=== PATIENT | male | born 1930 | race Caucasian/White ===

== ENCOUNTER 2016-11-30 04:20 | Inpatient (IN) | payer MEDICARE, OTHER ==
[~2016-11-30] VITALS: Ht 177.8 cm; Wt 57.8 kg
--- NOTE | 2016-11-30 14:26 | Physical Therapy Evaluation ---
PT Evaluation-General Medical Diagnosis Admission Date November 30, 2016 Medical Diagnosis: ischemic CVA Onset Date: Nov 21, 2016 Therapy Diagnosis Therapy Diagnosis: generalized weakness and debility Precautions Precautions/Isolations: Fall Prevention, Standard Precautions Referral Physician: Andrea Reason for Referral: Evaluation/Treatment Medical History Pertinent Medical History: Atrial Fib, CABG, CAD Additional Medical History laryngeal cancer; cardiac defib. 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 No c/o at this time. Pain Numeric Pain Scale: 0-No Pain Location: No Pain Reported Objective Patient Orientation: Normal For Age Problem Solving: Fair Attachments: Abraham Catheter ROM/Strength ROM Lower Extremities bilateral LE WFL Strenght Lower Extremities right knee flexion/extension 4+/5; hip flexion 4+/5; ankle dorsi/plantarflexion 4+/5 left knee flexion/extension 4+/5; hip flexion 4+/5; ankle dorsi/plantarflexion 4 +/5 Integumentary/Posture Integumentary refer to nursing notes Bladder Incontinence: Abraham Cath Posture slightly kyphotic Neuromuscular (Tone, Coordination, Reflexes) grossly intact with all Sensory Vision: Functional Hearing: Functional Sensation Right Lower Extremit: Intact Sensation Left Lower Extremity: Intact Transfers Functional [place] Measure 0=Not Assessed/NA 4=Minimal Assistance 1=Total Assistance 5=Supervision or Setup 2=Maximal Assistance 6=Modified [place] 3=Moderate Assistance 7=Complete IndependenceIRFPAI Quality Coding Scale 6 Independent with activity with or without an assistive device 5 Patient requires set up or clean up by helper. Patient completes activity by themselves 4 Supervision or touching assist (CGA). [place] provide cues , steadying assist 3 The helper provides less than half the effort to complete the activity 2 The helper provides more than half the effort to complete the activity 1 Dependent. The helper does all the effort to complete an activity 7 Patient refused to complete or attempt activity 9 The patient did not perform the activity before the current illness or injury 88 Not attempted due to Medical conditions or safety concerns Transfers (B, C, W/C) (FIM): 4 Scootin Rollin Roll Left to Right (QC): 5 Supine to/from Sit: 5 Sit to/from Stand: 4 Sit to Lying (QC): 5 Lying to Sitting/Side of Bed(Q: 5 Sit to Stand (QC): 4 Car Transfer (QC): 4 (simulated) Close CGA to SBA for safety Gait Does the Patient Walk?: Yes Mode of Locomotion: Walk Anticipated Mode of Locomotion: Walk Gait (FIM): 5 Distance (FIM): 3=150 ft Walk 10 feet (QC): 5 Walk 50 ft with 2 Turns(QC): 5 Walk 150 ft (QC): 5 Walking 10ft/uneven surface-QC: 5 Distance: 250' x 3 Gait Level of Assist: 5 Gait Persons Needed: 1 Gait Assistive Device: FWW Comments/Gait Description safe and functional with FWW Stairs Stairs (FIM): 5 #of Steps: 12 Level of Assist: 5 1 Step (curb) (QC): 5 4 Steps (QC): 5 12 Steps (QC): 5 reciprocal pattern with use of 1 hand rail Balance Sitting Static: Normal Sitting Dynamic: Normal Standing Static: Normal Standing Dynamic: Normal Picking up an Object (QC): 4 Special Test Comments Fan Balance test score 49/56 (refer to hard copy in chart) Treatment bilateral LE exercises 20 reps x 3 sets LAQ, standing toe raises, marching, abd/ add/extension, mini squats; NuStep 15 min WL 3 to improve cardiac function in improve strength Assessment/Needs 86 y.o. male, will benefit from skilled PT to address functional strength and mobility to improve current LOF and to safely return to home with spouse at maximum LOF. Rehab Potential: Good PT Short Term Goals Short Term Goals Time Frame: Dec 07, 2016 Transfers (B,C,W/C) (FIM): 5 Gait (FIM): 5 Distance (FIM): 3=150 ft Gait Distance Comment: 300' Gait Level of Assist: 5 Gait Assistive Device: FWW, Cane Single Point PT Fdc Goals Fdc Goals PT Railway [employer] Manager Goals Time Frame: Dec 21, 2016 Transfers (B,C,W/C) (FIM): 6 Sit to Lying (QC): 6 Lying-Sitting on Side/Bed(QC): 6 Sit to Stand (QC): 6 Rollin Roll Left to Right (QC): 6 Chair/Wou-nn-Eyclv Xfer(QC): 6 Car Transfer (QC): 6 Does the Patient Walk: Yes Gait (FIM): 6 Gait distance (FIM): 3=150 ft Distance: 300' Walk 10 feet (QC): 5 Walk 10ft-Uneven Surface(QC): 5 Walk 50ft with 2 Turns (QC): 5 Walk 150 ft (QC): 5 Gait Level of Assist: 6 Gait Assistive Device: None, FWW, Cane Single Point Stairs (FIM): 6 # of Steps: 12 1 Step (curb) (QC): 6 4 Steps (QC): 6 12 Steps (QC): 6 Stairs Level Of Assist: 6 Picking up an Object (QC): 5 PT Plan Problem List Problem List: Activity Tolerance Treatment/Plan Treatment Plan: Continue Plan of Care Treatment Plan: Education, Functional Activity Jie, Functional Strength, Group Therapy, Gait, Safety, Therapeutic Exercise, Transfers Treatment Duration: Dec 21, 2016 # of days/week 6 Minutes/Day (M-F): 60-90 Minutes/Day (Sat/[place]): PRN Pt/Family Agrees w/Plan: Yes Safety Risks/Education Patient Education: Safety Issues Teaching Recipient: Patient Teaching Methods: Demonstration, Discussion Response to Teaching: Verbalize Understanding, Return Demonstration Discharge Recommendations Therapy D/C Recommendations: Home w/ Family Support Time/GCodes Time In: 700 Time Out: 810 Total Billed Treatment Time: 70 Total Billed Treatment 1 visit EVHighC 35 min EX x 2 35 min ALBERTO TATE PT Nov 30, 2016 14:26
[2016-11-30] MEDS ORDERED: DARB200V IJ (15:25)
[2016-11-30] MEDS ORDERED: METO-270 PO (15:25)
[2016-11-30] MEDS ORDERED: RANI150T90 PO (15:25)
[2016-11-30] MEDS ORDERED: POTA-53 PO (15:25)
[2016-11-30] MEDS ORDERED: SOTA120T PO (15:25)
[2016-11-30] MEDS ORDERED: CLOP75TA28 PO (15:25)
[2016-11-30] MEDS ORDERED: FURO-125 PO (15:25)
[2016-11-30] MEDS ORDERED: DIGO0.12 PO (15:25)
[2016-11-30] MEDS ORDERED: ATOR40TA70 PO (15:25)
[2016-11-30] MEDS ORDERED: WARF5TAB PO (15:25)
[2016-11-30] MEDS ORDERED: SENN1TAB6 PO (15:25)
[2016-11-30] MEDS ORDERED: NF-METHI10 PO (15:25)
[2016-11-30 18:18] VITALS: BP 122/59
[2016-11-30] MEDS: ATORVASTATIN 40 MG (LIPITOR) TABLET PO SCH (21:18)
[2016-11-30] MEDS: meTOprolol TARTRATE 25 MG (LOPRESSOR) TABLET PO SCH (21:18)
[2016-11-30] MEDS: SOTALOL 80 MG (BETAPACE) TAB PO SCH (21:18)
[2016-11-30] MEDS: FAMOTIDINE 20 MG (PEPCID) TABLET GT SCH (21:19)
[2016-11-30] MEDS: MELATONIN 3 MG TABLET PO SCH (21:19)
[2016-12-01 05:40] VITALS: BP 111/66
[2016-12-01 06:38] LABS: INR 1.2 (0.8-1.4); PROTHROMBIN TIME PATIENT 14.9 SEC (12.2-14.7)
--- NOTE | 2016-12-01 07:29 | History & Physical ---
History of Present Illness History of Present Illness Reason for visit/HPI 86-year-old male admitted to [facility] inpatient rehabilitation on November 30, 2016 for rehabilitative services regarding a right sided hemiparesis due to ischemic stroke that subsequently occurred after patient's warfarin Plavix and aspirin were stopped. Approximately 3 weeks ago his anticoagulants were stopped as he was supposed to be undergoing a TURP procedure for BPH. Patient was initially admitted to [facility] in [facility] on October. He was working with speech therapy, physical therapy, and occupational therapy and was making good progress and appeared to be a good candidate for inpatient rehabilitation. Patient and his chose via [facility] in [place] as he is from [place] and has family in the area. patient does have a history of coronary artery disease atrial fibrillation, congestive heart failure , myelodysplastic syndrome, BPH. Patient's right-sided hemiparesis has improved patient still does not have the dysphagia with occasional expressive aphasia. In working with speech therapy their notes indicate he has signs and symptoms of aspiration and does not complete volitional double swallow to clear suspected pharyngeal pooled secretions. As such a PEG tube was placed 11/28/16 prior to transfer to [place] on the . Also of note patient does have myelodysplastic syndrome in which he follows with Dr. Olivarez in [place]. He gets darbepoetin on the first and 15th of the month if hemoglobin is less than 10. Patient's hemoglobin on discharge from [place] was 7.9 and currently is 7.7. rehabilitation services will be implemented patient will be seen by physical therapy and occupational therapy and speech therapy during his stay. Expect patient to improve rather quickly. Patient is motivated and willing to participate as he has goals of returning home with his . Date of Admission Nov 30, 2016 at 04:20 I consulted on this patient on 12/01/16 07:22 Attending Physician Jeremias Garcia MD Admitting Physician Horace Rubi MD Consult Allergies and Home Medications Allergies Coded Allergies: No Known Allergies (Verified Allergy, Unknown, 11/30/16) Home Medications Atorvastatin Calcium 40 Mg Tablet, 40 MG PO HS, (Reported) Clopidogrel Bisulfate 75 Mg Tablet, 75 MG PO DAILY, (Reported) Darbepoetin Russell 200 Mcg/Ml Soln, 200 MCG IJ ONCE, (Reported) Digoxin 0.125 Mg/2.5 Ml Solution, 0.125 MG PO DAILY, (Reported) Furosemide 20 Mg Tablet, 20 MG PO DAILY, (Reported) Methimazole 10 Mg Tab, 10 MG PO BID, (Reported) Metoprolol Succinate 25 Mg Tab.er.24h, 25 MG PO BID, (Reported) Potassium Chloride 20 Meq Tablet.er, 20 MEQ PO DAILY, (Reported) Ranitidine HCl 150 Mg Tablet, 150 MG PO BID, (Reported) Sennosides/Docusate Sodium 1 Each Tablet, 1 EACH PO DAILY, (Reported) Sotalol HCl 120 Mg Tablet, 120 MG PO BID, (Reported) Warfarin Sodium 5 Mg Tablet, 5 MG PO DAILY, (Reported) Past Cxizqsb-Aatgzz-Aieoss Hx Patient Social History Alcohol Use: Denies Use Recreational Drug Use: No Smoking Status: Never a Smoker Physical Abuse Screen: No Sexual Abuse: No Recent Foreign Travel: No Contact w/other who traveled: No Recent Hopitalizations: Yes Recent Infectious Disease Expo: No Immunizations Up To Date Date of Pneumonia Vaccine: Jun 01, 2015 Seasonal Allergies Seasonal Allergies: No Surgeries Surgeries: Adenoidectomy, Bowel Surgery (PEG tube), Cardiac (porcine aortic valve 2008), CABG (2008), Defibrillator, Gallbladder, Pacemaker, Tonsillectomy Respiratory Hx Respiratory Disorders: No Cardiovascular Hx Cardiovascular Disorders: Yes Cardiac Disorders: Atrial Fibrillation, Heart Attack Neurological Hx Neurological Disorders: Yes Neurological Disorders: Stroke, TIA Reproductive System Sexually Transmitted Disease: No HIV/AIDS: No Genitourinary Genitourinary Disorders: Benign Prostatic Hyperpl Gastrointestinal Hx Gastrointestinal Disorders: Yes Gastrointestinal Disorders: Gall Bladder Disease 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 Review of Systems Review of Systems General: No Chills, No Night Sweats, Fatigue, Malaise HEENT: No Head Aches, No Visual Changes, No Eye Pain Pulmonary: No Dyspnea, No Cough Cardiovascular: No: Chest Pain, Palpitations Gastrointestinal: No: Abdominal Pain, Constipation, Diarrhea, Nausea, Vomiting Genitourinary: No Dysuria, No Frequency Musculoskeletal: No: neck pain, shoulder pain Neurological: Other (some word finding difficulty), Weakness, No: Confusion, Incoordination, Numbness Physical Exam Vital Signs Vital Sign - Last 12Hours 11/30/16 11/30/16 18:01 18:18 Temp 98.2 Pulse 101 Resp 18 B/P (MAP) 122/59 Pulse Ox 98 O2 Delivery Room Air Capillary Refill : General Appearance: No Apparent Distress, WD/WN HEENT: PERRL/EOMI Neck: Full Range of Motion, Non Tender, Supple Respiratory: Chest Non Tender, Lungs Clear, Normal Breath Sounds, No Accessory Muscle Use, No Respiratory Distress Cardiovascular: No Edema, Normal Peripheral Pulses, Other (irregular rhythm, normal rate) Gastrointestinal: Normal Bowel Sounds, Non Tender, Soft, Other (left abdomen PEG tube) Rectal: Deferred Back: No CVA Tenderness, No Vertebral Tenderness Extremity: Non Tender, Other (sensation intact to light touch, motor 4/5 in all 4 extremities) Neurologic/Psychiatric: Alert, Oriented x3, No Motor/Sensory Deficits, Normal Mood/Affect Skin: Warm/Dry Assessment/Plan Assessment/Plan Assessment/Plan 86 yo M admitted 11/30/16 General debilitation secondary to ischemic stroke with right sided hemiparesis, right side facial droop, occassional expressive aphasia- improving. -initiating inpatient rehab intervention PT/OT/ST. myelodysplastic syndrome- on darbopoeitin , 15th of month- hold if hgb >10 - follows with Dr. Olivarez heme/onc in [place]. -macrocytic anemia- as above, hgb 7.7 - rechecking 12/03/16 CAD s/p CABG 2008 - resumed warfarin 11/30/16 Atrial fibrillation- resumed warfarin 11/30/16, monitor INR goal of 2-3 BPH- Pt has an indwelling catheter- last placed- 11/09/16 -was scheduled for a TURP (with a Dr. Mckeon) but the stroke occurred with holding anticoagulants. Warfarin was restarted 11/30/16 (48 hours after PEG tube placement) PAD- follows with vascular h/o laryngeal CA 1990s, s/p XRT- no dysphagia from it. Dysphagia with likely aspiration- PEG tube dependent- Jevity, Speech therapy to work with pt. Disposition: Nathan will have a comprehensive program of inpatient rehabilitation. The goal of inpatient rehabilitation is to maximize level of functional independence so he can return home with his . patient will have PT and OT 90 minutes per day 5 days a week for gait / strengthening /conditioning, ADLs, any adaptive equipment training necessary, or any patient family caregiver training necessary. . Speech therapy will be cognitive assessment and treatment as indicated. Rehabilitation nurses will provide nursing care including medication administration, care of his PEG tube. patient services assistant will assist with discharge planning with the goal of returning patient home. Initial initial admission labs obtained. We'll repeat a CBC on Saturday, December 03, 2016. estimated length of stay 2-3 weeks diet: PEG tube feeds currently using Jevity CODE STATUS: DO NOT RESUSCITATE Prognosis: Rehabilitation prognosis appears good for discharging patient home within the above estimated length of stay timeframe. and patient will need training with PEG tube feedings if patient's dysphagia does not improve. patient appears to be well motivated to pursue. Participate in the 3 hours of therapy per day he should be able to tolerate 3 hours of therapy from medical and surgical standpoint. Patient will benefit from the 3 hours of therapy per day. Patient has supportive . Both of the goal of returning home. Patient does have multiple comorbidities 1 being the myelodysplastic syndrome. We will continue to administer darbepoetin on the first and 15th of the month pending hemoglobin levels. Risks for this patient include fall, fracture, DVT, for aneurysm, urinary tract infection, respiratory infection, aspiration. Problems: Clinical Quality Measures DVT/VTE Risk/Contraindication: Risk Factor Score Per Nursin RFS Level Per Nursing on Admit: 2=Moderate Contraindications-Pharm: Other *list below* Other: on warfarin HORACE RUBI MD Dec 01, 2016 07:28
[2016-12-01 08:19] LABS: BASOPHILS % (AUTO) 1 % (0-10); EOSINOPHILS # (AUTO) 0.1 10^3/uL (0.0-0.3); EOSINOPHILS % (AUTO) 2 % (0-10); LYMPHOCYTES # (AUTO) 0.8 X 10^3 (1.0-4.0); LYMPHOCYTES % (AUTO) 16 % (12-44); MEAN CORPUSCULAR HEMOGLOBIN 33 PG (25-34); MEAN CORPUSCULAR HGB CONC 31 G/DL (32-36); MEAN CORPUSCULAR VOLUME 107 FL (80-99); MEAN PLATELET VOLUME 11.9 FL (7.4-10.4); MONOCYTES # (AUTO) 0.9 X 10^3 (0.0-1.0); MONOCYTES % (AUTO) 18 % (0-12); NEUTROPHILS % (AUTO) 63 % (42-75); PLATELET COUNT 257 10^3/uL (130-400); RED BLOOD COUNT 2.34 10^6/uL (4.35-5.85); RED CELL DISTRIBUTION WIDTH 23.2 % (10.0-14.5); WHITE BLOOD COUNT 4.8 10^3/uL (4.3-11.0)
[2016-12-01 08:34] LABS: ALANINE AMINOTRANSFERASE 13 U/L (0-55); ALBUMIN 3.2 G/DL (3.2-4.5); ANION GAP 8 MMOL/L (5-14); ASPARTATE AMINO TRANSFERASE 17 U/L (5-34); BILIRUBIN,TOTAL 0.8 MG/DL (0.1-1.0); BLOOD UREA NITROGEN 21 MG/DL (7-18); BUN/CREATININE RATIO 23; CALCIUM 8.3 MG/DL (8.5-10.1); CARBON DIOXIDE 24 MMOL/L (21-32); CHLORIDE 108 MMOL/L (98-107); GFR ESTIMATED > 60; GLUCOSE 163 MG/DL (70-105); SODIUM 140 MMOL/L (135-145); TOTAL PROTEIN 5.9 G/DL (6.4-8.2)
[2016-12-01 08:55] VITALS: BP 103/63
[2016-12-01] MEDS: DIGOXIN 0.125 MG (LANOXIN) TAB PO SCH (08:56)
[2016-12-01] MEDS: FAMOTIDINE 20 MG (PEPCID) TABLET GT SCH ×2 (08:56→22:00)
[2016-12-01] MEDS: SOTALOL 80 MG (BETAPACE) TAB PO SCH ×2 (08:57→22:00)
[2016-12-01] MEDS: ASPIRIN 81 MG CHEW (CHILDREN'S ASA) PO SCH (08:57)
[2016-12-01] MEDS: meTOprolol TARTRATE 25 MG (LOPRESSOR) TABLET PO SCH ×2 (08:57→21:00)
[2016-12-01] MEDS ORDERED: NON-FORMULARY MEDICATION 1 EA EA PO SCH (09:00)
--- NOTE | 2016-12-01 09:49 | Occupational Therapy Eval ---
OT Evaluation-General/PLF Medical Diagnosis Admission Date Nov 30, 2016 at 04:20 Medical Diagnosis: ischemic CVA Onset Date: Nov 21, 2016 Therapy Diagnosis Therapy Diagnosis: CVA Height/Weight Height (Feet): 5 Height (Inches): 10.00 Weight (Pounds): 123 Weight (Ounces): 4.0 Precautions Precautions/Isolations: Aspiration, Fall Prevention, Standard Precautions Safety Interventions: Reorient-PRN Referral Physician: Andrea Referral Reason: Evaluation/Treatment Medical History Pertinent Medical History: Atrial Fib, CABG, CAD, CVA, CA Additional Medical History TIA, hyperthyroid, myelodysplastic syndrome, CHF, A-fib, aortic valve replacement 2008. laryngeal cancer. Current History Suffered CVA with right sided weakness and facial droop. Was at the [place] in [facility] but transfered back to [facility] to rehab closer to family. with 2 daughters in the area. Reviewed History: Yes Social History Home: Single Level Current Living Status: Spouse Entry Into Home: Ramp Steps Inside Home: 0 ADL-Prior Level of Function ADL PLOF Comments Independent in ADL prior to recent event. States he has steps to enter the home but does not know how many as he has a ramp. He indicates the catheter is long standing. He was driving for short distances and performed various chores around the home. DME/Equipment: Shower DME/Equipment Comments History indicates a shower with a seat, but patient reports he had no equipment in the bathroom at home and was able to stand to shower. Drive Self: Yes OT Current Status Subjective "OK but they haven't brought my clothes yet, they just dropped me here yesterday." Appearance Patient asleep when OT entered the room. Easily awakened and agreed to working with therapist to address current ADL. Mental Status/Objective Patient Orientation: Person, Place, Situation Attachments: Abraham Catheter, PEG Tube Current Glasses/Contacts: No Hearing Aids: No Dentures/Partials: No Hand Dominance: Right Upper Extremity ROM Movement in then normal range bilaterally. Upper Extremity Coordination Appears intact. Upper Extremity Sensation Intact per report. Upper Extremity Strength RUE 4/5 LUE 5/5 ADL-Treatment Functional [place] Measure 0=Not Assessed/NA 4=Minimal Assistance 1=Total Assistance 5=Supervision or Setup 2=Maximal Assistance 6=Modified [place] 3=Moderate Assistance 7=Complete IndependenceIRFPAI Quality Coding Scale 6 Independent with activity with or without an assistive device 5 Patient requires set up or clean up by helper. Patient completes activity by themselves 4 Supervision or touching assist (CGA). [place] provide cues , steadying assist 3 The helper provides less than half the effort to complete the activity 2 The helper provides more than half the effort to complete the activity 1 Dependent. The helper does all the effort to complete an activity 7 Patient refused to complete or attempt activity 9 The patient did not perform the activity before the current illness or injury 88 Not attempted due to Medical conditions or safety concerns Eating (FIM): 0 Eating (QC): 0 Grooming (FIM): 5 Oral Hygiene (QC): 5 Bathing (FIM): 5 Bathing Location: L Arm, R Arm, L Upper Leg, R Upper Leg, L Lower Leg ( including foot), R Lower Leg (including foot), Chest, Abdomen, Buttocks, Perineal Area Shower/Bathe Self (QC): 5 Upper Body Dressing (FIM): 5 Upper Body Dressing (QC): 5 Lower Body Dressing (FIM): 5 Lower Body Dressing (QC): 5 On/Off Footwear (QC): 5 Toileting (FIM): 0 Toileting Hygiene (QC): 0 Transfers (B, C, W/C) (FIM): 5 Toilet/Commode Transfer (FIM): 0 Toilet Transfer (QC): 0 Tub Transfer (FIM): 0 Shower Transfer (FIM): 0 OT Short Term Goals Short Term Goals Time Frame: Dec 08, 2016 Eating(FIM): 0 Grooming(FIM): 6 Bathing(FIM): 6 Bathing Location: L Arm, R Arm, L Upper Leg, R Upper Leg, L Lower Leg ( including foot), R Lower Leg (including foot), Chest, Abdomen, Buttocks, Perineal Area Upper Body Dressing(FIM): 6 Lower Body Dressing(FIM): 6 Toileting(FIM): 6 Transfers (B,C,W/C) (FIM): 6 Toilet/Commode Transfer(FIM): 6 Tub Transfer(FIM): 0 Shower Transfer(FIM): 6 1=Demonstrate adherence to instructed precautions during ADL tasks. 2=Patient will verbalize/demonstrate understanding of assistive devices/ modifications for ADL. 3=Patient will improve strength/tolerance for activity to enable patient to perform ADL's. OT Negotiator Goals Fpc Goals Time Frame: Dec 15, 2016 Eating (FIM): 0 Eating (QC): 0 Groomin Oral Hygiene (QC): 6 Bathing(FIM): 6 Bathing Location: L Arm, R Arm, L Upper Leg, R Upper Leg, L Lower Leg ( including foot), R Lower Leg (including foot), Chest, Abdomen, Buttocks, Perineal Area Shower/Bathe Self (QC): 6 Upper Body Dressing(FIM): 6 Upper Body Dressing (QC): 6 Lower Body Dressing(FIM): 6 Lower Body Dressing (QC): 6 On/Off Footwear (QC): 6 Toileting(FIM): 6 Toileting Hygiene (QC): 6 Transfers (B,C,W/C) (FIM): 6 Toilet/Commode Transfer(FIM): 6 Toilet/Commode Transfer (QC): 6 Tub Transfer(FIM): 0 Shower Transfer(FIM): 6 1=Demonstrate adherence to instructed precautions during ADL tasks. 2=Patient will verbalize/demonstrate understanding of assistive devices/ modifications for ADL. 3=Patient will improve strength/tolerance for activity to enable patient to perform ADL's. OT Education/Plan Problem List/Assessment Assessment: Decreased Activ Tolerance, Decreased UE Strength, Impaired Self- Care Skills Discharge Recommendations Plan/Recommendations: Continue POC Barriers to Progress Expressive aphasia Target Placement Return home with . Patient/Family Goals Home with family Treatment Plan/Plan of Care Treatment,Training & Education: Yes Patient would benefit from OT for education, treatment and training to promote independence in ADL's, mobility, safety and/or upper extremity function for ADL' s. Plan of Care: ADL Retraining, Group Exercise/Act as Ind, UE Funct Exercise/Act Treatment Duration: Dec 01, 2016 # of days/week 5 days per week, as needed Saturday Visits Per Week: 10 Agreement: Yes Rehab Potential: Good Time/GCodes Start Time: 09:20 Stop Time: 10:10 Total Time Billed (hr/min): 50 Billed Treatment Time Visit, Evhighc (20") ADL x 2 (30") G Codes Necessary: No BETH GILLIAM OT Dec 01, 2016 09:49
[2016-12-01] MEDS ORDERED: METHIMAZOLE 10 MG TAB PO SCH (16:00)
[2016-12-01] MEDS: METHIMAZOLE 10 MG TAB PO SCH (16:59)
[2016-12-01] MEDS: warFARin 5 MG (COUMADIN) TAB PO SCH (17:00)
[2016-12-01 18:14] VITALS: BP 106/54
--- NOTE | 2016-12-01 20:18 | PM&R Post Admission Assessment ---
Post Admission Physician Asses The preadmission screen agrees with the post admission assessment that the patient is a good candidate for inpatient rehabilitation. The patient will have a comprehensive program of inpatient rehabilitation with a goal of maximizing level of functional dependence prior to discharge home with [family]. The patient will have PT/OT ninety minutes per day, each discipline, five days a week for gait strengthening, conditioning, balance, ADLs , any patient/family/caregiver training necessary. Speech therapy to do cognitive assessment and treat as indicted. Rehabilitation nursing to assist with bowel, bladder, skin, wound care, medication administration, pain management. Clinical Social Work Therapist to assist with discharge planning, community reentry. SCD's for DVT prophylaxis. He appears to be well motivated to participate in three hours of therapy a day. He should be able to tolerate three hours of therapy a day from a medical standpoint. He should benefit from the three hours of therapy a day. He has a reasonable discharge plan, reasonable discharge rehabilitation goals and a supportive family. He has various comorbidities that need to be closely monitored with medications and treatments adjusted on a daily basis as needed. These include: [DM Anemia borderline hypotension] Barriers to discharge for this patient who had been independent prior to this and for him to be modified independent to supervision for ADLs and mobility skills prior to discharge home with [family], so as to lessen the burden of the caregivers. Risks for this patient include: 1. Fall 2. Fracture 3. DVT 4. Pulmonary embolism 5. Wound infection 6. Skin breakdown 7. Contractures 8. Poorly controlled pain 9. Urinary retention 10. UTI 11. Respiratory infection 12. Aspiration [] Estimated Length of Stay: 3 weeks Prognosis: Rehab prognosis appears good for goal of discharge home with family modified independent to supervision for ADLs and mobility skills. GUILLERMO MONACO MD Dec 01, 2016 20:18
[2016-12-01] MEDS: inSUlin ASPART (NovoLOG) 1 UNIT/0.01 ML (CHARGE PER UNIT) SC SCH (21:00)
[2016-12-01] MEDS: ATORVASTATIN 40 MG (LIPITOR) TABLET PO SCH (22:00)
[2016-12-01] MEDS: MELATONIN 3 MG TABLET PO SCH (22:00)
[2016-12-02 06:30] VITALS: BP 106/58
[2016-12-02] MEDS: METHIMAZOLE 10 MG TAB PO SCH (06:56)
[2016-12-02] MEDS: inSUlin ASPART (NovoLOG) 1 UNIT/0.01 ML (CHARGE PER UNIT) SC SCH ×2 (09:00→21:00)
[2016-12-02] MEDS: DIGOXIN 0.125 MG (LANOXIN) TAB PO SCH (09:23)
[2016-12-02] MEDS: ASPIRIN 81 MG CHEW (CHILDREN'S ASA) PO SCH (09:24)
[2016-12-02] MEDS: SOTALOL 80 MG (BETAPACE) TAB PO SCH ×2 (09:24→21:32)
[2016-12-02] MEDS: meTOprolol TARTRATE 25 MG (LOPRESSOR) TABLET PO SCH ×2 (09:25→21:00)
[2016-12-02] MEDS: FAMOTIDINE 20 MG (PEPCID) TABLET GT SCH ×2 (09:25→21:32)
[2016-12-02 09:50] LABS: INR 1.2 (0.8-1.4); PROTHROMBIN TIME PATIENT 14.6 SEC (12.2-14.7)
[2016-12-02] MEDS: warFARin 5 MG (COUMADIN) TAB PO SCH (17:57)
[2016-12-02 18:41] VITALS: BP 114/63
[2016-12-02 20:37] VITALS: BP 112/56
[2016-12-02] MEDS: MELATONIN 3 MG TABLET PO SCH (21:32)
[2016-12-02] MEDS: ATORVASTATIN 40 MG (LIPITOR) TABLET PO SCH (21:32)
[2016-12-03 05:27] VITALS: BP 112/60
[2016-12-03] MEDS: METHIMAZOLE 10 MG TAB PO SCH (06:14)
[2016-12-03 07:57] LABS: LYMPHOCYTES % (AUTO) 16 % (12-44); MEAN CORPUSCULAR HEMOGLOBIN 33 PG (25-34); MEAN CORPUSCULAR HGB CONC 31 G/DL (32-36); MEAN CORPUSCULAR VOLUME 108 FL (80-99); MEAN PLATELET VOLUME 11.6 FL (7.4-10.4); NEUTROPHILS % (AUTO) 64 % (42-75); PLATELET COUNT 263 10^3/uL (130-400); WHITE BLOOD COUNT 5.9 10^3/uL (4.3-11.0)
[2016-12-03 07:58] LABS: BASOPHILS % (AUTO) 1 % (0-10); EOSINOPHILS # (AUTO) 0.2 10^3/uL (0.0-0.3); EOSINOPHILS % (AUTO) 4 % (0-10); INR 1.3 (0.8-1.4); LYMPHOCYTES # (AUTO) 0.9 X 10^3 (1.0-4.0); MONOCYTES % (AUTO) 16 % (0-12); NEUTROPHILS # (AUTO) 3.7 X 10^3 (1.8-7.8); PROTHROMBIN TIME PATIENT 15.6 SEC (12.2-14.7)
[2016-12-03] MEDS: inSUlin ASPART (NovoLOG) 1 UNIT/0.01 ML (CHARGE PER UNIT) SC SCH ×2 (09:00→20:49)
[2016-12-03] MEDS: SOTALOL 80 MG (BETAPACE) TAB PO SCH ×2 (09:37→21:25)
[2016-12-03] MEDS: meTOprolol TARTRATE 25 MG (LOPRESSOR) TABLET PO SCH ×2 (09:38→21:26)
[2016-12-03] MEDS: FAMOTIDINE 20 MG (PEPCID) TABLET GT SCH ×2 (09:38→21:26)
[2016-12-03] MEDS: DIGOXIN 0.125 MG (LANOXIN) TAB PO SCH (09:38)
[2016-12-03] MEDS: ASPIRIN 81 MG CHEW (CHILDREN'S ASA) PO SCH (09:38)
--- NOTE | 2016-12-03 12:18 | Physical Therapy Daily Note ---
PT Daily Note-Current Subjective Pt. agrees to Rx with encouragement. Pt. has difficulty expressing his ideas/ thoughts. Pt. spat on floor vs requesting kleenex. States he is fatigued not very far in to Rx session this date. Pain Numeric Pain Scale: 0-No Pain Mental Status Patient Orientation: Confused Attachments: PEG Tube has difficulty following commands, needs many verbal cues and tactile cues Transfers Functional [place] Measure 0=Not Assessed/NA 4=Minimal Assistance 1=Total Assistance 5=Supervision or Setup 2=Maximal Assistance 6=Modified [place] 3=Moderate Assistance 7=Complete IndependenceIRFPAI Quality Coding Scale 6 Independent with activity with or without an assistive device 5 Patient requires set up or clean up by helper. Patient completes activity by themselves 4 Supervision or touching assist (CGA). Duff provide cues , steadying assist 3 The helper provides less than half the effort to complete the activity 2 The helper provides more than half the effort to complete the activity 1 Dependent. The helper does all the effort to complete an activity 7 Patient refused to complete or attempt activity 9 The patient did not perform the activity before the current illness or injury 88 Not attempted due to Medical conditions or safety concerns Transfers (B, C, W/C) (FIM): 5 Scootin Rollin Supine to/from Sit: 6 Sit to/from Stand: 5 Bed to/from Chair: 5 Gait Training Does the Patient Walk?: Yes Gait (FIM): 5 Distance (FIM): 3=150 ft (200x) Gait Level of Assist: 5 Gait Persons Needed: 1 Gait Assistive Device: FWW skilled verbal instruction for safety and proximity to FWW vernell turning Stair Training Stair Training: Handrails/: 2 handrails Stairs (FIM): 4 #of Steps: 12 Stairs: Pattern: Reciprocal Level of Assist: 4 pt. needed cues to put more of foot onto step Exercises Supine Ex: Bridging, Ankle pumps, Rolling, Heel Slides, Short Arc Quads, Straight leg raise, Hip abd/add Supine Reps: 15 Standing: Heel/toe raises, Marching Standing Reps: 12 NuStep Minutes: 7 NuStep Workload: 1 Assessment Current Status: Good Progress fatigues quickly PT Short Term Goals Short Term Goals Time Frame: Dec 07, 2016 Transfers (B,C,W/C) (FIM): 6 Gait (FIM): 5 Distance (FIM): 3=150 ft Gait Distance Comment: 300' Gait Level of Assist: 5 Gait Assistive Device: FWW, Cane Single Point PT Jig Hand Goals Usp Goals PT Jig Hand Goals Time Frame: Dec 21, 2016 Transfers (B,C,W/C) (FIM): 6 Sit to Lying (QC): 6 Lying-Sitting on Side/Bed(QC): 6 Sit to Stand (QC): 6 Rollin Roll Left to Right (QC): 6 Chair/Ope-hs-Snght Xfer(QC): 6 Car Transfer (QC): 6 Does the Patient Walk: Yes Gait (FIM): 6 Gait distance (FIM): 3=150 ft Distance: 300' Walk 10 feet (QC): 5 Walk 10ft-Uneven Surface(QC): 5 Walk 50ft with 2 Turns (QC): 5 Walk 150 ft (QC): 5 Gait Level of Assist: 6 Gait Assistive Device: None, FWW, Cane Single Point Stairs (FIM): 6 # of Steps: 12 1 Step (curb) (QC): 6 4 Steps (QC): 6 12 Steps (QC): 6 Stairs Level Of Assist: 6 Picking up an Object (QC): 5 PT Plan Treatment/Plan Treatment Plan: Continue Plan of Care Treatment Plan: Education, Functional Activity Jie, Functional Strength, Group Therapy, Gait, Safety, Therapeutic Exercise, Transfers Treatment Duration: Dec 21, 2016 Minutes/Day (M-F): 60-90 Minutes/Day (Sat/Costa): PRN Safety Risks/Education Patient Education: Gait Training, Transfer Techniques, Steps, Correct Positioning, Safety Issues Teaching Recipient: Patient Teaching Methods: Demonstration, Discussion Response to Teaching: Verbalize Understanding, Return Demonstration, Reinforcement Needed Time/GCodes Time In: 1120 Time Out: 1220 Total Billed Treatment Time: 60 Total Billed Treatment 1,GT15m,EX25,FA20m G Codes Necessary: JANAE Villanueva SALON COORDINATOR Dec 03, 2016 12:17
--- NOTE | 2016-12-03 12:38 | ST Dysphagia Evaluation ---
Speech Evaluation-General Medical Diagnosis ischemic CVA Onset Date: Nov 21, 2016 Therapy Diagnosis Therapy Diagnosis: PHARYNGEAL DYSPHAGIA Precautions Precautions: Aspiration Precautions/Isolations: Aspiration, Fall Prevention, Standard Precautions Medical History Pertinent Medical History: Atrial Fib, CABG, CAD, CVA, [place] Current History PATIENT HAD THROAT CANCER AROUND 1989 THAT HE RECEIVED RADIATION THERAPY. HIS INDICATED THAT THIS TREATMENT DID EFFECT HIS VOCAL FOLDS BUT SHE WAS UNSURE OF THE EXTENT. THE PATIENT PRESENTS HOARSE AND DYSPHONIC. Reviewed History: Yes Social History Home: Single Level Current Living Status: Spouse Speech PLF/Current-Dysphagia Prior Level of Function THE PATIENT AND HIS INDICATED THAT HUSSAIN HAD EATEN VIA A NG TUBE BEFORE HIS MBS ON 11/28/16 WHEN HE ASPIRATED. HIS INDICATED THAT HUSSAIN WAS NOT CONSISTENT WITH FOLLOWING SWALLOWING PRECAUTIONS AND HAD TO HAVE SOMEONE THERE TO CUE HIM TO COMPLETE. Subjective PATIENT IS ALERT BUT HAS MODERATE DIFFICULTY WITH FOLLOWING MULTI-STEP DIRECTIONS. Cognitive Status Patient Orientation: Person, Place Oral Motor Skills Dentition: Edentalous Denture Type: Full- Upper & Lower, Inappropriate Fit (LOWER DENTURES ARE A POOR FIT) Ability to Follow Directions: Fair Oral Expression Ability: Mild Impairment Voice Voice Phonatory-Based Quality: Breathy, Hoarse Voice Pitch: Mildly High Voice Loudness: Mildly Soft/Quiet Face Facial Symmetry: Asymmetrical RIGHT SIDE Oral-Facial Assessment Labial Seal Description: Normal Smile: Normal Puff Cheeks: Normal Lingual Protrusion: Normal Lingual ROM: Normal Lingual Strength: Normal Gag Reflex Response: Normal Pharynx Velopharyngeal Move.: Weak on Left Volitional Dry Swallow: Yes POOR INITIATION BUT PATIENT IS DRY Voluntary Cough: Yes BREATHY, POSSIBLY DUE TO POOR CLOSURE OF THE VF'S Can Clear Throat Volitionally: Yes Productive Cough: No Productive Throat Clear: No Dysphagia Evaluation PATIENT IS A SILENT ASPIRATION RISK DUE TO POOR VF CLOSURE. Dietary Recommendations: NPO Liquid Recommendations: NPO NPO UNTIL THE PATIENT'S REHABILITATIVE STATUS IS UPGRADED ALLOWING HIM TO BE ABLE TO FOLLOW COMPENSATORY SWALLOW STRATEGIES MORE CONSISTENTLY AND WITH INCREASED SAFETY. Dysphagia Evaluation Summary THIS 86-YEAR-OLD MAN PRESENTS WITH PHARYNGEAL DYSPHAGIA. AFTER HIS MBS, FINDINGS CONCLUDED THAT HE SILENTLY ASPIRATED LIQUIDS AND FOODS. HE IS INCONSISTENT WITH FOLLOWING SWALLOW PRECAUTIONS. HE MAY BE A FAVORABLE CANDIDATE FOR VITALSTIM THERAPY TO INCREASE PHARYNGEAL STRENGTH AND SENSATION FOR IMPROVED SWALLOW COORDINATION. Barriers to Learning CONFUSION Speech Short Term Goals Short Term Goals Short Term Goals 1) THE PATIENT WILL BE ABLE TO TOLERATE PHARYNGEAL STRENGTHENING ACTIVITIES FOR AT LEAST 90% OF TASKS PROVIDED. 2) THE PATIENT WILL BE ABLE TO FOLLOW COMPENSATORY SWALLOW STRATEGIES TO FACILITATE A SAFE AND EFFECTIVE SWALLOW FOR DIETARY TRIALS WITH PHYSICALLY IMPAIRED TEACHER PRESENT WITH UP TO 90% RETURN. 3) GIVEN A VISUAL CUE, THE PATIENT WILL BE ABLE TO VERBALIZE AT LEAST 1/3 COMPENSATORY SWALLOW STRATEGIES FOR SAFE SWALLOWING. 4) GIVEN THERMAL SENSORY STIMULATION, THE PATIENT WILL BE ABLE TO EFFECTIVELY INITIATE SWALLOW RESPONSE WITHIN 2 SECONDS. Comprehension: 3 Expression: 3 Social Interaction: 3 Problem Solvin Memory: 3 Speech Assisted Goals Fulfillment Mail Clerk Goals 1) THE PATIENT WILL PARTICIPATE IN CAREGIVER EDUCATION REGARDING SWALLOW PRECAUTIONS, COMPENSATORY SWALLOW STRATEGIES WELL DIET CHANGES AND RECOMMENDATIONS WITH CAREGIVER RECALL AT 80% RETURN FOLLOWING QUESTIONING. 2) GIVEN DIETARY TRIALS, THE PATIENT WILL TOLERATE PLEASURABLE FEEDINGS WITHOUT ASPIRATION TO IMPROVE QUALITY OF LIFE WITHIN 30 DAYS. Time Frame: 30 DAYS Comprehension: 5 Expression: 5 Social Interaction: 5 Problem Solvin Memory: 4 Speech-Plan Patient/Family Goals Patient/Family Goals: TO BE ABLE TO EAT BY MOUTH. Treatment Plan Speech Therapy Treatment Plan: Continue Plan of Care PATIENT WOULD BENEFIT FROM SKILLED PHYSICALLY IMPAIRED TEACHER SERVICES DUE TO PHARYNGEAL DYSPHAGIA AND HISTORY OF ASPIRATION. Treatment Duration: January 04, 2017 # of days/week 5 Visits Per Week: 30-45 MINUTES Minutes/Day (M-F): M-F Rehab Potential: Good Barriers to Learning: CONFUSION, WEIGHT LOSS Pt/Family Agrees to Plan: Yes Safety Risks/Education Teaching Recipient: Patient, Family, Significant Other Teaching Methods: Demonstration, Handout, Discussion Response to Teaching: Verbalize Understanding, Return Demonstration Education Topics Provided: DYSPHAGIA Discharge Recommendations Home w/ Family Support Time Speech Therapy Time In: 10:30 Speech Therapy Time Out: 10:50 Total Billed Time: 45 Billed Treatment Time 1ALICIA iGana JENKINSDOV Dec 03, 2016 12:38
--- NOTE | 2016-12-03 13:05 | ST Cognitive Linguistic Eval ---
Speech Evaluation-General Medical Diagnosis ischemic CVA Onset Date: Nov 21, 2016 Therapy Diagnosis Therapy Diagnosis: COGNITIVE-LINGUSITIC DEFICITS Precautions Precautions: Aspiration Precautions/Isolations: Aspiration, Fall Prevention, Standard Precautions Referral Reason for Referral: Evaluation/Treatment Medical History Pertinent Medical History: Atrial Fib, CABG, CAD, CVA, [place] THROAT CANCER Reviewed History: Yes Social History Home: Single Level Current Living Status: Spouse Speech PLF-Current Status Prior Level of Function PATIENT LIVES AT HOME WITH HIS . PER HIS 'S REPORT, HUSSAIN HAS HIS OWN CHECKING/SAVINGS ACCOUNT AND COMPLETED ALL THE BILLS. Subjective PATIENT WAS PLEASANT AND AGREEABLE TO THIS SENIOR CORE JAVA DEVELOPER'S VISIT. Language Eval: Auditory Comprehends Simple Yes/No Ques: Mild Indent/Objects Multiple Hernandez: Functional Ident/Pics in Multiple Heranndez: Functional Follows 1-Step Commands: Mild Follows Complex Directions: Moderate Follows General Conversations: Mild Language Eval: Verbal Language Completes Spontaneous Greeting: Functional Produces Auto, Serial Info: Functional Imitates Simple Words/Phrases: Functional Word Finding: Functional Requests Basic Needs: Mild States Basic Personal Info: Mild Expresses Complex Ideas: Moderate Language Evaluation: Reading Comprehends Single Nouns: Functional Follows Simple Written Direct: Moderate Comprehends Multiple Sentences: Severe Language Evaluation: Writing Copies/Traces: Mild Writes to Simple Dictation: Mild Writes Personal Information: Moderate Writes Short Phrases: Moderate Writes Detailed Sent/Paragraph: Severe Cognitive Patient Orientation ALERT, ORIENTATED X 2 Objective Cognitive Domain Attention: Mild Objective Oral Motor/Speech Production PATIENT HAS PHARYNGEAL DYSPHAGIA Communication/Social Cognition Comprehension: 3 Expression: 3 Social Interaction: 3 Problem Solvin Memory: 3 Speech Short Term Goals Short Term Goals Short Term Goals 1) THE PATIENT WILL BE ABLE TO TOLERATE PHARYNGEAL STRENGTHENING ACTIVITIES FOR AT LEAST 90% OF TASKS PROVIDED. 2) THE PATIENT WILL BE ABLE TO FOLLOW COMPENSATORY SWALLOW STRATEGIES TO FACILITATE A SAFE AND EFFECTIVE SWALLOW FOR DIETARY TRIALS WITH SENIOR CORE JAVA DEVELOPER PRESENT WITH UP TO 90% RETURN. 3) GIVEN A VISUAL CUE, THE PATIENT WILL BE ABLE TO VERBALIZE AT LEAST 1/3 COMPENSATORY SWALLOW STRATEGIES FOR SAFE SWALLOWING. 4) GIVEN THERMAL SENSORY STIMULATION, THE PATIENT WILL BE ABLE TO EFFECTIVELY INITIATE SWALLOW RESPONSE WITHIN 2 SECONDS. 5) THE PATIENT WILL BE ABLE TO COMPLETE RECALL OF THREE OBJECTS WITHOUT PROMPTING AT 5, 10 & 15 MINUTE INTERVALS. 6) THE PATIENT WILL BE ABLE TO COMPLETE TASKS RELATED TO DIVERGENT/CONVERGENT NAMING TO ASSIST WITH INCREASED MENTAL FLEXIBILITY WITH UP TO 80% RETURN. 7) FOLLOWING SAFETY TRAINING FROM NS AND/OR OTHER THERAPISTS, THE PATIENT WILL BE ABLE TO RECALL AT LEAST 80% OF INFORMATION FOLLOWING REQUESTS. 8) USING ALTERNATING ATTENTION TASKS, HUSSAIN WILL COMPLETE THESE TASKS FOR UP TO 5 MINUTES WITH MINIMAL PROMPTS. Comprehension: 3 Expression: 3 Social Interaction: 3 Problem Solvin Memory: 3 Speech Transportation Security Screener Goals Transportation Security Screener Goals 1) THE PATIENT WILL PARTICIPATE IN CAREGIVER EDUCATION REGARDING SWALLOW PRECAUTIONS, COMPENSATORY SWALLOW STRATEGIES WELL DIET CHANGES AND RECOMMENDATIONS WITH CAREGIVER RECALL AT 80% RETURN FOLLOWING QUESTIONING. 2) GIVEN DIETARY TRIALS, THE PATIENT WILL TOLERATE PLEASURABLE FEEDINGS WITHOUT ASPIRATION TO IMPROVE QUALITY OF LIFE WITHIN 30 DAYS. 3) HUSSAIN WILL BE ABLE TO SEQUENCE AT LEAST 5-STEPS WITH A VISUAL CUE TO COMPLETE ADL'S. 4) USING A VISUAL REMINDER, HUSSAIN WILL BE ABLE TO RECALL TIME/DAY/DATE AND IMPORTANT PERSONAL INFORMATION WITH UP TO 90% RETURN. Time Frame: 30 DAYS Comprehension: 5 Expression: 5 Social Interaction: 5 Problem Solvin Memory: 4 Speech-Plan Patient/Family Goals Patient/Family Goals: TO IMPROVE HUSSAIN'S THINKING SO HE CAN GO HOME. Treatment Plan Speech Therapy Treatment Plan: Continue Plan of Care Treatment Duration: January 04, 2017 Visits Per Week: 30-45 MINUTES Minutes/Day (M-F): M-F Rehab Potential: Good Pt/Family Agrees to Plan: Yes Safety Risks/Education Teaching Recipient: Patient, Family, Significant Other Teaching Methods: Demonstration, Handout, Discussion Response to Teaching: Verbalize Understanding, Return Demonstration Education Topics Provided: CUES Time Speech Therapy Time In: 10:50 Speech Therapy Time Out: 11:15 Total Billed Time: 25 Billed Treatment Time 1, SPSNDCOMP Giana JENKINSDOV Dec 03, 2016 13:05
--- NOTE | 2016-12-03 13:30 | Occupational Ther Daily Note ---
OT Current Status-Daily Note Subjective No pain reported. Spouse in room. States, "I need to quit talking for him so his voice will get stronger." Appearance Pt. is in room in bed. Spouse in room as well. States that she has already assisted pt. this morning with bathing and dressing on side of bed. States that pt. had no difficulty with this. Pt. concurs this. Mental Status/Objective Patient Orientation: Person, Place Functional [place] Measure 0=Not Assessed/NA 4=Minimal Assistance 1=Total Assistance 5=Supervision or Setup 2=Maximal Assistance 6=Modified [place] 3=Moderate Assistance 7=Complete [place] Expression(FIM): 3 (Pt. has difficulty making needs known or giving OT information. 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 Able to follow all cues.) ADL-Treatment Functional [place] Measure 0=Not Assessed/NA 4=Minimal Assistance 1=Total Assistance 5=Supervision or Setup 2=Maximal Assistance 6=Modified [place] 3=Moderate Assistance 7=Complete IndependenceIRFPAI Quality Coding Scale 6 Independent with activity with or without an assistive device 5 Patient requires set up or clean up by helper. Patient completes activity by themselves 4 Supervision or touching assist (CGA). Mccleary provide cues , steadying assist 3 The helper provides less than half the effort to complete the activity 2 The helper provides more than half the effort to complete the activity 1 Dependent. The helper does all the effort to complete an activity 7 Patient refused to complete or attempt activity 9 The patient did not perform the activity before the current illness or injury 88 Not attempted due to Medical conditions or safety concerns Eating (FIM): 88 (NPO) Eating (QC): 88 Toileting (FIM): 88 (Pt. has catheter. Did not have to have BM.) Toileting Hygiene (QC): 88 Other Treatment Since pt. had already completed spongebath and dressing with spouse, agreed to ambulate to therapy gym with OT. Ambulated with walker with SBA. No LOB noted. OT tested UE strength again. Noted right UE to be approximately 3/5 throughout, and left UE 4/5 throughout. Pt. completed 15 minutes on armbike at mod resistance to increase overall endurance and UE strength for functional tasks. Pt. then participated in series of fine motor tasks with beads, pegs, and nuts/bolts activity to increase overall strength and ability to utilize right hand. Tolerated well with slight difficulty manipulating small objects with right hand. Overall, completed tasks well and able to follow directions. Pt. ambulated back to room with SBA. All needs met in room. Education OT Patient Education: Exercise program, Modified ADL techniques, Progress toward Goal/Update tx plan, Purpose of tx/functional activities, Reviewed precautions, Rehab process, Transfer techniques Teaching Recipient: Patient Teaching Methods: Demonstration, Discussion Response to Teaching: Verbalize Understanding, Return Demonstration OT Short Term Goals Short Term Goals Time Frame: Dec 08, 2016 Eating(FIM): 0 Grooming(FIM): 6 Bathing(FIM): 6 Bathing Location: L Arm, R Arm, L Upper Leg, R Upper Leg, L Lower Leg ( including foot), R Lower Leg (including foot), Chest, Abdomen, Buttocks, Perineal Area Upper Body Dressing(FIM): 6 Lower Body Dressing(FIM): 6 Toileting(FIM): 6 Transfers (B,C,W/C) (FIM): 6 Toilet/Commode Transfer(FIM): 6 Tub Transfer(FIM): 0 Shower Transfer(FIM): 6 Comprehension(FIM): 3 Expression(FIM): 3 Social Interaction(FIM): 3 Problem Solving(FIM): 3 Memory(FIM): 3 1=Demonstrate adherence to instructed precautions during ADL tasks. 2=Patient will verbalize/demonstrate understanding of assistive devices/ modifications for ADL. 3=Patient will improve strength/tolerance for activity to enable patient to perform ADL's. OT Jail Goals Jail Goals Time Frame: Dec 15, 2016 Eating (FIM): 0 Eating (QC): 0 Groomin Oral Hygiene (QC): 6 Bathing(FIM): 6 Bathing Location: L Arm, R Arm, L Upper Leg, R Upper Leg, L Lower Leg ( including foot), R Lower Leg (including foot), Chest, Abdomen, Buttocks, Perineal Area Shower/Bathe Self (QC): 6 Upper Body Dressing(FIM): 6 Upper Body Dressing (QC): 6 Lower Body Dressing(FIM): 6 Lower Body Dressing (QC): 6 On/Off Footwear (QC): 6 Toileting(FIM): 6 Toileting Hygiene (QC): 6 Transfers (B,C,W/C) (FIM): 6 Toilet/Commode Transfer(FIM): 6 Toilet/Commode Transfer (QC): 6 Tub Transfer(FIM): 0 Shower Transfer(FIM): 6 Comprehension(FIM): 5 Expression (FIM): 5 Social Interaction(FIM): 5 Problem Solving(FIM): 5 Memory(FIM): 4 1=Demonstrate adherence to instructed precautions during ADL tasks. 2=Patient will verbalize/demonstrate understanding of assistive devices/ modifications for ADL. 3=Patient will improve strength/tolerance for activity to enable patient to perform ADL's. OT Education/Plan Problem List/Assessment Assessment: Decreased Activ Tolerance, Decreased UE Strength, Dependent Transfers, Impaired Coordination, Impaired I ADL's, Impaired Self-Care Skills Discharge Recommendations Plan/Recommendations: Continue POC Therapy D/C Recommendations: Home w/ Family Support Barriers to Progress Speech and swallowing. Treatment Plan/Plan of Care Treatment,Training & Education: Yes Patient would benefit from OT for education, treatment and training to promote independence in ADL's, mobility, safety and/or upper extremity function for ADL' s. Plan of Care: ADL Retraining, Group Exercise/Act as Ind, UE Funct Exercise/Act Treatment Duration: Dec 01, 2016 Visits Per Week: 10 Agreement: Yes Rehab Potential: Good Time/GCodes Start Time: 08:15 Stop Time: 09:15 Total Time Billed (hr/min): 60 Billed Treatment Time 1, Ex x 30minutes, FA x 30minutes WILLIAMS SALVADOR OT Dec 03, 2016 13:30
--- NOTE | 2016-12-03 14:43 | Therapy Group Daily Note ---
Therapy Daily Group Note Patient Education Topic Other List Below (arthritis process, joint protection and pain relief through exercise) Exercises LE Seated Exercise, UE Exercise Other/Notes Pt. attended group PT OT session. Pt. required CGA and verbal direction to walk to group with FWW . Pt. 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 Pt touched on the fact that this job contributed to some of his arthritis issues. Education this date covered the arthritis process, how to protect your joints, the importance of continuing to move as well as exercise for arthritis. Pt. in bed with assist after group. Portillo at hand and needs met Start Time: 13:00 Stop Time: 14:15 Total Billed Treatment Time: 75 Total Billed Treatment 1,GRP JANAE PATEL PERFORMANCE ANALYST Dec 03, 2016 14:43
[2016-12-03 17:19] VITALS: BP 107/62
[2016-12-03] MEDS: warFARin 5 MG (COUMADIN) TAB PO SCH (17:23)
--- NOTE | 2016-12-03 20:52 | Individualized Plan of Care ---
Individualized Plan of Care Rehab Nursing IPOC Order Admission Date Nov 30, 2016 at 04:20 Current Orders Orders Patient Visit (12/03/16 ) Speech Sound Lang Comp (12/03/16 ) Dysphagia Evaluation Std (12/03/16 ) Patient Visit (12/03/16 ) Exercise Therap, Ea 15 Min (12/03/16 ) Gait Training, Ea 15 Min (12/03/16 ) Functional Activities, Ea 15 (12/03/16 ) Therapeutic, Group (12/03/16 ) Toilet every (bladder): (hrs): q 2hours prn while awake PT IPOC Problem List: Activity Tolerance Treatment Plan: Continue Plan of Care Education, Functional Activity Jie, Functional Strength, Group Therapy, Gait, Safety, Therapeutic Exercise, Transfers Treatment Duration: Dec 21, 2016 Visits Per Week: 10-12 Minutes/Day (M-F): 60-90 Minutes/Day (Sat/Costa): PRN OT IPOC Problems: Decreased Activ Tolerance, Decreased UE Strength, Dependent Transfers , Impaired Coordination, Impaired I ADL's, Impaired Self-Care Skills Plan of Care: ADL Retraining, Group Exercise/Act as Ind, UE Funct Exercise/Act Treatment Duration: Dec 21, 2016 Visits Per Week: 10-12 Minutes/Day (M-F): 60-90 Minutes/Day (Sat/Costa): prn ST IPOC Speech Therapy Treatment Plan: Continue Plan of Care Treatment Duration: January 04, 2017 Visits Per Week: 30-45 MINUTES Minutes/Day (M-F): M-F Physician IPOC Medical Issues being managed closely and that require the 24 hour availability of a physician:htn Medical Issues: Bowel/Bladder Function, DVT Prophylaxis, Falls Precautions, Fluid/Electrolyte/Nutrition Balance, Infection Protection, Pain Management, Swallowing Precautions, Other (List) (as per above) Brief Synthesis of Preadmission Screen, Post-Admission Evaluation, and Therapy Evaluations:86 yo male who sustained a stroke and is referred to IRU at [facility] for ongoing stroke rehab Was treated initially at [facility] in [facility] with sspouse Had been Independent prior to this Medical Prognosis: good Anticipated Length of Stay: 12/21/2016 Rehab Goals Modified Independent to SBA for adls aand mobility Anticipated discharge destinat: Home with Spouse and [facility] GUILLERMO MONACO MD Dec 03, 2016 20:52
[2016-12-03] MEDS: ATORVASTATIN 40 MG (LIPITOR) TABLET PO SCH (21:26)
[2016-12-03] MEDS: MELATONIN 3 MG TABLET PO SCH (21:26)
[2016-12-04 05:33] VITALS: BP 107/63
[2016-12-04] MEDS: METHIMAZOLE 10 MG TAB PO SCH (06:10)
[2016-12-04 08:04] LABS: INR 1.4 (0.8-1.4); PROTHROMBIN TIME PATIENT 17.1 SEC (12.2-14.7)
[2016-12-04] MEDS: inSUlin ASPART (NovoLOG) 1 UNIT/0.01 ML (CHARGE PER UNIT) SC SCH ×2 (09:00→21:00)
--- NOTE | 2016-12-04 09:17 | Occupational Ther Daily Note ---
OT Current Status-Daily Note Subjective Pt. indicates that his stomach hurts where his PEG tube is. No pain number reported. Nursing notified. Appearance Pt. is up in chair. Has already spongebathed and dressed with spouse assist. Spouse states that she has him do most of it, and that he feels most comfortable with her. Mental Status/Objective Patient Orientation: Unable to Assess Functional [place] Measure 0=Not Assessed/NA 4=Minimal Assistance 1=Total Assistance 5=Supervision or Setup 2=Maximal Assistance 6=Modified [place] 3=Moderate Assistance 7=Complete [place] Pt. is able to answer simple yes and no questions. Is able to follow concrete cues. However, has difficulty with abstract tasks, such as reading story and then picking out three facts to write down. ADL-Treatment Functional [place] Measure 0=Not Assessed/NA 4=Minimal Assistance 1=Total Assistance 5=Supervision or Setup 2=Maximal Assistance 6=Modified [place] 3=Moderate Assistance 7=Complete IndependenceIRFPAI Quality Coding Scale 6 Independent with activity with or without an assistive device 5 Patient requires set up or clean up by helper. Patient completes activity by themselves 4 Supervision or touching assist (CGA). [place] provide cues , steadying assist 3 The helper provides less than half the effort to complete the activity 2 The helper provides more than half the effort to complete the activity 1 Dependent. The helper does all the effort to complete an activity 7 Patient refused to complete or attempt activity 9 The patient did not perform the activity before the current illness or injury 88 Not attempted due to Medical conditions or safety concerns Transfers (B, C, W/C) (FIM): 5 (SBA with all transfers using walker.) Pt. is able to walk to gym with SBA. Is aware of catheter and able to put it on his walker. Completed 15 minutes on armbike at mod resistance. Required multiple rest breaks. Completed this task to increase overall strength and endurance for daily tasks. Pt. then given newspaper. Asked pt. if he wore glasses, or needed glasses to see. Pt. states "no." Pt. instructed to read one story, and then write down three facts. This is repeated to him several times. Pt. agrees and begins to read story. Requires increased time. Pt. then reminded to write down three facts. Pt. begins to just copy story. Pt. reminded again to write down three facts. Pt. at this point states that he needs his ready glasses. Does not remember telling OT that he did not have them. Pt. unable to do this task, even when given these instructions several more times. Ambulated back to room with SBA. Spouse in room. All needs met. Education OT Patient Education: Exercise program, Modified ADL techniques, Progress toward Goal/Update tx plan, Purpose of tx/functional activities, Reviewed precautions, Rehab process, Transfer techniques Teaching Recipient: Patient Teaching Methods: Demonstration, Discussion Response to Teaching: Verbalize Understanding, Return Demonstration OT Short Term Goals Short Term Goals Time Frame: Dec 08, 2016 Eating(FIM): 0 Grooming(FIM): 6 Bathing(FIM): 6 Bathing Location: L Arm, R Arm, L Upper Leg, R Upper Leg, L Lower Leg ( including foot), R Lower Leg (including foot), Chest, Abdomen, Buttocks, Perineal Area Upper Body Dressing(FIM): 6 Lower Body Dressing(FIM): 6 Toileting(FIM): 6 Transfers (B,C,W/C) (FIM): 6 Toilet/Commode Transfer(FIM): 6 Tub Transfer(FIM): 0 Shower Transfer(FIM): 6 Comprehension(FIM): 3 Expression(FIM): 3 Social Interaction(FIM): 3 Problem Solving(FIM): 3 Memory(FIM): 3 1=Demonstrate adherence to instructed precautions during ADL tasks. 2=Patient will verbalize/demonstrate understanding of assistive devices/ modifications for ADL. 3=Patient will improve strength/tolerance for activity to enable patient to perform ADL's. OT Cut Press Operator Goals Cut Press Operator Goals Time Frame: Dec 15, 2016 Eating (FIM): 0 Eating (QC): 0 Groomin Oral Hygiene (QC): 6 Bathing(FIM): 6 Bathing Location: L Arm, R Arm, L Upper Leg, R Upper Leg, L Lower Leg ( including foot), R Lower Leg (including foot), Chest, Abdomen, Buttocks, Perineal Area Shower/Bathe Self (QC): 6 Upper Body Dressing(FIM): 6 Upper Body Dressing (QC): 6 Lower Body Dressing(FIM): 6 Lower Body Dressing (QC): 6 On/Off Footwear (QC): 6 Toileting(FIM): 6 Toileting Hygiene (QC): 6 Transfers (B,C,W/C) (FIM): 6 Toilet/Commode Transfer(FIM): 6 Toilet/Commode Transfer (QC): 6 Tub Transfer(FIM): 0 Shower Transfer(FIM): 6 Comprehension(FIM): 5 Expression (FIM): 5 Social Interaction(FIM): 5 Problem Solving(FIM): 5 Memory(FIM): 4 1=Demonstrate adherence to instructed precautions during ADL tasks. 2=Patient will verbalize/demonstrate understanding of assistive devices/ modifications for ADL. 3=Patient will improve strength/tolerance for activity to enable patient to perform ADL's. OT Education/Plan Problem List/Assessment Assessment: Decreased Activ Tolerance, Decreased UE Strength, Impaired Cognition, Impaired Coordination, Impaired I ADL's, Impaired Self-Care Skills Discharge Recommendations Plan/Recommendations: Continue POC Therapy D/C Recommendations: Home w/ Family Support, Occupational Therapy Home Care Treatment Plan/Plan of Care Treatment,Training & Education: Yes Patient would benefit from OT for education, treatment and training to promote independence in ADL's, mobility, safety and/or upper extremity function for ADL' s. Plan of Care: ADL Retraining, Cognitive Retraining, Group Exercise/Act as Ind, UE Funct Exercise/Act Treatment Duration: Dec 21, 2016 Visits Per Week: 10-12 Minutes/Day (M-F): 60-90 Minutes/Day (Sat/[place]): prn Agreement: Yes Rehab Potential: Good Time/GCodes Start Time: 08:15 Stop Time: 09:15 Total Time Billed (hr/min): 60 Billed Treatment Time 1, EX x 15minutes, FA x 45minutes WILLIAMS SALVADOR OT Dec 04, 2016 09:16
[2016-12-04] MEDS: DIGOXIN 0.125 MG (LANOXIN) TAB PO SCH (09:40)
[2016-12-04] MEDS: SOTALOL 80 MG (BETAPACE) TAB PO SCH ×2 (09:40→21:24)
[2016-12-04] MEDS: FAMOTIDINE 20 MG (PEPCID) TABLET GT SCH ×2 (09:41→21:24)
[2016-12-04] MEDS: ASPIRIN 81 MG CHEW (CHILDREN'S ASA) PO SCH (09:41)
[2016-12-04] MEDS: meTOprolol TARTRATE 25 MG (LOPRESSOR) TABLET PO SCH ×2 (09:41→21:24)
--- NOTE | 2016-12-04 12:14 | Physical Therapy Daily Note ---
PT Daily Note-Current Subjective Pt laying supine in bed upon arrival. Pt agrees to PT. Pain Location: No Pain Reported Mental Status Patient Orientation: Person, Place, Time, Situation Attachments: Abraham Catheter Transfers Functional [place] Measure 0=Not Assessed/NA 4=Minimal Assistance 1=Total Assistance 5=Supervision or Setup 2=Maximal Assistance 6=Modified [place] 3=Moderate Assistance 7=Complete IndependenceIRFPAI Quality Coding Scale 6 Independent with activity with or without an assistive device 5 Patient requires set up or clean up by helper. Patient completes activity by themselves 4 Supervision or touching assist (CGA). [place] provide cues , steadying assist 3 The helper provides less than half the effort to complete the activity 2 The helper provides more than half the effort to complete the activity 1 Dependent. The helper does all the effort to complete an activity 7 Patient refused to complete or attempt activity 9 The patient did not perform the activity before the current illness or injury 88 Not attempted due to Medical conditions or safety concerns Scootin Rollin Roll Left to Right (QC): 6 Supine to/from Sit: 5 Sit to/from Stand: 5 Sit to Stand (QC): 5 Weight Bearing Weight Bearing Restriction: Full Weight Bearing Location Restriction: LE Bilateral Gait Training Does the Patient Walk?: Yes Distance (FIM): 3=150 ft Distance: 150' Walk 10 feet (QC): 5 Walk 50 ft with 2 Turns(QC): 5 Walk 150 ft (QC): 5 Gait Level of Assist: 5 Gait Persons Needed: 1 Gait Assistive Device: FWW Pt ambulates with slow but steady gait, no LOB. Wheelchair Training Does the Pt Use a Wheelchair?: No Stair Training Stair Training: Handrails/: 2 handrails #of Steps: 12 1 Step (curb) (QC): 5 4 Steps (QC): 5 12 Steps (QC): 5 Stairs: Pattern: Reciprocal Level of Assist: 5 Exercises Seated Therapy Exercises: Ankle pumps, Long arc quads, Hip flexion, Kicking activity, Hip abd/add Seated Reps: 20 NuStep Minutes: 10 NuStep Workload: 3 Treatments Pt transferred from supine to EOB to standing at SBA using FWW to stand. Pt ambulated using FWW at SBA. Pt then completed Seated Ex in chair before attempting stairs. Pt ambulates 12 stairs at A with 2 hand rails. Pt rests then uses NuStep for activity tolerance and strengthening for ambulation and balance. Pt takes short rest in chair before OT arrives for tx. Pt is left with OT and all needs met at end of tx. Assessment Current Status: Good Progress Pt transfers well and is improving on activity tolerance and strength. PT Short Term Goals Short Term Goals Time Frame: Dec 07, 2016 Transfers (B,C,W/C) (FIM): 6 Gait (FIM): 5 Distance (FIM): 3=150 ft Gait Distance Comment: 300' Gait Level of Assist: 5 Gait Assistive Device: FWW, Cane Single Point PT Prison Goals Prison Goals PT Turning Sander Tender Goals Time Frame: Dec 21, 2016 Transfers (B,C,W/C) (FIM): 6 Sit to Lying (QC): 6 Lying-Sitting on Side/Bed(QC): 6 Sit to Stand (QC): 6 Rollin Roll Left to Right (QC): 6 Chair/Zup-ts-Lxhrr Xfer(QC): 6 Car Transfer (QC): 6 Does the Patient Walk: Yes Gait (FIM): 6 Gait distance (FIM): 3=150 ft Distance: 300' Walk 10 feet (QC): 5 Walk 10ft-Uneven Surface(QC): 5 Walk 50ft with 2 Turns (QC): 5 Walk 150 ft (QC): 5 Gait Level of Assist: 6 Gait Assistive Device: None, FWW, Cane Single Point Stairs (FIM): 6 # of Steps: 12 1 Step (curb) (QC): 6 4 Steps (QC): 6 12 Steps (QC): 6 Stairs Level Of Assist: 6 Picking up an Object (QC): 5 PT Plan Problem List Problem List: Activity Tolerance, Functional Strength, Safety, Balance, Gait Treatment/Plan Treatment Plan: Continue Plan of Care Treatment Plan: Education, Functional Activity Jie, Functional Strength, Group Therapy, Gait, Safety, Therapeutic Exercise, Transfers Treatment Duration: Dec 21, 2016 Visits Per Week: 10-12 Minutes/Day (M-F): 60-90 Minutes/Day (Sat/[place]): PRN Safety Risks/Education Patient Education: Gait Training, Transfer Techniques, Correct Positioning, Safety Issues Teaching Recipient: Patient Teaching Methods: Discussion Response to Teaching: Verbalize Understanding Time/GCodes Time In: 1100 Time Out: 1145 Total Billed Treatment Time: 45 Total Billed Treatment visit, EX X2 (30m) & FA (15m) ELISHA AGRAWAL BUNDLE TIER Dec 04, 2016 12:14
[2016-12-04 14:27] LABS: MEAN PLATELET VOLUME 12.5 FL (7.4-10.4); RED BLOOD COUNT 2.22 10^6/uL (4.35-5.85); RED CELL DISTRIBUTION WIDTH 23.5 % (10.0-14.5); WHITE BLOOD COUNT 7.6 10^3/uL (4.3-11.0)
--- NOTE | 2016-12-04 15:08 | Speech Therapy Daily Note ---
Speech Daily Progress Note Subjective The patient and were seated upright on the edge of bed upon entrance. Both greeted the clinician appropriately and agreed to participate in dysphagia treatment on this date. Prior to the start of the session, the clinician clarified the patient's past medical history pertaining to his dysphagia diagnosis and PEG tube placement. Objective Dysphagia Exercises: Dysphagia exercises were initiated and demonstrated on this date. The patient displayed good accuracy (approximately 80%) with dysphagia exercises on this date (base of tongue retraction, pharyngeal contraction, and laryngeal elevation). Moderate clinician verbal prompting was provided, as well as, an initial direct model. Five repetitions of each exercise were performed. Assessment Assessment Current Status: Good Progress Treatment Plan Continue Plan of Care Communication Comprehension: 3 Expression: 3 Social Cognition Social Interaction: 4 Problem Solvin Memory: 3 Speech Short Term Goals Short Term Goals Short Term Goals 1) THE PATIENT WILL BE ABLE TO TOLERATE PHARYNGEAL STRENGTHENING ACTIVITIES FOR AT LEAST 90% OF TASKS PROVIDED. 2) THE PATIENT WILL BE ABLE TO FOLLOW COMPENSATORY SWALLOW STRATEGIES TO FACILITATE A SAFE AND EFFECTIVE SWALLOW FOR DIETARY TRIALS WITH CONTOUR STITCHER PRESENT WITH UP TO 90% RETURN. 3) GIVEN A VISUAL CUE, THE PATIENT WILL BE ABLE TO VERBALIZE AT LEAST 1/3 COMPENSATORY SWALLOW STRATEGIES FOR SAFE SWALLOWING. 4) GIVEN THERMAL SENSORY STIMULATION, THE PATIENT WILL BE ABLE TO EFFECTIVELY INITIATE SWALLOW RESPONSE WITHIN 2 SECONDS. 5) THE PATIENT WILL BE ABLE TO COMPLETE RECALL OF THREE OBJECTS WITHOUT PROMPTING AT 5, 10 & 15 MINUTE INTERVALS. 6) THE PATIENT WILL BE ABLE TO COMPLETE TASKS RELATED TO DIVERGENT/CONVERGENT NAMING TO ASSIST WITH INCREASED MENTAL FLEXIBILITY WITH UP TO 80% RETURN. 7) FOLLOWING SAFETY TRAINING FROM NS AND/OR OTHER THERAPISTS, THE PATIENT WILL BE ABLE TO RECALL AT LEAST 80% OF INFORMATION FOLLOWING REQUESTS. 8) USING ALTERNATING ATTENTION TASKS, HUSSAIN WILL COMPLETE THESE TASKS FOR UP TO 5 MINUTES WITH MINIMAL PROMPTS. Comprehension: 3 Expression: 3 Social Interaction: 3 Problem Solvin Memory: 3 Speech Half-Way Goals Half-Way Goals 1) THE PATIENT WILL PARTICIPATE IN CAREGIVER EDUCATION REGARDING SWALLOW PRECAUTIONS, COMPENSATORY SWALLOW STRATEGIES WELL DIET CHANGES AND RECOMMENDATIONS WITH CAREGIVER RECALL AT 80% RETURN FOLLOWING QUESTIONING. 2) GIVEN DIETARY TRIALS, THE PATIENT WILL TOLERATE PLEASURABLE FEEDINGS WITHOUT ASPIRATION TO IMPROVE QUALITY OF LIFE WITHIN 30 DAYS. 3) HUSSAIN WILL BE ABLE TO SEQUENCE AT LEAST 5-STEPS WITH A VISUAL CUE TO COMPLETE ADL'S. 4) USING A VISUAL REMINDER, HUSSAIN WILL BE ABLE TO RECALL TIME/DAY/DATE AND IMPORTANT PERSONAL INFORMATION WITH UP TO 90% RETURN. Time Frame: 30 DAYS Comprehension: 5 Expression: 5 Social Interaction: 5 Problem Solvin Memory: 4 Speech-Plan Treatment Plan Speech Therapy Treatment Plan: Continue Plan of Care Continue skilled speech pathology intervention to target swallowing safety and improved cognitive linguistic functions. Treatment Duration: January 04, 2017 # of days/week Five Visits Per Week: 30-45 MINUTES Minutes/Day (M-F): M-F Rehab Potential: Good Safety Risks/Education Teaching Recipient: Patient, Significant Other Teaching Methods: Demonstration, Handout, Discussion Response to Teaching: Return Demonstration, Reinforcement Needed Education Topics Provided: Dysphagia Exercises Time Speech Therapy Time In: 10:15 Speech Therapy Time Out: 10:45 Total Billed Time: 30 Billed Treatment Time Fely SAROJ RHYS BOWERS Dec 04, 2016 15:08
--- NOTE | 2016-12-04 15:18 | Occupational Ther Daily Note ---
OT Current Status-Daily Note Subjective No pain reported. Appearance Pt. in therapy gym. Agrees to work with therapy. Mental Status/Objective Patient Orientation: Person Functional [place] Measure 0=Not Assessed/NA 4=Minimal Assistance 1=Total Assistance 5=Supervision or Setup 2=Maximal Assistance 6=Modified [place] 3=Moderate Assistance 7=Complete [place] ADL-Treatment Functional [place] Measure 0=Not Assessed/NA 4=Minimal Assistance 1=Total Assistance 5=Supervision or Setup 2=Maximal Assistance 6=Modified [place] 3=Moderate Assistance 7=Complete IndependenceIRFPAI Quality Coding Scale 6 Independent with activity with or without an assistive device 5 Patient requires set up or clean up by helper. Patient completes activity by themselves 4 Supervision or touching assist (CGA). [place] provide cues , steadying assist 3 The helper provides less than half the effort to complete the activity 2 The helper provides more than half the effort to complete the activity 1 Dependent. The helper does all the effort to complete an activity 7 Patient refused to complete or attempt activity 9 The patient did not perform the activity before the current illness or injury 88 Not attempted due to Medical conditions or safety concerns Transfers (B, C, W/C) (FIM): 5 (With walker.) Other Treatment Pt. agreed to series of fine motor strength and endurance tasks. Pt. completed nut/bolt activity and peg activity with therapist to increase overall strength and endurance for daily ADL tasks. Pt. able to complete these tasks with little difficulty. Ambulated back to room. all needs met. Education OT Patient Education: Exercise program, Transfer techniques Teaching Recipient: Patient Teaching Methods: Demonstration, Discussion Response to Teaching: Verbalize Understanding, Return Demonstration OT Short Term Goals Short Term Goals Time Frame: Dec 08, 2016 Eating(FIM): 0 Grooming(FIM): 6 Bathing(FIM): 6 Bathing Location: L Arm, R Arm, L Upper Leg, R Upper Leg, L Lower Leg ( including foot), R Lower Leg (including foot), Chest, Abdomen, Buttocks, Perineal Area Upper Body Dressing(FIM): 6 Lower Body Dressing(FIM): 6 Toileting(FIM): 6 Transfers (B,C,W/C) (FIM): 6 Toilet/Commode Transfer(FIM): 6 Tub Transfer(FIM): 0 Shower Transfer(FIM): 6 Comprehension(FIM): 3 Expression(FIM): 3 Social Interaction(FIM): 3 Problem Solving(FIM): 3 Memory(FIM): 3 1=Demonstrate adherence to instructed precautions during ADL tasks. 2=Patient will verbalize/demonstrate understanding of assistive devices/ modifications for ADL. 3=Patient will improve strength/tolerance for activity to enable patient to perform ADL's. OT [facility] Goals [facility] Goals Time Frame: Dec 15, 2016 Eating (FIM): 0 Eating (QC): 0 Groomin Oral Hygiene (QC): 6 Bathing(FIM): 6 Bathing Location: L Arm, R Arm, L Upper Leg, R Upper Leg, L Lower Leg ( including foot), R Lower Leg (including foot), Chest, Abdomen, Buttocks, Perineal Area Shower/Bathe Self (QC): 6 Upper Body Dressing(FIM): 6 Upper Body Dressing (QC): 6 Lower Body Dressing(FIM): 6 Lower Body Dressing (QC): 6 On/Off Footwear (QC): 6 Toileting(FIM): 6 Toileting Hygiene (QC): 6 Transfers (B,C,W/C) (FIM): 6 Toilet/Commode Transfer(FIM): 6 Toilet/Commode Transfer (QC): 6 Tub Transfer(FIM): 0 Shower Transfer(FIM): 6 Comprehension(FIM): 5 Expression (FIM): 5 Social Interaction(FIM): 5 Problem Solving(FIM): 5 Memory(FIM): 4 1=Demonstrate adherence to instructed precautions during ADL tasks. 2=Patient will verbalize/demonstrate understanding of assistive devices/ modifications for ADL. 3=Patient will improve strength/tolerance for activity to enable patient to perform ADL's. OT Education/Plan Problem List/Assessment Assessment: Decreased Activ Tolerance, Decreased UE Strength, Impaired Bed Mobility, Impaired Coordination, Impaired Funct Balance, Impaired I ADL's, Impaired Self-Care Skills Discharge Recommendations Plan/Recommendations: Continue POC Therapy D/C Recommendations: Home w/ Family Support, Occupational Therapy Home Care Treatment Plan/Plan of Care Treatment,Training & Education: Yes Patient would benefit from OT for education, treatment and training to promote independence in ADL's, mobility, safety and/or upper extremity function for ADL' s. Plan of Care: ADL Retraining, Cognitive Retraining, Group Exercise/Act as Ind, UE Funct Exercise/Act Treatment Duration: Dec 21, 2016 Visits Per Week: 10-12 Minutes/Day (M-F): 60-90 Minutes/Day (Sat/[place]): prn Agreement: Yes Rehab Potential: Good Time/GCodes Start Time: 11:45 Stop Time: 12:00 Total Time Billed (hr/min): 15 Billed Treatment Time 1, WILLIAMS MIRANDA OT Dec 04, 2016 15:18
[2016-12-04 15:35] VITALS: BP 102/62
--- NOTE | 2016-12-04 15:38 | Physical Therapy Daily Note ---
PT Daily Note-Current Subjective Pt is sitting at EOB waiting for PT upon arrival. Pt agrees to PT. Pain Location: No Pain Reported Mental Status Patient Orientation: Person, Place, Time, Situation Transfers Functional [place] Measure 0=Not Assessed/NA 4=Minimal Assistance 1=Total Assistance 5=Supervision or Setup 2=Maximal Assistance 6=Modified [place] 3=Moderate Assistance 7=Complete IndependenceIRFPAI Quality Coding Scale 6 Independent with activity with or without an assistive device 5 Patient requires set up or clean up by helper. Patient completes activity by themselves 4 Supervision or touching assist (CGA). [place] provide cues , steadying assist 3 The helper provides less than half the effort to complete the activity 2 The helper provides more than half the effort to complete the activity 1 Dependent. The helper does all the effort to complete an activity 7 Patient refused to complete or attempt activity 9 The patient did not perform the activity before the current illness or injury 88 Not attempted due to Medical conditions or safety concerns Scootin Sit to/from Stand: 5 Sit to Stand (QC): 5 Weight Bearing Weight Bearing Restriction: Full Weight Bearing Location Restriction: LE Bilateral Gait Training Does the Patient Walk?: Yes Distance (FIM): 3=150 ft Distance: 200' Walk 10 feet (QC): 5 Walk 50 ft with 2 Turns(QC): 5 Walk 150 ft (QC): 5 Gait Level of Assist: 5 Gait Persons Needed: 1 Gait Assistive Device: FWW Pt's gait is slow but steady, no LOB. Wheelchair Training Does the Pt Use a Wheelchair?: No Exercises NuStep Minutes: 9 NuStep Workload: 4 Treatments Pt transferred from EOB at [facility] using FWW. Pt ambulated using FWW in [facility] Commons at [facility]. Pt used NuStep for strengthening and activity tolerance as well as improving balance. Pt ambulated back to room to rest at EOB at end of tx with all needs met. Assessment Pt is improving with transfers, mobility and activity tolerance. PT Short Term Goals Short Term Goals Time Frame: Dec 07, 2016 Transfers (B,C,W/C) (FIM): 6 Gait (FIM): 5 Distance (FIM): 3=150 ft Gait Distance Comment: 300' Gait Level of Assist: 5 Gait Assistive Device: FWW, Cane Single Point PT Public Address Announcer Goals Public Address Announcer Goals PT Alf Goals Time Frame: Dec 21, 2016 Transfers (B,C,W/C) (FIM): 6 Sit to Lying (QC): 6 Lying-Sitting on Side/Bed(QC): 6 Sit to Stand (QC): 6 Rollin Roll Left to Right (QC): 6 Chair/Mig-jx-Upwdn Xfer(QC): 6 Car Transfer (QC): 6 Does the Patient Walk: Yes Gait (FIM): 6 Gait distance (FIM): 3=150 ft Distance: 300' Walk 10 feet (QC): 5 Walk 10ft-Uneven Surface(QC): 5 Walk 50ft with 2 Turns (QC): 5 Walk 150 ft (QC): 5 Gait Level of Assist: 6 Gait Assistive Device: None, FWW, Cane Single Point Stairs (FIM): 6 # of Steps: 12 1 Step (curb) (QC): 6 4 Steps (QC): 6 12 Steps (QC): 6 Stairs Level Of Assist: 6 Picking up an Object (QC): 5 PT Plan Problem List Problem List: Activity Tolerance, Functional Strength, Safety, Balance, Gait Treatment/Plan Treatment Plan: Continue Plan of Care Treatment Plan: Education, Functional Activity Jie, Functional Strength, Group Therapy, Gait, Safety, Therapeutic Exercise, Transfers Treatment Duration: Dec 21, 2016 Visits Per Week: 10-12 Minutes/Day (M-F): 60-90 Minutes/Day (Sat/[place]): PRN Safety Risks/Education Patient Education: Gait Training, Transfer Techniques, Correct Positioning, Safety Issues Teaching Recipient: Patient Teaching Methods: Discussion Response to Teaching: Verbalize Understanding Time/GCodes Time In: 1430 Time Out: 1500 Total Billed Treatment Time: 30 Total Billed Treatment visit, GT (15m) & EX (15m) ELISHA AGRAWAL HOME HEALTH ADMINISTRATOR Dec 04, 2016 15:38
--- NOTE | 2016-12-04 16:56 | PM & R (SOAP) Progress Note ---
Subjective Subjective/Events-last exam Patient was seen in his room this evening.Case discussed with RN Patient tolerating Tube feeds well HGB >7 has blood disorder managed by [facility] in [place] Has urinary retention managed by DR Mckeon from [place].Transferred from [facility] for ongoing Stroke rehab Has had good return in terms of strength on rt but has significant dysphagia.and is NPO.Patient currently SBA for transfers.Case discussed with Patients spouse. Objective Exam Last Set of Vital Signs Vital Signs Date Time Temp Pulse Resp B/P (MAP) Pulse Ox O2 Delivery O2 Flow Rate FiO2 12/04/16 15:35 95.5 71 20 102/62 98 Room Air Capillary Refill : I&O Intake and Output 12/04/16 00:00 Intake Total 1884 ml Output Total 600 ml Balance 1284 ml Intake Oral 1084 ml Tube Feeding 800 ml Output Urine Total 600 ml # Bowel Movements 1 General: Alert, Oriented X3, Cooperative, No Acute Distress HEENT: Atraumatic, PERRLA, EOMI, Mucous Memb Moist/[place], Other (dysphagia and some word finding problems) Neck: Supple, No JVD Lungs: Clear to Auscultation Heart: Regular Rate Abdomen: Normal Bowel Sounds, Soft, No Tenderness, Other (peg tube site clean) Neuro: Other (mid rt sided weakness and significant dysphagia some word finding difficulty) Other physical findings INdwelling Abraham catheter to Dependent drainage Results Lab Laboratory Tests 12/01/16 21:00: Glucometer 104 12/02/16 09:29: Glucometer 112H 12/02/16 09:31: Prothrombin Time 14.6, INR Comment 1.2 12/02/16 20:03: Glucometer 158H 12/03/16 07:31: White Blood Count 5.9, Red Blood Count 2.20L, Hemoglobin 7.3L, Hematocrit 24L, Mean Corpuscular Volume 108H, Mean Corpuscular Hemoglobin 33, Mean Corpuscular Hemoglobin Concent 31L, Red Cell Distribution Width 23.0H, Platelet Count 263, Mean Platelet Volume 11.6H, Neutrophils (%) (Auto) 64, Lymphocytes (%) (Auto) 16 , Monocytes (%) (Auto) 16H, Eosinophils (%) (Auto) 4, Basophils (%) (Auto) 1, Neutrophils # (Auto) 3.7, Lymphocytes # (Auto) 0.9L, Monocytes # (Auto) 1.0, Eosinophils # (Auto) 0.2, Basophils # (Auto) 0.0, Prothrombin Time 15.6H, INR Comment 1.3 12/03/16 09:53: Glucometer 115H 12/03/16 20:48: Glucometer 99 12/04/16 07:40: White Blood Count 7.6, Red Blood Count 2.22L, Hemoglobin 7.4L, Hematocrit 24L, Mean Corpuscular Volume 109H, Mean Corpuscular Hemoglobin 33, Mean Corpuscular Hemoglobin Concent 31L, Red Cell Distribution Width 23.5H, Platelet Count 305, Mean Platelet Volume 12.5H, Prothrombin Time 17.1H, INR Comment 1.4 12/04/16 09:38: Glucometer 108 Assessment/Plan Assessment 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 Chronic Afib controled with medication BPH with urinary retention managed with Indwelling Abraham catheter Myelodysplastic syndrome with chronic anemia followed by [facility] in [place] Chronic anticoagulation currently with subtherapeutic INR Plan Continue PT/OT/ST Recheck labs in AM Team Conference tomorrow Ask DR Hopkins to assist with medical concerns Hold off on Blood transfusion unless HGB <[address] singh discretion See orders. GUILLERMO MONACO MD Dec 04, 2016 16:56
[2016-12-04] MEDS: warFARin 5 MG (COUMADIN) TAB PO SCH (18:03)
--- NOTE | 2016-12-04 19:13 | Progress Note (SOAP) ---
Subjective Subjective/Events-last exam Patient had a stroke on his right side. Patient able to right side much better. In the beginning patient was not able to move his right sided or. Patient has trouble swallowing now. Is a silent aspiration. Patient has a PEG tube. Patient has coronary artery disease, atrial fib, CHF, myelodysplastic disease. And benign prostatic hypertrophy Objective Exam Vital Signs Date Time Temp Pulse Resp B/P (MAP) Pulse Ox O2 Delivery O2 Flow Rate FiO2 12/04/16 15:35 95.5 71 20 102/62 98 Room Air 12/04/16 09:00 Room Air 12/04/16 05:33 97.9 74 20 107/63 94 Room Air 12/03/16 20:46 Room Air I & O 12/04/16 07:00 Intake Total 2258 ml Output Total 600 ml Balance 1658 ml Capillary Refill : General Appearance: No Apparent Distress, Thin HEENT: Normal ENT Inspection Neck: Normal Inspection Respiratory: Chest Non Tender, Normal Breath Sounds, No Accessory Muscle Use, No Respiratory Distress Cardiovascular: No Murmur Gastrointestinal: non tender, soft Results Lab Laboratory Tests 12/03/16 20:48: Glucometer 99 12/04/16 07:40: White Blood Count 7.6, Red Blood Count 2.22L, Hemoglobin 7.4L, Hematocrit 24L, Mean Corpuscular Volume 109H, Mean Corpuscular Hemoglobin 33, Mean Corpuscular Hemoglobin Concent 31L, Red Cell Distribution Width 23.5H, Platelet Count 305, Mean Platelet Volume 12.5H, Prothrombin Time 17.1H, INR Comment 1.4 12/04/16 09:38: Glucometer 108 Assessment/Plan Assessment/Plan Assess & Plan/Chief Complaint Cerebrovascular accident due to ischemic stroke area Inability to swallow. CAD. Atrial fibrillation. Myelodysplastic syndrome. BPH Clinical Quality Measures DVT/VTE Risk/Contraindication: Risk Factor Score Per Nursin RFS Level Per Nursing on Admit: 2=Moderate Contraindications-Pharm: Other *list below* Other: on warfarin MANE HOBBS DO Dec 04, 2016 19:13
[2016-12-04] MEDS: ATORVASTATIN 40 MG (LIPITOR) TABLET PO SCH (21:24)
[2016-12-04] MEDS: MELATONIN 3 MG TABLET PO SCH (21:24)
[2016-12-05 05:00] VITALS: BP 106/62
[2016-12-05] MEDS: METHIMAZOLE 10 MG TAB PO SCH (06:16)
[2016-12-05 06:45] LABS: INR 1.7 (0.8-1.4); PROTHROMBIN TIME PATIENT 19.6 SEC (12.2-14.7)
[2016-12-05 06:49] LABS: BASOPHILS % (AUTO) 0 % (0-10); EOSINOPHILS # (AUTO) 0.2 10^3/uL (0.0-0.3); EOSINOPHILS % (AUTO) 2 % (0-10); LYMPHOCYTES % (AUTO) 11 % (12-44); MEAN CORPUSCULAR HGB CONC 31 G/DL (32-36); MEAN CORPUSCULAR VOLUME 107 FL (80-99); MEAN PLATELET VOLUME 11.4 FL (7.4-10.4); MONOCYTES # (AUTO) 1.5 X 10^3 (0.0-1.0); MONOCYTES % (AUTO) 16 % (0-12); NEUTROPHILS # (AUTO) 6.4 X 10^3 (1.8-7.8); NEUTROPHILS % (AUTO) 71 % (42-75); PLATELET COUNT 270 10^3/uL (130-400); RED BLOOD COUNT 2.06 10^6/uL (4.35-5.85); RED CELL DISTRIBUTION WIDTH 23.7 % (10.0-14.5)
[2016-12-05 06:52] LABS: MEAN CORPUSCULAR HEMOGLOBIN 33 PG (25-34)
[2016-12-05 06:54] LABS: ALANINE AMINOTRANSFERASE 20 U/L (0-55); ANION GAP 6 MMOL/L (5-14); ASPARTATE AMINO TRANSFERASE 21 U/L (5-34); BILIRUBIN,TOTAL 0.6 MG/DL (0.1-1.0); BLOOD UREA NITROGEN 18 MG/DL (7-18); BUN/CREATININE RATIO 23; CALCIUM 8.2 MG/DL (8.5-10.1); CARBON DIOXIDE 27 MMOL/L (21-32); CHLORIDE 102 MMOL/L (98-107); CREATININE SERUM 0.78 MG/DL (0.60-1.30); GFR ESTIMATED > 60; GLUCOSE 139 MG/DL (70-105); POTASSIUM 4.3 MMOL/L (3.6-5.0); SODIUM 135 MMOL/L (135-145); TOTAL PROTEIN 5.5 G/DL (6.4-8.2)
[2016-12-05] MEDS ORDERED: diphenhydrAMINE 25 MG TAB (BENADRYL) PO NR ×2 (07:00→18:15)
[2016-12-05] MEDS ORDERED: ACETAMINOPHEN 325 MG TABLET/CAPLET (TYLENOL) PO NR ×2 (07:00→18:15)
--- NOTE | 2016-12-05 08:30 | Progress Note (SOAP) ---
Subjective Subjective/Events-last exam hemoglobin 6.9. Stroke area Right sided weakness. Myelodysplastic disorder Objective Exam Vital Signs Date Time Temp Pulse Resp B/P (MAP) Pulse Ox O2 Delivery O2 Flow Rate FiO2 12/05/16 05:00 99.6 71 18 106/62 94 Room Air 12/04/16 20:20 Room Air 12/04/16 15:35 95.5 71 20 102/62 98 Room Air 12/04/16 09:00 Room Air I & O 12/05/16 07:00 Intake Total 2184 ml Output Total 950 ml Balance 1234 ml Capillary Refill : General Appearance: No Apparent Distress, Thin HEENT: Normal ENT Inspection Neck: Normal Inspection Respiratory: Chest Non Tender, Lungs Clear, Normal Breath Sounds, No Accessory Muscle Use, No Respiratory Distress Cardiovascular: Regular Rate, Rhythm, No Murmur Results Lab Laboratory Tests 12/05/16 06:13 Laboratory Tests 12/04/16 09:38: Glucometer 108 12/04/16 20:45: Glucometer 99 12/05/16 06:13: White Blood Count 9.0, Red Blood Count 2.06L, Hemoglobin 6.9*L, Hematocrit 22L, Mean Corpuscular Volume 107H, Mean Corpuscular Hemoglobin 33, Mean Corpuscular Hemoglobin Concent 31L, Red Cell Distribution Width 23.7H, Platelet Count 270, Mean Platelet Volume 11.4H, Neutrophils (%) (Auto) 71, Lymphocytes (%) (Auto) 11L, Monocytes (%) (Auto) 16H, Eosinophils (%) (Auto) 2, Basophils (%) (Auto) 0 , Neutrophils # (Auto) 6.4, Lymphocytes # (Auto) 1.0, Monocytes # (Auto) 1.5H, Eosinophils # (Auto) 0.2, Basophils # (Auto) 0.0, Prothrombin Time 19.6H, INR Comment 1.7H, Sodium Level 135, Potassium Level 4.3, Chloride Level 102, Carbon Dioxide Level 27, Anion Gap 6, Blood Urea Nitrogen 18, Creatinine 0.78, Estimat Glomerular Filtration Rate > 60, BUN/Creatinine Ratio 23, Glucose Level 139H, Calcium Level 8.2L, Total Bilirubin 0.6, Aspartate Amino Transf (AST/SGOT) 21, Alanine Aminotransferase (ALT/SGPT) 20, Alkaline Phosphatase 78, Total Protein 5.5L, Albumin 3.0L 12/05/16 08:08: Glucometer 115H Assessment/Plan Assessment/Plan Assess & Plan/Chief Complaint Cerebrovascular accident due to ischemic stroke area Inability to swallow. CAD. Atrial fibrillation. Myelodysplastic syndrome. BPH. . CVA. Inability to swallow. CAMyelodysplastic disease. Patient's hemoglobin 6.9 to receive packed red blood cells Clinical Quality Measures DVT/VTE Risk/Contraindication: Risk Factor Score Per Nursin RFS Level Per Nursing on Admit: 2=Moderate Contraindications-Pharm: Other *list below* Other: on warfarin MANE HOBBS DO Dec 05, 2016 08:30
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
[2016-12-05] MEDS: SOTALOL 80 MG (BETAPACE) TAB PO SCH ×2 (08:33→21:21)
[2016-12-05] MEDS: meTOprolol TARTRATE 25 MG (LOPRESSOR) TABLET PO SCH ×2 (08:33→21:20)
[2016-12-05] MEDS: inSUlin ASPART (NovoLOG) 1 UNIT/0.01 ML (CHARGE PER UNIT) SC SCH ×2 (08:33→21:00)
[2016-12-05] MEDS: DIGOXIN 0.125 MG (LANOXIN) TAB PO SCH (08:33)
[2016-12-05] MEDS: FAMOTIDINE 20 MG (PEPCID) TABLET GT SCH ×2 (08:39→21:21)
[2016-12-05] MEDS: ASPIRIN 81 MG CHEW (CHILDREN'S ASA) PO SCH (08:39)
--- NOTE | 2016-12-05 09:22 | Speech Therapy Daily Note ---
Speech Daily Progress Note Subjective The patient was seated upright in bed upon entrance. The patient's was present for the initial portion of the session. Both greeted the clinician appropriately and agreed to participate in dysphagia treatment on this date. To note, the patient is scheduled to receive red blood cells on this date due to low hemoglobin. The patient appears fatigue, however, remains completely cooperative throughout the session. Objective Dysphagia Exercises: Dysphagia exercises were continued on this date. The patient displayed fair to good accuracy (approximately 70%) with dysphagia exercises on this date (base of tongue retraction, pharyngeal contraction, and laryngeal elevation). Moderate to maximum clinician verbal prompting was provided, as well as, an initial direct model. Ten repetitions of each exercise were performed. The patient demonstrated increased difficulty with the Gail exercise regardless of maximum clinician cueing. Orientation: With maximum clinician prompting and direct modeling, the patient was able to recall orientation information written on the white board. The information was reviewed several times throughout the session with additional information provided on the white board for increased recall throughout the day. Assessment Assessment Current Status: Fair Progress Treatment Plan Continue Plan of Care Communication Comprehension: 3 Expression: 3 Social Cognition Social Interaction: 4 Problem Solvin Memory: 3 Speech Short Term Goals Short Term Goals Short Term Goals 1) THE PATIENT WILL BE ABLE TO TOLERATE PHARYNGEAL STRENGTHENING ACTIVITIES FOR AT LEAST 90% OF TASKS PROVIDED. 2) THE PATIENT WILL BE ABLE TO FOLLOW COMPENSATORY SWALLOW STRATEGIES TO FACILITATE A SAFE AND EFFECTIVE SWALLOW FOR DIETARY TRIALS WITH PLASTIC SEWER PRESENT WITH UP TO 90% RETURN. 3) GIVEN A VISUAL CUE, THE PATIENT WILL BE ABLE TO VERBALIZE AT LEAST 1/3 COMPENSATORY SWALLOW STRATEGIES FOR SAFE SWALLOWING. 4) GIVEN THERMAL SENSORY STIMULATION, THE PATIENT WILL BE ABLE TO EFFECTIVELY INITIATE SWALLOW RESPONSE WITHIN 2 SECONDS. 5) THE PATIENT WILL BE ABLE TO COMPLETE RECALL OF THREE OBJECTS WITHOUT PROMPTING AT 5, 10 & 15 MINUTE INTERVALS. 6) THE PATIENT WILL BE ABLE TO COMPLETE TASKS RELATED TO DIVERGENT/CONVERGENT NAMING TO ASSIST WITH INCREASED MENTAL FLEXIBILITY WITH UP TO 80% RETURN. 7) FOLLOWING SAFETY TRAINING FROM NS AND/OR OTHER THERAPISTS, THE PATIENT WILL BE ABLE TO RECALL AT LEAST 80% OF INFORMATION FOLLOWING REQUESTS. 8) USING ALTERNATING ATTENTION TASKS, HUSSAIN WILL COMPLETE THESE TASKS FOR UP TO 5 MINUTES WITH MINIMAL PROMPTS. Comprehension: 3 Expression: 3 Social Interaction: 3 Problem Solvin Memory: 3 Speech Bedspread Seamer Goals Bedspread Seamer Goals 1) THE PATIENT WILL PARTICIPATE IN CAREGIVER EDUCATION REGARDING SWALLOW PRECAUTIONS, COMPENSATORY SWALLOW STRATEGIES WELL DIET CHANGES AND RECOMMENDATIONS WITH CAREGIVER RECALL AT 80% RETURN FOLLOWING QUESTIONING. 2) GIVEN DIETARY TRIALS, THE PATIENT WILL TOLERATE PLEASURABLE FEEDINGS WITHOUT ASPIRATION TO IMPROVE QUALITY OF LIFE WITHIN 30 DAYS. 3) HUSSAIN WILL BE ABLE TO SEQUENCE AT LEAST 5-STEPS WITH A VISUAL CUE TO COMPLETE ADL'S. 4) USING A VISUAL REMINDER, HUSSAIN WILL BE ABLE TO RECALL TIME/DAY/DATE AND IMPORTANT PERSONAL INFORMATION WITH UP TO 90% RETURN. Time Frame: 30 DAYS Comprehension: 5 Expression: 5 Social Interaction: 5 Problem Solvin Memory: 4 Speech-Plan Treatment Plan Speech Therapy Treatment Plan: Continue Plan of Care Continue skilled speech pathology to focus on orientation questions and dysphagia exercises. Treatment Duration: January 04, 2017 # of days/week Five. Visits Per Week: 30-45 MINUTES Minutes/Day (M-F): M-F Rehab Potential: Good Safety Risks/Education Teaching Recipient: Patient Teaching Methods: Demonstration, Handout, Discussion Response to Teaching: Verbalize Understanding, Return Demonstration, Reinforcement Needed Education Topics Provided: Dysphagia Exercises, Orientation Aids Time Speech Therapy Time In: 08:30 Speech Therapy Time Out: 09:15 Total Billed Time: 45 Billed Treatment Time 1, DYST 1, RHYS BRUNO Dec 05, 2016 09:22
[2016-12-05] MEDS ORDERED: NS IV 500 ML 500 ML ONE (10:03)
[2016-12-05 10:26] VITALS: BP 103/62
[2016-12-05 10:52] VITALS: BP 95/47
--- NOTE | 2016-12-05 11:21 | PM & R (SOAP) Progress Note ---
Subjective Subjective/Events-last exam Patient was seen in his room this AM Discussed case with DR Cata LUNDY re Indwelling Abraham catheter Appreciate DR Wilder note and orders Appreciate current labs Patient to receive 1 unit PRBS,Discussed case with RN Objective Exam Last Set of Vital Signs Vital Signs Date Time Temp Pulse Resp B/P (MAP) Pulse Ox O2 Delivery O2 Flow Rate FiO2 12/05/16 10:52 99.2 74 18 95/47 94 12/05/16 09:00 Room Air Capillary Refill : I&O Intake and Output 12/05/16 00:00 Intake Total 2484 ml Output Total 650 ml Balance 1834 ml Intake Oral 1174 ml Tube Feeding 720 ml Other 590 ml Output Urine Total 650 ml General: Alert, Oriented X3, Cooperative, No Acute Distress HEENT: Atraumatic, PERRLA, EOMI, Mucous Memb Moist/[place], Other (dysphagia and some word finding problems) Neck: Supple, No JVD Lungs: Clear to Auscultation Heart: Regular Rate Abdomen: Normal Bowel Sounds, Soft, No Tenderness, Other (peg tube site clean) Neuro: Other (mid rt sided weakness and significant dysphagia some word finding difficulty) Results Lab Laboratory Tests 12/02/16 20:03: Glucometer 158H 12/03/16 07:31: White Blood Count 5.9, Red Blood Count 2.20L, Hemoglobin 7.3L, Hematocrit 24L, Mean Corpuscular Volume 108H, Mean Corpuscular Hemoglobin 33, Mean Corpuscular Hemoglobin Concent 31L, Red Cell Distribution Width 23.0H, Platelet Count 263, Mean Platelet Volume 11.6H, Neutrophils (%) (Auto) 64, Lymphocytes (%) (Auto) 16 , Monocytes (%) (Auto) 16H, Eosinophils (%) (Auto) 4, Basophils (%) (Auto) 1, Neutrophils # (Auto) 3.7, Lymphocytes # (Auto) 0.9L, Monocytes # (Auto) 1.0, Eosinophils # (Auto) 0.2, Basophils # (Auto) 0.0, Prothrombin Time 15.6H, INR Comment 1.3 12/03/16 09:53: Glucometer 115H 12/03/16 20:48: Glucometer 99 12/04/16 07:40: White Blood Count 7.6, Red Blood Count 2.22L, Hemoglobin 7.4L, Hematocrit 24L, Mean Corpuscular Volume 109H, Mean Corpuscular Hemoglobin 33, Mean Corpuscular Hemoglobin Concent 31L, Red Cell Distribution Width 23.5H, Platelet Count 305, Mean Platelet Volume 12.5H, Prothrombin Time 17.1H, INR Comment 1.4 12/04/16 09:38: Glucometer 108 12/04/16 20:45: Glucometer 99 12/05/16 06:13: White Blood Count 9.0, Red Blood Count 2.06L, Hemoglobin 6.9*L, Hematocrit 22L, Mean Corpuscular Volume 107H, Mean Corpuscular Hemoglobin 33, Mean Corpuscular Hemoglobin Concent 31L, Red Cell Distribution Width 23.7H, Platelet Count 270, Mean Platelet Volume 11.4H, Prothrombin Time 19.6H, INR Comment 1.7H, Neutrophils (%) (Auto) 71, Lymphocytes (%) (Auto) 11L, Monocytes (%) (Auto) 16H , Eosinophils (%) (Auto) 2, Basophils (%) (Auto) 0, Neutrophils # (Auto) 6.4, Lymphocytes # (Auto) 1.0, Monocytes # (Auto) 1.5H, Eosinophils # (Auto) 0.2, Basophils # (Auto) 0.0, Sodium Level 135, Potassium Level 4.3, Chloride Level 102, Carbon Dioxide Level 27, Anion Gap 6, Blood Urea Nitrogen 18, Creatinine 0.78, Estimat Glomerular Filtration Rate > 60, BUN/Creatinine Ratio 23, Glucose Level 139H, Calcium Level 8.2L, Total Bilirubin 0.6, Aspartate Amino Transf (AST /SGOT) 21, Alanine Aminotransferase (ALT/SGPT) 20, Alkaline Phosphatase 78, Total Protein 5.5L, Albumin 3.0L 12/05/16 08:08: Glucometer 115H Assessment/Plan Assessment 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 Chronic Afib controled with medication BPH with urinary retention managed with Indwelling Abraham catheter-Dr Ivy following Myelodysplastic syndrome with chronic anemia followed by [facility] in [place]-to have Hem-onc see here and to have transfusion today Chronic anticoagulation currently with subtherapeutic INR now with dose adjusted and INR rising Plan Continue PT/OT/ST Recheck labs in AM F/U with Dr Hopkins and Em as per their schedule Team Conference later today See report for full functional update and POC GUILLERMO MONACO MD Dec 05, 2016 11:21
--- NOTE | 2016-12-05 11:56 | Occupational Ther Daily Note ---
OT Current Status-Daily Note Subjective Nursing states that pt's hemoglobin is low, and he is to get blood. Pt. has already been showered and dressed with assist from his spouse. Appearance Pt. in bed. Agrees to therapy. Mental Status/Objective Patient Orientation: Person Functional [place] Measure 0=Not Assessed/NA 4=Minimal Assistance 1=Total Assistance 5=Supervision or Setup 2=Maximal Assistance 6=Modified [place] 3=Moderate Assistance 7=Complete [place] ADL-Treatment Functional [place] Measure 0=Not Assessed/NA 4=Minimal Assistance 1=Total Assistance 5=Supervision or Setup 2=Maximal Assistance 6=Modified [place] 3=Moderate Assistance 7=Complete IndependenceIRFPAI Quality Coding Scale 6 Independent with activity with or without an assistive device 5 Patient requires set up or clean up by helper. Patient completes activity by themselves 4 Supervision or touching assist (CGA). [place] provide cues , steadying assist 3 The helper provides less than half the effort to complete the activity 2 The helper provides more than half the effort to complete the activity 1 Dependent. The helper does all the effort to complete an activity 7 Patient refused to complete or attempt activity 9 The patient did not perform the activity before the current illness or injury 88 Not attempted due to Medical conditions or safety concerns Due to low hemoglobin, and IV placed in crook of arm for blood transfusion, this OT decided to work on cognition only, instead of UE exercises. Pt. has already completed ADLs with spouse. OT brought in cognitive tasks to work on. OT read pt. simple story comparing two things. Asked pt. series of questions afterwards. Pt. had difficulty answering. Able to answer a couple, but unable to answer what the story was comparing. OT went through series of simple tasks , such as grouping, naming, organizing. Pt. has great difficulty answering any questions. Will smile and state, "I don't know." Also had difficulty keeping pt. awake, as he would continually fall asleep. Had pt. look at white board with information on it. Asked pt. specific questions like "what is the date, where are you?" Pt. able to name the date, but unable to name the day of the week, where he was, or where he lived. Pt. oriented and encouraged. Nursing setting up blood transfusion when OT left room. Education OT Patient Education: Progress toward Goal/Update tx plan, Purpose of tx/ functional activities, Reviewed precautions, Rehab process Teaching Recipient: Patient Teaching Methods: Demonstration, Discussion Response to Teaching: Verbalize Understanding, Return Demonstration OT Short Term Goals Short Term Goals Time Frame: Dec 08, 2016 Eating(FIM): 0 Grooming(FIM): 6 Bathing(FIM): 6 Bathing Location: L Arm, R Arm, L Upper Leg, R Upper Leg, L Lower Leg ( including foot), R Lower Leg (including foot), Chest, Abdomen, Buttocks, Perineal Area Upper Body Dressing(FIM): 6 Lower Body Dressing(FIM): 6 Toileting(FIM): 6 Transfers (B,C,W/C) (FIM): 6 Toilet/Commode Transfer(FIM): 6 Tub Transfer(FIM): 0 Shower Transfer(FIM): 6 Comprehension(FIM): 3 Expression(FIM): 3 Social Interaction(FIM): 3 Problem Solving(FIM): 3 Memory(FIM): 3 1=Demonstrate adherence to instructed precautions during ADL tasks. 2=Patient will verbalize/demonstrate understanding of assistive devices/ modifications for ADL. 3=Patient will improve strength/tolerance for activity to enable patient to perform ADL's. OT Armature Coil [place] Goals Group Home Goals Time Frame: Dec 15, 2016 Eating (FIM): 0 Eating (QC): 0 Groomin Oral Hygiene (QC): 6 Bathing(FIM): 6 Bathing Location: L Arm, R Arm, L Upper Leg, R Upper Leg, L Lower Leg ( including foot), R Lower Leg (including foot), Chest, Abdomen, Buttocks, Perineal Area Shower/Bathe Self (QC): 6 Upper Body Dressing(FIM): 6 Upper Body Dressing (QC): 6 Lower Body Dressing(FIM): 6 Lower Body Dressing (QC): 6 On/Off Footwear (QC): 6 Toileting(FIM): 6 Toileting Hygiene (QC): 6 Transfers (B,C,W/C) (FIM): 6 Toilet/Commode Transfer(FIM): 6 Toilet/Commode Transfer (QC): 6 Tub Transfer(FIM): 0 Shower Transfer(FIM): 6 Comprehension(FIM): 5 Expression (FIM): 5 Social Interaction(FIM): 5 Problem Solving(FIM): 5 Memory(FIM): 4 1=Demonstrate adherence to instructed precautions during ADL tasks. 2=Patient will verbalize/demonstrate understanding of assistive devices/ modifications for ADL. 3=Patient will improve strength/tolerance for activity to enable patient to perform ADL's. OT Education/Plan Problem List/Assessment Assessment: Decreased Activ Tolerance, Impaired Cognition, Impaired I ADL's, Impaired Self-Care Skills Discharge Recommendations Plan/Recommendations: Continue POC Therapy D/C Recommendations: Home w/ Family Support, Occupational Therapy Home Care Treatment Plan/Plan of Care Treatment,Training & Education: Yes Patient would benefit from OT for education, treatment and training to promote independence in ADL's, mobility, safety and/or upper extremity function for ADL' s. Plan of Care: ADL Retraining, Cognitive Retraining, Group Exercise/Act as Ind, UE Funct Exercise/Act Treatment Duration: Dec 21, 2016 Visits Per Week: 10-12 Minutes/Day (M-F): 60-90 Minutes/Day (Sat/[place]): prn Agreement: Yes Rehab Potential: Good Time/GCodes Start Time: 09:15 Stop Time: 10:15 Total Time Billed (hr/min): 60 Billed Treatment Time 1, FA x 4 WILLIAMS SALVADOR OT Dec 05, 2016 11:56
--- NOTE | 2016-12-05 13:04 | Physical Therapy Daily Note ---
PT Daily Note-Current Subjective Agrees to Rx. Pain Numeric Pain Scale: 0-No Pain Appearance still getting blood Mental Status memory and comprehension challenges Transfers Functional [place] Measure 0=Not Assessed/NA 4=Minimal Assistance 1=Total Assistance 5=Supervision or Setup 2=Maximal Assistance 6=Modified [place] 3=Moderate Assistance 7=Complete IndependenceIRFPAI Quality Coding Scale 6 Independent with activity with or without an assistive device 5 Patient requires set up or clean up by helper. Patient completes activity by themselves 4 Supervision or touching assist (CGA). [place] provide cues , steadying assist 3 The helper provides less than half the effort to complete the activity 2 The helper provides more than half the effort to complete the activity 1 Dependent. The helper does all the effort to complete an activity 7 Patient refused to complete or attempt activity 9 The patient did not perform the activity before the current illness or injury 88 Not attempted due to Medical conditions or safety concerns sup to sit and sit to stand all CGA Gait Training Gait Assistive Device: FWW gait FWW 150ft CGA and verbal guidance as well as assist with IV for blood Exercises Supine Ex: Bridging, Ankle pumps, Quad Set, Rolling, Glut sets, Heel Slides, Short Arc Quads, Scooting, Straight leg raise, Hip abd/add Supine Reps: 12 NuStep Minutes: 10 NuStep Workload: 2 Treatments pt. coughs with exercise on Nustep Assessment Current Status: Good Progress steady slow progress PT Short Term Goals Short Term Goals Time Frame: Dec 07, 2016 Transfers (B,C,W/C) (FIM): 6 Gait (FIM): 5 Distance (FIM): 3=150 ft Gait Distance Comment: 300' Gait Level of Assist: 5 Gait Assistive Device: FWW, Cane Single Point PT Contact Printer Dry Film Goals [facility] Goals PT [facility] Goals Time Frame: Dec 21, 2016 Transfers (B,C,W/C) (FIM): 6 Sit to Lying (QC): 6 Lying-Sitting on Side/Bed(QC): 6 Sit to Stand (QC): 6 Rollin Roll Left to Right (QC): 6 Chair/Hsa-gy-Udaed Xfer(QC): 6 Car Transfer (QC): 6 Does the Patient Walk: Yes Gait (FIM): 6 Gait distance (FIM): 3=150 ft Distance: 300' Walk 10 feet (QC): 5 Walk 10ft-Uneven Surface(QC): 5 Walk 50ft with 2 Turns (QC): 5 Walk 150 ft (QC): 5 Gait Level of Assist: 6 Gait Assistive Device: None, FWW, Cane Single Point Stairs (FIM): 6 # of Steps: 12 1 Step (curb) (QC): 6 4 Steps (QC): 6 12 Steps (QC): 6 Stairs Level Of Assist: 6 Picking up an Object (QC): 5 PT Plan Treatment/Plan Treatment Plan: Education, Functional Activity Jie, Functional Strength, Group Therapy, Gait, Safety, Therapeutic Exercise, Transfers Treatment Duration: Dec 21, 2016 Visits Per Week: 10-12 Minutes/Day (M-F): 60-90 Minutes/Day (Sat/[place]): PRN Safety Risks/Education Patient Education: Gait Training, Transfer Techniques Teaching Recipient: Patient Teaching Methods: Demonstration, Discussion Response to Teaching: Verbalize Understanding, Return Demonstration, Reinforcement Needed Time/GCodes Time In: 1240 Time Out: 1300 Total Billed Treatment Time: 20 Total Billed Treatment 1, FA20m G Codes Necessary: JANAE Villanueva PRODUCT SAFETY LEAD Dec 05, 2016 13:04
[2016-12-05 13:13] VITALS: BP 116/64
--- NOTE | 2016-12-05 13:27 | CONSULTATION REPORT ---
DATE OF CONSULTATION: 12/05/2016 ATTENDING PHYSICIAN: Dr. Garcia SUMMARY: 86-year-old white man with a history of enlarged prostate. He saw Dr. Mckeon in [place] for possible prostate surgery. He was on Coumadin at that time and it was discontinued and the patient started having bleeding. Apparently a 3-way catheter was inserted with clearance and then the patient developed clot and pain with the subsequent CVA. The patient does not recall when the catheter was put in. All he knows that he is to go to the [facility] apparently or to Dr. Mckeon to have the catheter changed. The catheter is a 3-way and draining clear urine on CBI. No discharge or drainage around the catheter. IMPRESSION: Urinary retention secondary to BPH with history of gross hematuria now back on low-dose Coumadin. PLAN: I would recommend to leave the catheter as it is, especially if he starts having hematuria then we can use the CBI. Meanwhile, the nurse and the is going to check when the catheter was originally put in. I am going to be gone for the next 3 days. I do not think it is a good idea to change the catheter at this point and then running 2 issues. We will reevaluate the situation on Saturday, especially after getting all the above in information. Job ID: [id number] Dictated Date: 12/05/2016 11:58:14 Piping Manager Date: 12/05/2016 13:20:03/glenys
--- NOTE | 2016-12-05 14:40 | Therapy Group Daily Note ---
Therapy Daily Group Note Patient Education Topic Other List Below Other/Notes Pt was an active participant in PT/OT group. Mauri introduced himself for socialization by sharing how he came to [place]. He contributed to discussion/ education on transfer modes and techniques and demonstrated good hand placement with FWW when getting up to go back to room. He also listened to education on the rehab process and his shared "Words of [place]" for others for him. He did chair pushups with assistance to help strengthen arms for transfers and walked back to his room with CGA for safety, FWW. He transferred into bed with SBA and was left up in bed, all needs met, present, three rails up. Start Time: 13:00 Stop Time: 14:15 Total Billed Treatment Time: 75 Total Billed Treatment visit, 75 minutes group IRAM TAYLOR OT Dec 05, 2016 14:40
[2016-12-05 17:55] VITALS: BP 119/55
[2016-12-05] MEDS ORDERED: warFARin 5 MG (COUMADIN) TAB PO SCH (18:00)
[2016-12-05] MEDS: warFARin 3 MG (COUMADIN) TAB PO SCH (18:21)
[2016-12-05] MEDS ORDERED: ACETAMINOPHEN 325 MG TABLET/CAPLET (TYLENOL) PO PRN (18:30)
[2016-12-05] MEDS: MELATONIN 3 MG TABLET PO SCH (21:19)
[2016-12-05 21:20] VITALS: BP 113/80
[2016-12-05] MEDS: ATORVASTATIN 40 MG (LIPITOR) TABLET PO SCH (21:20)
[2016-12-06] MEDS: ACETAMINOPHEN 500 MG TAB (TYLENOL) PO PRN ×2 (03:32→21:48)
[2016-12-06 03:44] VITALS: BP 104/57
[2016-12-06 05:43] LABS: MEAN PLATELET VOLUME 11.7 FL (7.4-10.4); RED BLOOD COUNT 2.24 10^6/uL (4.35-5.85); RED CELL DISTRIBUTION WIDTH 23.1 % (10.0-14.5); WHITE BLOOD COUNT 10.5 10^3/uL (4.3-11.0)
[2016-12-06 05:48] LABS: INR 2.3 (0.8-1.4); PROTHROMBIN TIME PATIENT 24.8 SEC (12.2-14.7)
[2016-12-06 05:55] LABS: ANION GAP 10 MMOL/L (5-14); BLOOD UREA NITROGEN 20 MG/DL (7-18); BUN/CREATININE RATIO 24; CALCIUM 8.1 MG/DL (8.5-10.1); CARBON DIOXIDE 23 MMOL/L (21-32); CHLORIDE 101 MMOL/L (98-107); CREATININE SERUM 0.84 MG/DL (0.60-1.30); GFR ESTIMATED > 60; GLUCOSE 168 MG/DL (70-105); POTASSIUM 4.1 MMOL/L (3.6-5.0); SODIUM 134 MMOL/L (135-145)
[2016-12-06] MEDS: METHIMAZOLE 10 MG TAB PO SCH (06:41)
[2016-12-06] MEDS: ASPIRIN 81 MG CHEW (CHILDREN'S ASA) PO SCH (08:22)
[2016-12-06] MEDS: FAMOTIDINE 20 MG (PEPCID) TABLET GT SCH ×2 (08:22→21:49)
[2016-12-06] MEDS: SOTALOL 80 MG (BETAPACE) TAB PO SCH ×2 (08:23→21:48)
[2016-12-06] MEDS: DIGOXIN 0.125 MG (LANOXIN) TAB PO SCH (08:23)
[2016-12-06] MEDS: meTOprolol TARTRATE 25 MG (LOPRESSOR) TABLET PO SCH ×2 (08:24→21:49)
[2016-12-06 08:53] LABS: BASOPHILS % (AUTO) 0 % (0-10); EOSINOPHILS # (AUTO) 0.1 10^3/uL (0.0-0.3); EOSINOPHILS % (AUTO) 1 % (0-10); LYMPHOCYTES # (AUTO) 0.7 X 10^3 (1.0-4.0); LYMPHOCYTES % (AUTO) 7 % (12-44); MEAN CORPUSCULAR HGB CONC 32 G/DL (32-36); MEAN CORPUSCULAR VOLUME 105 FL (80-99); MONOCYTES # (AUTO) 1.5 X 10^3 (0.0-1.0); MONOCYTES % (AUTO) 15 % (0-12); NEUTROPHILS # (AUTO) 8.1 X 10^3 (1.8-7.8); NEUTROPHILS % (AUTO) 77 % (42-75); WHITE BLOOD COUNT 10.5 10^3/uL (4.3-11.0)
[2016-12-06] MEDS: inSUlin ASPART (NovoLOG) 1 UNIT/0.01 ML (CHARGE PER UNIT) SC SCH ×2 (09:00→21:00)
[2016-12-06 09:10] LABS: RED BLOOD COUNT 2.24 10^6/uL (4.35-5.85)
[2016-12-06 09:11] LABS: MEAN CORPUSCULAR HEMOGLOBIN 34 PG (25-34); MEAN PLATELET VOLUME 11.7 FL (7.4-10.4); PLATELET COUNT 249 10^3/uL (130-400); RED CELL DISTRIBUTION WIDTH 23.1 % (10.0-14.5)
[2016-12-06 09:21] LABS: ANISOCYTOSIS MODERATE; BAND NEUTROPHILS 25 %; BASOPHILS % (MANUAL) 1 %; EOSINOPHILS % (MANUAL) 1 %; LYMPHOCYTES % (MANUAL) 7 %; NEUTROPHILS % (MANUAL) 54 %; POIKILOCYTOSIS SLIGHT
--- NOTE | 2016-12-06 10:02 | Progress Note-Urology ---
Progress Note-Urology Progress Notes/Assess & Plan Progress/Assessment & Plan TOLD ME MARCH WAS INSERTED END OF SEPTEMBER. PLAN CHANGE IT ON SATURDAY . Final Diagnosis URINE RETENTION MINA MORE MD Dec 06, 2016 10:02 am
--- NOTE | 2016-12-06 10:14 | Speech Therapy Daily Note ---
Speech Daily Progress Note Subjective The patient was seated upright in bed upon entrance. The patient's was present for the session. Both greeted the clinician appropriately and agreed to participate in dysphagia and cognitive treatment on this date. Objective Dysphagia Exercises: Dysphagia exercises were continued on this date. The patient displayed fair accuracy (approximately 50%, reduced in comparison to the prior date) with dysphagia exercises on this date (base of tongue retraction , pharyngeal contraction, and laryngeal elevation). Moderate to maximum clinician verbal prompting was provided, as well as, an initial direct model. Ten repetitions of each exercise were performed. Orientation: With maximum clinician prompting and direct modeling, the patient was able to recall orientation information written on the white board. The information was reviewed several times throughout the session with additional information provided on the white board for increased recall throughout the day. At the close of the session, the patient was unable to independently recall orientation information discussed and required maximum prompting for identification. To note: The patient appears fatigued and more lethargic on this date. The patient additionally reports increased shortness of breath. A chest exam has been ordered to further investigate patient's concerns. Assessment Assessment Current Status: Fair Progress Treatment Plan Continue Plan of Care Communication Comprehension: 2 Expression: 2 Social Cognition Social Interaction: 4 Problem Solvin Memory: 3 Speech Short Term Goals Short Term Goals Short Term Goals 1) THE PATIENT WILL BE ABLE TO TOLERATE PHARYNGEAL STRENGTHENING ACTIVITIES FOR AT LEAST 90% OF TASKS PROVIDED. 2) THE PATIENT WILL BE ABLE TO FOLLOW COMPENSATORY SWALLOW STRATEGIES TO FACILITATE A SAFE AND EFFECTIVE SWALLOW FOR DIETARY TRIALS WITH IT PROGRAM AUDITOR PRESENT WITH UP TO 90% RETURN. 3) GIVEN A VISUAL CUE, THE PATIENT WILL BE ABLE TO VERBALIZE AT LEAST 1/3 COMPENSATORY SWALLOW STRATEGIES FOR SAFE SWALLOWING. 4) GIVEN THERMAL SENSORY STIMULATION, THE PATIENT WILL BE ABLE TO EFFECTIVELY INITIATE SWALLOW RESPONSE WITHIN 2 SECONDS. 5) THE PATIENT WILL BE ABLE TO COMPLETE RECALL OF THREE OBJECTS WITHOUT PROMPTING AT 5, 10 & 15 MINUTE INTERVALS. 6) THE PATIENT WILL BE ABLE TO COMPLETE TASKS RELATED TO DIVERGENT/CONVERGENT NAMING TO ASSIST WITH INCREASED MENTAL FLEXIBILITY WITH UP TO 80% RETURN. 7) FOLLOWING SAFETY TRAINING FROM NS AND/OR OTHER THERAPISTS, THE PATIENT WILL BE ABLE TO RECALL AT LEAST 80% OF INFORMATION FOLLOWING REQUESTS. 8) USING ALTERNATING ATTENTION TASKS, HUSSAIN WILL COMPLETE THESE TASKS FOR UP TO 5 MINUTES WITH MINIMAL PROMPTS. Comprehension: 3 Expression: 3 Social Interaction: 3 Problem Solvin Memory: 3 Speech Shelter Goals Shelter Goals 1) THE PATIENT WILL PARTICIPATE IN CAREGIVER EDUCATION REGARDING SWALLOW PRECAUTIONS, COMPENSATORY SWALLOW STRATEGIES WELL DIET CHANGES AND RECOMMENDATIONS WITH CAREGIVER RECALL AT 80% RETURN FOLLOWING QUESTIONING. 2) GIVEN DIETARY TRIALS, THE PATIENT WILL TOLERATE PLEASURABLE FEEDINGS WITHOUT ASPIRATION TO IMPROVE QUALITY OF LIFE WITHIN 30 DAYS. 3) HUSSAIN WILL BE ABLE TO SEQUENCE AT LEAST 5-STEPS WITH A VISUAL CUE TO COMPLETE ADL'S. 4) USING A VISUAL REMINDER, HUSSAIN WILL BE ABLE TO RECALL TIME/DAY/DATE AND IMPORTANT PERSONAL INFORMATION WITH UP TO 90% RETURN. Time Frame: 30 DAYS Comprehension: 5 Expression: 5 Social Interaction: 5 Problem Solvin Memory: 4 Speech-Plan Treatment Plan Speech Therapy Treatment Plan: Continue Plan of Care Continue skilled speech pathology intervention to target improved cognitive function and swallowing safety. Treatment Duration: January 04, 2017 # of days/week Five. Visits Per Week: 30-45 MINUTES Minutes/Day (M-F): M-F Rehab Potential: Good Safety Risks/Education Teaching Recipient: Patient Teaching Methods: Demonstration, Handout, Discussion Response to Teaching: Verbalize Understanding, Return Demonstration, Reinforcement Needed Education Topics Provided: Dysphagia Exercises, Orientation Strategies Time Speech Therapy Time In: 08:30 Speech Therapy Time Out: 09:15 Total Billed Time: 45 Billed Treatment Time 1, CARMEN 1, RHYS GUERRA Dec 06, 2016 10:14
--- NOTE | 2016-12-06 11:33 | Diagnostic Imaging Report ---
PA and lateral views of the chest. INDICATION: Right-sided weakness. FINDINGS: There is interstitial thickening seen associated with small effusions may relate to pulmonary vascular congestion. The heart size is at the upper limits of normal. 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 There is no pneumothorax. Mediastinum and stephany appear unremarkable. IMPRESSION: Diffuse interstitial thickening with tiny effusions, may relate to pulmonary vascular congestion. Dictated by: Dictated on workstation # [id number]
--- NOTE | 2016-12-06 11:58 | Occupational Ther Daily Note ---
OT Current Status-Daily Note Subjective Spouse indicates that pt. had a fever last night, and has had difficulty "catching breath." Pt. on oxygen. Appearance Pt. is in bed. Dressed. Agrees to work with OT. OT explains that pt. can stop anytime he needs to. X-ray performed to rule out pneumonia. Waiting on results. Mental Status/Objective Functional [place] Measure 0=Not Assessed/NA 4=Minimal Assistance 1=Total Assistance 5=Supervision or Setup 2=Maximal Assistance 6=Modified [place] 3=Moderate Assistance 7=Complete [place] ADL-Treatment Functional [place] Measure 0=Not Assessed/NA 4=Minimal Assistance 1=Total Assistance 5=Supervision or Setup 2=Maximal Assistance 6=Modified [place] 3=Moderate Assistance 7=Complete IndependenceIRFPAI Quality Coding Scale 6 Independent with activity with or without an assistive device 5 Patient requires set up or clean up by helper. Patient completes activity by themselves 4 Supervision or touching assist (CGA). [place] provide cues , steadying assist 3 The helper provides less than half the effort to complete the activity 2 The helper provides more than half the effort to complete the activity 1 Dependent. The helper does all the effort to complete an activity 7 Patient refused to complete or attempt activity 9 The patient did not perform the activity before the current illness or injury 88 Not attempted due to Medical conditions or safety concerns Transfers (B, C, W/C) (FIM): 5 Other Treatment Pt. agrees to treatment. O2 sats checked previous to treatment with oxygen on. At 95%. Took oxygen off but kept with pt. in treatment in case. Ambulated to gym. Tolerated 10 minutes on armbike with several rest breaks due to SOA. Continually checked oxygen throughout treatment. Oxygen at 95%. Pt. began to "dry heave." came in and checked pt. Pt. feeling better with no vomitting noted. Agreed to complete simple Ue fine motor tasks with peg placement. Pt. feeling more lethargic today. Ambulated back to room. Sats checked again. At 95%. All needs met in room. Education OT Patient Education: Correct positioning, Exercise program, Modified ADL techniques, Progress toward Goal/Update tx plan, Purpose of tx/functional activities, Reviewed precautions, Rehab process, Transfer techniques Teaching Recipient: Patient Teaching Methods: Demonstration, Discussion Response to Teaching: Verbalize Understanding, Return Demonstration OT Short Term Goals Short Term Goals Time Frame: Dec 08, 2016 Eating(FIM): 0 Grooming(FIM): 6 Bathing(FIM): 6 Bathing Location: L Arm, R Arm, L Upper Leg, R Upper Leg, L Lower Leg ( including foot), R Lower Leg (including foot), Chest, Abdomen, Buttocks, Perineal Area Upper Body Dressing(FIM): 6 Lower Body Dressing(FIM): 6 Toileting(FIM): 6 Transfers (B,C,W/C) (FIM): 6 Toilet/Commode Transfer(FIM): 6 Tub Transfer(FIM): 0 Shower Transfer(FIM): 6 Comprehension(FIM): 3 Expression(FIM): 3 Social Interaction(FIM): 3 Problem Solving(FIM): 3 Memory(FIM): 3 1=Demonstrate adherence to instructed precautions during ADL tasks. 2=Patient will verbalize/demonstrate understanding of assistive devices/ modifications for ADL. 3=Patient will improve strength/tolerance for activity to enable patient to perform ADL's. OT [place] Band Sawyer Goals [place] Band [place]yer Goals Time Frame: Dec 15, 2016 Eating (FIM): 0 Eating (QC): 0 Groomin Oral Hygiene (QC): 6 Bathing(FIM): 6 Bathing Location: L Arm, R Arm, L Upper Leg, R Upper Leg, L Lower Leg ( including foot), R Lower Leg (including foot), Chest, Abdomen, Buttocks, Perineal Area Shower/Bathe Self (QC): 6 Upper Body Dressing(FIM): 6 Upper Body Dressing (QC): 6 Lower Body Dressing(FIM): 6 Lower Body Dressing (QC): 6 On/Off Footwear (QC): 6 Toileting(FIM): 6 Toileting Hygiene (QC): 6 Transfers (B,C,W/C) (FIM): 6 Toilet/Commode Transfer(FIM): 6 Toilet/Commode Transfer (QC): 6 Tub Transfer(FIM): 0 Shower Transfer(FIM): 6 Comprehension(FIM): 5 Expression (FIM): 5 Social Interaction(FIM): 5 Problem Solving(FIM): 5 Memory(FIM): 4 1=Demonstrate adherence to instructed precautions during ADL tasks. 2=Patient will verbalize/demonstrate understanding of assistive devices/ modifications for ADL. 3=Patient will improve strength/tolerance for activity to enable patient to perform ADL's. OT Education/Plan Problem List/Assessment Assessment: Decreased Activ Tolerance, Decreased UE Strength, Impaired Cognition, Impaired Coordination, Impaired I ADL's, Impaired Self-Care Skills Discharge Recommendations Plan/Recommendations: Continue POC Therapy D/C Recommendations: Home w/ Family Support, Occupational Therapy Home Care Treatment Plan/Plan of Care Treatment,Training & Education: Yes Patient would benefit from OT for education, treatment and training to promote independence in ADL's, mobility, safety and/or upper extremity function for ADL' s. Plan of Care: ADL Retraining, Cognitive Retraining, Group Exercise/Act as Ind, UE Funct Exercise/Act Treatment Duration: Dec 21, 2016 Visits Per Week: 10-12 Minutes/Day (M-F): 60-90 Minutes/Day (Sat/[place]): prn Agreement: Yes Rehab Potential: Good Time/GCodes Start Time: 09:15 Stop Time: 10:00 Total Time Billed (hr/min): 45 Billed Treatment Time 1, Ex x 15minutes, FA x 30minutes WILLIAMS SALVADOR OT Dec 06, 2016 11:58
--- NOTE | 2016-12-06 12:39 | Progress Note (SOAP) ---
Subjective Subjective/Events-last exam Patient feeling weak this morning. Hemoglobin 7.3. INR therapeutic. Patient was short of breath put on a little oxygen today Objective Exam Vital Signs Date Time Temp Pulse Resp B/P (MAP) Pulse Ox O2 Delivery O2 Flow Rate FiO2 12/06/16 09:00 Room Air 12/06/16 04:30 99.6 12/06/16 03:44 100.5 73 18 104/57 90 Room Air 12/06/16 03:32 100.5 12/05/16 23:20 100.1 12/05/16 22:56 100.1 12/05/16 22:22 100.7 12/05/16 21:20 89 113/80 12/05/16 21:00 100.7 12/05/16 20:20 Room Air 12/05/16 17:55 100.4 93 18 119/55 92 Room Air 12/05/16 13:13 98.4 99 20 116/64 94 I & O 12/06/16 07:00 Intake Total 1894 ml Output Total 1575 ml Balance 319 ml Capillary Refill : General Appearance: No Apparent Distress, Thin HEENT: Normal ENT Inspection Neck: Normal Inspection Respiratory: Chest Non Tender, No Accessory Muscle Use, No Respiratory Distress Cardiovascular: Regular Rate, Rhythm Results Lab Laboratory Tests 12/05/16 16:20 12/06/16 05:26 Laboratory Tests 12/05/16 16:20: Hemoglobin 8.3#L, Hematocrit 26L 12/05/16 21:32: Glucometer 110 12/06/16 05:26: Hemoglobin 7.5L, Hematocrit 23L, White Blood Count 10.5, Red Blood Count 2.24L, Mean Corpuscular Volume 105H, Mean Corpuscular Hemoglobin 34, Mean Corpuscular Hemoglobin Concent 32, Red Cell Distribution Width 23.1H, Platelet Count 249, Mean Platelet Volume 11.7H, Neutrophils (%) (Auto) 77H, Lymphocytes (%) (Auto) 7L, Monocytes (%) (Auto) 15H, Eosinophils (%) (Auto) 1, Basophils (%) (Auto) 0, Neutrophils # (Auto) 8.1H, Lymphocytes # (Auto) 0.7L, Monocytes # (Auto) 1.5H, Eosinophils # (Auto) 0.1, Basophils # (Auto) 0.0, Neutrophils % (Manual) 54, Lymphocytes % (Manual) 7, Monocytes % (Manual) 12, Eosinophils % (Manual) 1, Basophils % (Manual) 1, Band Neutrophils 25, Poikilocytosis SLIGHT, Anisocytosis MODERATE, Macrocytosis SLIGHT, Prothrombin Time 24.8H, INR Comment 2.3H, Sodium Level 134L, Potassium Level 4.1, Chloride Level 101, Carbon Dioxide Level 23, Anion Gap 10, Blood Urea Nitrogen 20H, Creatinine 0.84, Estimat Glomerular Filtration Rate > 60, BUN/Creatinine Ratio 24, Glucose Level 168H, Calcium Level 8.1L 12/06/16 08:45: Glucometer 129H Assessment/Plan Assessment/Plan Assess & Plan/Chief Complaint Cerebrovascular accident due to ischemic stroke area Inability to swallow. CAD. Atrial fibrillation. Myelodysplastic syndrome. BPH. . CVA. Inability to swallow. CAMyelodysplastic disease. Patient's hemoglobin 6.9 to receive packed red blood cells. . 12/06/16 CVA. Inability to swallow. CAD. A. fib history. Myelo dysplastic syndrome. Patient feels weeks this morning. Chest x-ray ordered Clinical Quality Measures DVT/VTE Risk/Contraindication: Risk Factor Score Per Nursin RFS Level Per Nursing on Admit: 2=Moderate Contraindications-Pharm: Other *list below* Other: on warfarin MANE HOBBS DO Dec 06, 2016 12:39
--- NOTE | 2016-12-06 13:00 | Physical Therapy Daily Note ---
PT Daily Note-Current Subjective Pt laying supine in bed upon arrival. Pt & sp report that pt is more fatigued today and wonder if the Xray will show pt has pneumonia. Pt is very lethargic and SOB during tx. Pt agrees to PT. Mental Status Patient Orientation: Person, Place, Situation Attachments: Oxygen Transfers Functional Will Measure 0=Not Assessed/NA 4=Minimal Assistance 1=Total Assistance 5=Supervision or Setup 2=Maximal Assistance 6=Modified [place] 3=Moderate Assistance 7=Complete IndependenceIRFPAI Quality Coding Scale 6 Independent with activity with or without an assistive device 5 Patient requires set up or clean up by helper. Patient completes activity by themselves 4 Supervision or touching assist (CGA). [place] provide cues , steadying assist 3 The helper provides less than half the effort to complete the activity 2 The helper provides more than half the effort to complete the activity 1 Dependent. The helper does all the effort to complete an activity 7 Patient refused to complete or attempt activity 9 The patient did not perform the activity before the current illness or injury 88 Not attempted due to Medical conditions or safety concerns Scootin Rollin Roll Left to Right (QC): 5 Supine to/from Sit: 4 Sit to/from Stand: 5 Sit to Lying (QC): 5 Sit to Stand (QC): 5 Weight Bearing Weight Bearing Restriction: Full Weight Bearing Location Restriction: LE Bilateral Exercises Supine Ex: Ankle pumps, Heel Slides, Straight leg raise, Hip abd/add Supine Reps: 15 Treatments PT visited with nurse as well as ST regarding morning note and pt's demeanor. Sp arrives and visited with sp regarding her thoughts that pt had pneumonia. Pt was encouraged to participate in tx. Pt completed Supine EX in bed with no assistance although PT did have to continue to wake pt due to fatigue. Pt then transferred from supine to EOB at [facility] then EOB to Standing using FWW at [facility]. Pt stood for a couple of minutes before fatiguing and pt wanting to return to bed. Pt transfers from Standing to EOB at S[facility] then EOB to Supine at [facility]. Pt is left at end of tx with all needs met. Assessment Current Status: Fair Progress Pt didn't act like himself according to both therapy staff and Sp. Awaiting Xray results to know for sure if pt has pneumonia. PT Short Term Goals Short Term Goals Time Frame: Dec 07, 2016 Transfers (B,C,W/C) (FIM): 6 Gait (FIM): 5 Distance (FIM): 3=150 ft Gait Distance Comment: 300' Gait Level of Assist: 5 Gait Assistive Device: FWW, Cane Single Point PT Solid [employer] Facility Operator Goals Assisted Goals PT Assisted Goals Time Frame: Dec 21, 2016 Transfers (B,C,W/C) (FIM): 6 Sit to Lying (QC): 6 Lying-Sitting on Side/Bed(QC): 6 Sit to Stand (QC): 6 Rollin Roll Left to Right (QC): 6 Chair/Ulo-am-Exvde Xfer(QC): 6 Car Transfer (QC): 6 Does the Patient Walk: Yes Gait (FIM): 6 Gait distance (FIM): 3=150 ft Distance: 300' Walk 10 feet (QC): 5 Walk 10ft-Uneven Surface(QC): 5 Walk 50ft with 2 Turns (QC): 5 Walk 150 ft (QC): 5 Gait Level of Assist: 6 Gait Assistive Device: None, FWW, Cane Single Point Stairs (FIM): 6 # of Steps: 12 1 Step (curb) (QC): 6 4 Steps (QC): 6 12 Steps (QC): 6 Stairs Level Of Assist: 6 Picking up an Object (QC): 5 PT Plan Problem List Problem List: Activity Tolerance, Functional Strength, Safety, Balance, Gait Treatment/Plan Treatment Plan: Continue Plan of Care Treatment Plan: Education, Functional Activity Jie, Functional Strength, Group Therapy, Gait, Safety, Therapeutic Exercise, Transfers Treatment Duration: Dec 21, 2016 Visits Per Week: 10-12 Minutes/Day (M-F): 60-90 Minutes/Day (Sat/[place]): PRN Safety Risks/Education Patient Education: Transfer Techniques, Correct Positioning, Disease Process, Safety Issues Teaching Recipient: Patient Teaching Methods: Discussion Response to Teaching: Verbalize Understanding Time/GCodes Time In: 1115 Time Out: 1200 Total Billed Treatment Time: 45 Total Billed Treatment visit, EX (20m) & FA X2 (25m) ELISHA AGRAWAL PTA Dec 06, 2016 13:00
--- NOTE | 2016-12-06 14:32 | PM & R (SOAP) Progress Note ---
Subjective Subjective/Events-last exam Patient was seen in GYM this AM Patient min assist for transfers Discussed case with Dr Ivy Objective Exam Last Set of Vital Signs Vital Signs Date Time Temp Pulse Resp B/P (MAP) Pulse Ox O2 Delivery O2 Flow Rate FiO2 12/06/16 09:00 Room Air 12/06/16 04:30 99.6 12/06/16 03:44 73 18 104/57 90 Capillary Refill : I&O Intake and Output 12/06/16 00:00 Intake Total 1894 ml Output Total 1550 ml Balance 344 ml Intake Oral 0 ml Tube Feeding 1494 ml Other 400 ml Output Urine Total 1550 ml General: Alert, Oriented X3, Cooperative, No Acute Distress HEENT: Atraumatic, PERRLA, EOMI, Mucous Memb Moist/[place], Other (dysphagia and some word finding problems) Neck: Supple, No JVD Lungs: Clear to Auscultation Heart: Regular Rate Abdomen: Normal Bowel Sounds, Soft, No Tenderness, Other (peg tube site clean) Neuro: Other (mid rt sided weakness and significant dysphagia some word finding difficulty) Results Lab Laboratory Tests 12/03/16 20:48: Glucometer 99 12/04/16 07:40: White Blood Count 7.6, Red Blood Count 2.22L, Hemoglobin 7.4L, Hematocrit 24L, Mean Corpuscular Volume 109H, Mean Corpuscular Hemoglobin 33, Mean Corpuscular Hemoglobin Concent 31L, Red Cell Distribution Width 23.5H, Platelet Count 305, Mean Platelet Volume 12.5H, Prothrombin Time 17.1H, INR Comment 1.4 12/04/16 09:38: Glucometer 108 12/04/16 20:45: Glucometer 99 12/05/16 06:13: White Blood Count 9.0, Red Blood Count 2.06L, Hemoglobin 6.9*L, Hematocrit 22L, Mean Corpuscular Volume 107H, Mean Corpuscular Hemoglobin 33, Mean Corpuscular Hemoglobin Concent 31L, Red Cell Distribution Width 23.7H, Platelet Count 270, Mean Platelet Volume 11.4H, Neutrophils (%) (Auto) 71, Lymphocytes (%) (Auto) 11L, Monocytes (%) (Auto) 16H, Eosinophils (%) (Auto) 2, Basophils (%) (Auto) 0 , Neutrophils # (Auto) 6.4, Lymphocytes # (Auto) 1.0, Monocytes # (Auto) 1.5H, Eosinophils # (Auto) 0.2, Basophils # (Auto) 0.0, Prothrombin Time 19.6H, INR Comment 1.7H, Sodium Level 135, Potassium Level 4.3, Chloride Level 102, Carbon Dioxide Level 27, Anion Gap 6, Blood Urea Nitrogen 18, Creatinine 0.78, Estimat Glomerular Filtration Rate > 60, BUN/Creatinine Ratio 23, Glucose Level 139H, Calcium Level 8.2L, Total Bilirubin 0.6, Aspartate Amino Transf (AST/SGOT) 21, Alanine Aminotransferase (ALT/SGPT) 20, Alkaline Phosphatase 78, Total Protein 5.5L, Albumin 3.0L 12/05/16 08:08: Glucometer 115H 12/05/16 16:20: Hemoglobin 8.3#L, Hematocrit 26L 12/05/16 21:32: Glucometer 110 12/06/16 05:26: White Blood Count 10.5, Red Blood Count 2.24L, Hemoglobin 7.5L, Hematocrit 23L, Mean Corpuscular Volume 105H, Mean Corpuscular Hemoglobin 34, Mean Corpuscular Hemoglobin Concent 32, Red Cell Distribution Width 23.1H, Platelet Count 249, Mean Platelet Volume 11.7H, Neutrophils (%) (Auto) 77H, Lymphocytes (%) (Auto) 7L, Monocytes (%) (Auto) 15H, Eosinophils (%) (Auto) 1, Basophils (%) (Auto) 0, Neutrophils # (Auto) 8.1H, Lymphocytes # (Auto) 0.7L, Monocytes # (Auto) 1.5H, Eosinophils # (Auto) 0.1, Basophils # (Auto) 0.0, Neutrophils % (Manual) 54, Lymphocytes % (Manual) 7, Monocytes % (Manual) 12, Eosinophils % (Manual) 1, Basophils % (Manual) 1, Band Neutrophils 25, Poikilocytosis SLIGHT, Anisocytosis MODERATE, Macrocytosis SLIGHT, Prothrombin Time 24.8H, INR Comment 2.3H, Sodium Level 134L, Potassium Level 4.1, Chloride Level 101, Carbon Dioxide Level 23, Anion Gap 10, Blood Urea Nitrogen 20H, Creatinine 0.84, Estimat Glomerular Filtration Rate > 60, BUN/Creatinine Ratio 24, Glucose Level 168H, Calcium Level 8.1L 12/06/16 08:45: Glucometer 129H Assessment/Plan Assessment 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 Chronic Afib controled with medication BPH with urinary retention managed with Indwelling Abraham catheter-Dr Ivy following Myelodysplastic syndrome with chronic anemia followed by [facility] in [place]-to have Hem-onc see here and to have transfusion today Chronic anticoagulation currently with subtherapeutic INR now with dose adjusted and INR rising Plan Continue PT/OT/ST Current labs nopted F/U with Dr Hopkins and Em as per their schedule Team Conference held yesterday See report for full functional update and POC GUILLERMO MONACO MD Dec 06, 2016 14:32
--- NOTE | 2016-12-06 15:19 | Occupational Ther Daily Note ---
OT Current Status-Daily Note Subjective No pain reported. Pt. states, "better" when asked how he is feeling. Appearance Pt. in bed. Agrees to work with OT. Mental Status/Objective Patient Orientation: Person, Place, Time, Situation Functional [place] Measure 0=Not Assessed/NA 4=Minimal Assistance 1=Total Assistance 5=Supervision or Setup 2=Maximal Assistance 6=Modified [place] 3=Moderate Assistance 7=Complete [place] ADL-Treatment Functional [place] Measure 0=Not Assessed/NA 4=Minimal Assistance 1=Total Assistance 5=Supervision or Setup 2=Maximal Assistance 6=Modified [place] 3=Moderate Assistance 7=Complete IndependenceIRFPAI Quality Coding Scale 6 Independent with activity with or without an assistive device 5 Patient requires set up or clean up by helper. Patient completes activity by themselves 4 Supervision or touching assist (CGA). [place] provide cues , steadying assist 3 The helper provides less than half the effort to complete the activity 2 The helper provides more than half the effort to complete the activity 1 Dependent. The helper does all the effort to complete an activity 7 Patient refused to complete or attempt activity 9 The patient did not perform the activity before the current illness or injury 88 Not attempted due to Medical conditions or safety concerns Transfers (B, C, W/C) (FIM): 5 (SBA with walker) Other Treatment Pt. ambulated with SBA to therapy gym. OT provided magazine with pictures. Pt. shown different pictures. Pt. was asked to name the pictures. Pt. unable to name 90% of pictures. Would mainly say "duck" when shown any picture. At times , was able to indicate that he was aware that he couldn't say it. Other times, unaware. Pt. then shown a picture in the magazine. Asked to write down a statement about the picture, (a woman holding a dog.). Pt. began to attempt to draw a picture. OT encouraged him again to write a statement. Pt. indicates that he understands,but then continues to draw the picture. Pt. smiles at OT but does not indicate awareness of situation. Completed nut/bolt activity to increase overall strength and independence with daily tasks. Ambulated back to room with SBA. Education OT Patient Education: Exercise program, Modified ADL techniques, Progress toward Goal/Update tx plan, Purpose of tx/functional activities, Reviewed precautions, Rehab process, Transfer techniques Teaching Recipient: Patient Teaching Methods: Demonstration, Discussion Response to Teaching: Verbalize Understanding, Return Demonstration OT Short Term Goals Short Term Goals Time Frame: Dec 08, 2016 Eating(FIM): 0 Grooming(FIM): 6 Bathing(FIM): 6 Bathing Location: L Arm, R Arm, L Upper Leg, R Upper Leg, L Lower Leg ( including foot), R Lower Leg (including foot), Chest, Abdomen, Buttocks, Perineal Area Upper Body Dressing(FIM): 6 Lower Body Dressing(FIM): 6 Toileting(FIM): 6 Transfers (B,C,W/C) (FIM): 6 Toilet/Commode Transfer(FIM): 6 Tub Transfer(FIM): 0 Shower Transfer(FIM): 6 Comprehension(FIM): 3 Expression(FIM): 3 Social Interaction(FIM): 3 Problem Solving(FIM): 3 Memory(FIM): 3 1=Demonstrate adherence to instructed precautions during ADL tasks. 2=Patient will verbalize/demonstrate understanding of assistive devices/ modifications for ADL. 3=Patient will improve strength/tolerance for activity to enable patient to perform ADL's. OT Residential Goals Residential Goals Time Frame: Dec 15, 2016 Eating (FIM): 0 Eating (QC): 0 Groomin Oral Hygiene (QC): 6 Bathing(FIM): 6 Bathing Location: L Arm, R Arm, L Upper Leg, R Upper Leg, L Lower Leg ( including foot), R Lower Leg (including foot), Chest, Abdomen, Buttocks, Perineal Area Shower/Bathe Self (QC): 6 Upper Body Dressing(FIM): 6 Upper Body Dressing (QC): 6 Lower Body Dressing(FIM): 6 Lower Body Dressing (QC): 6 On/Off Footwear (QC): 6 Toileting(FIM): 6 Toileting Hygiene (QC): 6 Transfers (B,C,W/C) (FIM): 6 Toilet/Commode Transfer(FIM): 6 Toilet/Commode Transfer (QC): 6 Tub Transfer(FIM): 0 Shower Transfer(FIM): 6 Comprehension(FIM): 5 Expression (FIM): 5 Social Interaction(FIM): 5 Problem Solving(FIM): 5 Memory(FIM): 4 1=Demonstrate adherence to instructed precautions during ADL tasks. 2=Patient will verbalize/demonstrate understanding of assistive devices/ modifications for ADL. 3=Patient will improve strength/tolerance for activity to enable patient to perform ADL's. OT Education/Plan Problem List/Assessment Assessment: Decreased Activ Tolerance, Impaired Cognition, Impaired I ADL's, Impaired Self-Care Skills Discharge Recommendations Plan/Recommendations: Continue POC Therapy D/C Recommendations: Home w/ Family Support, Occupational Therapy Home Care Treatment Plan/Plan of Care Treatment,Training & Education: Yes Patient would benefit from OT for education, treatment and training to promote independence in ADL's, mobility, safety and/or upper extremity function for ADL' s. Plan of Care: ADL Retraining, Cognitive Retraining, Group Exercise/Act as Ind, UE Funct Exercise/Act Treatment Duration: Dec 21, 2016 Visits Per Week: 10-12 Minutes/Day (M-F): 60-90 Minutes/Day (Sat/[place]): prn Agreement: Yes Rehab Potential: Good Time/GCodes Start Time: 13:00 Stop Time: 13:30 Total Time Billed (hr/min): 30 Billed Treatment Time 1, FA x 15minutes, EX x 15minutes WILLIAMS SALVADOR OT Dec 06, 2016 15:19
--- NOTE | 2016-12-06 15:22 | Physical Therapy Daily Note ---
PT Daily Note-Current Subjective Pt sitting in chair in Therapy Gym after finishing with OT upon arrival. Pt agrees to PT. Pain Numeric Pain Scale: 3 Location Body Site: Chest Pain Description: Tightness Mental Status Patient Orientation: Person, Place Attachments: Abraham Catheter Transfers Functional [place] Measure 0=Not Assessed/NA 4=Minimal Assistance 1=Total Assistance 5=Supervision or Setup 2=Maximal Assistance 6=Modified [place] 3=Moderate Assistance 7=Complete IndependenceIRFPAI Quality Coding Scale 6 Independent with activity with or without an assistive device 5 Patient requires set up or clean up by helper. Patient completes activity by themselves 4 Supervision or touching assist (CGA). [place] provide cues , steadying assist 3 The helper provides less than half the effort to complete the activity 2 The helper provides more than half the effort to complete the activity 1 Dependent. The helper does all the effort to complete an activity 7 Patient refused to complete or attempt activity 9 The patient did not perform the activity before the current illness or injury 88 Not attempted due to Medical conditions or safety concerns Scootin Rollin Roll Left to Right (QC): 6 Supine to/from Sit: 5 Sit to/from Stand: 5 Sit to Lying (QC): 5 Sit to Stand (QC): 5 Weight Bearing Weight Bearing Restriction: Full Weight Bearing Location Restriction: LE Bilateral Gait Training Does the Patient Walk?: Yes Distance (FIM): 3=150 ft Distance: 150' Walk 10 feet (QC): 5 Walk 50 ft with 2 Turns(QC): 5 Walk 150 ft (QC): 5 Gait Level of Assist: 5 Gait Persons Needed: 1 Gait Assistive Device: FWW Pt's jennifer is slow but steady, no LOB. Exercises NuStep Minutes: 8 NuStep Workload: 2 Treatments Pt transfers from chair to standing using FWW at [facility]. Pt ambulates to NuStep and uses it until pt cannot use anymore due to fatigue and retires back to room to rest. Pt transfers from standing to EOB at [facility] and EOB to Supine at [facility]. Pt is left with all needs met at end of tx. Assessment Current Status: Fair Progress Pt fatigues quicker than previous days and c/o SOB with activity. PT Short Term Goals Short Term Goals Time Frame: Dec 07, 2016 Transfers (B,C,W/C) (FIM): 6 Gait (FIM): 5 Distance (FIM): 3=150 ft Gait Distance Comment: 300' Gait Level of Assist: 5 Gait Assistive Device: FWW, Cane Single Point PT Reception Agent Goals Reception Agent Goals PT Intermediate Goals Time Frame: Dec 21, 2016 Transfers (B,C,W/C) (FIM): 6 Sit to Lying (QC): 6 Lying-Sitting on Side/Bed(QC): 6 Sit to Stand (QC): 6 Rollin Roll Left to Right (QC): 6 Chair/Kox-zp-Smzjj Xfer(QC): 6 Car Transfer (QC): 6 Does the Patient Walk: Yes Gait (FIM): 6 Gait distance (FIM): 3=150 ft Distance: 300' Walk 10 feet (QC): 5 Walk 10ft-Uneven Surface(QC): 5 Walk 50ft with 2 Turns (QC): 5 Walk 150 ft (QC): 5 Gait Level of Assist: 6 Gait Assistive Device: None, FWW, Cane Single Point Stairs (FIM): 6 # of Steps: 12 1 Step (curb) (QC): 6 4 Steps (QC): 6 12 Steps (QC): 6 Stairs Level Of Assist: 6 Picking up an Object (QC): 5 PT Plan Problem List Problem List: Activity Tolerance, Functional Strength, Safety, Balance, Gait Treatment/Plan Treatment Plan: Continue Plan of Care Treatment Plan: Education, Functional Activity Jie, Functional Strength, Group Therapy, Gait, Safety, Therapeutic Exercise, Transfers Treatment Duration: Dec 21, 2016 Visits Per Week: 10-12 Minutes/Day (M-F): 60-90 Minutes/Day (Sat/[place]): PRN Safety Risks/Education Patient Education: Gait Training, Transfer Techniques, Correct Positioning, Disease Process, Safety Issues Teaching Recipient: Patient Teaching Methods: Discussion Response to Teaching: Verbalize Understanding Time/GCodes Time In: 1330 Time Out: 1400 Total Billed Treatment Time: 30 Total Billed Treatment visit, GT (15m) & EX (15m) ELISHA AGRAWAL PTA Dec 06, 2016 15:22
[2016-12-06] MEDS: warFARin 3 MG (COUMADIN) TAB PO SCH (18:05)
[2016-12-06 18:43] VITALS: BP 125/65
[2016-12-06] MEDS: ATORVASTATIN 40 MG (LIPITOR) TABLET PO SCH (21:49)
[2016-12-06] MEDS: MELATONIN 3 MG TABLET PO SCH (21:50)
[2016-12-07] VITALS (7 sets, daily range): BP systolic 100–110; BP diastolic 49–72
[2016-12-07] MEDS: ACETAMINOPHEN 500 MG TAB (TYLENOL) PO PRN (03:52)
[2016-12-07] MEDS: METHIMAZOLE 10 MG TAB PO SCH (06:26)
[2016-12-07 06:53] LABS: MEAN PLATELET VOLUME 11.4 FL (7.4-10.4); RED BLOOD COUNT 2.07 10^6/uL (4.35-5.85); RED CELL DISTRIBUTION WIDTH 22.9 % (10.0-14.5); WHITE BLOOD COUNT 7.5 10^3/uL (4.3-11.0)
[2016-12-07 07:03] LABS: INR 2.8 (0.8-1.4); PROTHROMBIN TIME PATIENT 29.7 SEC (12.2-14.7)
[2016-12-07 07:07] LABS: ANION GAP 9 MMOL/L (5-14); BLOOD UREA NITROGEN 24 MG/DL (7-18); BUN/CREATININE RATIO 29; CALCIUM 8.2 MG/DL (8.5-10.1); CARBON DIOXIDE 26 MMOL/L (21-32); CHLORIDE 102 MMOL/L (98-107); CREATININE SERUM 0.84 MG/DL (0.60-1.30); GFR ESTIMATED > 60; GLUCOSE 124 MG/DL (70-105); POTASSIUM 3.8 MMOL/L (3.6-5.0); SODIUM 137 MMOL/L (135-145)
--- NOTE | 2016-12-07 08:10 | CONSULTATION REPORT ---
DATE OF CONSULTATION: 12/06/2016 REFERRING PHYSICIAN: Jeff Hopkins Patient is admitted to Room 230. IMPRESSION: 1. 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 2. History of myelodysplastic syndrome causing anemia. The patient was on treatment with darbepoetin robina on an outpatient basis twice a month with reduction in transfusion requirement. 3. History of atrial fibrillation and on chronic anticoagulation. 4. History of BPH in preparation for TURP, the anticoagulation was stopped for approximately 3 week period when the patient suffered a CVA. A TURP has not been completed. 5. History of coronary artery disease, status post 3 vessel CABG, status post aortic valve replacement and currently defibrillator pacemaker. RECOMMENDATIONS: 1. Agree with PRBC transfusion to maintain hemoglobin more than or equal to 8 g/dL. 2. Resume darbepoetin robina. The patient has the next dose at home and the family will bring this in before December 08 when the next dose is due. 3. Continue rehabilitation as you are doing. 4. With regards to BPH and indwelling Abraham catheter, continue urology recommendations. 5. Dr. Pederson is covering for me until 12/10/2016. BRIEF HISTORY: Mr. Gibbs is an 86-year-old male who was transferred from [facility] for inpatient rehabilitation as he is recovering from an ischemic CVA causing left hemiplegia/hemiparesis. He has history of myelodysplastic syndrome causing anemia and requiring occasional PRBC transfusion as an outpatient. He was under the care of Dr. Rasheed and receiving darbepoetin 2 times a month on the first and the with reduction and transfusion requirement. At the time of admission, he was noted to be anemic and hence the hematology consultation. The patient has history of atrial fibrillation and has been on chronic anticoagulation. But because of BPH and symptoms, he was being prepped for TURP and had all the anticoagulation stopped. The patient developed bleeding and the TURP was postponed with placement of indwelling Abraham catheter. Approximately 3 weeks after stopping the anticoagulation he developed an ischemic CVA with left hemiplegia/hemiparesis. He is recovering from this with the anticoagulation being restarted. He was transferred to [facility] for continuation of inpatient rehabilitation. PAST MEDICAL HISTORY: 1. Significant for coronary artery disease, status post 3 vessel CABG and aortic valve replacement using a porcine valve. 2. Following this he needed insertion of defibrillator pacemaker. 3. He has history of anemia and underwent an evaluation, including a bone marrow aspiration and biopsy in [place] which revealed myelodysplastic syndrome by history. I am unsure of the type of the MDS but he is being treated with darbepoetin robina two times a month on an outpatient basis 4. He has a history of head and neck cancer and underwent surgery in 1989 followed by radiation therapy. PRIOR SURGERIES INCLUDE: 1. CABG valve replacement. 2. Cholecystectomy. 3. Defibrillator pacemaker insertion. SOCIAL HISTORY: The patient is and lives in [place], [place]. They have 2 daughters one of whom lives in [place] and one in [place]. He worked at [employer] for 34 years and retired in 1995. He has extensive history of tobacco use in the past, but quit this in 1989. Also has history of alcohol use and quit at the time of his bypass surgery. He denied any recreational drug use. FAMILY HISTORY: Unremarkable with no major malignancies in the family that the patient knows of. PHYSICAL EXAMINATION: Today showed an elderly male, awake, and answering simple questions and does not appear in any acute distress. VITAL SIGNS: Temperature was 99.1, pulse rate of 92, respiratory rate 18, blood pressure 125/65, oxygen saturation 90% on room air. 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 Extraocular muscles intact. Conjunctivae slightly pale, oral mucosa moist. NECK: Supple with no JVD. No cervical, supraclavicular, or axillary lymphadenopathy palpable. CHEST: Chest examination showed left-sided pacemaker/defibrillator. Healed median sternotomy scar present. LUNGS: With slightly diminished breath sounds bilaterally without wheezes or rales. CARDIOVASCULAR EXAM: Cardiovascular exam was irregular with no murmurs or gallops heard. ABDOMEN: Soft, nontender, with no hepatosplenomegaly or other masses palpable. Indwelling Abraham catheter present. EXTREMITIES: Showed no edema or petechiae. NEUROLOGICAL EXAM: Significant for left hemiparesis. CBC done today showed WBC 10.5, hemoglobin 7.5, MCV 105, platelet count 249,000 with neutrophil count of 8.1, lymphocyte count 0.7, and monocyte count of 1.5. Hemoglobin level had dropped to 6.9 yesterday and he received a unit of packed red blood cell transfusion. Chemistry panel showed relatively normal electrolytes. BUN was 20 and creatinine 0.84 with GFR more than 60 mL per minute. Liver function studies done yesterday were unremarkable, except for albumin level of 3.0. Thank you for allowing me to participate in this patient's care. I will follow the patient with you. Job ID: [id number] Dictated Date: 12/06/2016 19:15:12 Blind Hanger Date: 12/07/2016 07:50:29/glenys VILLARREAL
--- NOTE | 2016-12-07 08:26 | PM & R (SOAP) Progress Note ---
Subjective Subjective/Events-last exam Patient was seen in his room this AM Patient min assist for transfers.Patients assisting with morning adls Objective Exam Last Set of Vital Signs Vital Signs Date Time Temp Pulse Resp B/P (MAP) Pulse Ox O2 Delivery O2 Flow Rate FiO2 12/07/16 05:00 100.2 65 18 106/59 90 Room Air Capillary Refill : I&O Intake and Output 12/07/16 00:00 Intake Total 1864 ml Output Total 1375 ml Balance 489 ml Intake Oral 0 ml Tube Feeding 1464 ml Other 400 ml Output Urine Total 1375 ml General: Alert, Oriented X3, Cooperative, No Acute Distress HEENT: Atraumatic, PERRLA, EOMI, Mucous Memb Moist/[place], Other (dysphagia and some word finding problems) Neck: Supple, No JVD Lungs: Clear to Auscultation Heart: Regular Rate Abdomen: Normal Bowel Sounds, Soft, No Tenderness, Other (peg tube site clean) Neuro: Other (mid rt sided weakness and significant dysphagia some word finding difficulty) Results Lab Laboratory Tests 12/04/16 09:38: Glucometer 108 12/04/16 20:45: Glucometer 99 12/05/16 06:13: White Blood Count 9.0, Red Blood Count 2.06L, Hemoglobin 6.9*L, Hematocrit 22L, Mean Corpuscular Volume 107H, Mean Corpuscular Hemoglobin 33, Mean Corpuscular Hemoglobin Concent 31L, Red Cell Distribution Width 23.7H, Platelet Count 270, Mean Platelet Volume 11.4H, Neutrophils (%) (Auto) 71, Lymphocytes (%) (Auto) 11L, Monocytes (%) (Auto) 16H, Eosinophils (%) (Auto) 2, Basophils (%) (Auto) 0 , Neutrophils # (Auto) 6.4, Lymphocytes # (Auto) 1.0, Monocytes # (Auto) 1.5H, Eosinophils # (Auto) 0.2, Basophils # (Auto) 0.0, Prothrombin Time 19.6H, INR Comment 1.7H, Sodium Level 135, Potassium Level 4.3, Chloride Level 102, Carbon Dioxide Level 27, Anion Gap 6, Blood Urea Nitrogen 18, Creatinine 0.78, Estimat Glomerular Filtration Rate > 60, BUN/Creatinine Ratio 23, Glucose Level 139H, Calcium Level 8.2L, Total Bilirubin 0.6, Aspartate Amino Transf (AST/SGOT) 21, Alanine Aminotransferase (ALT/SGPT) 20, Alkaline Phosphatase 78, Total Protein 5.5L, Albumin 3.0L 12/05/16 08:08: Glucometer 115H 12/05/16 16:20: Hemoglobin 8.3#L, Hematocrit 26L 12/05/16 21:32: Glucometer 110 12/06/16 05:26: Hemoglobin 7.5L, Hematocrit 23L, White Blood Count 10.5, Red Blood Count 2.24L, Mean Corpuscular Volume 105H, Mean Corpuscular Hemoglobin 34, Mean Corpuscular Hemoglobin Concent 32, Red Cell Distribution Width 23.1H, Platelet Count 249, Mean Platelet Volume 11.7H, Neutrophils (%) (Auto) 77H, Lymphocytes (%) (Auto) 7L, Monocytes (%) (Auto) 15H, Eosinophils (%) (Auto) 1, Basophils (%) (Auto) 0, Neutrophils # (Auto) 8.1H, Lymphocytes # (Auto) 0.7L, Monocytes # (Auto) 1.5H, Eosinophils # (Auto) 0.1, Basophils # (Auto) 0.0, Neutrophils % (Manual) 54, Lymphocytes % (Manual) 7, Monocytes % (Manual) 12, Eosinophils % (Manual) 1, Basophils % (Manual) 1, Band Neutrophils 25, Poikilocytosis SLIGHT, Anisocytosis MODERATE, Macrocytosis SLIGHT, Prothrombin Time 24.8H, INR Comment 2.3H, Sodium Level 134L, Potassium Level 4.1, Chloride Level 101, Carbon Dioxide Level 23, Anion Gap 10, Blood Urea Nitrogen 20H, Creatinine 0.84, Estimat Glomerular Filtration Rate > 60, BUN/Creatinine Ratio 24, Glucose Level 168H, Calcium Level 8.1L 12/06/16 08:45: Glucometer 129H 12/06/16 21:39: Glucometer 120H 12/07/16 06:44: White Blood Count 7.5, Red Blood Count 2.07L, Hemoglobin 7.1L, Hematocrit 22L, Mean Corpuscular Volume 106H, Mean Corpuscular Hemoglobin 34, Mean Corpuscular Hemoglobin Concent 32, Red Cell Distribution Width 22.9H, Platelet Count 219, Mean Platelet Volume 11.4H, Prothrombin Time 29.7H, INR Comment 2.8H, Sodium Level 137, Potassium Level 3.8, Chloride Level 102, Carbon Dioxide Level 26, Anion Gap 9, Blood Urea Nitrogen 24H, Creatinine 0.84, Estimat Glomerular Filtration Rate > 60, BUN/Creatinine Ratio 29, Glucose Level 124H, Calcium Level 8.2L, B-Type Natriuretic Peptide 1254.0H 12/07/16 07:30: Stool Occult Blood Immunoassay POSITIVEH Assessment/Plan Assessment 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 Chronic Afib controled with medication BPH with urinary retention managed with Indwelling Abraham catheter-Dr Ivy following Myelodysplastic syndrome with chronic anemia followed by [facility] in [place]-to have Hem-onc see here and to have transfusion today Chronic anticoagulation currently with subtherapeutic INR now with dose adjusted and INR rising Plan Continue PT/OT/ST Current labs noted F/U with Dr Hopkins and Em as per their schedule Team Conference held 12/05/16 See report for full functional update and POC DR Ivy to change out Abraham catheter next week 12/10/16 GUILLERMO MONACO MD Dec 07, 2016 08:26
--- NOTE | 2016-12-07 08:39 | Progress Note (SOAP) ---
Subjective Subjective/Events-last exam stroke. Myelodysplastic disorder. Anemia. Right sided weakness. BNP elevated Objective Exam Vital Signs Date Time Temp Pulse Resp B/P (MAP) Pulse Ox O2 Delivery O2 Flow Rate FiO2 12/07/16 05:00 100.2 65 18 106/59 90 Room Air 12/07/16 04:50 99.5 12/07/16 03:52 100.2 12/06/16 21:48 100.7 12/06/16 20:20 Room Air 12/06/16 18:43 99.1 92 18 125/65 90 Room Air 12/06/16 09:00 Room Air I & O 12/07/16 07:00 Intake Total 1864 ml Output Total 1200 ml Balance 664 ml Capillary Refill : General Appearance: No Apparent Distress, Thin HEENT: Normal ENT Inspection Cardiovascular: Other (murmur) Gastrointestinal: soft Results Lab Laboratory Tests 12/07/16 06:44 Laboratory Tests 12/06/16 08:45: Glucometer 129H 12/06/16 21:39: Glucometer 120H 12/07/16 06:44: White Blood Count 7.5, Red Blood Count 2.07L, Hemoglobin 7.1L, Hematocrit 22L, Mean Corpuscular Volume 106H, Mean Corpuscular Hemoglobin 34, Mean Corpuscular Hemoglobin Concent 32, Red Cell Distribution Width 22.9H, Platelet Count 219, Mean Platelet Volume 11.4H, Prothrombin Time 29.7H, INR Comment 2.8H, Sodium Level 137, Potassium Level 3.8, Chloride Level 102, Carbon Dioxide Level 26, Anion Gap 9, Blood Urea Nitrogen 24H, Creatinine 0.84, Estimat Glomerular Filtration Rate > 60, BUN/Creatinine Ratio 29, Glucose Level 124H, Calcium Level 8.2L, B-Type Natriuretic Peptide 1254.0H 12/07/16 07:30: Stool Occult Blood Immunoassay POSITIVEH Assessment/Plan Assessment/Plan Assess & Plan/Chief Complaint Cerebrovascular accident due to ischemic stroke area Inability to swallow. CAD. Atrial fibrillation. Myelodysplastic syndrome. BPH. . CVA. Inability to swallow. CAMyelodysplastic disease. Patient's hemoglobin 6.9 to receive packed red blood cells. . 12/06/16 CVA. Inability to swallow. CAD. A. fib history. Myelo dysplastic syndrome. Patient feels weeks this morning. Chest x-ray ordered. . 12/07/16 better.. Inability to swallow. CAD. A. fib . .. Myelodysplastic syndrome. Anemia... BNP elevated Clinical Quality Measures DVT/VTE Risk/Contraindication: Risk Factor Score Per Nursin RFS Level Per Nursing on Admit: 2=Moderate Contraindications-Pharm: Other *list below* Other: on warfarin MANE HOBBS DO Dec 07, 2016 08:39
[2016-12-07] MEDS: inSUlin ASPART (NovoLOG) 1 UNIT/0.01 ML (CHARGE PER UNIT) SC SCH ×2 (09:00→21:00)
[2016-12-07] MEDS: meTOprolol TARTRATE 25 MG (LOPRESSOR) TABLET PO SCH ×2 (09:00→20:25)
[2016-12-07] MEDS ORDERED: NS IV 500 ML 500 ML IV ONE (09:15)
[2016-12-07] MEDS ORDERED: ACETAMINOPHEN 325 MG TABLET/CAPLET (TYLENOL) PO NR (09:15)
[2016-12-07] MEDS ORDERED: diphenhydrAMINE 25 MG TAB (BENADRYL) PO NR (09:15)
[2016-12-07] MEDS: DIGOXIN 0.125 MG (LANOXIN) TAB PO SCH (09:56)
[2016-12-07] MEDS: SOTALOL 80 MG (BETAPACE) TAB PO SCH ×2 (09:57→20:25)
[2016-12-07] MEDS: ASPIRIN 81 MG CHEW (CHILDREN'S ASA) PO SCH (09:57)
[2016-12-07] MEDS: FAMOTIDINE 20 MG (PEPCID) TABLET GT SCH ×2 (09:57→20:25)
--- NOTE | 2016-12-07 10:50 | Physical Therapy Daily Note ---
PT Daily Note-Current Subjective Pt. in bed to receive blood transfusion soon. Nurse advises hgb is 7.1. Pt. states he is in no pain, agrees to bed ther ex and TRF mobility activities Pain Numeric Pain Scale: 0-No Pain Appearance pale and thin Mental Status Patient Orientation: Confused Attachments: PEG Tube, Abraham Catheter, IV Transfers Functional [place] Measure 0=Not Assessed/NA 4=Minimal Assistance 1=Total Assistance 5=Supervision or Setup 2=Maximal Assistance 6=Modified [place] 3=Moderate Assistance 7=Complete IndependenceIRFPAI Quality Coding Scale 6 Independent with activity with or without an assistive device 5 Patient requires set up or clean up by helper. Patient completes activity by themselves 4 Supervision or touching assist (CGA). [place] provide cues , steadying assist 3 The helper provides less than half the effort to complete the activity 2 The helper provides more than half the effort to complete the activity 1 Dependent. The helper does all the effort to complete an activity 7 Patient refused to complete or attempt activity 9 The patient did not perform the activity before the current illness or injury 88 Not attempted due to Medical conditions or safety concerns Transfers (B, C, W/C) (FIM): 5 Scootin Rollin Supine to/from Sit: 6 Sit to/from Stand: 6 Bed to/from Chair: 5 Gait Training pt. in bed to begin blood transfusion , no gait Exercises Supine Ex: Bridging, Ankle pumps, Quad Set, Rolling, Glut sets, Heel Slides, Straight leg raise, Hip abd/add Supine Reps: 20 shoulder flexion and abduction x 15 ea Assessment Current Status: Good Progress, Fair Progress PT Short Term Goals Short Term Goals Time Frame: Dec 07, 2016 Transfers (B,C,W/C) (FIM): 6 Gait (FIM): 5 Distance (FIM): 3=150 ft Gait Distance Comment: 300' Gait Level of Assist: 5 Gait Assistive Device: FWW, Cane Single Point PT Boat Deckhand Goals Jail Goals PT Jail Goals Time Frame: Dec 21, 2016 Transfers (B,C,W/C) (FIM): 6 Sit to Lying (QC): 6 Lying-Sitting on Side/Bed(QC): 6 Sit to Stand (QC): 6 Rollin Roll Left to Right (QC): 6 Chair/[id number] Xfer(QC): 6 Car Transfer (QC): 6 Does the Patient Walk: Yes Gait (FIM): 6 Gait distance (FIM): 3=150 ft Distance: 300' Walk 10 feet (QC): 5 Walk 10ft-Uneven Surface(QC): 5 Walk 50ft with 2 Turns (QC): 5 Walk 150 ft (QC): 5 Gait Level of Assist: 6 Gait Assistive Device: None, FWW, Cane Single Point Stairs (FIM): 6 # of Steps: 12 1 Step (curb) (QC): 6 4 Steps (QC): 6 12 Steps (QC): 6 Stairs Level Of Assist: 6 Picking up an Object (QC): 5 PT Plan Treatment/Plan Treatment Plan: Continue Plan of Care Treatment Plan: Education, Functional Activity Jie, Functional Strength, Group Therapy, Gait, Safety, Therapeutic Exercise, Transfers Treatment Duration: Dec 21, 2016 Visits Per Week: 10-12 Minutes/Day (M-F): 60-90 Minutes/Day (Sat/[place]): PRN Safety Risks/Education Patient Education: Transfer Techniques, Issued Written HEP Time/GCodes Time In: 1000 Time Out: 1100 Total Billed Treatment Time: 60 Total Billed Treatment 1,FA25m,EX35m G Codes Necessary: JANAE Villanueva INTEGRATED CIRCUIT DESIGN ENGINEER Dec 07, 2016 10:50
--- NOTE | 2016-12-07 11:07 | Speech Therapy Daily Note ---
Speech Daily Progress Note Subjective The patient was seated upright in recliner with upon entrance. The patient greeted the clinician appropriately and was agreeable to speech, language, and dysphagia treatment on this date. To note: The patient appears more alert on this date. Per patient, he is feeling much better. Objective Dysphagia Exercises: Dysphagia exercises were continued on this date. The patient displayed good accuracy (approximately 70%, increased in comparison to the prior date) with dysphagia exercises on this date (base of tongue retraction , pharyngeal contraction, and laryngeal elevation). Moderate clinician verbal prompting was provided, as well as, an initial direct model. Ten repetitions of each exercise were performed. Orientation: With moderate clinician prompting and direct modeling, the patient was able to recall orientation information written on the white board ( improvement from previous session). Safety Problem Solving: The patient demonstrated fair accuracy with functional safety problem solving on this date with moderate to maximum clinician verbal cueing and prompting. Assessment Assessment Current Status: Fair Progress Treatment Plan Continue Plan of Care Communication Comprehension: 3 Expression: 3 Social Cognition Social Interaction: 4 Problem Solvin Memory: 3 Speech Short Term Goals Short Term Goals Short Term Goals 1) THE PATIENT WILL BE ABLE TO TOLERATE PHARYNGEAL STRENGTHENING ACTIVITIES FOR AT LEAST 90% OF TASKS PROVIDED. 2) THE PATIENT WILL BE ABLE TO FOLLOW COMPENSATORY SWALLOW STRATEGIES TO FACILITATE A SAFE AND EFFECTIVE SWALLOW FOR DIETARY TRIALS WITH VETERINARIAN SMALL ANIMAL PRESENT WITH UP TO 90% RETURN. 3) GIVEN A VISUAL CUE, THE PATIENT WILL BE ABLE TO VERBALIZE AT LEAST 1/3 COMPENSATORY SWALLOW STRATEGIES FOR SAFE SWALLOWING. 4) GIVEN THERMAL SENSORY STIMULATION, THE PATIENT WILL BE ABLE TO EFFECTIVELY INITIATE SWALLOW RESPONSE WITHIN 2 SECONDS. 5) THE PATIENT WILL BE ABLE TO COMPLETE RECALL OF THREE OBJECTS WITHOUT PROMPTING AT 5, 10 & 15 MINUTE INTERVALS. 6) THE PATIENT WILL BE ABLE TO COMPLETE TASKS RELATED TO DIVERGENT/CONVERGENT NAMING TO ASSIST WITH INCREASED MENTAL FLEXIBILITY WITH UP TO 80% RETURN. 7) FOLLOWING SAFETY TRAINING FROM NS AND/OR OTHER THERAPISTS, THE PATIENT WILL BE ABLE TO RECALL AT LEAST 80% OF INFORMATION FOLLOWING REQUESTS. 8) USING ALTERNATING ATTENTION TASKS, HUSSAIN WILL COMPLETE THESE TASKS FOR UP TO 5 MINUTES WITH MINIMAL PROMPTS. Comprehension: 3 Expression: 3 Social Interaction: 3 Problem Solvin Memory: 3 Speech Correction Goals Um Rn Goals 1) THE PATIENT WILL PARTICIPATE IN CAREGIVER EDUCATION REGARDING SWALLOW PRECAUTIONS, COMPENSATORY SWALLOW STRATEGIES WELL DIET CHANGES AND RECOMMENDATIONS WITH CAREGIVER RECALL AT 80% RETURN FOLLOWING QUESTIONING. 2) GIVEN DIETARY TRIALS, THE PATIENT WILL TOLERATE PLEASURABLE FEEDINGS WITHOUT ASPIRATION TO IMPROVE QUALITY OF LIFE WITHIN 30 DAYS. 3) HUSSAIN WILL BE ABLE TO SEQUENCE AT LEAST 5-STEPS WITH A VISUAL CUE TO COMPLETE ADL'S. 4) USING A VISUAL REMINDER, HUSSAIN WILL BE ABLE TO RECALL TIME/DAY/DATE AND IMPORTANT PERSONAL INFORMATION WITH UP TO 90% RETURN. Time Frame: 30 DAYS Comprehension: 5 Expression: 5 Social Interaction: 5 Problem Solvin Memory: 4 Speech-Plan Treatment Plan Speech Therapy Treatment Plan: Continue Plan of Care Continue skilled speech pathology intervention to target improved cognition and swallowing safety. Treatment Duration: January 04, 2017 # of days/week Five Visits Per Week: 30-45 MINUTES Minutes/Day (M-F): M-F Rehab Potential: Good Safety Risks/Education Teaching Recipient: Patient Teaching Methods: Demonstration, Handout, Discussion Response to Teaching: Verbalize Understanding, Return Demonstration, Reinforcement Needed Education Topics Provided: Dysphagia Exercises Time Speech Therapy Time In: 08:15 Speech Therapy Time Out: 09:00 Total Billed Time: 45 Billed Treatment Time 1, CARMEN 1, RHYS GUERRA Dec 07, 2016 11:07
--- NOTE | 2016-12-07 11:41 | Occupational Ther Daily Note ---
OT Current Status-Daily Note Subjective Pt sitting on couch with spouse in room. Pt states he feels better today and has no pain. Mental Status/Objective Functional [place] Measure 0=Not Assessed/NA 4=Minimal Assistance 1=Total Assistance 5=Supervision or Setup 2=Maximal Assistance 6=Modified [place] 3=Moderate Assistance 7=Complete [place] ADL-Treatment reports pt has already completed bathing, dressing, and grooming this morning with assist as needed. Functional [place] Measure 0=Not Assessed/NA 4=Minimal Assistance 1=Total Assistance 5=Supervision or Setup 2=Maximal Assistance 6=Modified [place] 3=Moderate Assistance 7=Complete IndependenceIRFPAI Quality Coding Scale 6 Independent with activity with or without an assistive device 5 Patient requires set up or clean up by helper. Patient completes activity by themselves 4 Supervision or touching assist (CGA). [place] provide cues , steadying assist 3 The helper provides less than half the effort to complete the activity 2 The helper provides more than half the effort to complete the activity 1 Dependent. The helper does all the effort to complete an activity 7 Patient refused to complete or attempt activity 9 The patient did not perform the activity before the current illness or injury 88 Not attempted due to Medical conditions or safety concerns Other Treatment Arm bike x10 minutes to increase overall strength and activity tolerance. Pt completed task with minimal resistance and slow pace. Grooved pegboard activity with bilateral hands to increase fine motor coordination. Pt is able to complete task with minimal difficulty. Graded clothespin activity to increase integration aide/pinch strength. Pt able to complete task within normal time. Bilateral UE exercises with minimal resistance theraband to increase strength needed for ADLs and transfers. Pt performed shoulder flexion, abduction, biceps curls, and triceps extension exercises x20 reps. Rest breaks between exercises. Pt returned to EOB, sit to supine with SBA. Pt in bed with needs met and spouse present after session. OT Short Term Goals Short Term Goals Time Frame: Dec 08, 2016 Eating(FIM): 0 Grooming(FIM): 6 Bathing(FIM): 6 Bathing Location: L Arm, R Arm, L Upper Leg, R Upper Leg, L Lower Leg ( including foot), R Lower Leg (including foot), Chest, Abdomen, Buttocks, Perineal Area Upper Body Dressing(FIM): 6 Lower Body Dressing(FIM): 6 Toileting(FIM): 6 Transfers (B,C,W/C) (FIM): 6 Toilet/Commode Transfer(FIM): 6 Tub Transfer(FIM): 0 Shower Transfer(FIM): 6 Comprehension(FIM): 3 Expression(FIM): 3 Social Interaction(FIM): 3 Problem Solving(FIM): 3 Memory(FIM): 3 1=Demonstrate adherence to instructed precautions during ADL tasks. 2=Patient will verbalize/demonstrate understanding of assistive devices/ modifications for ADL. 3=Patient will improve strength/tolerance for activity to enable patient to perform ADL's. OT Data Reporting Analyst Goals Data Reporting Analyst Goals Time Frame: Dec 15, 2016 Eating (FIM): 0 Eating (QC): 0 Groomin Oral Hygiene (QC): 6 Bathing(FIM): 6 Bathing Location: L Arm, R Arm, L Upper Leg, R Upper Leg, L Lower Leg ( including foot), R Lower Leg (including foot), Chest, Abdomen, Buttocks, Perineal Area Shower/Bathe Self (QC): 6 Upper Body Dressing(FIM): 6 Upper Body Dressing (QC): 6 Lower Body Dressing(FIM): 6 Lower Body Dressing (QC): 6 On/Off Footwear (QC): 6 Toileting(FIM): 6 Toileting Hygiene (QC): 6 Transfers (B,C,W/C) (FIM): 6 Toilet/Commode Transfer(FIM): 6 Toilet/Commode Transfer (QC): 6 Tub Transfer(FIM): 0 Shower Transfer(FIM): 6 Comprehension(FIM): 5 Expression (FIM): 5 Social Interaction(FIM): 5 Problem Solving(FIM): 5 Memory(FIM): 4 1=Demonstrate adherence to instructed precautions during ADL tasks. 2=Patient will verbalize/demonstrate understanding of assistive devices/ modifications for ADL. 3=Patient will improve strength/tolerance for activity to enable patient to perform ADL's. OT Education/Plan Discharge Recommendations Plan/Recommendations: Continue POC Treatment Plan/Plan of Care Patient would benefit from OT for education, treatment and training to promote independence in ADL's, mobility, safety and/or upper extremity function for ADL' s. Plan of Care: ADL Retraining, Cognitive Retraining, Group Exercise/Act as Ind, UE Funct Exercise/Act Treatment Duration: Dec 21, 2016 Visits Per Week: 10-12 Minutes/Day (M-F): 60-90 Minutes/Day (Sat/[place]): prn Agreement: Yes Rehab Potential: Good Time/GCodes Start Time: 09:00 Stop Time: 09:45 Total Time Billed (hr/min): 45 Billed Treatment Time 1 visit, EXx3(45minutes) FRIDA ROY OT Dec 07, 2016 11:41
--- NOTE | 2016-12-07 12:37 | Consultation-Cardiology ---
HPI-Cardiology Cardiology Consultation: Date of Consultation 12/07/16 Date of Admission Attending Physician Jeremias Garcia MD Admitting Physician Laci Grimes DO Consulting Physician Lisandra HUNG MD HPI: Chief Complaint: shortness of breath this is a 86-year-old gentleman who is a patient of Dr. Hopkins. He follows with the [facility] in [place]. He has extensive cardiac history which includes CABG, defibrillator, atrial fibrillation, valve replacement. He also has history of myelodysplastic syndrome and anemia and is getting blood transfusions. He had experienced shortness of breath yesterday. He denies shortness of breath today. He also denies any significant chest pain or other cardiac symptoms. History was also taken from his since the patient does seem to be a poor historian. Review of Systems-Cardiology Review of Systems Constitutional: No As described under HPI, No no symptoms reported, No chills, No fever, No lightheadedness, No malaise, No tiredness, No weight loss, No weight gain, No other Eyes: No As described under HPI, No no symptoms reported, No blindness, No blurred vision, No contact lenses, No drainage, No decreased acuity, No foreign body sensation, No glasses, No inflammation, No pain, No photophobia, No previous injury, No shadows, No tunnel vision, No other, No vision change Ears/Nose/Throat: No As described under HPI, No no symptoms reported, No chronic hearing loss, No epistaxis, No ear discharge, No ear pain, No loose teeth, No mouth pain, No mouth swelling, No nasal drainage, No nose pain, No recent hearing loss, No throat pain, No throat swelling, No ulcerations, No other Respiratory: shortness of breath Cardiovascular: No no symptoms reported, No As described under HPI, No chest pain, No edema, No irregular heart rate, No lightheadedness, No palpitations, No syncope, No other Gastrointestinal: No no symptoms reported, No As described under HPI, No abdomen distended, No abdominal pain, No blood streaked bowels, No constipation , No diarrhea, No difficulty swallowing, No nausea, No poor appetite, No poor fluid intake, No rectal bleeding, No vomiting, No other, No nausea/vomiting/ diarrhea, No stool coloration changes Hematologic: anemia [id number] Hx Patient Social History Alcohol Use: Denies Use Recreational Drug Use: No Smoking Status: Never a Smoker Recent Foreign Travel: No Recent Infectious Disease Expo: No Hospitalization with Isolation: Denies Physical Abuse Screen: No Sexual Abuse: No Immunizations Up To Date Date of Pneumonia Vaccine: Jun 01, 2015 Past Medical History PMH As described under Assessment. Family Medical History Family History: Patient reports no known family medical history. Allergies and Home Medications Allergies Coded Allergies: No Known Allergies (Verified Allergy, Unknown, 11/30/16) Home Medications Atorvastatin Calcium 40 Mg Tablet, 40 MG PO HS, (Reported) Clopidogrel Bisulfate 75 Mg Tablet, 75 MG PO DAILY, (Reported) Darbepoetin Russell 200 Mcg/Ml Soln, 200 MCG IJ ONCE, (Reported) Digoxin 0.125 Mg/2.5 Ml Solution, 0.125 MG PO DAILY, (Reported) Furosemide 20 Mg Tablet, 20 MG PO DAILY, (Reported) Methimazole 10 Mg Tab, 10 MG PO BID, (Reported) Metoprolol Succinate 25 Mg Tab.er.24h, 25 MG PO BID, (Reported) Potassium Chloride 20 Meq Tablet.er, 20 MEQ PO DAILY, (Reported) Ranitidine HCl 150 Mg Tablet, 150 MG PO BID, (Reported) Sennosides/Docusate Sodium 1 Each Tablet, 1 EACH PO DAILY, (Reported) Sotalol HCl 120 Mg Tablet, 120 MG PO BID, (Reported) Warfarin Sodium 5 Mg Tablet, 5 MG PO DAILY, (Reported) Physical Exam-Cardiology Physical Exam Vital Signs/I&O Vital Sign - Last 12Hours 12/07/16 12/07/16 12/07/16 12/07/16 03:52 04:50 05:00 09:00 Temp 100.2 99.5 100.2 Pulse 65 Resp 18 B/P (MAP) 106/59 Pulse Ox 90 O2 Delivery Room Air Room Air 12/07/16 12/07/16 12/07/16 12/07/16 09:57 10:30 10:32 10:50 Temp 97.9 97.9 97.9 98.9 Pulse 68 73 Resp 20 20 B/P (MAP) 107/57 108/56 Pulse Ox 94 93 Intake and Output 12/07/16 00:00 Intake Total 990 ml Output Total 800 ml Balance 190 ml Capillary Refill : Constitutional: No appears stated age, No AAO x 3, No apparent distress, No PERRL, No well-developed, No well-nourished, No other HEENT: No PERRL, No normal ENT inspection, No TMs normal, No pharynx normal, No scleral icterus (R), No scleral icterus (L), No pale conjunctivae (R), No pale conjunctivae (L), No photophobia, No TM abnormal (R), No TM abnormal (L), No pharyngeal erythema, No tonsillar exudate, No other, No discharge, No EOMI, No hearing is well preserved, No hard of hearing, No oral hygience is good, No ulceration, No xanthelasmas are seen Neck: No non-tender, No full range of motion, No supple, No normal inspection, No carotid bruit, No limited range of motion, No lymphadenopathy (R), No lymphadenopathy (L), No tender lateral, No tender midline, No thyromegaly, No other, No carotid pulses are 2 + bilaterally, No with good upstrokes Respiratory: No accessory muscle use, No respiratory distress, No chest tender , No chest expansion is symmetric, No chest is bilaterally symmetric, No lungs clear to percussion, No lungs clear to auscultation, No crackles, No rhonchi, No rales, No stridor, No wheezing, No pleural rub, No other Cardiovascular: S1 and S2 Gastrointestinal: No tender, No soft, No round, No distended, No pulsatile mass , No organomegaly, No guarding, No rebound, No tenderness, No hernia, No mass, No audible bowel sounds, No abnormal bowel sounds, No abdominal bruits, No spleenomegaly, No other Rectal: deferred Extremities: No normal range of motion, No non-tender, No normal inspection, No pedal edema, No calf tenderness, No normal capillary refill, No pelvis stable , No calf tenderness, No inflammation, No pedal edema, No slow capillary refill , No swelling, No other, No abrasion, No clubbing, No cyanosis, No ecchymosis, No laceration, No no lower extremity edema bilateral, No significant edema, No tenderness, No wound Data Review Labs Laboratory Tests 12/06/16 21:39: Glucometer 120H 12/07/16 06:44: White Blood Count 7.5, Red Blood Count 2.07L, Hemoglobin 7.1L, Hematocrit 22L, Mean Corpuscular Volume 106H, Mean Corpuscular Hemoglobin 34, Mean Corpuscular Hemoglobin Concent 32, Red Cell Distribution Width 22.9H, Platelet Count 219, Mean Platelet Volume 11.4H, Prothrombin Time 29.7H, INR Comment 2.8H, Sodium Level 137, Potassium Level 3.8, Chloride Level 102, Carbon Dioxide Level 26, Anion Gap 9, Blood Urea Nitrogen 24H, Creatinine 0.84, Estimat Glomerular Filtration Rate > 60, BUN/Creatinine Ratio 29, Glucose Level 124H, Calcium Level 8.2L, B-Type Natriuretic Peptide 1254.0H 12/07/16 07:30: Stool Occult Blood Immunoassay POSITIVEH 12/07/16 09:30: Glucometer 118H A/P-Cardiology Assessment/Admission Diagnosis shortness of breath, Coronary artery disease, status post CABG, ICD, Atrial fibrillation, Valve replacement. Plan patient complained of shortness of breath yesterday. He was given blood transfusion. Lasix was given as well. The patient is much better today. On examination he is not in florid congestive heart failure, although his BNP is elevated. I will continue low-dose Lasix. I will also request an echocardiogram. CAD: Continue aspirin, statin, metoprolol. Atrial fibrillation: Continue sotalol. valve replacement: Continue warfarin. Will follow. Thank you for your consultation. Please call me if you have any questions. Mame Hung MD, FACP, FACC, FSCAI, FHRS, CCDS Interventional Cardiology Cardiac Electrophysiology Vascular Medicine and Endovascular Interventions Clinical Quality Measures DVT/VTE Risk/Contraindication: Risk Factor Score Per Nursin RFS Level Per Nursing on Admit: 2=Moderate Contraindications-Pharm: Other *list below* Other: on warfarin Lisandra HUNG MD Dec 07, 2016 12:37 pm
[2016-12-07] MEDS ORDERED: FUROSEMIDE 40 MG/4 ML INJ (LASIX) IVP NR (13:00)
--- NOTE | 2016-12-07 13:39 | Progress Note (SOAP) ---
Subjective Subjective/Events-last exam occult positive stools with iron deficiency anemia. On dual platelet therapy following an embolic stroke once anticoagulants were discontinued quite recently. Esophageal dysfunction leading to aspiration. Being fed using a PEG tube. Blood transfusion in progress. Review of Systems General: Fatigue HEENT: No Head Aches, No Eye Pain, No Ear Pain, No Dysphasia, No Sinus Congestion, No Post Nasal Drip, No Sore Throat Pulmonary: Cough Cardiovascular: No: Chest Pain, Edema, Lt Headedness, Orthopnea, Palpitations, Paroxysmal Noc. Dyspnea Gastrointestinal: Melena Genitourinary: Retention Musculoskeletal: other Neurological: Change in speech, Weakness Objective Exam Vital Signs Date Time Temp Pulse Resp B/P (MAP) Pulse Ox O2 Delivery O2 Flow Rate FiO2 12/07/16 10:50 98.9 73 20 108/56 93 12/07/16 10:32 97.9 68 20 107/57 94 12/07/16 10:30 97.9 12/07/16 09:57 97.9 12/07/16 09:00 Room Air 12/07/16 05:00 100.2 65 18 106/59 90 Room Air 12/07/16 04:50 99.5 12/07/16 03:52 100.2 12/06/16 21:48 100.7 12/06/16 20:20 Room Air 12/06/16 18:43 99.1 92 18 125/65 90 Room Air I & O 12/07/16 07:00 Intake Total 1864 ml Output Total 1200 ml Balance 664 ml Capillary Refill : HEENT: PERRL/EOMI Neck: Normal Inspection Respiratory: Lungs Clear Cardiovascular: Regular Rate, Rhythm, Irregularly Irregular Gastrointestinal: soft Extremity: Normal Inspection Neurologic/Psychiatric: Alert, Oriented x3 Skin: Warm/Dry Lymphatic: No Adenopathy Other comments PEG tube and a Abraham catheter in place. Results Lab Laboratory Tests 12/06/16 21:39: Glucometer 120H 12/07/16 06:44: White Blood Count 7.5, Red Blood Count 2.07L, Hemoglobin 7.1L, Hematocrit 22L, Mean Corpuscular Volume 106H, Mean Corpuscular Hemoglobin 34, Mean Corpuscular Hemoglobin Concent 32, Red Cell Distribution Width 22.9H, Platelet Count 219, Mean Platelet Volume 11.4H, Prothrombin Time 29.7H, INR Comment 2.8H, Sodium Level 137, Potassium Level 3.8, Chloride Level 102, Carbon Dioxide Level 26, Anion Gap 9, Blood Urea Nitrogen 24H, Creatinine 0.84, Estimat Glomerular Filtration Rate > 60, BUN/Creatinine Ratio 29, Glucose Level 124H, Calcium Level 8.2L, B-Type Natriuretic Peptide 1254.0H 12/07/16 07:30: Stool Occult Blood Immunoassay POSITIVEH 12/07/16 09:30: Glucometer 118H Assessment/Plan Assessment/Plan Assess & Plan/Chief Complaint gentleman recovering from a right hemiplegia possibly embolic stroke. Iron deficiency anemia with heme-positive stools. Blood pressure. Differential diagnosis includes colon polyps gastric ulcers etc. Reasonable to perform upper endoscopy and colonoscopy. Discussed in detail and scheduled for this Saturday Final Diagnosis iron deficiency anemia with heme-positive stools Clinical Quality Measures DVT/VTE Risk/Contraindication: Risk Factor Score Per Nursin RFS Level Per Nursing on Admit: 2=Moderate Contraindications-Pharm: Other *list below* Other: on warfarin GABRIELLA LYNNE MD Dec 07, 2016 1:39 pm
[2016-12-07] MEDS ORDERED: MAGNESIUM CITRATE 300 ML BTL PO NR (13:49)
[2016-12-07] MEDS: D5 1/2 NS 1000 ML IV SOLUTION 1,000 ML IV SCH (14:13)
--- NOTE | 2016-12-07 14:39 | Therapy Group Daily Note ---
Therapy Daily Group Note Other/Notes Each patient participated in group therapy this afternoon. Every patient was transported in a wheelchair or ambulated to the common area of the rehab floor. Then, each patient had to introduce themselves and state where they were from and recall a specific memory from their past. Then each patient participated in activities that involve social interaction, digital manipulation, manual coordination, memory, problem solving, and critical thinking. Finally, each patient was transported back to their room either by wheelchair or ambulation and placed in bed or chair with nurse call, phone, and tray within reach. Start Time: 13:00 Stop Time: 14:20 Total Billed Treatment Time: 80 Total Billed Treatment 1 visit GRP 80' JUN SHAHID PT Dec 07, 2016 14:39
[2016-12-07] MEDS ORDERED: PATIENT MAY USE OWN MEDS, ALL MC SCH (15:00)
--- NOTE | 2016-12-07 17:27 | Physician Progress Note ---
Progress Note Assessment/Plan Events since last exam Hb 7.1. Stool occult blood test positive. Pt will have GI scope this Saturday Will give 2 units RBC today per Dr. Diaz note Assessment/Plan IMPRESSION: 1. 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 2. History of myelodysplastic syndrome causing anemia. The patient was on treatment with darbepoetin robina on an outpatient basis twice a month with reduction in transfusion requirement. 3. History of atrial fibrillation and on chronic anticoagulation. 4. History of BPH in preparation for TURP, the anticoagulation was stopped for approximately 3 week period when the patient suffered a CVA. A TURP has not been completed. 5. History of coronary artery disease, status post 3 vessel CABG, status post aortic valve replacement and currently defibrillator pacemaker. RECOMMENDATIONS: 1. Agree with PRBC transfusion to maintain hemoglobin more than or equal to 8 g/dL. 2. Resume darbepoetin robina. The patient has the next dose at home and the family will bring this in before December 08 when the next dose is due. 3. Continue rehabilitation as you are doing. 4. With regards to BPH and indwelling Abraham catheter, continue urology recommendations. Vitals Last set of Vitals Signs Vital Signs Date Time Temp Pulse Resp B/P (MAP) Pulse Ox O2 Delivery O2 Flow Rate FiO2 12/07/16 14:20 98.7 70 20 110/57 97 12/07/16 09:00 Room Air I&O I&O Intake and Output 12/07/16 00:00 Intake Total 1864 ml Output Total 1375 ml Balance 489 ml Intake Oral 0 ml Tube Feeding 1464 ml Other 400 ml Output Urine Total 1375 ml Labs Laboratory Tests 12/06/16 21:39: Glucometer 120H 12/07/16 06:44: White Blood Count 7.5, Red Blood Count 2.07L, Hemoglobin 7.1L, Hematocrit 22L, Mean Corpuscular Volume 106H, Mean Corpuscular Hemoglobin 34, Mean Corpuscular Hemoglobin Concent 32, Red Cell Distribution Width 22.9H, Platelet Count 219, Mean Platelet Volume 11.4H, Prothrombin Time 29.7H, INR Comment 2.8H, Sodium Level 137, Potassium Level 3.8, Chloride Level 102, Carbon Dioxide Level 26, Anion Gap 9, Blood Urea Nitrogen 24H, Creatinine 0.84, Estimat Glomerular Filtration Rate > 60, BUN/Creatinine Ratio 29, Glucose Level 124H, Calcium Level 8.2L, B-Type Natriuretic Peptide 1254.0H 12/07/16 07:30: Stool Occult Blood Immunoassay POSITIVEH 12/07/16 09:30: Glucometer 118H Clinical Quality Measures DVT/VTE Risk/Contraindication: Risk Factor Score Per Nursin RFS Level Per Nursing on Admit: 2=Moderate Contraindications-Pharm: Other *list below* Other: on warfarin NAVEEN GOLDSMITH MD Dec 07, 2016 17:27
[2016-12-07] MEDS ORDERED: warFARin 2 MG (COUMADIN) TAB PO NR (19:42)
[2016-12-07] MEDS: ATORVASTATIN 40 MG (LIPITOR) TABLET PO SCH (20:25)
[2016-12-07] MEDS: MELATONIN 3 MG TABLET PO SCH (20:25)
[2016-12-07] MEDS: MAGNESIUM CITRATE 300 ML BTL PO SCH (20:26)
[2016-12-08 00:15] VITALS: BP 112/81
[2016-12-08] MEDS: D5 1/2 NS 1000 ML IV SOLUTION 1,000 ML IV SCH ×3 (01:13→19:23)
[2016-12-08 05:42] LABS: BASOPHILS % (AUTO) 0 % (0-10); EOSINOPHILS # (AUTO) 0.1 10^3/uL (0.0-0.3); EOSINOPHILS % (AUTO) 2 % (0-10); LYMPHOCYTES # (AUTO) 0.7 X 10^3 (1.0-4.0); LYMPHOCYTES % (AUTO) 14 % (12-44); MEAN CORPUSCULAR HEMOGLOBIN 33 PG (25-34); MEAN CORPUSCULAR HGB CONC 33 G/DL (32-36); MEAN CORPUSCULAR VOLUME 101 FL (80-99); MEAN PLATELET VOLUME 11.5 FL (7.4-10.4); MONOCYTES # (AUTO) 0.8 X 10^3 (0.0-1.0); MONOCYTES % (AUTO) 16 % (0-12); NEUTROPHILS # (AUTO) 3.5 X 10^3 (1.8-7.8); NEUTROPHILS % (AUTO) 68 % (42-75); PLATELET COUNT 202 10^3/uL (130-400); RED BLOOD COUNT 2.63 10^6/uL (4.35-5.85); RED CELL DISTRIBUTION WIDTH 22.4 % (10.0-14.5); WHITE BLOOD COUNT 5.2 10^3/uL (4.3-11.0)
[2016-12-08 05:58] VITALS: BP 116/68
[2016-12-08 06:04] LABS: INR 2.6 (0.8-1.4); PROTHROMBIN TIME PATIENT 27.6 SEC (12.2-14.7)
[2016-12-08] MEDS: METHIMAZOLE 10 MG TAB PO SCH ×2 (06:16→20:53)
[2016-12-08] MEDS: SOTALOL 80 MG (BETAPACE) TAB PO SCH ×2 (08:28→20:05)
[2016-12-08] MEDS: FAMOTIDINE 20 MG (PEPCID) TABLET GT SCH ×2 (08:30→20:05)
[2016-12-08] MEDS: FUROSEMIDE 20 MG (LASIX) TAB PO SCH (08:30)
[2016-12-08] MEDS: ASPIRIN 81 MG CHEW (CHILDREN'S ASA) PO SCH (08:30)
[2016-12-08] MEDS: meTOprolol TARTRATE 25 MG (LOPRESSOR) TABLET PO SCH ×2 (08:30→20:06)
[2016-12-08] MEDS: DIGOXIN 0.125 MG (LANOXIN) TAB PO SCH (08:30)
[2016-12-08] MEDS: MAGNESIUM CITRATE 300 ML BTL PO SCH ×2 (08:33→14:05)
[2016-12-08] MEDS ORDERED: DARBEPOETIN 25 MCG/ML (ARANESP) 1 ML HOSPITAL SC ONE (09:00)
[2016-12-08] MEDS ORDERED: DARBEPOETIN 100 MCG/ML (ARANESP) 1 ML VIAL SC SCH (09:00)
[2016-12-08] MEDS: inSUlin ASPART (NovoLOG) 1 UNIT/0.01 ML (CHARGE PER UNIT) SC SCH ×2 (09:00→20:53)
--- NOTE | 2016-12-08 09:38 | Progress Note (SOAP) ---
Subjective Subjective/Events-last exam patient feeling better today. Patient sounds stronger. Patient have a colonoscopy since occult blood of the stools p. Stroke or Right sided weakness. Patient hemoglobin and hematocrit stable Objective Exam Vital Signs Date Time Temp Pulse Resp B/P (MAP) Pulse Ox O2 Delivery O2 Flow Rate FiO2 12/08/16 05:58 96.9 68 18 116/68 91 Room Air 12/08/16 00:15 96.9 65 18 112/81 97 12/07/16 22:05 96.3 67 16 108/72 95 12/07/16 21:30 96.5 67 16 107/61 95 12/07/16 20:45 Room Air 12/07/16 18:12 96.4 70 18 100/49 96 Room Air 12/07/16 14:20 98.7 70 20 110/57 97 12/07/16 10:50 98.9 73 20 108/56 93 12/07/16 10:32 97.9 68 20 107/57 94 12/07/16 10:30 97.9 12/07/16 09:57 97.9 I & O 12/08/16 07:00 Intake Total 2096 ml Output Total 3000 ml Balance -904 ml Capillary Refill : General Appearance: No Apparent Distress HEENT: Normal ENT Inspection Cardiovascular: Irregularly Irregular Gastrointestinal: soft Results Lab Laboratory Tests 12/08/16 05:18 Laboratory Tests 12/07/16 21:08: Glucometer 115H 12/08/16 05:18: White Blood Count 5.2, Red Blood Count 2.63L, Hemoglobin 8.7#L, Hematocrit 27L, Mean Corpuscular Volume 101H, Mean Corpuscular Hemoglobin 33, Mean Corpuscular Hemoglobin Concent 33, Red Cell Distribution Width 22.4H, Platelet Count 202, Mean Platelet Volume 11.5H, Neutrophils (%) (Auto) 68, Lymphocytes (%) (Auto) 14 , Monocytes (%) (Auto) 16H, Eosinophils (%) (Auto) 2, Basophils (%) (Auto) 0, Neutrophils # (Auto) 3.5, Lymphocytes # (Auto) 0.7L, Monocytes # (Auto) 0.8, Eosinophils # (Auto) 0.1, Basophils # (Auto) 0.0, Prothrombin Time 27.6H, INR Comment 2.6H, B-Type Natriuretic Peptide 629.3H 12/08/16 09:16: Glucometer 123H Assessment/Plan Assessment/Plan Assess & Plan/Chief Complaint Cerebrovascular accident due to ischemic stroke area Inability to swallow. CAD. Atrial fibrillation. Myelodysplastic syndrome. BPH. . CVA. Inability to swallow. CAMyelodysplastic disease. Patient's hemoglobin 6.9 to receive packed red blood cells. . 12/06/16 CVA. Inability to swallow. CAD. A. fib history. Myelo dysplastic syndrome. Patient feels weeks this morning. Chest x-ray ordered. . 12/07/16 better.. Inability to swallow. CAD. A. fib . .. Myelodysplastic syndrome. Anemia... BNP elevated. . 12/08/16. Patient appears stronger. Occult blood of stools positive. Patient have EGD and colonoscopy. Atrial fibrillation Clinical Quality Measures DVT/VTE Risk/Contraindication: Risk Factor Score Per Nursin RFS Level Per Nursing on Admit: 2=Moderate Contraindications-Pharm: Other *list below* Other: on warfarin MANE HOBBS DO Dec 08, 2016 09:38
--- NOTE | 2016-12-08 10:50 | Physical Therapy Daily Note ---
PT Daily Note-Current Subjective Agrees to PT after encouragement. Transfers Functional [place] Measure 0=Not Assessed/NA 4=Minimal Assistance 1=Total Assistance 5=Supervision or Setup 2=Maximal Assistance 6=Modified [place] 3=Moderate Assistance 7=Complete IndependenceIRFPAI Quality Coding Scale 6 Independent with activity with or without an assistive device 5 Patient requires set up or clean up by helper. Patient completes activity by themselves 4 Supervision or touching assist (CGA). [place] provide cues , steadying assist 3 The helper provides less than half the effort to complete the activity 2 The helper provides more than half the effort to complete the activity 1 Dependent. The helper does all the effort to complete an activity 7 Patient refused to complete or attempt activity 9 The patient did not perform the activity before the current illness or injury 88 Not attempted due to Medical conditions or safety concerns Treatments SBA with sup to from sit EOB and sit to from stand. Pt ambulated x 300 ft x 2 with FWW with SB-CGA. Pt in bed post treatment with needs met. Assessment Current Status: Good Progress PT Short Term Goals Short Term Goals Time Frame: Dec 07, 2016 Transfers (B,C,W/C) (FIM): 6 Gait (FIM): 5 (met 12/08/16) Distance (FIM): 3=150 ft Gait Distance Comment: 300' Gait Level of Assist: 5 Gait Assistive Device: FWW, Cane Single Point PT Retirement Goals Assurance Auditor Goals PT Assurance Auditor Goals Time Frame: Dec 21, 2016 Transfers (B,C,W/C) (FIM): 6 Sit to Lying (QC): 6 Lying-Sitting on Side/Bed(QC): 6 Sit to Stand (QC): 6 Rollin Roll Left to Right (QC): 6 Chair/Syh-lf-Rqzsq Xfer(QC): 6 Car Transfer (QC): 6 Does the Patient Walk: Yes Gait (FIM): 6 Gait distance (FIM): 3=150 ft Distance: 300' Walk 10 feet (QC): 5 Walk 10ft-Uneven Surface(QC): 5 Walk 50ft with 2 Turns (QC): 5 Walk 150 ft (QC): 5 Gait Level of Assist: 6 Gait Assistive Device: None, FWW, Cane Single Point Stairs (FIM): 6 # of Steps: 12 1 Step (curb) (QC): 6 4 Steps (QC): 6 12 Steps (QC): 6 Stairs Level Of Assist: 6 Picking up an Object (QC): 5 PT Plan Problem List Problem List: Activity Tolerance, Functional Strength, Safety Treatment/Plan Treatment Plan: Continue Plan of Care Treatment Plan: Education, Functional Activity Jie, Functional Strength, Group Therapy, Gait, Safety, Therapeutic Exercise, Transfers Treatment Duration: Dec 21, 2016 Visits Per Week: 10-12 Minutes/Day (M-F): 60-90 Minutes/Day (Sat/[place]): PRN Safety Risks/Education Patient Education: Safety Issues Teaching Recipient: Patient Teaching Methods: Discussion Response to Teaching: Reinforcement Needed Time/GCodes Time In: 1005 Time Out: 1020 Total Billed Treatment Time: 15 Total Billed Treatment visit GT 15 SOLA BERNARDO PT Dec 08, 2016 10:50
--- NOTE | 2016-12-08 13:35 | Oncology Progress Note ---
Subjective Subjective/Events-last exam Pt had 2 units of RBC transfusion yesterday and Hb up from 7.1 to 8.7 today. + stool occult blood test 12/07/16. Pt will have GI scope tomorrow. He has Afib on Coumadin for many years and later Plavix was added due cardiac issue. He had bladder bleeding and Coumadin and Plavix were stopped for 3 weeks. Pt then had stroke on the right side. His extremity weakness was recovered but the dysphagia was still NOT recovered yet. He was put back on the Coumadin since the stroke. He never had Xarelto or Elquist in the past. His heard about these medicines on TV but did not know why the patient could not be on it. He is still on PEG feeding tube. Doing well so far. Data Review Labs Laboratory Tests 12/08/16 05:18 Laboratory Tests 12/05/16 16:20: Hemoglobin 8.3#L, Hematocrit 26L 12/05/16 21:32: 12/06/16 05:26: Hemoglobin 7.5L, Hematocrit 23L, Red Blood Count 2.24L, Mean Corpuscular Volume 105H, Red Cell Distribution Width 23.1H, Mean Platelet Volume 11.7H, Neutrophils (%) (Auto) 77H, Lymphocytes (%) (Auto) 7L, Monocytes (%) (Auto) 15H , Neutrophils # (Auto) 8.1H, Lymphocytes # (Auto) 0.7L, Monocytes # (Auto) 1.5H , Prothrombin Time 24.8H, INR Comment 2.3H, Sodium Level 134L, Blood Urea Nitrogen 20H, Glucose Level 168H, Calcium Level 8.1L 12/06/16 08:45: Glucometer 129H 12/06/16 21:39: Glucometer 120H 12/07/16 06:44: Red Blood Count 2.07L, Hemoglobin 7.1L, Hematocrit 22L, Mean Corpuscular Volume 106H, Red Cell Distribution Width 22.9H, Mean Platelet Volume 11.4H, Prothrombin Time 29.7H, INR Comment 2.8H, Blood Urea Nitrogen 24H, Glucose Level 124H, Calcium Level 8.2L, B-Type Natriuretic Peptide 1254.0H 12/07/16 07:30: Stool Occult Blood Immunoassay POSITIVEH 12/07/16 09:30: Glucometer 118H 12/07/16 21:08: Glucometer 115H 12/08/16 05:18: Red Blood Count 2.63L, Hemoglobin 8.7#L, Hematocrit 27L, Mean Corpuscular Volume 101H, Red Cell Distribution Width 22.4H, Mean Platelet Volume 11.5H, Monocytes (%) (Auto) 16H, Lymphocytes # (Auto) 0.7L, Prothrombin Time 27.6H, INR Comment 2.6H, B-Type Natriuretic Peptide 629.3H 12/08/16 09:16: Glucometer 123H Physical Exam Vital Signs Vital Sign - Last 12Hours 12/02/16 06:30 Temp 97.6 Pulse 74 Resp 20 B/P (MAP) 106/58 Pulse Ox 95 O2 Delivery Room Air Capillary Refill : General Appearance: No Apparent Distress HEENT: PERRL/EOMI Neck: Non Tender, Supple Respiratory: Lungs Clear, No Accessory Muscle Use, No Respiratory Distress Cardiovascular: Regular Rate, Rhythm, No Edema, No Gallop, No JVD Gastrointestinal: Non Tender, Soft, Other (Peg tube) Extremity: Non Tender, No Pedal Edema Neurologic/Psychiatric: Alert, Oriented x3 Impression & Plan Impression & Plan IMPRESSION: 1. 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 His extremity weakness recovered but still dysphagia and aspiration risk. He is on speech therapy for dysphagia. Currently using PEG feeding tube. 2. History of myelodysplastic syndrome causing anemia. The patient was on treatment with darbepoetin robina on an outpatient basis twice a month with reduction in transfusion requirement. He had a dose of darbepoetin robina 25mcg on 12/07/16 in-pt. 3. Atrial fibrillation with pacemaker and defibrillator on chronic anticoagulation with Coumadin. Rate in good control. 4. History hematuria and BPH in preparation for TURP, the anticoagulation was stopped for approximately 3 week period when the patient suffered a CVA. A TURP has not been completed. 5. History of coronary artery disease, status post 3 vessel CABG, status post aortic valve replacement and currently defibrillator pacemaker. Pt was put on Plavix and then stopped due to hematuria. 6. GI bleeding with + stool occult test 12/07/16. RECOMMENDATIONS: 1. PRBC transfusion to maintain hemoglobin more than or equal to 8 g/dL per Dr Diaz. 2. Resume darbepoetin robina. Pt had one dose here and may need to be on higher dose in [address] Diaz to make the final call at that time. 3. Continue rehabilitation as you are doing. 4. With regards to BPH and indwelling Abraham catheter, continue urology recommendations. 5. I discussed with patient and his as well as Dr Stiles today about stopping Coumadin when he is going to have GI scope and change to Xarelto or Elquist after the scope procedure. We can bridge with heparin if we need. I will follow up the patient and write the order. 6. CBC and PT/INR Saturday. 7. Slow down IVF. Clinical Quality Measures DVT/VTE Risk/Contraindication: Risk Factor Score Per Nursin RFS Level Per Nursing on Admit: 2=Moderate Contraindications-Pharm: Other *list below* Other: on warfarin NAVEEN GOLDSMITH MD Dec 08, 2016 13:35
[2016-12-08 17:50] VITALS: BP 120/66
[2016-12-08] MEDS: ATORVASTATIN 40 MG (LIPITOR) TABLET PO SCH (20:05)
[2016-12-08] MEDS: MELATONIN 3 MG TABLET PO SCH (20:05)
[2016-12-09 05:14] VITALS: BP 132/63
[2016-12-09 08:49] VITALS: BP 114/67
[2016-12-09] MEDS: SOTALOL 80 MG (BETAPACE) TAB PO SCH ×2 (08:50→20:57)
[2016-12-09] MEDS: ASPIRIN 81 MG CHEW (CHILDREN'S ASA) PO SCH (08:51)
[2016-12-09] MEDS: DIGOXIN 0.125 MG (LANOXIN) TAB PO SCH (08:51)
[2016-12-09] MEDS: meTOprolol TARTRATE 25 MG (LOPRESSOR) TABLET PO SCH ×2 (08:51→20:58)
[2016-12-09] MEDS: FUROSEMIDE 20 MG (LASIX) TAB PO SCH (09:00)
[2016-12-09] MEDS: inSUlin ASPART (NovoLOG) 1 UNIT/0.01 ML (CHARGE PER UNIT) SC SCH ×2 (09:00→20:45)
[2016-12-09] MEDS: FAMOTIDINE 20 MG (PEPCID) TABLET GT SCH ×2 (09:00→20:57)
[2016-12-09] MEDS ORDERED: MAGNESIUM CITRATE 300 ML BTL PO ONE ×2 (10:00→16:00)
[2016-12-09 11:33] LABS: INR 2.5 (0.8-1.4); PROTHROMBIN TIME PATIENT 27.2 SEC (12.2-14.7)
--- NOTE | 2016-12-09 11:45 | Progress Note-Standard ---
Standard Progress Note Progress Notes/Assess & Plan Progress/Assessment & Plan 12/09/16:bowel prep reported to be inadequate and therefore procedures rescheduled for tomorrow. Hemoglobin more than 9 g. We will continue clear liquids and repeat magnesium citrate, in anticipation of better bowel preparation. Final Diagnosis right embolic stroke. Anemia due to GI blood loss. GABRIELLA LYNNE MD Dec 09, 2016 11:45
[2016-12-09] MEDS: D5 1/2 NS 1000 ML IV SOLUTION 1,000 ML IV SCH (15:19)
[2016-12-09 17:55] VITALS: BP 132/68
[2016-12-09 20:48] VITALS: BP 111/63
--- NOTE | 2016-12-09 20:50 | Oncology Progress Note ---
Subjective Subjective/Events-last exam Pt could not have GI scope today due to poor bowel preparation. He is scheduled to have the procedure tomorrow with more bowel prep tonight. INR 2.5 today. Hb is up to 9.3 after slow down IVF. Data Review Labs Laboratory Tests 12/09/16 11:13 Laboratory Tests 12/06/16 21:39: Glucometer 120H 12/07/16 06:44: Red Blood Count 2.07L, Hemoglobin 7.1L, Hematocrit 22L, Mean Corpuscular Volume 106H, Red Cell Distribution Width 22.9H, Mean Platelet Volume 11.4H, Prothrombin Time 29.7H, INR Comment 2.8H, Blood Urea Nitrogen 24H, Glucose Level 124H, Calcium Level 8.2L, B-Type Natriuretic Peptide 1254.0H 12/07/16 07:30: Stool Occult Blood Immunoassay POSITIVEH 12/07/16 09:30: Glucometer 118H 12/07/16 21:08: Glucometer 115H 12/08/16 05:18: Red Blood Count 2.63L, Hemoglobin 8.7#L, Hematocrit 27L, Mean Corpuscular Volume 101H, Red Cell Distribution Width 22.4H, Mean Platelet Volume 11.5H, Monocytes (%) (Auto) 16H, Lymphocytes # (Auto) 0.7L, Prothrombin Time 27.6H, INR Comment 2.6H, B-Type Natriuretic Peptide 629.3H 12/08/16 09:16: Glucometer 123H 12/08/16 20:27: Glucometer 118H 12/09/16 09:30: Glucometer 117H 12/09/16 11:13: Hemoglobin 9.3L, Hematocrit 29L, Prothrombin Time 27.2H, INR Comment 2.5H Physical Exam Vital Signs Vital Sign - Last 12Hours 12/03/16 05:27 Temp 98.0 Pulse 68 Resp 16 B/P (MAP) 112/60 Pulse Ox 95 O2 Delivery Room Air Capillary Refill : General Appearance: No Apparent Distress, WD/WN Impression & Plan Impression & Plan IMPRESSION: 1. 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 His extremity weakness recovered but still dysphagia and aspiration risk. He is on speech therapy for dysphagia. Currently using PEG feeding tube. 2. History of myelodysplastic syndrome causing anemia. The patient was on treatment with darbepoetin robina on an outpatient basis twice a month with reduction in transfusion requirement. He had a dose of darbepoetin robina 25mcg on 12/07/16 in-pt. 3. Atrial fibrillation with pacemaker and defibrillator on chronic anticoagulation with Coumadin. Rate in good control. 4. History hematuria and BPH in preparation for TURP, the anticoagulation was stopped for approximately 3 week period when the patient suffered a CVA. A TURP has not been completed. 5. History of coronary artery disease, status post 3 vessel CABG, status post aortic valve replacement and currently defibrillator pacemaker. Pt was put on Plavix and then stopped due to hematuria. 6. GI bleeding with + stool occult test 12/07/16. RECOMMENDATIONS: 1. PRBC transfusion to maintain hemoglobin more than or equal to 8 g/dL per Dr Diaz. 2. Resume darbepoetin robina. Pt had one dose here and may need to be on higher dose in [address] Diaz to make the final call at that time. 3. Continue rehabilitation as you are doing. 4. With regards to BPH and indwelling Abraham catheter, continue urology recommendations. 5. I discussed with patient and his as well as Dr Stiles about stopping Coumadin when he is going to have GI scope and change to Xarelto or Elquist after the scope procedure. We can bridge with heparin if we need. I tried to stop the Coumadin order but the computer would not let me to. I have told the nurse to stop the Coumadin today. 6. CBC and PT/INR Saturday. Clinical Quality Measures DVT/VTE Risk/Contraindication: Risk Factor Score Per Nursin RFS Level Per Nursing on Admit: 2=Moderate Contraindications-Pharm: Other *list below* Other: on warfarin NAVEEN GOLDSMITH MD Dec 09, 2016 20:50
[2016-12-09] MEDS: MELATONIN 3 MG TABLET PO SCH (20:56)
[2016-12-09] MEDS: ATORVASTATIN 40 MG (LIPITOR) TABLET PO SCH (20:57)
[2016-12-09] MEDS ORDERED: BISACODYL 5 MG (DULCOLAX) TABLET PO ONE (21:00)
[2016-12-10 05:08] VITALS: BP 113/69
[2016-12-10 06:01] LABS: MEAN PLATELET VOLUME 11.2 FL (7.4-10.4); RED BLOOD COUNT 2.73 10^6/uL (4.35-5.85); RED CELL DISTRIBUTION WIDTH 21.1 % (10.0-14.5); WHITE BLOOD COUNT 3.6 10^3/uL (4.3-11.0)
[2016-12-10 06:18] LABS: INR 2.6 (0.8-1.4); PROTHROMBIN TIME PATIENT 27.8 SEC (12.2-14.7)
--- NOTE | 2016-12-10 06:53 | Conscious Sedation/ASA ---
Conscious Sedation Pre-Proced ASA Class: 3 Airway Mallampati Classification: ([place] appropriate class) I. II. III, IV Lungs Heart ASA score ASA 1: a normal healthy patient ASA 2: a patient with a mild systemic disease (mid diabetes, controlled hypertension, obesity ASA 3: a patient with a severe systemic disease that limits activity (angina , COPD, prior Myocardial infarction) ASA 4: a patient with an incapacitating disease that is a constant threat to life (CHF, renal failure) ASA 5: a moribund patient not expected to survive 24 hrs. (ruptured aneurysm) ASA 6: a declared brain patient whose organs are being harvested. For emergent operations, add the letter E after the classification Grade 2 Sedation Plan: Discussed options with patient/fam Note The patient is an appropriate candidate to undergo the planned procedure, sedation, and anesthesia. The patient immediately re-assessed prior to indication. GABRIELLA LYNNE MD Dec 10, 2016 06:53
[2016-12-10] MEDS ORDERED: MIDAZOLAM 2 MG/2 ML (VERSED) VIAL ONE ×2 (07:05)
[2016-12-10] MEDS ORDERED: HURRICAINE EXT TUBE (BENZOCAINE) ONE (07:06)
[2016-12-10] MEDS ORDERED: NS IV 500 ML 500 ML ONE (07:06)
[2016-12-10] MEDS ORDERED: fentaNYL INJECTION 100 MCG/2 ML AMP ONE (07:06)
--- NOTE | 2016-12-10 07:52 | Endoscopy Procedure Report ---
Endoscopy Report Date: Dec 10, 2016 Preoperative Diagnosis: GI bleeding with anemia Study Performed: Upper Endoscopy, Colonoscopy Procedure Instrument: Endoscope Endo Procedure/Findings Findings 1.: Diverticulosis, Gastritis Copy Copies To 1: GUILLERMO MONACO MD; NAVEEN GOLDSMITH MD, XAVIER M MD Dec 10, 2016 7:52 am
--- NOTE | 2016-12-10 08:17 | Progress Note (SOAP) ---
Subjective Subjective/Events-last exam stroke. Right sided weakness. Patient had colonoscopy and EGD Patient showed diverticulosis and gastritis. Patient feeling good this morning Objective Exam Vital Signs Date Time Temp Pulse Resp B/P (MAP) Pulse Ox O2 Delivery O2 Flow Rate FiO2 12/10/16 05:08 98.2 67 16 113/69 98 Room Air 12/09/16 21:35 Room Air 12/09/16 20:48 70 111/63 12/09/16 17:55 96.9 70 16 132/68 98 Room Air 12/09/16 08:59 Room Air 12/09/16 08:49 71 114/67 95 Room Air I & O 12/10/16 07:00 Intake Total 2030 ml Output Total 3200 ml Balance -1170 ml Capillary Refill : General Appearance: No Apparent Distress, Thin HEENT: TMs Normal, Normal ENT Inspection Neck: Normal Inspection, Non Tender Results Lab Laboratory Tests 12/09/16 11:13 12/10/16 05:54 Laboratory Tests 12/09/16 09:30: Glucometer 117H 12/09/16 11:13: Hemoglobin 9.3L, Hematocrit 29L, Prothrombin Time 27.2H, INR Comment 2.5H 12/09/16 20:39: Glucometer 104 12/10/16 05:54: Hemoglobin 8.8L, Hematocrit 28L, Prothrombin Time 27.8H, INR Comment 2.6H, White Blood Count 3.6L, Red Blood Count 2.73L, Mean Corpuscular Volume 102H, Mean Corpuscular Hemoglobin 32, Mean Corpuscular Hemoglobin Concent 32, Red Cell Distribution Width 21.1H, Platelet Count 247, Mean Platelet Volume 11.2H Assessment/Plan Assessment/Plan Assess & Plan/Chief Complaint Cerebrovascular accident due to ischemic stroke area Inability to swallow. CAD. Atrial fibrillation. Myelodysplastic syndrome. BPH. . CVA. Inability to swallow. CAMyelodysplastic disease. Patient's hemoglobin 6.9 to receive packed red blood cells. . 12/06/16 CVA. Inability to swallow. CAD. A. fib history. Myelo dysplastic syndrome. Patient feels weeks this morning. Chest x-ray ordered. . 12/07/16 better.. Inability to swallow. CAD. A. fib . .. Myelodysplastic syndrome. Anemia... BNP elevated. . 12/08/16. Patient appears stronger. Occult blood of stools positive. Patient have EGD and colonoscopy. Atrial fibrillation.. . 12/10/16. Patient appears good. Patient had EGD and colonoscopy today Clinical Quality Measures DVT/VTE Risk/Contraindication: Risk Factor Score Per Nursin RFS Level Per Nursing on Admit: 2=Moderate Contraindications-Pharm: Other *list below* Other: on warfarin MANE HOBBS DO Dec 10, 2016 08:17
[2016-12-10 08:59] VITALS: BP 116/67
[2016-12-10] MEDS: inSUlin ASPART (NovoLOG) 1 UNIT/0.01 ML (CHARGE PER UNIT) SC SCH ×2 (09:00→21:37)
--- NOTE | 2016-12-10 09:02 | ECHOCARDIOGRAPHY REPORT ---
PROCEDURE PHYSICIAN: SHANIQUE HUNG DATE OF PROCEDURE: 12/07/2016 TWO DIMENSIONAL ECHOCARDIOGRAM REPORT PRIMARY PHYSICIAN: Dr. Laci Grimes OTHER PHYSICIAN: REFERRING PHYSICIAN: ORDERING PHYSICIAN: Dr. Mame Hung ATTENDING PHYSICIAN: Dr. Jeremias Garcia FAMILY PHYSICIAN: READING PHYSICIAN: INDICATION FOR THE PROCEDURE: Stroke. MEASUREMENTS DERIVED VALUES LV DIAMETER (LAX) NORMALS NORMALS Diastolic (3.6-5.2) Eject. Fract. (60%+/-6%) Systolic (2.3-3.9) Diastolic Vol. % Shortening (0.22-0.42) Systolic Vol. Aortic Root IVS THICKNESS Diastolic (0.6-1.1) LVPW THICKNESS Diastolic (0.6-1.1) LA DIAMETER Systolic (2.1-3.7) FINDINGS: 1. Sinus rhythm. 2. Left atrial dimensions are mildly enlarged. Left atrial diameter is 4.1 cm. 3. Aortic root dimensions are normal. 4. Left ventricular systolic function is normal. LV ejection fraction is 55 to 60%. Mild concentric LVH is present. Diastolic intraventricular septal diameter is 1.4 cm. 5. There are no wall motion abnormalities. 6. Right heart size and function is normal. 7. There is no evidence of pericardial effusion. 8. Complete diastolic evaluation was not performed. 9. IVC was not well visualized. VALVULAR STRUCTURE OF THE HEART: There is moderate tricuspid regurgitation with RVSP of 60 mmHg. There is severe mitral regurgitation with severe mitral annular calcification. The mitral severe regurgitant jet is eccentric in nature and posteriorly directed. Maximum velocity is 5.47 m/sec. There is significant aortic sclerosis and calcification. However, aortic stenosis is mild to moderate with peak gradient of 36 mmHg and mean gradient of 20 mmHg. Aortic valve area is 0.9-1 cm sq by Vmax/VTI criteria. There is mild pulmonic insufficiency. CONCLUSION: 1. LV and RV size and function is normal. 2. LV EF is 55 to 60%. 3. Severe pulmonary hypertension is present with RVSP of 60 mmHg. 4. There is severe mitral regurgitation. 5. There is mild to moderate aortic stenosis. 6. There is moderate tricuspid regurgitation. Job ID: [id number] Dictated Date: 12/08/2016 14:19:53 Shovel Mechanic Date: 12/10/2016 08:57:45 / nadir
[2016-12-10] MEDS: SOTALOL 80 MG (BETAPACE) TAB PO SCH ×2 (09:04→21:36)
[2016-12-10] MEDS: DIGOXIN 0.125 MG (LANOXIN) TAB PO SCH (09:04)
[2016-12-10] MEDS: SUCRALFATE 1 GM (CARAFATE) TAB PEG SCH ×3 (09:04→21:36)
[2016-12-10] MEDS: FUROSEMIDE 20 MG (LASIX) TAB PO SCH (09:05)
[2016-12-10] MEDS: ASPIRIN 81 MG CHEW (CHILDREN'S ASA) PO SCH (09:05)
[2016-12-10] MEDS: meTOprolol TARTRATE 25 MG (LOPRESSOR) TABLET PO SCH ×2 (09:05→21:37)
[2016-12-10] MEDS: PANTOPRAZOLE 40 MG/10 ML (PROTONIX) VIAL IV SCH ×2 (09:05→21:36)
[2016-12-10] MEDS: METHIMAZOLE 10 MG TAB PO SCH (09:06)
--- NOTE | 2016-12-10 09:08 | Progress Note-Urology ---
Progress Note-Urology Progress Notes/Assess & Plan Progress/Assessment & Plan URINE JOHAN AND CLEAR, CHANGE MARCH TO 18FR THIS AM Final Diagnosis BPH WITH RETENTION AND HEMATURIA MINA MORE MD Dec 10, 2016 9:07 am
--- NOTE | 2016-12-10 10:01 | Physical Therapy Daily Note ---
PT Daily Note-Current Subjective Patient in bed awake pre tx. Agrees to PT. Patient had a colonoscopy not long ago and is still a little drowsy. Patient had a loose bowel movement when sitting at the edge of the bed. He will need to get cleaned and dressed and get a brief on. Pain Numeric Pain Scale: 0-No Pain Appearance Patient in chair at bedside post tx, has nurse call, stefania, nurse in room, has OT right after PT. Mental Status Patient Orientation: Unable to Assess Attachments: Abraham Catheter Transfers Functional [place] Measure 0=Not Assessed/NA 4=Minimal Assistance 1=Total Assistance 5=Supervision or Setup 2=Maximal Assistance 6=Modified [place] 3=Moderate Assistance 7=Complete IndependenceIRFPAI Quality Coding Scale 6 Independent with activity with or without an assistive device 5 Patient requires set up or clean up by helper. Patient completes activity by themselves 4 Supervision or touching assist (CGA). [place] provide cues , steadying assist 3 The helper provides less than half the effort to complete the activity 2 The helper provides more than half the effort to complete the activity 1 Dependent. The helper does all the effort to complete an activity 7 Patient refused to complete or attempt activity 9 The patient did not perform the activity before the current illness or injury 88 Not attempted due to Medical conditions or safety concerns Transfers (B, C, W/C) (FIM): 4 Scootin Rollin Supine to/from Sit: 5 Sit to/from Stand: 4 Bed to/from Chair: 4 Patient needs cues for hand placement and safety, he tries to pull up from the walker to stand. Patient was retropulsive when standing at the edge of the bed the first time. Gait Training Gait (FIM): 4 Distance: 150'x2 Gait Level of Assist: 4 Gait Persons Needed: 1 Gait Assistive Device: FWW CGA Exercises NuStep Minutes: 15 NuStep Workload: 5 Treatments cleaning and dressing, bed mobility and transfers, ambulation, functional strengthening Assessment Current Status: Poor Progress Patient drowsy from procedure PT Short Term Goals Short Term Goals Time Frame: Dec 07, 2016 Transfers (B,C,W/C) (FIM): 6 Gait (FIM): 5 (met 12/08/16) Distance (FIM): 3=150 ft Gait Distance Comment: 300' Gait Level of Assist: 5 Gait Assistive Device: FWW, Cane Single Point PT Mcc Goals Mcc Goals PT Assistant Women'S Tennis Coach Goals Time Frame: Dec 21, 2016 Transfers (B,C,W/C) (FIM): 6 Sit to Lying (QC): 6 Lying-Sitting on Side/Bed(QC): 6 Sit to Stand (QC): 6 Rollin Roll Left to Right (QC): 6 Chair/Jqf-rg-Saljf Xfer(QC): 6 Car Transfer (QC): 6 Does the Patient Walk: Yes Gait (FIM): 6 Gait distance (FIM): 3=150 ft Distance: 300' Walk 10 feet (QC): 5 Walk 10ft-Uneven Surface(QC): 5 Walk 50ft with 2 Turns (QC): 5 Walk 150 ft (QC): 5 Gait Level of Assist: 6 Gait Assistive Device: None, FWW, Cane Single Point Stairs (FIM): 6 # of Steps: 12 1 Step (curb) (QC): 6 4 Steps (QC): 6 12 Steps (QC): 6 Stairs Level Of Assist: 6 Picking up an Object (QC): 5 PT Plan Problem List Problem List: Activity Tolerance, Functional Strength, Safety, Balance, Gait, Transfer Treatment/Plan Treatment Plan: Continue Plan of Care Treatment Plan: Education, Functional Activity Jie, Functional Strength, Group Therapy, Gait, Safety, Therapeutic Exercise, Transfers Treatment Duration: Dec 21, 2016 Visits Per Week: 10-12 Minutes/Day (M-F): 60-90 Minutes/Day (Sat/[place]): PRN Safety Risks/Education Patient Education: Gait Training, Transfer Techniques, Correct Positioning, Safety Issues Teaching Recipient: Patient Teaching Methods: Demonstration, Discussion Response to Teaching: Reinforcement Needed Time/GCodes Time In: 915 Time Out: 1000 Total Billed Treatment Time: 45 Total Billed Treatment 1 visit FA 15 min GT 15 min EX 15 min JUN SHAHID PT Dec 10, 2016 10:01
--- NOTE | 2016-12-10 10:07 | OPERATIVE REPORT ---
PROCEDURE PHYSICIAN: GABRIELLA LYNNE DATE OF PROCEDURE: 12/10/2016 PROCEDURES: 1. Upper GI endoscopy. 2. Colonoscopy. SURGEON: Dr. Lynne. INDICATION FOR THE PROCEDURE: This gentleman is undergoing rehabilitation, recovering from a right embolic stroke. During the process, he was found to be anemic with heme-positive stools. Therefore, it was felt reasonable to perform upper endoscopy and colonoscopy; especially since he has not undergone screening colonoscopy in his lifetime. He had received blood transfusions to address his iron deficiency anemia. Informed consent was obtained after reviewing the procedures in detail. DESCRIPTION OF PROCEDURE: 1. UPPER GI ENDOSCOPY: He was placed in left lateral decubitus position and his vital signs were monitored. Conscious sedation was achieved using Versed and fentanyl. The flexible gastroscope was introduced down the esophagus, past the stomach, into the proximal duodenum. FINDINGS: ESOPHAGUS: Small submucosal varix at about 25 cm. There was no bleeding. The rest of the esophagus was normal. STOMACH: Satisfactory position of the flange of the PEG tube. Diffuse gastritis without active bleeding. There was no ulceration. DUODENUM: Duodenum appeared to be normal. He tolerated the procedure well and was turned around in preparation for colonoscopy. IMPRESSION: GI bleeding, possibly due to diffuse stress gastritis. 2. COLONOSCOPY: Digital rectal examination revealed melena. The colonoscope was then introduced into the rectum and advanced to the cecum. It was then withdrawn slowly and the mucosa examined in a systematic fashion. FINDINGS: 1. Melena without any polyps in his colon. 2. Very few sigmoid diverticula were noticed. He tolerated the procedures well and was taken back to the nursing area in a stable condition. IMPRESSION: GI bleeding, possibly due to stress gastritis. We will treat conservatively. Job ID: [id number] Dictated Date: 12/10/2016 07:49:47 Lockstitch Machine Operator Date: 12/10/2016 09:55:25 / juany VILLARREAL
--- NOTE | 2016-12-10 10:11 | Cardiology Progress Note ---
Cardiology SOAP Progress Note Subjective: No shortness of breath Objective: I&O/Vital Signs Vital Sign - Last 12Hours 12/10/16 12/10/16 12/10/16 05:08 08:59 09:00 Temp 98.2 Pulse 67 71 Resp 16 B/P (MAP) 113/69 116/67 Pulse Ox 98 O2 Delivery Room Air Room Air Intake and Output 12/10/16 00:00 Intake Total 1780 ml Output Total 2200 ml Balance -420 ml Weight (Pounds): 122 Weight (Ounces): 8.0 Weight (Calculated Kilograms): [id number] Constitutional: No appears stated age, No AAO x 3, No apparent distress, No PERRL, No well-developed, No well-nourished, No other Respiratory: No accessory muscle use, No respiratory distress, No chest tender , No chest expansion is symmetric, No chest is bilaterally symmetric, No lungs clear to percussion, No lungs clear to auscultation, No crackles, No rhonchi, No rales, No stridor, No wheezing, No pleural rub, No other Cardiovascular: S1 and S2 Gastrointestional: No tender, No soft, No round, No distended, No pulsatile mass, No organomegaly, No guarding, No rebound, No tenderness, No hernia, No mass, No audible bowel sounds, No abnormal bowel sounds, No abdominal bruits, No spleenomegaly, No other Extremities: No normal range of motion, No non-tender, No normal inspection, No pedal edema, No calf tenderness, No normal capillary refill, No pelvis stable , No calf tenderness, No inflammation, No pedal edema, No slow capillary refill , No swelling, No other, No abrasion, No clubbing, No cyanosis, No ecchymosis, No laceration, No no lower extremity edema bilateral, No significant edema, No tenderness, No wound Results/Procedures: Labs Laboratory Tests 12/09/16 11:13: Hemoglobin 9.3L, Hematocrit 29L, Prothrombin Time 27.2H, INR Comment 2.5H 12/09/16 20:39: Glucometer 104 12/10/16 05:54: Hemoglobin 8.8L, Hematocrit 28L, Prothrombin Time 27.8H, INR Comment 2.6H, White Blood Count 3.6L, Red Blood Count 2.73L, Mean Corpuscular Volume 102H, Mean Corpuscular Hemoglobin 32, Mean Corpuscular Hemoglobin Concent 32, Red Cell Distribution Width 21.1H, Platelet Count 247, Mean Platelet Volume 11.2H 12/10/16 09:03: Glucometer 117H A/P: Assessment/Dx: shortness of breath, Coronary artery disease, status post CABG, ICD, Atrial fibrillation, Valve replacement. Plan: Shortness of breath: No significant complaints. Continue low-dose Lasix. On examination he is not in florid congestive heart failure. BNP was elevated on admission. Echocardiogram shows normal LV systolic function. Severe pulmonary hypertension. Severe mitral regurgitation. We will need to follow with cardiology as an outpatient to decide whether the patient requires mitral valve surgery versus intervention. patient complained of shortness of breath yesterday. He was given blood transfusion. Lasix was given as well. The patient is much better today. On examination he is not in [place] congestive heart failure, although his BNP is elevated. I will continue low-dose Lasix. I will also request an echocardiogram. CAD: Continue aspirin, statin, metoprolol. Atrial fibrillation: Continue sotalol. valve replacement: Continue warfarin. Will follow. Thank you for your consultation. Please call me if you have any questions. Mame Hung MD, FACP, FACC, FSCAI, FHRS, CCDS Interventional Cardiology Cardiac Electrophysiology Vascular Medicine and Endovascular Interventions Lisandra HUNG MD Dec 10, 2016 10:11 am
--- NOTE | 2016-12-10 11:04 | Occupational Ther Daily Note ---
OT Current Status-Daily Note Subjective No pain reported. Appearance Pt. is up and has smile on face. Has had colonoscopy this morning. Mental Status/Objective Patient Orientation: Person, Place Functional [place] Measure 0=Not Assessed/NA 4=Minimal Assistance 1=Total Assistance 5=Supervision or Setup 2=Maximal Assistance 6=Modified [place] 3=Moderate Assistance 7=Complete [place] Attachments: Abraham Catheter ADL-Treatment Functional [place] Measure 0=Not Assessed/NA 4=Minimal Assistance 1=Total Assistance 5=Supervision or Setup 2=Maximal Assistance 6=Modified [place] 3=Moderate Assistance 7=Complete IndependenceIRFPAI Quality Coding Scale 6 Independent with activity with or without an assistive device 5 Patient requires set up or clean up by helper. Patient completes activity by themselves 4 Supervision or touching assist (CGA). [place] provide cues , steadying assist 3 The helper provides less than half the effort to complete the activity 2 The helper provides more than half the effort to complete the activity 1 Dependent. The helper does all the effort to complete an activity 7 Patient refused to complete or attempt activity 9 The patient did not perform the activity before the current illness or injury 88 Not attempted due to Medical conditions or safety concerns Toileting (FIM): 4 (Min assist to thoroughly cleanse rear ozzy area.) Toileting Hygiene (QC): 4 Transfers (B, C, W/C) (FIM): 5 Toilet/Commode Transfer (FIM): 5 Toilet Transfer (QC): 4 Pt. agreed to come to therapy gym. Completed 15 minutes on armbike x mod resistance with one rest break needed. Did this to increase overall strength and independence. Pt. then completed simple fine motor strength activities with pegs in resistive peg board. Pt. began to ambulate to room and became incontinent of bowel in depend. Pt. able to cleanse self mostly with SBA, but did require min assist to thoroughly cleanse rear ozzy area. Pt. ambulated to bed. All needs met in bed. Education OT Patient Education: Exercise program, Modified ADL techniques, Progress toward Goal/Update tx plan, Purpose of tx/functional activities, Reviewed precautions, Rehab process, Transfer techniques Teaching Recipient: Patient Teaching Methods: Demonstration, Discussion Response to Teaching: Verbalize Understanding, Return Demonstration OT Short Term Goals Short Term Goals Time Frame: Dec 08, 2016 Eating(FIM): 0 Grooming(FIM): 6 Bathing(FIM): 6 Bathing Location: L Arm, R Arm, L Upper Leg, R Upper Leg, L Lower Leg ( including foot), R Lower Leg (including foot), Chest, Abdomen, Buttocks, Perineal Area Upper Body Dressing(FIM): 6 Lower Body Dressing(FIM): 6 Toileting(FIM): 6 Transfers (B,C,W/C) (FIM): 6 Toilet/Commode Transfer(FIM): 6 Tub Transfer(FIM): 0 Shower Transfer(FIM): 6 Comprehension(FIM): 3 Expression(FIM): 3 Social Interaction(FIM): 3 Problem Solving(FIM): 3 Memory(FIM): 3 1=Demonstrate adherence to instructed precautions during ADL tasks. 2=Patient will verbalize/demonstrate understanding of assistive devices/ modifications for ADL. 3=Patient will improve strength/tolerance for activity to enable patient to perform ADL's. OT Evaluation Analyst Goals Evaluation Analyst Goals Time Frame: Dec 15, 2016 Eating (FIM): 0 Eating (QC): 0 Groomin Oral Hygiene (QC): 6 Bathing(FIM): 6 Bathing Location: L Arm, R Arm, L Upper Leg, R Upper Leg, L Lower Leg ( including foot), R Lower Leg (including foot), Chest, Abdomen, Buttocks, Perineal Area Shower/Bathe Self (QC): 6 Upper Body Dressing(FIM): 6 Upper Body Dressing (QC): 6 Lower Body Dressing(FIM): 6 Lower Body Dressing (QC): 6 On/Off Footwear (QC): 6 Toileting(FIM): 6 Toileting Hygiene (QC): 6 Transfers (B,C,W/C) (FIM): 6 Toilet/Commode Transfer(FIM): 6 Toilet/Commode Transfer (QC): 6 Tub Transfer(FIM): 0 Shower Transfer(FIM): 6 Comprehension(FIM): 5 Expression (FIM): 5 Social Interaction(FIM): 5 Problem Solving(FIM): 5 Memory(FIM): 4 1=Demonstrate adherence to instructed precautions during ADL tasks. 2=Patient will verbalize/demonstrate understanding of assistive devices/ modifications for ADL. 3=Patient will improve strength/tolerance for activity to enable patient to perform ADL's. OT Education/Plan Problem List/Assessment Assessment: Decreased Activ Tolerance, Decreased UE Strength, Impaired I ADL's , Impaired Self-Care Skills, Restricted Funct UE ROM Discharge Recommendations Plan/Recommendations: Continue POC Therapy D/C Recommendations: Home w/ Family Support, Occupational Therapy Home Care Patient/Family Goals Home with spouse. Treatment Plan/Plan of Care Treatment,Training & Education: Yes Patient would benefit from OT for education, treatment and training to promote independence in ADL's, mobility, safety and/or upper extremity function for ADL' s. Plan of Care: ADL Retraining, Cognitive Retraining, Group Exercise/Act as Ind, UE Funct Exercise/Act Treatment Duration: Dec 21, 2016 Visits Per Week: 10-12 Minutes/Day (M-F): 60-90 Minutes/Day (Sat/Costa): prn Agreement: Yes Rehab Potential: Good Time/GCodes Start Time: 10:00 Stop Time: 11:00 Total Time Billed (hr/min): 60 Billed Treatment Time 1, EX x 15minutes, FA x 30minutes, ADL x 15minutes WILLIAMS SALVADOR OT Dec 10, 2016 11:04
--- NOTE | 2016-12-10 13:22 | Speech Therapy Daily Note ---
Speech Daily Progress Note Subjective The patient was laying in bed upon entrance. The patient was agreeable to participate in speech, language, and dysphagia treatment, however, did state he was fatigued. To note, the patient recently returned from an endoscopy procedure. Objective Dysphagia Exercises: Dysphagia exercises were continued on this date. The patient displayed good accuracy (approximately 70%) with dysphagia exercises on this date (base of tongue retraction, pharyngeal contraction, and laryngeal elevation). Moderate clinician verbal prompting was provided, as well as, an initial direct model. Ten repetitions of each exercise were performed. Orientation: With moderate clinician prompting and direct modeling, the patient was able to recall orientation information written on the white board. Confrontational Naming (pictures): The patient was unable to state the name of a picture (ADL) regardless of maximum clinician verbal prompting. The patient was able to repeat the name of the picture following model by clinician. The patient was able to identify a picture from a field of two (90% accuracy). Assessment Assessment Current Status: Fair Progress Treatment Plan Continue Plan of Care Communication Comprehension: 3 Expression: 3 Social Cognition Social Interaction: 3 Problem Solvin Memory: 3 Speech Short Term Goals Short Term Goals Short Term Goals 1) THE PATIENT WILL BE ABLE TO TOLERATE PHARYNGEAL STRENGTHENING ACTIVITIES FOR AT LEAST 90% OF TASKS PROVIDED. 2) THE PATIENT WILL BE ABLE TO FOLLOW COMPENSATORY SWALLOW STRATEGIES TO FACILITATE A SAFE AND EFFECTIVE SWALLOW FOR DIETARY TRIALS WITH GOLF BALL MARKER PRESENT WITH UP TO 90% RETURN. 3) GIVEN A VISUAL CUE, THE PATIENT WILL BE ABLE TO VERBALIZE AT LEAST 1/3 COMPENSATORY SWALLOW STRATEGIES FOR SAFE SWALLOWING. 4) GIVEN THERMAL SENSORY STIMULATION, THE PATIENT WILL BE ABLE TO EFFECTIVELY INITIATE SWALLOW RESPONSE WITHIN 2 SECONDS. 5) THE PATIENT WILL BE ABLE TO COMPLETE RECALL OF THREE OBJECTS WITHOUT PROMPTING AT 5, 10 & 15 MINUTE INTERVALS. 6) THE PATIENT WILL BE ABLE TO COMPLETE TASKS RELATED TO DIVERGENT/CONVERGENT NAMING TO ASSIST WITH INCREASED MENTAL FLEXIBILITY WITH UP TO 80% RETURN. 7) FOLLOWING SAFETY TRAINING FROM NS AND/OR OTHER THERAPISTS, THE PATIENT WILL BE ABLE TO RECALL AT LEAST 80% OF INFORMATION FOLLOWING REQUESTS. 8) USING ALTERNATING ATTENTION TASKS, HUSSAIN WILL COMPLETE THESE TASKS FOR UP TO 5 MINUTES WITH MINIMAL PROMPTS. 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 2) GIVEN DIETARY TRIALS, THE PATIENT WILL TOLERATE PLEASURABLE FEEDINGS WITHOUT ASPIRATION TO IMPROVE QUALITY OF LIFE WITHIN 30 DAYS. 3) HUSSAIN WILL BE ABLE TO SEQUENCE AT LEAST 5-STEPS WITH A VISUAL CUE TO COMPLETE ADL'S. 4) USING A VISUAL REMINDER, HUSSAIN WILL BE ABLE TO RECALL TIME/DAY/DATE AND IMPORTANT PERSONAL INFORMATION WITH UP TO 90% RETURN. Time Frame: 30 DAYS Comprehension: 5 Expression: 5 Social Interaction: 5 Problem Solvin Memory: 4 Speech-Plan Treatment Plan Speech Therapy Treatment Plan: Continue Plan of Care Continue skilled speech pathology intervention to target dysphagia exercises and functional communication. Treatment Duration: January 04, 2017 # of days/week Five. Visits Per Week: 30-45 MINUTES Minutes/Day (M-F): M-F Rehab Potential: Good Safety Risks/Education Teaching Recipient: Patient Teaching Methods: Demonstration, Handout, Discussion Response to Teaching: Return Demonstration, Reinforcement Needed Education Topics Provided: Dysphagia Exercises Time Speech Therapy Time In: 11:00 Speech Therapy Time Out: 11:45 Total Billed Time: 45 Billed Treatment Time 1, DYST 1, RHYS BRUNO Dec 10, 2016 13:22
--- NOTE | 2016-12-10 14:34 | Therapy Group Daily Note ---
Therapy Daily Group Note Patient Education Topic Home Safety, Fall Prevention Other/Notes Pt was an active participant in OT group. He introduced himself for socialization but was unable to identify clearly his favorite flower (his helped with communication). She contributed to the discussion/education on fall prevention and he attended to the information. By the end of the group, she was able to identify a change they would make at home to prevent falls. He walked back to his room with walker and transferred to bed SBA. Pt left up in bed, all needs met. Start Time: 13:00 Stop Time: 14:10 Total Billed Treatment Time: 70 Total Billed Treatment visit, 70 minutes group IRAM TAYLOR OT Dec 10, 2016 14:34
[2016-12-10 18:14] VITALS: BP 104/63
--- NOTE | 2016-12-10 19:30 | PM & R (SOAP) Progress Note ---
Subjective Subjective/Events-last exam Patient was seen in his room earlier today Discussed case with RN Appreciate DR Buckley note Abraham catheter switched out Patient min assist for transfers Appreciate DR Stiles note and orders and operative report re EGD and Colonoscopy Carafate ordered Objective Exam Last Set of Vital Signs Vital Signs Date Time Temp Pulse Resp B/P (MAP) Pulse Ox O2 Delivery O2 Flow Rate FiO2 12/10/16 18:14 97.8 71 16 104/63 97 Room Air Capillary Refill : I&O Intake and Output 12/10/16 00:00 Intake Total 2040 ml Output Total 3550 ml Balance -1510 ml Intake Oral 260 ml IV Total 1000 ml Other 780 ml Output Urine Total 3550 ml # Bowel Movements 4 General: Alert, Oriented X3, Cooperative, No Acute Distress HEENT: Atraumatic, PERRLA, EOMI, Mucous Memb Moist/[place], Other (dysphagia and some word finding problems) Neck: Supple, No JVD Lungs: Clear to Auscultation Heart: Regular Rate Abdomen: Normal Bowel Sounds, Soft, No Tenderness, Other (peg tube site clean) Neuro: Other (mid rt sided weakness and significant dysphagia some word finding difficulty) Results Lab Laboratory Tests 12/07/16 21:08: Glucometer 115H 12/08/16 05:18: White Blood Count 5.2, Red Blood Count 2.63L, Hemoglobin 8.7#L, Hematocrit 27L, Mean Corpuscular Volume 101H, Mean Corpuscular Hemoglobin 33, Mean Corpuscular Hemoglobin Concent 33, Red Cell Distribution Width 22.4H, Platelet Count 202, Mean Platelet Volume 11.5H, Neutrophils (%) (Auto) 68, Lymphocytes (%) (Auto) 14 , Monocytes (%) (Auto) 16H, Eosinophils (%) (Auto) 2, Basophils (%) (Auto) 0, Neutrophils # (Auto) 3.5, Lymphocytes # (Auto) 0.7L, Monocytes # (Auto) 0.8, Eosinophils # (Auto) 0.1, Basophils # (Auto) 0.0, Prothrombin Time 27.6H, INR Comment 2.6H, B-Type Natriuretic Peptide 629.3H 12/08/16 09:16: Glucometer 123H 12/08/16 20:27: Glucometer 118H 12/09/16 09:30: Glucometer 117H 12/09/16 11:13: Hemoglobin 9.3L, Hematocrit 29L, Prothrombin Time 27.2H, INR Comment 2.5H 12/09/16 20:39: Glucometer 104 12/10/16 05:54: Hemoglobin 8.8L, Hematocrit 28L, Prothrombin Time 27.8H, INR Comment 2.6H, White Blood Count 3.6L, Red Blood Count 2.73L, Mean Corpuscular Volume 102H, Mean Corpuscular Hemoglobin 32, Mean Corpuscular Hemoglobin Concent 32, Red Cell Distribution Width 21.1H, Platelet Count 247, Mean Platelet Volume 11.2H 12/10/16 09:03: Glucometer 117H Assessment/Plan Assessment 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 Chronic Afib controled with medication BPH with urinary retention managed with Indwelling Abraham catheter-Dr Ivy following catheter changed Myelodysplastic syndrome with chronic anemia followed by [facility] in [facility] following here Chronic anticoagulation currently with subtherapeutic INR now with dose adjusted and INR rising Gastritis and Diverticulosis with Guiac + stools assoc with anemia of blood loss improved s/p transfusion and placed on Carafate Plan Continue PT/OT/ST Current labs noted F/U with Dr Hopkins and ken and Cata and Go as per their schedule Next Team Conference 12/12/16 GUILLERMO MONACO MD Dec 10, 2016 19:30
[2016-12-10] MEDS: MELATONIN 3 MG TABLET PO SCH (21:36)
[2016-12-10] MEDS: ATORVASTATIN 40 MG (LIPITOR) TABLET PO SCH (21:36)
[2016-12-11] VITALS (9 sets, daily range): BP systolic 92–101; BP diastolic 55–64
[2016-12-11 06:41] LABS: INR 1.9 (0.8-1.4); PROTHROMBIN TIME PATIENT 21.5 SEC (12.2-14.7)
[2016-12-11] MEDS: METHIMAZOLE 10 MG TAB PO SCH (06:55)
--- NOTE | 2016-12-11 08:20 | Progress Note-Urology ---
Progress Note-Urology Progress Notes/Assess & Plan Progress/Assessment & Plan MARCH CHANGED YESTERDAY BU NURSE WITHOUT PROBLEMS, URINE JOHAN CLEAR WE WILL SEE PRN Final Diagnosis URINE RETENTION WITH BPH AND GROSS HEMATURIA MINA MORE MD Dec 11, 2016 8:20 am
--- NOTE | 2016-12-11 08:26 | Progress Note (SOAP) ---
Subjective Subjective/Events-last exam patient feeling good today. Hemoglobin7.9 and hematocrit 25. Patient getting anemic again. Stop Coumadin. INR 1.9. Objective Exam Vital Signs Date Time Temp Pulse Resp B/P (MAP) Pulse Ox O2 Delivery O2 Flow Rate FiO2 12/11/16 06:00 97.0 77 14 92/56 93 Room Air 12/10/16 21:00 Room Air 12/10/16 18:14 97.8 71 16 104/63 97 Room Air 12/10/16 09:00 Room Air 12/10/16 08:59 71 116/67 I & O 12/11/16 07:00 Intake Total 2234 ml Output Total 1400 ml Balance 834 ml Capillary Refill : General Appearance: No Apparent Distress, Thin HEENT: Normal ENT Inspection Neck: Normal Inspection Respiratory: Chest Non Tender, No Accessory Muscle Use, No Respiratory Distress Cardiovascular: Regular Rate, Rhythm, No Murmur Gastrointestinal: non tender, soft Results Lab Laboratory Tests 12/10/16 09:03: Glucometer 117H 12/10/16 20:34: Glucometer 127H 12/11/16 06:21: Hemoglobin 7.9L, Hematocrit 25L, Prothrombin Time 21.5H, INR Comment 1.9H Assessment/Plan Assessment/Plan Assess & Plan/Chief Complaint Cerebrovascular accident due to ischemic stroke area Inability to swallow. CAD. Atrial fibrillation. Myelodysplastic syndrome. BPH. . CVA. Inability to swallow. CAMyelodysplastic disease. Patient's hemoglobin 6.9 to receive packed red blood cells. . 12/06/16 CVA. Inability to swallow. CAD. A. fib history. Myelo dysplastic syndrome. Patient feels weeks this morning. Chest x-ray ordered. . 12/07/16 better.. Inability to swallow. CAD. A. fib . .. Myelodysplastic syndrome. Anemia... BNP elevated. . 12/08/16. Patient appears stronger. Occult blood of stools positive. Patient have EGD and colonoscopy. Atrial fibrillation.. . 12/10/16. Patient appears good. Patient had EGD and colonoscopy today. . area Patient more anemic today. Stroke. Right sided weakness. Myelodysplastic disease Clinical Quality Measures DVT/VTE Risk/Contraindication: Risk Factor Score Per Nursin RFS Level Per Nursing on Admit: 2=Moderate Contraindications-Pharm: Other *list below* Other: on warfarin MANE HOBBS DO Dec 11, 2016 08:26
[2016-12-11] MEDS: APIXABAN 5 MG (ELIQUIS) TABLET PO SCH ×2 (09:32→21:35)
[2016-12-11] MEDS: inSUlin ASPART (NovoLOG) 1 UNIT/0.01 ML (CHARGE PER UNIT) SC SCH ×2 (09:32→21:35)
[2016-12-11] MEDS: ASPIRIN 81 MG CHEW (CHILDREN'S ASA) PO SCH (09:55)
[2016-12-11] MEDS: FUROSEMIDE 20 MG (LASIX) TAB PO SCH (09:55)
[2016-12-11] MEDS: SUCRALFATE 1 GM (CARAFATE) TAB PEG SCH ×3 (09:55→21:35)
[2016-12-11] MEDS: DIGOXIN 0.125 MG (LANOXIN) TAB PO SCH (09:55)
[2016-12-11] MEDS: meTOprolol TARTRATE 25 MG (LOPRESSOR) TABLET PO SCH ×2 (09:56→21:40)
[2016-12-11] MEDS: PANTOPRAZOLE 40 MG/10 ML (PROTONIX) VIAL IV SCH ×2 (09:56→21:35)
[2016-12-11] MEDS: SOTALOL 80 MG (BETAPACE) TAB PO SCH ×2 (09:56→21:35)
--- NOTE | 2016-12-11 09:59 | Physical Therapy Daily Note ---
PT Daily Note-Current Subjective Patient in bed pre tx, agrees to PT, will need to get shoes on. No complaints of pain. Appearance Patient in bed post tx with nurse call, phone, tray, all needs met. Nurse and in the room. Patient was working with PT and insisted on going to his room to lay down because he was so worn out. Patient states he has a little pain now and feeding tube site. HR 76bpm, BP 101/67, O2 94%. Mental Status Patient Orientation: Unable to Assess Attachments: PEG Tube, Abraham Catheter Transfers Functional [place] Measure 0=Not Assessed/NA 4=Minimal Assistance 1=Total Assistance 5=Supervision or Setup 2=Maximal Assistance 6=Modified [place] 3=Moderate Assistance 7=Complete IndependenceIRFPAI Quality Coding Scale 6 Independent with activity with or without an assistive device 5 Patient requires set up or clean up by helper. Patient completes activity by themselves 4 Supervision or touching assist (CGA). [place] provide cues , steadying assist 3 The helper provides less than half the effort to complete the activity 2 The helper provides more than half the effort to complete the activity 1 Dependent. The helper does all the effort to complete an activity 7 Patient refused to complete or attempt activity 9 The patient did not perform the activity before the current illness or injury 88 Not attempted due to Medical conditions or safety concerns Transfers (B, C, W/C) (FIM): 5 Scootin Rollin Supine to/from Sit: 5 Sit to/from Stand: 5 Patient does need cues for hand placement and safety, he tends to pull up from the walker when standing. Gait Training Gait (FIM): 5 Distance: 400', 200' Gait Level of Assist: 5 Gait Persons Needed: 1 Gait Assistive Device: FWW Patient needs cues for direction and to avoid obstacles. Exercises NuStep Minutes: 15 NuStep Workload: 5 Treatments bed mobility and transfers, ambulation, functional strengthening Assessment Current Status: Fair Progress Improved ambulation but patient was very fatigued after treatment. PT Short Term Goals Short Term Goals Time Frame: Dec 07, 2016 Transfers (B,C,W/C) (FIM): 6 Gait (FIM): 5 (met 12/08/16) Distance (FIM): 3=150 ft Gait Distance Comment: 300' Gait Level of Assist: 5 Gait Assistive Device: FWW, Cane Single Point PT Usp Goals Ribbon Winder Goals PT Usp Goals Time Frame: Dec 21, 2016 Transfers (B,C,W/C) (FIM): 6 Sit to Lying (QC): 6 Lying-Sitting on Side/Bed(QC): 6 Sit to Stand (QC): 6 Rollin Roll Left to Right (QC): 6 Chair/Unv-tw-Qsvko Xfer(QC): 6 Car Transfer (QC): 6 Does the Patient Walk: Yes Gait (FIM): 6 Gait distance (FIM): 3=150 ft Distance: 300' Walk 10 feet (QC): 5 Walk 10ft-Uneven Surface(QC): 5 Walk 50ft with 2 Turns (QC): 5 Walk 150 ft (QC): 5 Gait Level of Assist: 6 Gait Assistive Device: None, FWW, Cane Single Point Stairs (FIM): 6 # of Steps: 12 1 Step (curb) (QC): 6 4 Steps (QC): 6 12 Steps (QC): 6 Stairs Level Of Assist: 6 Picking up an Object (QC): 5 PT Plan Problem List Problem List: Activity Tolerance, Functional Strength, Safety, Balance, Gait, Transfer Treatment/Plan Treatment Plan: Continue Plan of Care Treatment Plan: Education, Functional Activity Jie, Functional Strength, Group Therapy, Gait, Safety, Therapeutic Exercise, Transfers Treatment Duration: Dec 21, 2016 Visits Per Week: 10-12 Minutes/Day (M-F): 60-90 Minutes/Day (Sat/Costa): PRN Safety Risks/Education Patient Education: Gait Training, Transfer Techniques, Correct Positioning, Safety Issues Teaching Recipient: Patient Teaching Methods: Demonstration, Discussion Response to Teaching: Reinforcement Needed Time/GCodes Time In: 915 Time Out: 1000 Total Billed Treatment Time: 45 Total Billed Treatment 1 visit EX 15 min GT 30 min JUN SHAHID PT Dec 11, 2016 09:59
--- NOTE | 2016-12-11 10:16 | Speech Therapy Daily Note ---
Speech Daily Progress Note Subjective The patient was laying in bed upon entrance. The patient was agreeable to participate in speech, language, and dysphagia treatment. The patient appeared less fatigued on this date and more alert for therapy. Objective Dysphagia Exercises: Dysphagia exercises were continued on this date. The patient displayed good accuracy (approximately 70%) with dysphagia exercises on this date (base of tongue retraction, pharyngeal contraction, and laryngeal elevation). Moderate clinician verbal prompting was provided, as well as, an initial direct model. Ten repetitions of each exercise were performed. The patient continues to demonstrate difficulty completing the Gail and effortful swallow with maximum clinician cueing. Orientation: With moderate clinician prompting and direct modeling, the patient was able to recall orientation information written on the white board. The patient was able to locate information on the board independently, however, demonstrated inconsistent accuracy with this technique. Confrontational Naming (pictures): The patient was unable to state the name of a picture (ADL) regardless of maximum clinician verbal prompting. The patient was able to repeat the name of the picture following model by clinician. The patient was able to identify a picture from a field of two (90% accuracy). Assessment Assessment Current Status: Fair Progress Treatment Plan Continue Plan of Care Communication Comprehension: 3 Expression: 3 Social Cognition Social Interaction: 4 Problem Solvin Memory: 3 Speech Short Term Goals Short Term Goals Short Term Goals 1) THE PATIENT WILL BE ABLE TO TOLERATE PHARYNGEAL STRENGTHENING ACTIVITIES FOR AT LEAST 90% OF TASKS PROVIDED. 2) THE PATIENT WILL BE ABLE TO FOLLOW COMPENSATORY SWALLOW STRATEGIES TO FACILITATE A SAFE AND EFFECTIVE SWALLOW FOR DIETARY TRIALS WITH EXHIBITOR SALES PRESENT WITH UP TO 90% RETURN. 3) GIVEN A VISUAL CUE, THE PATIENT WILL BE ABLE TO VERBALIZE AT LEAST 1/3 COMPENSATORY SWALLOW STRATEGIES FOR SAFE SWALLOWING. 4) GIVEN THERMAL SENSORY STIMULATION, THE PATIENT WILL BE ABLE TO EFFECTIVELY INITIATE SWALLOW RESPONSE WITHIN 2 SECONDS. 5) THE PATIENT WILL BE ABLE TO COMPLETE RECALL OF THREE OBJECTS WITHOUT PROMPTING AT 5, 10 & 15 MINUTE INTERVALS. 6) THE PATIENT WILL BE ABLE TO COMPLETE TASKS RELATED TO DIVERGENT/CONVERGENT NAMING TO ASSIST WITH INCREASED MENTAL FLEXIBILITY WITH UP TO 80% RETURN. 7) FOLLOWING SAFETY TRAINING FROM NS AND/OR OTHER THERAPISTS, THE PATIENT WILL BE ABLE TO RECALL AT LEAST 80% OF INFORMATION FOLLOWING REQUESTS. 8) USING ALTERNATING ATTENTION TASKS, HUSSAIN WILL COMPLETE THESE TASKS FOR UP TO 5 MINUTES WITH MINIMAL PROMPTS. Comprehension: 3 Expression: 3 Social Interaction: 3 Problem Solvin Memory: 3 Speech Jail Goals Construction Supervisor/Carpenter Goals 1) THE PATIENT WILL PARTICIPATE IN CAREGIVER EDUCATION REGARDING SWALLOW PRECAUTIONS, COMPENSATORY SWALLOW STRATEGIES WELL DIET CHANGES AND RECOMMENDATIONS WITH CAREGIVER RECALL AT 80% RETURN FOLLOWING QUESTIONING. 2) GIVEN DIETARY TRIALS, THE PATIENT WILL TOLERATE PLEASURABLE FEEDINGS WITHOUT ASPIRATION TO IMPROVE QUALITY OF LIFE WITHIN 30 DAYS. 3) HUSSAIN WILL BE ABLE TO SEQUENCE AT LEAST 5-STEPS WITH A VISUAL CUE TO COMPLETE ADL'S. 4) USING A VISUAL REMINDER, HUSSAIN WILL BE ABLE TO RECALL TIME/DAY/DATE AND IMPORTANT PERSONAL INFORMATION WITH UP TO 90% RETURN. Time Frame: 30 DAYS Comprehension: 5 Expression: 5 Social Interaction: 5 Problem Solvin Memory: 4 Speech-Plan Treatment Plan Speech Therapy Treatment Plan: Continue Plan of Care The patient should continued skilled speech pathology to target functional communication and swallowing safety. Treatment Duration: January 04, 2017 # of days/week Five. Visits Per Week: 30-45 MINUTES Minutes/Day (M-F): M-F Rehab Potential: Guarded Safety Risks/Education Teaching Recipient: Patient, Significant Other Teaching Methods: Demonstration, Handout, Discussion Response to Teaching: Return Demonstration, Reinforcement Needed Education Topics Provided: Dysphagia Exercises, Orientation Strategies Time Speech Therapy Time In: 08:30 Speech Therapy Time Out: 09:15 Total Billed Time: 45 Billed Treatment Time 1, CARMEN 1, RHYS GUERRA Dec 11, 2016 10:16
--- NOTE | 2016-12-11 11:25 | PM & R (SOAP) Progress Note ---
Subjective Subjective/Events-last exam Patient was seen in his room this AM Patient SBA for transfers Objective Exam Last Set of Vital Signs Vital Signs Date Time Temp Pulse Resp B/P (MAP) Pulse Ox O2 Delivery O2 Flow Rate FiO2 12/11/16 09:53 73 18 101/64 98 Room Air 12/11/16 06:00 97.0 Capillary Refill : I&O Intake and Output 12/11/16 00:00 Intake Total 2560 ml Output Total 1900 ml Balance 660 ml IV Total 1050 ml Tube Feeding 720 ml Other 790 ml Output Urine Total 1900 ml # Bowel Movements 4 General: Alert, Oriented X3, Cooperative, No Acute Distress HEENT: Atraumatic, PERRLA, EOMI, Mucous Memb Moist/[place], Other (dysphagia and some word finding problems) Neck: Supple, No JVD Lungs: Clear to Auscultation Heart: Regular Rate Abdomen: Normal Bowel Sounds, Soft, No Tenderness, Other (peg tube site clean) Neuro: Other (mid rt sided weakness and significant dysphagia some word finding difficulty) Results Lab Laboratory Tests 12/08/16 20:27: Glucometer 118H 12/09/16 09:30: Glucometer 117H 12/09/16 11:13: Hemoglobin 9.3L, Hematocrit 29L, Prothrombin Time 27.2H, INR Comment 2.5H 12/09/16 20:39: Glucometer 104 12/10/16 05:54: White Blood Count 3.6L, Red Blood Count 2.73L, Hemoglobin 8.8L, Hematocrit 28L, Mean Corpuscular Volume 102H, Mean Corpuscular Hemoglobin 32, Mean Corpuscular Hemoglobin Concent 32, Red Cell Distribution Width 21.1H, Platelet Count 247, Mean Platelet Volume 11.2H, Prothrombin Time 27.8H, INR Comment 2.6H 12/10/16 09:03: Glucometer 117H 12/10/16 20:34: Glucometer 127H 12/11/16 06:21: Hemoglobin 7.9L, Hematocrit 25L, Prothrombin Time 21.5H, INR Comment 1.9H 12/11/16 09:07: Glucometer 113H Assessment/Plan Assessment 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 Chronic Afib controled with medication BPH with urinary retention managed with Indwelling Abraham catheter-Dr Ivy following catheter changed Myelodysplastic syndrome with chronic anemia followed by [facility] in [place]- [facility] following here with HGB 7.9 today Chronic anticoagulation currently with subtherapeutic INR now with dose adjusted and INR rising-now therapeutic Gastritis and Diverticulosis with Guiac + stools assoc with anemia of blood loss improved s/p transfusion and placed on Carafate Plan Continue PT/OT/ST Current labs noted F/U with Dr Hopkins and ken and [facility] as per their schedule Next Team Conference tomorrow 12/12/16 GUILLERMO MONACO MD Dec 11, 2016 11:25
--- NOTE | 2016-12-11 11:33 | Cardiology Progress Note ---
Cardiology SOAP Progress Note Subjective: stable; no shortness of breath. Objective: I&O/Vital Signs Vital Sign - Last 12Hours 12/11/16 12/11/16 12/11/16 12/11/16 09:53 13:30 13:32 13:37 Temp 97.2 97.2 97.2 Pulse 73 70 70 70 Resp 18 16 16 16 B/P (MAP) 101/64 93/55 93/55 100/60 Pulse Ox 98 96 96 98 O2 Delivery Room Air 12/11/16 12/11/16 12/11/16 12/11/16 13:40 13:57 16:39 18:18 Temp 97.4 97.3 97.7 97.7 Pulse 70 69 70 70 Resp 16 16 16 16 B/P (MAP) 96/60 98/58 96/58 96/58 Pulse Ox 97 97 96 97 O2 Delivery Room Air Intake and Output 12/11/16 00:00 Intake Total 1260 ml Output Total 900 ml Balance 360 ml Weight (Pounds): 125 Weight (Ounces): 8.0 Weight (Calculated Kilograms): 56.595379 Constitutional: No appears stated age, No AAO x 3, No apparent distress, No PERRL, No well-developed, No well-nourished, No other Respiratory: No accessory muscle use, No respiratory distress, No chest tender , No chest expansion is symmetric, No chest is bilaterally symmetric, No lungs clear to percussion, No lungs clear to auscultation, No crackles, No rhonchi, No rales, No stridor, No wheezing, No pleural rub, No other Cardiovascular: S1 and S2 Gastrointestional: No tender, No soft, No round, No distended, No pulsatile mass, No organomegaly, No guarding, No rebound, No tenderness, No hernia, No mass, No audible bowel sounds, No abnormal bowel sounds, No abdominal bruits, No spleenomegaly, No other Extremities: No normal range of motion, No non-tender, No normal inspection, No pedal edema, No calf tenderness, No normal capillary refill, No pelvis stable , No calf tenderness, No inflammation, No pedal edema, No slow capillary refill , No swelling, No other, No abrasion, No clubbing, No cyanosis, No ecchymosis, No laceration, No no lower extremity edema bilateral, No significant edema, No tenderness, No wound Results/Procedures: Labs Laboratory Tests 12/11/16 06:21: Hemoglobin 7.9L, Hematocrit 25L, Prothrombin Time 21.5H, INR Comment 1.9H 12/11/16 09:07: Glucometer 113H 12/11/16 20:46: Glucometer 101 A/P: Assessment/Dx: shortness of breath, Coronary artery disease, status post CABG, ICD, Atrial fibrillation, Valve replacement. Plan: Shortness of breath: No significant complaints. Continue low-dose Lasix. On examination he is not in florid congestive heart failure. BNP was elevated on admission. Echocardiogram shows normal LV systolic function. Severe pulmonary hypertension. Severe mitral regurgitation. We will need to follow with cardiology as an outpatient to decide whether the patient requires mitral valve surgery versus intervention. CAD: Continue aspirin, statin, metoprolol. Atrial fibrillation: Continue sotalol. valve replacement: Continue warfarin. Will follow. Thank you for your consultation. Please call me if you have any questions. Mame Hung MD, FACP, FACC, FSCAI, FHRS, CCDS Interventional Cardiology Cardiac Electrophysiology Vascular Medicine and Endovascular Interventions Lisandra HUNG MD Dec 11, 2016 11:33 am
[2016-12-11] MEDS ORDERED: NS IV 500 ML 500 ML ONE (13:17)
--- NOTE | 2016-12-11 13:34 | Occupational Ther Daily Note ---
OT Current Status-Daily Note Subjective Pt seen in room, in bed, agreeable to OT. Pt had been scheduled earlier after PT but he requested time to rest and OT was able to reschedule him. No pain mentioned. Appearance Alert, cooperative, smiling Mental Status/Objective Functional Riddle Measure 0=Not Assessed/NA 4=Minimal Assistance 1=Total Assistance 5=Supervision or Setup 2=Maximal Assistance 6=Modified Riddle 3=Moderate Assistance 7=Complete Riddle ADL-Treatment Pt was able to doff and don his loafers without help. Cont with Abraham catheter and NPO. Functional Riddle Measure 0=Not Assessed/NA 4=Minimal Assistance 1=Total Assistance 5=Supervision or Setup 2=Maximal Assistance 6=Modified Riddle 3=Moderate Assistance 7=Complete IndependenceIRFPAI Quality Coding Scale 6 Independent with activity with or without an assistive device 5 Patient requires set up or clean up by helper. Patient completes activity by themselves 4 Supervision or touching assist (CGA). [place] provide cues , steadying assist 3 The helper provides less than half the effort to complete the activity 2 The helper provides more than half the effort to complete the activity 1 Dependent. The helper does all the effort to complete an activity 7 Patient refused to complete or attempt activity 9 The patient did not perform the activity before the current illness or injury 88 Not attempted due to Medical conditions or safety concerns Other Treatment Pt moved supine to sit and sit to stand without assistance. Walked to gym with SBA, FWW. Pt did bilat UE strengthening with arm bike, 16 minutes set at 15W resistance (increased time). he took several brief recovery breaks but otherwise worked at a steady pace. He also did some tabletop activities working on coordination and problem-solving, getting about 90% of activity done correctly without cues. At times, needed cues to sort through too many visual objects so that he could focus on one group. Pt completed dominoes activity with minimal cues and instructions. Pt walked back to room with SBA, FWW and got into bed with SBA. Pt left on R side, 4 rails up, bed alarm on. OT Short Term Goals Short Term Goals Time Frame: Dec 08, 2016 Eating(FIM): 0 Grooming(FIM): 6 Bathing(FIM): 6 Bathing Location: L Arm, R Arm, L Upper Leg, R Upper Leg, L Lower Leg ( including foot), R Lower Leg (including foot), Chest, Abdomen, Buttocks, Perineal Area Upper Body Dressing(FIM): 6 Lower Body Dressing(FIM): 6 Toileting(FIM): 6 Transfers (B,C,W/C) (FIM): 6 Toilet/Commode Transfer(FIM): 6 Tub Transfer(FIM): 0 Shower Transfer(FIM): 6 Comprehension(FIM): 3 Expression(FIM): 3 Social Interaction(FIM): 3 Problem Solving(FIM): 3 Memory(FIM): 3 1=Demonstrate adherence to instructed precautions during ADL tasks. 2=Patient will verbalize/demonstrate understanding of assistive devices/ modifications for ADL. 3=Patient will improve strength/tolerance for activity to enable patient to perform ADL's. OT Banquet Pilot Goals Jail Goals Time Frame: Dec 15, 2016 Eating (FIM): 0 Eating (QC): 0 Groomin Oral Hygiene (QC): 6 Bathing(FIM): 6 Bathing Location: L Arm, R Arm, L Upper Leg, R Upper Leg, L Lower Leg ( including foot), R Lower Leg (including foot), Chest, Abdomen, Buttocks, Perineal Area Shower/Bathe Self (QC): 6 Upper Body Dressing(FIM): 6 Upper Body Dressing (QC): 6 Lower Body Dressing(FIM): 6 Lower Body Dressing (QC): 6 On/Off Footwear (QC): 6 Toileting(FIM): 6 Toileting Hygiene (QC): 6 Transfers (B,C,W/C) (FIM): 6 Toilet/Commode Transfer(FIM): 6 Toilet/Commode Transfer (QC): 6 Tub Transfer(FIM): 0 Shower Transfer(FIM): 6 Comprehension(FIM): 5 Expression (FIM): 5 Social Interaction(FIM): 5 Problem Solving(FIM): 5 Memory(FIM): 4 1=Demonstrate adherence to instructed precautions during ADL tasks. 2=Patient will verbalize/demonstrate understanding of assistive devices/ modifications for ADL. 3=Patient will improve strength/tolerance for activity to enable patient to perform ADL's. OT Education/Plan Discharge Recommendations Plan/Recommendations: Continue POC Treatment Plan/Plan of Care Patient would benefit from OT for education, treatment and training to promote independence in ADL's, mobility, safety and/or upper extremity function for ADL' s. Plan of Care: ADL Retraining, Cognitive Retraining, Group Exercise/Act as Ind, UE Funct Exercise/Act Treatment Duration: Dec 21, 2016 Visits Per Week: 10-12 Minutes/Day (M-F): 60-90 Minutes/Day (Sat/[place]): prn Agreement: Yes Rehab Potential: Guarded Time/GCodes Start Time: 10:45 Stop Time: 12:00 Total Time Billed (hr/min): 75 Billed Treatment Time visit, 15 minutes exercise, 60 minutes neuromotor IRAM TAYLOR OT Dec 11, 2016 13:33
--- NOTE | 2016-12-11 14:49 | Physical Therapy Progress Note ---
Therapy Progress Note PT treatment attempted but patient refused. Patient is getting blood this afternoon, his hemoglobin is 7.9. He seemed to handle therapy ok this morning so attempted to try this afternoon too but patient adamantly refuses because he is getting blood. Doctor and nurse notified. JUN SHAHID PT Dec 11, 2016 14:49
[2016-12-11] MEDS: MELATONIN 3 MG TABLET PO SCH (21:35)
[2016-12-11] MEDS: ATORVASTATIN 40 MG (LIPITOR) TABLET PO SCH (21:35)
[2016-12-12 05:11] VITALS: BP 94/51
[2016-12-12 06:15] LABS: RED BLOOD COUNT 2.46 10^6/uL (4.35-5.85); RED CELL DISTRIBUTION WIDTH 20.8 % (10.0-14.5); WHITE BLOOD COUNT 5.5 10^3/uL (4.3-11.0)
[2016-12-12 06:25] LABS: INR 1.6 (0.8-1.4); PROTHROMBIN TIME PATIENT 18.7 SEC (12.2-14.7)
[2016-12-12] MEDS: METHIMAZOLE 10 MG TAB PO SCH (06:33)
--- NOTE | 2016-12-12 08:18 | Progress Note (SOAP) ---
Subjective Subjective/Events-last exam stroke. Right sided weakness. Anemia. myelodysplastic disease.. Patient feeling better. Valve replacement area Hemoglobin 7.9 after 1 unit packed red blood cells given yesterday . Objective Exam Vital Signs Date Time Temp Pulse Resp B/P (MAP) Pulse Ox O2 Delivery O2 Flow Rate FiO2 12/12/16 05:11 98.3 66 18 94/51 96 Room Air 12/11/16 20:40 Room Air 12/11/16 18:18 97.7 70 16 96/58 97 Room Air 12/11/16 16:39 97.7 70 16 96/58 96 12/11/16 13:57 97.3 69 16 98/58 97 12/11/16 13:40 97.4 70 16 96/60 97 12/11/16 13:37 97.2 70 16 100/60 98 12/11/16 13:32 97.2 70 16 93/55 96 12/11/16 13:30 97.2 70 16 93/55 96 12/11/16 09:53 73 18 101/64 98 Room Air 12/11/16 09:40 Room Air I & O 12/12/16 07:00 Intake Total 2094 ml Output Total 1350 ml Balance 744 ml Capillary Refill : General Appearance: No Apparent Distress, Thin HEENT: Normal ENT Inspection Neck: Normal Inspection Respiratory: Chest Non Tender, Lungs Clear, Normal Breath Sounds, No Accessory Muscle Use, No Respiratory Distress Results Lab Laboratory Tests 12/12/16 06:07 Laboratory Tests 12/11/16 09:07: Glucometer 113H 12/11/16 20:46: Glucometer 101 12/12/16 06:07: White Blood Count 5.5, Red Blood Count 2.46L, Hemoglobin 7.9L, Hematocrit 25L, Mean Corpuscular Volume 100H, Mean Corpuscular Hemoglobin 32, Mean Corpuscular Hemoglobin Concent 32, Red Cell Distribution Width 20.8H, Platelet Count 210, Mean Platelet Volume 11.0H, Prothrombin Time 18.7H, INR Comment 1.6H Assessment/Plan Assessment/Plan Assess & Plan/Chief Complaint Cerebrovascular accident due to ischemic stroke area Inability to swallow. CAD. Atrial fibrillation. Myelodysplastic syndrome. BPH. . CVA. Inability to swallow. CAMyelodysplastic disease. Patient's hemoglobin 6.9 to receive packed red blood cells. . 12/06/16 CVA. Inability to swallow. CAD. A. fib history. Myelo dysplastic syndrome. Patient feels weeks this morning. Chest x-ray ordered. . 12/07/16 better.. Inability to swallow. CAD. A. fib . .. Myelodysplastic syndrome. Anemia... BNP elevated. . 12/08/16. Patient appears stronger. Occult blood of stools positive. Patient have EGD and colonoscopy. Atrial fibrillation.. . 12/10/16. Patient appears good. Patient had EGD and colonoscopy today. . area Patient more anemic today. Stroke. Right sided weakness. Myelodysplastic disease. . 12/12/16.. Anemia. Hemoglobin and hematocrit Stroke. Right sided weakness. Mild dysplastic disease.. To notify hematology Clinical Quality Measures DVT/VTE Risk/Contraindication: Risk Factor Score Per Nursin RFS Level Per Nursing on Admit: 2=Moderate Contraindications-Pharm: Other *list below* Other: on warfarin MANE HOBBS DO Dec 12, 2016 08:18
[2016-12-12 09:35] VITALS: BP 101/60
[2016-12-12] MEDS: SOTALOL 80 MG (BETAPACE) TAB PO SCH ×2 (09:37→21:26)
[2016-12-12] MEDS: PANTOPRAZOLE 40 MG/10 ML (PROTONIX) VIAL IV SCH (09:37)
[2016-12-12] MEDS: FUROSEMIDE 20 MG (LASIX) TAB PO SCH (09:37)
[2016-12-12] MEDS: SUCRALFATE 1 GM (CARAFATE) TAB PEG SCH ×3 (09:37→21:25)
[2016-12-12] MEDS: meTOprolol TARTRATE 25 MG (LOPRESSOR) TABLET PO SCH ×2 (09:37→19:48)
[2016-12-12] MEDS: ASPIRIN 81 MG CHEW (CHILDREN'S ASA) PO SCH (09:37)
[2016-12-12] MEDS: DIGOXIN 0.125 MG (LANOXIN) TAB PO SCH (09:37)
[2016-12-12] MEDS: APIXABAN 5 MG (ELIQUIS) TABLET PO SCH ×2 (09:49→21:26)
[2016-12-12] MEDS: inSUlin ASPART (NovoLOG) 1 UNIT/0.01 ML (CHARGE PER UNIT) SC SCH ×2 (09:49→21:49)
--- NOTE | 2016-12-12 10:28 | Cardiology Progress Note ---
Cardiology SOAP Progress Note Subjective: Stable, no shortness of breath Objective: I&O/Vital Signs Vital Sign - Last 12Hours 12/12/16 12/12/16 12/12/16 05:11 09:16 09:35 Temp 98.3 Pulse 66 71 Resp 18 B/P (MAP) 94/51 101/60 Pulse Ox 96 O2 Delivery Room Air Room Air Intake and Output 12/12/16 00:00 Intake Total 1220 ml Output Total 600 ml Balance 620 ml Weight (Pounds): 123 Weight (Ounces): 8.0 Weight (Calculated Kilograms): 55.866279 Constitutional: No appears stated age, No AAO x 3, No apparent distress, No PERRL, No well-developed, No well-nourished, No other Respiratory: No accessory muscle use, No respiratory distress, No chest tender , No chest expansion is symmetric, No chest is bilaterally symmetric, No lungs clear to percussion, No lungs clear to auscultation, No crackles, No rhonchi, No rales, No stridor, No wheezing, No pleural rub, No other Cardiovascular: S1 and S2 Gastrointestional: No tender, No soft, No round, No distended, No pulsatile mass, No organomegaly, No guarding, No rebound, No tenderness, No hernia, No mass, No audible bowel sounds, No abnormal bowel sounds, No abdominal bruits, No spleenomegaly, No other Extremities: No normal range of motion, No non-tender, No normal inspection, No pedal edema, No calf tenderness, No normal capillary refill, No pelvis stable , No calf tenderness, No inflammation, No pedal edema, No slow capillary refill , No swelling, No other, No abrasion, No clubbing, No cyanosis, No ecchymosis, No laceration, No no lower extremity edema bilateral, No significant edema, No tenderness, No wound Results/Procedures: Labs Laboratory Tests 12/11/16 20:46: Glucometer 101 12/12/16 06:07: White Blood Count 5.5, Red Blood Count 2.46L, Hemoglobin 7.9L, Hematocrit 25L, Mean Corpuscular Volume 100H, Mean Corpuscular Hemoglobin 32, Mean Corpuscular Hemoglobin Concent 32, Red Cell Distribution Width 20.8H, Platelet Count 210, Mean Platelet Volume 11.0H, Prothrombin Time 18.7H, INR Comment 1.6H 12/12/16 09:44: Glucometer 111H A/P: Assessment/Dx: shortness of breath, Coronary artery disease, status post CABG, ICD, Atrial fibrillation, Valve replacement. Plan: Shortness of breath: No significant complaints. Continue low-dose Lasix. On examination he is not in florid congestive heart failure. BNP was elevated on admission. Echocardiogram shows normal LV systolic function. Severe pulmonary hypertension. Severe mitral regurgitation. We will need to follow with cardiology as an outpatient to decide whether the patient requires mitral valve surgery versus intervention. He follows with Dr. Gonzalez at the [facility] in [place]. Myelodysplastic syndrome: anemia secondary to MDS. no bleeding. CAD: Continue aspirin, statin, metoprolol. Atrial fibrillation: Continue sotalol. Agree with starting Eliquis. valve replacement: Porcine valve ten years ago. Will follow. Thank you for your consultation. Please call me if you have any questions. Mame Hinds MD, FACP, FACC, FSCAI, FHRS, CCDS Interventional Cardiology Cardiac Electrophysiology Vascular Medicine and Endovascular Interventions Lisandra HINDS MD Dec 12, 2016 10:28 am
--- NOTE | 2016-12-12 10:43 | PM & R (SOAP) Progress Note ---
Subjective Subjective/Events-last exam Patient was seen in his room this AM Patient SBA for transfers remains NPO and on tube feeds due to Dyssphagia from stroke Discussed case with DR Kellie Jha believes patient should be switched to Eliquis due to chronic anemia DR Hung following up with RN dayami this Appreciate Dr Holguin note(Cardiology) HGB 7.9 s/p transfusion yesterday Missed some therapy yesterday due to Bllod transfusion Objective Exam Last Set of Vital Signs Vital Signs Date Time Temp Pulse Resp B/P (MAP) Pulse Ox O2 Delivery O2 Flow Rate FiO2 12/12/16 09:35 71 101/60 12/12/16 09:16 Room Air 12/12/16 05:11 98.3 18 96 Capillary Refill : I&O Intake and Output 12/12/16 00:00 Intake Total 1944 ml Output Total 1100 ml Balance 844 ml Intake Oral 0 ml IV Total 100 ml Tube Feeding 1194 ml Other 650 ml Output Urine Total 1100 ml # Bowel Movements 1 General: Alert, Oriented X3, Cooperative, No Acute Distress HEENT: Atraumatic, PERRLA, EOMI, Mucous Memb Moist/[place], Other (dysphagia and some word finding problems) Neck: Supple, No JVD Lungs: Clear to Auscultation Heart: Regular Rate Abdomen: Normal Bowel Sounds, Soft, No Tenderness, Other (peg tube site clean) Neuro: Other (mid rt sided weakness and significant dysphagia some word finding difficulty) Results Lab Laboratory Tests 12/09/16 11:13: Hemoglobin 9.3L, Hematocrit 29L, Prothrombin Time 27.2H, INR Comment 2.5H 12/09/16 20:39: Glucometer 104 12/10/16 05:54: Hemoglobin 8.8L, Hematocrit 28L, Prothrombin Time 27.8H, INR Comment 2.6H, White Blood Count 3.6L, Red Blood Count 2.73L, Mean Corpuscular Volume 102H, Mean Corpuscular Hemoglobin 32, Mean Corpuscular Hemoglobin Concent 32, Red Cell Distribution Width 21.1H, Platelet Count 247, Mean Platelet Volume 11.2H 12/10/16 09:03: Glucometer 117H 12/10/16 20:34: Glucometer 127H 12/11/16 06:21: Hemoglobin 7.9L, Hematocrit 25L, Prothrombin Time 21.5H, INR Comment 1.9H 12/11/16 09:07: Glucometer 113H 12/11/16 20:46: Glucometer 101 12/12/16 06:07: White Blood Count 5.5, Red Blood Count 2.46L, Hemoglobin 7.9L, Hematocrit 25L, Mean Corpuscular Volume 100H, Mean Corpuscular Hemoglobin 32, Mean Corpuscular Hemoglobin Concent 32, Red Cell Distribution Width 20.8H, Platelet Count 210, Mean Platelet Volume 11.0H, Prothrombin Time 18.7H, INR Comment 1.6H 12/12/16 09:44: Glucometer 111H Assessment/Plan Assessment 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 Chronic Afib controled with medication BPH with urinary retention managed with Indwelling Abraham catheter-Dr Ivy following catheter changed Myelodysplastic syndrome with chronic anemia followed by [facility] in [place]- [facility] following here with HGB 7.9 today Chronic anticoagulation currently with subtherapeutic INR now with dose adjusted and INR rising-now therapeutic-Dr Hung to follow up re switching patient to Eliquis possibly Gastritis and Diverticulosis with Guiac + stools assoc with anemia of blood loss improved s/p transfusion and placed on Carafate Plan Continue PT/OT/ST Current labs noted F/U with Dr Hopkins and ken and Cata and Go as well as DR Hung as per their schedule Next Team Conference later today-See report for full functional update and POC and GUILLERMO MORRISSEY MD Dec 12, 2016 10:43
--- NOTE | 2016-12-12 11:00 | Speech Therapy Daily Note ---
Speech Daily Progress Note Subjective The patient was laying in bed upon entrance. The patient was agreeable to participate in speech, language, and dysphagia treatment. The patient appeared less fatigued on this date and more alert for therapy. Objective Dysphagia Exercises: Dysphagia exercises were continued on this date. The patient displayed good accuracy (approximately 70%) with dysphagia exercises ( base of tongue retraction, pharyngeal contraction, and laryngeal elevation). Moderate clinician verbal prompting was provided, as well as, an initial direct model. Ten repetitions of each exercise were performed. The patient continues to demonstrate difficulty completing the Gail and effortful swallow with maximum clinician cueing. Orientation: With moderate clinician prompting and direct modeling, the patient was able to recall orientation information written on the white board. The patient was able to locate information on the board with cues, however, demonstrated inconsistent accuracy with this technique. Phrase Completion: The patient demonstrated 70% accuracy with phrase completion on this date with moderate clinician verbal cueing. Assessment Assessment Current Status: Fair Progress Treatment Plan Continue Plan of Care Communication Comprehension: 3 Expression: 3 Social Cognition Social Interaction: 4 Problem Solvin Memory: 3 Speech Short Term Goals Short Term Goals Short Term Goals 1) THE PATIENT WILL BE ABLE TO TOLERATE PHARYNGEAL STRENGTHENING ACTIVITIES FOR AT LEAST 90% OF TASKS PROVIDED. 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 3) GIVEN A VISUAL CUE, THE PATIENT WILL BE ABLE TO VERBALIZE AT LEAST 1/3 COMPENSATORY SWALLOW STRATEGIES FOR SAFE SWALLOWING. 4) GIVEN THERMAL SENSORY STIMULATION, THE PATIENT WILL BE ABLE TO EFFECTIVELY INITIATE SWALLOW RESPONSE WITHIN 2 SECONDS. 5) THE PATIENT WILL BE ABLE TO COMPLETE RECALL OF THREE OBJECTS WITHOUT PROMPTING AT 5, 10 & 15 MINUTE INTERVALS. 6) THE PATIENT WILL BE ABLE TO COMPLETE TASKS RELATED TO DIVERGENT/CONVERGENT NAMING TO ASSIST WITH INCREASED MENTAL FLEXIBILITY WITH UP TO 80% RETURN. 7) FOLLOWING SAFETY TRAINING FROM NS AND/OR OTHER THERAPISTS, THE PATIENT WILL BE ABLE TO RECALL AT LEAST 80% OF INFORMATION FOLLOWING REQUESTS. 8) USING ALTERNATING ATTENTION TASKS, HUSSAIN WILL COMPLETE THESE TASKS FOR UP TO 5 MINUTES WITH MINIMAL PROMPTS. Comprehension: 3 Expression: 3 Social Interaction: 3 Problem Solvin Memory: 3 Speech Managed Care Provider Goals Prison Goals 1) THE PATIENT WILL PARTICIPATE IN CAREGIVER EDUCATION REGARDING SWALLOW PRECAUTIONS, COMPENSATORY SWALLOW STRATEGIES WELL DIET CHANGES AND RECOMMENDATIONS WITH CAREGIVER RECALL AT 80% RETURN FOLLOWING QUESTIONING. 2) GIVEN DIETARY TRIALS, THE PATIENT WILL TOLERATE PLEASURABLE FEEDINGS WITHOUT ASPIRATION TO IMPROVE QUALITY OF LIFE WITHIN 30 DAYS. 3) HUSSAIN WILL BE ABLE TO SEQUENCE AT LEAST 5-STEPS WITH A VISUAL CUE TO COMPLETE ADL'S. 4) USING A VISUAL REMINDER, HUSSAIN WILL BE ABLE TO RECALL TIME/DAY/DATE AND IMPORTANT PERSONAL INFORMATION WITH UP TO 90% RETURN. Time Frame: 30 DAYS Comprehension: 5 Expression: 5 Social Interaction: 5 Problem Solvin Memory: 4 Speech-Plan Treatment Plan Speech Therapy Treatment Plan: Continue Plan of Care Continue skilled speech pathology to target swallowing safety and functional communication. Treatment Duration: January 04, 2017 # of days/week Five. Visits Per Week: 30-45 MINUTES Minutes/Day (M-F): M-F Rehab Potential: Guarded Safety Risks/Education Teaching Recipient: Patient, Significant Other Teaching Methods: Demonstration, Handout, Discussion Response to Teaching: Return Demonstration, Reinforcement Needed Education Topics Provided: Dysphagia Exercises, Plan of Care Time Speech Therapy Time In: 10:00 Speech Therapy Time Out: 10:45 Total Billed Time: 45 Billed Treatment Time 1, DYST 1, RHYS BRUNO Dec 12, 2016 11:00
--- NOTE | 2016-12-12 11:16 | Occupational Ther Daily Note ---
OT Current Status-Daily Note Subjective Pt seen in room, up at EOB, agreeable to OT. No pain mentioned. Appearance Alert, cooperative. Social conversation but difficulty answering direct questions. Mental Status/Objective Functional [place] Measure 0=Not Assessed/NA 4=Minimal Assistance 1=Total Assistance 5=Supervision or Setup 2=Maximal Assistance 6=Modified [place] 3=Moderate Assistance 7=Complete [place] Attachments: Abraham Catheter, PEG Tube ADL-Treatment had helped pt do sponge bath and change clothes. "I make him do it" but she supervises. Functional [place] Measure 0=Not Assessed/NA 4=Minimal Assistance 1=Total Assistance 5=Supervision or Setup 2=Maximal Assistance 6=Modified [place] 3=Moderate Assistance 7=Complete IndependenceIRFPAI Quality Coding Scale 6 Independent with activity with or without an assistive device 5 Patient requires set up or clean up by helper. Patient completes activity by themselves 4 Supervision or touching assist (CGA). [place] provide cues , steadying assist 3 The helper provides less than half the effort to complete the activity 2 The helper provides more than half the effort to complete the activity 1 Dependent. The helper does all the effort to complete an activity 7 Patient refused to complete or attempt activity 9 The patient did not perform the activity before the current illness or injury 88 Not attempted due to Medical conditions or safety concerns Other Treatment Pt walked to gym with SBA for safety, FWW. Cues to push up from bed instead of pull up from walker. In gym, pt did 15 minutes bilat exercise on arm bike, set at 20W resistance (increased resistance). To strengthen arms to help with transfers. He also did bilat UE activities with 1# weight on each arm, with graded clothes pins, arc activity with short and medium extensions and pegs on board (with small stems) for strengthening and coordination. Pt needed cues for hand placement with sit to stand and walked back to room, SBA for safety, FWW and was left up at EOB. present and aware that bed alarm is not on. All needs met. Education OT Patient Education: Safety issues, Transfer techniques Teaching Recipient: Patient Response to Teaching: Reinforcement Needed OT Short Term Goals Short Term Goals Time Frame: Dec 08, 2016 Eating(FIM): 0 Grooming(FIM): 6 Bathing(FIM): 6 Bathing Location: L Arm, R Arm, L Upper Leg, R Upper Leg, L Lower Leg ( including foot), R Lower Leg (including foot), Chest, Abdomen, Buttocks, Perineal Area Upper Body Dressing(FIM): 6 Lower Body Dressing(FIM): 6 Toileting(FIM): 6 Transfers (B,C,W/C) (FIM): 6 Toilet/Commode Transfer(FIM): 6 Tub Transfer(FIM): 0 Shower Transfer(FIM): 6 Comprehension(FIM): 3 Expression(FIM): 3 Social Interaction(FIM): 3 Problem Solving(FIM): 3 Memory(FIM): 3 1=Demonstrate adherence to instructed precautions during ADL tasks. 2=Patient will verbalize/demonstrate understanding of assistive devices/ modifications for ADL. 3=Patient will improve strength/tolerance for activity to enable patient to perform ADL's. OT Supervisor Coating Goals Fpc Goals Time Frame: Dec 15, 2016 Eating (FIM): 0 Eating (QC): 0 Groomin Oral Hygiene (QC): 6 Bathing(FIM): 6 Bathing Location: L Arm, R Arm, L Upper Leg, R Upper Leg, L Lower Leg ( including foot), R Lower Leg (including foot), Chest, Abdomen, Buttocks, Perineal Area Shower/Bathe Self (QC): 6 Upper Body Dressing(FIM): 6 Upper Body Dressing (QC): 6 Lower Body Dressing(FIM): 6 Lower Body Dressing (QC): 6 On/Off Footwear (QC): 6 Toileting(FIM): 6 Toileting Hygiene (QC): 6 Transfers (B,C,W/C) (FIM): 6 Toilet/Commode Transfer(FIM): 6 Toilet/Commode Transfer (QC): 6 Tub Transfer(FIM): 0 Shower Transfer(FIM): 6 Comprehension(FIM): 5 Expression (FIM): 5 Social Interaction(FIM): 5 Problem Solving(FIM): 5 Memory(FIM): 4 1=Demonstrate adherence to instructed precautions during ADL tasks. 2=Patient will verbalize/demonstrate understanding of assistive devices/ modifications for ADL. 3=Patient will improve strength/tolerance for activity to enable patient to perform ADL's. OT Education/Plan Discharge Recommendations Plan/Recommendations: Continue POC Treatment Plan/Plan of Care Patient would benefit from OT for education, treatment and training to promote independence in ADL's, mobility, safety and/or upper extremity function for ADL' s. Plan of Care: ADL Retraining, Cognitive Retraining, Group Exercise/Act as Ind, UE Funct Exercise/Act Treatment Duration: Dec 21, 2016 Visits Per Week: 10-12 Minutes/Day (M-F): 60-90 Minutes/Day (Sat/[place]): prn Agreement: Yes Rehab Potential: Guarded Time/GCodes Start Time: 08:29 Stop Time: 09:29 Total Time Billed (hr/min): 60 Billed Treatment Time visit, 60 minutes exercise IRAM TAYLOR OT Dec 12, 2016 11:16
--- NOTE | 2016-12-12 11:55 | Physical Therapy Daily Note ---
PT Daily Note-Current Subjective Pt. smiling agrees to Rx and states he feels much better than yesterday. Pain Numeric Pain Scale: 0-No Pain Mental Status Attachments: PEG Tube, Abraham Catheter Transfers Functional [place] Measure 0=Not Assessed/NA 4=Minimal Assistance 1=Total Assistance 5=Supervision or Setup 2=Maximal Assistance 6=Modified [place] 3=Moderate Assistance 7=Complete IndependenceIRFPAI Quality Coding Scale 6 Independent with activity with or without an assistive device 5 Patient requires set up or clean up by helper. Patient completes activity by themselves 4 Supervision or touching assist (CGA). [place] provide cues , steadying assist 3 The helper provides less than half the effort to complete the activity 2 The helper provides more than half the effort to complete the activity 1 Dependent. The helper does all the effort to complete an activity 7 Patient refused to complete or attempt activity 9 The patient did not perform the activity before the current illness or injury 88 Not attempted due to Medical conditions or safety concerns Transfers (B, C, W/C) (FIM): 6 Scootin Rollin Supine to/from Sit: 6 Sit to/from Stand: 6 Bed to/from Chair: 6 Gait Training Does the Patient Walk?: Yes Gait (FIM): 5 Distance (FIM): 3=150 ft (x3) Gait Level of Assist: 5 Gait Persons Needed: 1 Gait Assistive Device: FWW no LOB Stair Training Stair Training: Handrails/: 2 handrails Stairs (FIM): 5 #of Steps: 12 Stairs: Pattern: Reciprocal Level of Assist: 5 Exercises Supine Ex: Bridging, Ankle pumps, Quad Set, Rolling, Glut sets, Heel Slides, Knee to chest, Scooting, Straight leg raise, Hip abd/add Supine Reps: 15 Standing: Hip Abduction, Heel/toe raises, Marching, Mini squats, Sit to Stand Standing Reps: 10 NuStep Minutes: 10 NuStep Workload: 2 Assessment Current Status: Good Progress PT Short Term Goals Short Term Goals Time Frame: Dec 07, 2016 Transfers (B,C,W/C) (FIM): 6 Gait (FIM): 5 (met 12/08/16) Distance (FIM): 3=150 ft Gait Distance Comment: 300' Gait Level of Assist: 5 Gait Assistive Device: FWW, Cane Single Point PT Mcfp Goals Hand Alterations Tailor Goals PT Hand Alterations Tailor Goals Time Frame: Dec 21, 2016 Transfers (B,C,W/C) (FIM): 6 Sit to Lying (QC): 6 Lying-Sitting on Side/Bed(QC): 6 Sit to Stand (QC): 6 Rollin Roll Left to Right (QC): 6 Chair/Wrl-rv-Jnlqk Xfer(QC): 6 Car Transfer (QC): 6 Does the Patient Walk: Yes Gait (FIM): 6 Gait distance (FIM): 3=150 ft Distance: 300' Walk 10 feet (QC): 5 Walk 10ft-Uneven Surface(QC): 5 Walk 50ft with 2 Turns (QC): 5 Walk 150 ft (QC): 5 Gait Level of Assist: 6 Gait Assistive Device: None, FWW, Cane Single Point Stairs (FIM): 6 # of Steps: 12 1 Step (curb) (QC): 6 4 Steps (QC): 6 12 Steps (QC): 6 Stairs Level Of Assist: 6 Picking up an Object (QC): 5 PT Plan Treatment/Plan Treatment Plan: Education, Functional Activity Jie, Functional Strength, Group Therapy, Gait, Safety, Therapeutic Exercise, Transfers Treatment Duration: Dec 21, 2016 Visits Per Week: 10-12 Minutes/Day (M-F): 60-90 Minutes/Day (Sat/[place]): PRN Safety Risks/Education Patient Education: Gait Training, Transfer Techniques, Steps, Correct Positioning, Safety Issues Teaching Recipient: Patient Teaching Methods: Demonstration, Discussion Response to Teaching: Verbalize Understanding, Return Demonstration, Reinforcement Needed Time/GCodes Time In: 1100 Time Out: 1200 Total Billed Treatment Time: 60 Total Billed Treatment 1,EX30m,FA15m,GT15m G Codes Necessary: JANAE Villanueva TEST BORER HELPER Dec 12, 2016 11:55
--- NOTE | 2016-12-12 13:59 | Physical Therapy Daily Note ---
PT Daily Note-Current Subjective Pt agrees to Rx. Has family in the room and wants to stay in room to exercise near them Pain Numeric Pain Scale: 0-No Pain Appearance smiling and admiring his grandchildren during Rx. Transfers Functional [place] Measure 0=Not Assessed/NA 4=Minimal Assistance 1=Total Assistance 5=Supervision or Setup 2=Maximal Assistance 6=Modified [place] 3=Moderate Assistance 7=Complete IndependenceIRFPAI Quality Coding Scale 6 Independent with activity with or without an assistive device 5 Patient requires set up or clean up by helper. Patient completes activity by themselves 4 Supervision or touching assist (CGA). [place] provide cues , steadying assist 3 The helper provides less than half the effort to complete the activity 2 The helper provides more than half the effort to complete the activity 1 Dependent. The helper does all the effort to complete an activity 7 Patient refused to complete or attempt activity 9 The patient did not perform the activity before the current illness or injury 88 Not attempted due to Medical conditions or safety concerns Exercises Supine Ex: Bridging, Ankle pumps, Quad Set, Rolling, Glut sets, Heel Slides, Short Arc Quads, Scooting, Straight leg raise, Hip abd/add Supine Reps: 15 Treatments rolling and scooting all SBA to Mod I Assessment Current Status: Good Progress PT Short Term Goals Short Term Goals Time Frame: Dec 07, 2016 Transfers (B,C,W/C) (FIM): 6 Gait (FIM): 5 (met 12/08/16) Distance (FIM): 3=150 ft Gait Distance Comment: 300' Gait Level of Assist: 5 Gait Assistive Device: FWW, Cane Single Point PT Skilled Nursing Goals Skilled Nursing Goals PT Skilled Nursing Goals Time Frame: Dec 21, 2016 Transfers (B,C,W/C) (FIM): 6 Sit to Lying (QC): 6 Lying-Sitting on Side/Bed(QC): 6 Sit to Stand (QC): 6 Rollin Roll Left to Right (QC): 6 Chair/Sym-ef-Bkzlg Xfer(QC): 6 Car Transfer (QC): 6 Does the Patient Walk: Yes Gait (FIM): 6 Gait distance (FIM): 3=150 ft Distance: 300' Walk 10 feet (QC): 5 Walk 10ft-Uneven Surface(QC): 5 Walk 50ft with 2 Turns (QC): 5 Walk 150 ft (QC): 5 Gait Level of Assist: 6 Gait Assistive Device: None, FWW, Cane Single Point Stairs (FIM): 6 # of Steps: 12 1 Step (curb) (QC): 6 4 Steps (QC): 6 12 Steps (QC): 6 Stairs Level Of Assist: 6 Picking up an Object (QC): 5 PT Plan Treatment/Plan Treatment Plan: Continue Plan of Care Treatment Plan: Education, Functional Activity Jie, Functional Strength, Group Therapy, Gait, Safety, Therapeutic Exercise, Transfers Treatment Duration: Dec 21, 2016 Visits Per Week: 10-12 Minutes/Day (M-F): 60-90 Minutes/Day (Sat/[place]): PRN Time/GCodes Time In: 1340 Time Out: 1355 Total Billed Treatment Time: 15 Total Billed Treatment 1,EX15m G Codes Necessary: JANAE Villanueva CIVIL RIGHTS ATTORNEY Dec 12, 2016 13:59
--- NOTE | 2016-12-12 14:09 | Progress Note-Standard ---
Standard Progress Note Progress Notes/Assess & Plan Progress/Assessment & Plan 86-year-old male admitted with the CVA and right hemiparalysis for inpatient rehabilitation. Patient has history of myelodysplastic syndrome which was being managed by Aranesp injections every 2 weeks. He is anemic and has required transfusions several times since admission. GI workup showed gastritis as a possible source for blood loss. He is on anticoagulation because of atrial fibrillation and history of CVA which can definitely worsen the blood loss. He received 1 unit of PRBC transfusion yesterday for a hemoglobin level of 7.9. Today repeat CBC showed a hemoglobin level of 7.9. Clinically he is better and he is not having any symptoms from the anemia. I will monitor him and repeat the lab work tomorrow morning. Current plan is to support him with transfusion as needed unless the bleeding is worsening. In that situation we may have to reconsider the anticoagulation. I have discussed the case with Dr. Hopkins. ARPIT FARR Dec 12, 2016 14:09
[2016-12-12] MEDS ORDERED: warFARin 3 MG (COUMADIN) TAB PO SCH (18:00)
[2016-12-12 18:18] VITALS: BP 108/55
[2016-12-12] MEDS: PANTOPRAZOLE 40 MG (PROTONIX) TAB PO SCH (21:25)
[2016-12-12] MEDS: MELATONIN 3 MG TABLET PO SCH (21:26)
[2016-12-12] MEDS: ATORVASTATIN 40 MG (LIPITOR) TABLET PO SCH (21:26)
[2016-12-13 05:41] VITALS: BP 103/63
[2016-12-13] MEDS: METHIMAZOLE 10 MG TAB PO SCH (06:03)
[2016-12-13 07:40] LABS: BASOPHILS % (AUTO) 1 % (0-10); EOSINOPHILS # (AUTO) 0.2 10^3/uL (0.0-0.3); EOSINOPHILS % (AUTO) 4 % (0-10); LYMPHOCYTES % (AUTO) 16 % (12-44); MEAN CORPUSCULAR HEMOGLOBIN 32 PG (25-34); MEAN CORPUSCULAR HGB CONC 31 G/DL (32-36); MEAN CORPUSCULAR VOLUME 102 FL (80-99); MEAN PLATELET VOLUME 11.3 FL (7.4-10.4); MONOCYTES # (AUTO) 0.9 X 10^3 (0.0-1.0); MONOCYTES % (AUTO) 14 % (0-12); NEUTROPHILS % (AUTO) 66 % (42-75); PLATELET COUNT 243 10^3/uL (130-400); RED BLOOD COUNT 2.57 10^6/uL (4.35-5.85); RED CELL DISTRIBUTION WIDTH 20.6 % (10.0-14.5); WHITE BLOOD COUNT 6.1 10^3/uL (4.3-11.0)
[2016-12-13 07:50] LABS: INR 1.3 (0.8-1.4); PROTHROMBIN TIME PATIENT 16.1 SEC (12.2-14.7)
[2016-12-13 07:59] LABS: ANION GAP 7 MMOL/L (5-14); BLOOD UREA NITROGEN 20 MG/DL (7-18); BUN/CREATININE RATIO 27; CALCIUM 8.1 MG/DL (8.5-10.1); CARBON DIOXIDE 26 MMOL/L (21-32); CHLORIDE 104 MMOL/L (98-107); CREATININE SERUM 0.75 MG/DL (0.60-1.30); GFR ESTIMATED > 60; GLUCOSE 96 MG/DL (70-105); POTASSIUM 4.2 MMOL/L (3.6-5.0); SODIUM 137 MMOL/L (135-145)
--- NOTE | 2016-12-13 08:19 | Progress Note (SOAP) ---
Subjective Subjective/Events-last exam STROKE. rIGHT SIDED WEAKNESS. mYELODYSPLASTIC DISORDER Hemoglobin 8.2 this morning area Patient feeling better. Objective Exam Vital Signs Date Time Temp Pulse Resp B/P (MAP) Pulse Ox O2 Delivery O2 Flow Rate FiO2 12/13/16 05:41 97.2 76 16 103/63 98 Room Air 12/12/16 20:30 Room Air 12/12/16 18:18 97.0 70 16 108/55 97 Room Air 12/12/16 09:35 71 101/60 12/12/16 09:16 Room Air I & O 12/13/16 07:00 Intake Total 2054 ml Output Total 1730 ml Balance 324 ml Capillary Refill : General Appearance: Thin HEENT: Normal ENT Inspection Neck: Full Range of Motion, Non Tender Respiratory: Chest Non Tender, No Accessory Muscle Use, No Respiratory Distress Cardiovascular: Regular Rate, Rhythm, No Murmur Gastrointestinal: soft Results Lab Laboratory Tests 12/13/16 07:00 Laboratory Tests 12/12/16 09:44: Glucometer 111H 12/12/16 21:40: Glucometer 135H 12/13/16 07:00: White Blood Count 6.1, Red Blood Count 2.57L, Hemoglobin 8.2L, Hematocrit 26L, Mean Corpuscular Volume 102H, Mean Corpuscular Hemoglobin 32, Mean Corpuscular Hemoglobin Concent 31L, Red Cell Distribution Width 20.6H, Platelet Count 243, Mean Platelet Volume 11.3H, Neutrophils (%) (Auto) 66, Lymphocytes (%) (Auto) 16 , Monocytes (%) (Auto) 14H, Eosinophils (%) (Auto) 4, Basophils (%) (Auto) 1, Neutrophils # (Auto) 4.0, Lymphocytes # (Auto) 1.0, Monocytes # (Auto) 0.9, Eosinophils # (Auto) 0.2, Basophils # (Auto) 0.0, Prothrombin Time 16.1H, INR Comment 1.3, Sodium Level 137, Potassium Level 4.2, Chloride Level 104, Carbon Dioxide Level 26, Anion Gap 7, Blood Urea Nitrogen 20H, Creatinine 0.75, Estimat Glomerular Filtration Rate > 60, BUN/Creatinine Ratio 27, Glucose Level 96, Calcium Level 8.1L Assessment/Plan Assessment/Plan Assess & Plan/Chief Complaint Cerebrovascular accident due to ischemic stroke area Inability to swallow. CAD. Atrial fibrillation. Myelodysplastic syndrome. BPH. . CVA. Inability to swallow. CAMyelodysplastic disease. Patient's hemoglobin 6.9 to receive packed red blood cells. . 12/06/16 CVA. Inability to swallow. CAD. A. fib history. Myelo dysplastic syndrome. Patient feels weeks this morning. Chest x-ray ordered. . 12/07/16 better.. Inability to swallow. CAD. A. fib . .. Myelodysplastic syndrome. Anemia... BNP elevated. . 12/08/16. Patient appears stronger. Occult blood of stools positive. Patient have EGD and colonoscopy. Atrial fibrillation.. . 12/10/16. Patient appears good. Patient had EGD and colonoscopy today. . area Patient more anemic today. Stroke. Right sided weakness. Myelodysplastic disease. . 12/12/16.. Anemia. Hemoglobin and hematocrit Stroke. Right sided weakness. Mild dysplastic disease.. To notify hematology. . 12/19/69. CVA. Inability to speak. Myelodysplastic syndrome. Atrial f patient appears to be in sinus rhythm. Hemoglobin 8.2. Patient feeling better Clinical Quality Measures DVT/VTE Risk/Contraindication: Risk Factor Score Per Nursin RFS Level Per Nursing on Admit: 2=Moderate Contraindications-Pharm: Other *list below* Other: on warfarin MANE HOBBS DO Dec 13, 2016 08:18
[2016-12-13] MEDS: inSUlin ASPART (NovoLOG) 1 UNIT/0.01 ML (CHARGE PER UNIT) SC SCH ×2 (09:00→21:58)
[2016-12-13] MEDS: PANTOPRAZOLE 40 MG (PROTONIX) TAB PO SCH ×2 (09:01→21:57)
[2016-12-13] MEDS: APIXABAN 5 MG (ELIQUIS) TABLET PO SCH ×2 (09:02→21:57)
[2016-12-13] MEDS: SOTALOL 80 MG (BETAPACE) TAB PO SCH ×2 (09:02→21:57)
[2016-12-13] MEDS: FUROSEMIDE 20 MG (LASIX) TAB PO SCH (09:03)
[2016-12-13] MEDS: meTOprolol TARTRATE 25 MG (LOPRESSOR) TABLET PO SCH ×2 (09:03→21:57)
[2016-12-13] MEDS: DIGOXIN 0.125 MG (LANOXIN) TAB PO SCH (09:03)
[2016-12-13] MEDS: SUCRALFATE 1 GM (CARAFATE) TAB PEG SCH ×3 (09:04→21:57)
[2016-12-13] MEDS: ASPIRIN 81 MG CHEW (CHILDREN'S ASA) PO SCH (09:04)
--- NOTE | 2016-12-13 10:04 | Physical Therapy Daily Note ---
PT Daily Note-Current Subjective Patient in chair pre tx, in the room, agrees to PT, no complaints of pain. Appearance Patient in bed post tx, he is pretty tired, has OT right after PT but thinks he might be able to lay down for a couple of minutes. in the room, has nurse call, phone, tray. Mental Status Patient Orientation: Unable to Assess Attachments: Abraham Catheter Transfers Functional [place] Measure 0=Not Assessed/NA 4=Minimal Assistance 1=Total Assistance 5=Supervision or Setup 2=Maximal Assistance 6=Modified [place] 3=Moderate Assistance 7=Complete IndependenceIRFPAI Quality Coding Scale 6 Independent with activity with or without an assistive device 5 Patient requires set up or clean up by helper. Patient completes activity by themselves 4 Supervision or touching assist (CGA). [place] provide cues , steadying assist 3 The helper provides less than half the effort to complete the activity 2 The helper provides more than half the effort to complete the activity 1 Dependent. The helper does all the effort to complete an activity 7 Patient refused to complete or attempt activity 9 The patient did not perform the activity before the current illness or injury 88 Not attempted due to Medical conditions or safety concerns Transfers (B, C, W/C) (FIM): 5 Scootin Rollin Supine to/from Sit: 6 Sit to/from Stand: 5 occasional cues for safety and hand placement Gait Training Gait (FIM): 5 Distance: 150'x2 Gait Level of Assist: 5 Gait Persons Needed: 1 Gait Assistive Device: FWW better navigation around obstacles Exercises NuStep Minutes: 15 NuStep Workload: 5 Treatments bed mobility and transfers, ambulation, functional strengthening Assessment Current Status: Fair Progress improved ambulation PT Short Term Goals Short Term Goals Time Frame: Dec 07, 2016 Transfers (B,C,W/C) (FIM): 6 Gait (FIM): 5 (met 12/08/16) Distance (FIM): 3=150 ft Gait Distance Comment: 300' Gait Level of Assist: 5 Gait Assistive Device: FWW, Cane Single Point PT Radiation Physicist Goals Radiation Physicist Goals PT Radiation Physicist Goals Time Frame: Dec 21, 2016 Transfers (B,C,W/C) (FIM): 6 Sit to Lying (QC): 6 Lying-Sitting on Side/Bed(QC): 6 Sit to Stand (QC): 6 Rollin Roll Left to Right (QC): 6 Chair/Lvw-se-Wyvei Xfer(QC): 6 Car Transfer (QC): 6 Does the Patient Walk: Yes Gait (FIM): 6 Gait distance (FIM): 3=150 ft Distance: 300' Walk 10 feet (QC): 5 Walk 10ft-Uneven Surface(QC): 5 Walk 50ft with 2 Turns (QC): 5 Walk 150 ft (QC): 5 Gait Level of Assist: 6 Gait Assistive Device: None, FWW, Cane Single Point Stairs (FIM): 6 # of Steps: 12 1 Step (curb) (QC): 6 4 Steps (QC): 6 12 Steps (QC): 6 Stairs Level Of Assist: 6 Picking up an Object (QC): 5 PT Plan Problem List Problem List: Activity Tolerance, Functional Strength, Safety, Balance, Gait, Transfer Treatment/Plan Treatment Plan: Continue Plan of Care Treatment Plan: Education, Functional Activity Jie, Functional Strength, Group Therapy, Gait, Safety, Therapeutic Exercise, Transfers Treatment Duration: Dec 21, 2016 Visits Per Week: 10-12 Minutes/Day (M-F): 60-90 Minutes/Day (Sat/[place]): PRN Safety Risks/Education Patient Education: Gait Training, Transfer Techniques, Correct Positioning, Safety Issues Teaching Recipient: Patient Teaching Methods: Demonstration, Discussion Response to Teaching: Reinforcement Needed Time/GCodes Time In: 930 Time Out: 1000 Total Billed Treatment Time: 30 Total Billed Treatment 1 visit EX 15 min GT 15 min JUN SHAHID PT Dec 13, 2016 10:04
--- NOTE | 2016-12-13 10:55 | Speech Therapy Daily Note ---
Speech Daily Progress Note Subjective The patient was seated upright on couch upon entrance. The patient greeted the clinician appropriately and agreed to participate in the dysphagia treatment session on this date. Objective Dysphagia Exercises: Dysphagia exercises were continued on this date. The patient displayed good accuracy (approximately 70%) with dysphagia exercises ( base of tongue retraction, pharyngeal contraction, and laryngeal elevation). Moderate clinician verbal prompting was provided, as well as, an initial direct model. Ten repetitions of each exercise were performed. The patient continues to demonstrate difficulty completing the Gail and effortful swallow with maximum clinician cueing. Assessment Assessment Current Status: Fair Progress Treatment Plan Continue Plan of Care Communication Comprehension: 3 Expression: 3 Social Cognition Social Interaction: 4 Problem Solvin Memory: 3 Speech Short Term Goals Short Term Goals Short Term Goals 1) THE PATIENT WILL BE ABLE TO TOLERATE PHARYNGEAL STRENGTHENING ACTIVITIES FOR AT LEAST 90% OF TASKS PROVIDED. 2) THE PATIENT WILL BE ABLE TO FOLLOW COMPENSATORY SWALLOW STRATEGIES TO FACILITATE A SAFE AND EFFECTIVE SWALLOW FOR DIETARY TRIALS WITH CERAMICS TEST ENGINEER PRESENT WITH UP TO 90% RETURN. 3) GIVEN A VISUAL CUE, THE PATIENT WILL BE ABLE TO VERBALIZE AT LEAST 1/3 COMPENSATORY SWALLOW STRATEGIES FOR SAFE SWALLOWING. 4) GIVEN THERMAL SENSORY STIMULATION, THE PATIENT WILL BE ABLE TO EFFECTIVELY INITIATE SWALLOW RESPONSE WITHIN 2 SECONDS. 5) THE PATIENT WILL BE ABLE TO COMPLETE RECALL OF THREE OBJECTS WITHOUT PROMPTING AT 5, 10 & 15 MINUTE INTERVALS. 6) THE PATIENT WILL BE ABLE TO COMPLETE TASKS RELATED TO DIVERGENT/CONVERGENT NAMING TO ASSIST WITH INCREASED MENTAL FLEXIBILITY WITH UP TO 80% RETURN. 7) FOLLOWING SAFETY TRAINING FROM NS AND/OR OTHER THERAPISTS, THE PATIENT WILL BE ABLE TO RECALL AT LEAST 80% OF INFORMATION FOLLOWING REQUESTS. 8) USING ALTERNATING ATTENTION TASKS, HUSSAIN WILL COMPLETE THESE TASKS FOR UP TO 5 MINUTES WITH MINIMAL PROMPTS. Comprehension: 3 Expression: 3 Social Interaction: 3 Problem Solvin Memory: 3 Speech Collection Support Specialist Goals Skilled Nursing Goals 1) THE PATIENT WILL PARTICIPATE IN CAREGIVER EDUCATION REGARDING SWALLOW PRECAUTIONS, COMPENSATORY SWALLOW STRATEGIES WELL DIET CHANGES AND RECOMMENDATIONS WITH CAREGIVER RECALL AT 80% RETURN FOLLOWING QUESTIONING. 2) GIVEN DIETARY TRIALS, THE PATIENT WILL TOLERATE PLEASURABLE FEEDINGS WITHOUT ASPIRATION TO IMPROVE QUALITY OF LIFE WITHIN 30 DAYS. 3) HUSSAIN WILL BE ABLE TO SEQUENCE AT LEAST 5-STEPS WITH A VISUAL CUE TO COMPLETE ADL'S. 4) USING A VISUAL REMINDER, HUSSAIN WILL BE ABLE TO RECALL TIME/DAY/DATE AND IMPORTANT PERSONAL INFORMATION WITH UP TO 90% RETURN. Time Frame: 30 DAYS Comprehension: 5 Expression: 5 Social Interaction: 5 Problem Solvin Memory: 4 Speech-Plan Treatment Plan Speech Therapy Treatment Plan: Continue Plan of Care Continue skilled speech pathology to target swallowing safety and strengthening. Treatment Duration: January 04, 2017 # of days/week Five Visits Per Week: 30-45 MINUTES Minutes/Day (M-F): M-F Rehab Potential: Guarded Safety Risks/Education Teaching Recipient: Patient, Significant Other Teaching Methods: Demonstration, Handout, Discussion Response to Teaching: Verbalize Understanding, Return Demonstration, Reinforcement Needed Education Topics Provided: Dysphagia Exercises, Modified Barium Swallow (scheduled Saturday, December 17 at 11:00am) Time Speech Therapy Time In: 08:45 Speech Therapy Time Out: 09:30 Total Billed Time: 45 Billed Treatment Time 1SAROJ [facility] [facility] Dec 13, 2016 10:55
--- NOTE | 2016-12-13 11:34 | Physical Therapy Daily Note ---
PT Daily Note-Current Subjective Patient in bed pre tx sleeping, agrees to PT upon waking, no complaints of pain. Appearance Patient in bed post tx with nurse call, phone, tray, all needs met. Mental Status Patient Orientation: Unable to Assess Attachments: Abraham Catheter Transfers Functional [place] Measure 0=Not Assessed/NA 4=Minimal Assistance 1=Total Assistance 5=Supervision or Setup 2=Maximal Assistance 6=Modified [place] 3=Moderate Assistance 7=Complete IndependenceIRFPAI Quality Coding Scale 6 Independent with activity with or without an assistive device 5 Patient requires set up or clean up by helper. Patient completes activity by themselves 4 Supervision or touching assist (CGA). [place] provide cues , steadying assist 3 The helper provides less than half the effort to complete the activity 2 The helper provides more than half the effort to complete the activity 1 Dependent. The helper does all the effort to complete an activity 7 Patient refused to complete or attempt activity 9 The patient did not perform the activity before the current illness or injury 88 Not attempted due to Medical conditions or safety concerns Transfers (B, C, W/C) (FIM): 5 Scootin Rollin Supine to/from Sit: 6 Sit to/from Stand: 5 cues for hand placement Gait Training Gait (FIM): 5 Distance: 600' Gait Level of Assist: 5 Gait Persons Needed: 1 Gait Assistive Device: FWW cues for direction Treatments bed mobility and transfers, ambulation Assessment Current Status: Fair Progress improving endurance PT Short Term Goals Short Term Goals Time Frame: Dec 07, 2016 Transfers (B,C,W/C) (FIM): 6 Gait (FIM): 5 (met 12/08/16) Distance (FIM): 3=150 ft Gait Distance Comment: 300' Gait Level of Assist: 5 Gait Assistive Device: FWW, Cane Single Point PT Behavioral Health Care Coordinator Goals Mcc Goals PT Behavioral Health Care Coordinator Goals Time Frame: Dec 21, 2016 Transfers (B,C,W/C) (FIM): 6 Sit to Lying (QC): 6 Lying-Sitting on Side/Bed(QC): 6 Sit to Stand (QC): 6 Rollin Roll Left to Right (QC): 6 Chair/Zve-pe-Rhzko Xfer(QC): 6 Car Transfer (QC): 6 Does the Patient Walk: Yes Gait (FIM): 6 Gait distance (FIM): 3=150 ft Distance: 300' Walk 10 feet (QC): 5 Walk 10ft-Uneven Surface(QC): 5 Walk 50ft with 2 Turns (QC): 5 Walk 150 ft (QC): 5 Gait Level of Assist: 6 Gait Assistive Device: None, FWW, Cane Single Point Stairs (FIM): 6 # of Steps: 12 1 Step (curb) (QC): 6 4 Steps (QC): 6 12 Steps (QC): 6 Stairs Level Of Assist: 6 Picking up an Object (QC): 5 PT Plan Problem List Problem List: Activity Tolerance, Functional Strength, Safety, Balance, Gait, Transfer Treatment/Plan Treatment Plan: Continue Plan of Care Treatment Plan: Education, Functional Activity Jie, Functional Strength, Group Therapy, Gait, Safety, Therapeutic Exercise, Transfers Treatment Duration: Dec 21, 2016 Visits Per Week: 10-12 Minutes/Day (M-F): 60-90 Minutes/Day (Sat/[place]): PRN Safety Risks/Education Patient Education: Gait Training, Transfer Techniques, Safety Issues Teaching Recipient: Patient Teaching Methods: Demonstration, Discussion Response to Teaching: Reinforcement Needed Time/GCodes Time In: 1115 Time Out: 1130 Total Billed Treatment Time: 15 Total Billed Treatment 1 visit GT 15 min JUN SHAHID PT Dec 13, 2016 11:34
--- NOTE | 2016-12-13 13:42 | Occupational Ther Daily Note ---
OT Current Status-Daily Note Subjective Pt in bed, agrees to treatment. Pt states he is feeling better today, agrees to treatment. Pt denies pain Mental Status/Objective Functional [place] Measure 0=Not Assessed/NA 4=Minimal Assistance 1=Total Assistance 5=Supervision or Setup 2=Maximal Assistance 6=Modified [place] 3=Moderate Assistance 7=Complete [place] ADL-Treatment Functional [place] Measure 0=Not Assessed/NA 4=Minimal Assistance 1=Total Assistance 5=Supervision or Setup 2=Maximal Assistance 6=Modified [place] 3=Moderate Assistance 7=Complete IndependenceIRFPAI Quality Coding Scale 6 Independent with activity with or without an assistive device 5 Patient requires set up or clean up by helper. Patient completes activity by themselves 4 Supervision or touching assist (CGA). [place] provide cues , steadying assist 3 The helper provides less than half the effort to complete the activity 2 The helper provides more than half the effort to complete the activity 1 Dependent. The helper does all the effort to complete an activity 7 Patient refused to complete or attempt activity 9 The patient did not perform the activity before the current illness or injury 88 Not attempted due to Medical conditions or safety concerns Other Treatment Pt supine to sit with modified independence. Sit to stand with supervision. Gait to therapy gym with FWW, no LOB noted. Arm bike x15 minutes to increase overall strength and activity tolerance needed for functional tasks. Pt performed task with moderate resistance and slow pace. No rest breaks needed. Pt completed putty activity with bilateral hands to increase webmethods consultant/pinch strength. Pt then able to remove small beads from putty with increased time. Pt completed block activity with right UE to increase fine motor coordination and cognition. Pt able to duplicate design with blocks that was written on card. Occasional cues for completion and to follow instructions. Pt completed resistance peg activity with right hand to increase fine motor coordination. Pt completed fine motor task with nuts and bolts followed by stringing beads to increase coordination/manipulation skills. Increased time required for task. Pt returned to room, transferred to supine with modified independence. Pt in bed with needs met after session. OT Short Term Goals Short Term Goals Time Frame: Dec 08, 2016 Eating(FIM): 0 Grooming(FIM): 6 Bathing(FIM): 6 Bathing Location: L Arm, R Arm, L Upper Leg, R Upper Leg, L Lower Leg ( including foot), R Lower Leg (including foot), Chest, Abdomen, Buttocks, Perineal Area Upper Body Dressing(FIM): 6 Lower Body Dressing(FIM): 6 Toileting(FIM): 6 Transfers (B,C,W/C) (FIM): 6 Toilet/Commode Transfer(FIM): 6 Tub Transfer(FIM): 0 Shower Transfer(FIM): 6 Comprehension(FIM): 3 Expression(FIM): 3 Social Interaction(FIM): 3 Problem Solving(FIM): 3 Memory(FIM): 3 1=Demonstrate adherence to instructed precautions during ADL tasks. 2=Patient will verbalize/demonstrate understanding of assistive devices/ modifications for ADL. 3=Patient will improve strength/tolerance for activity to enable patient to perform ADL's. OT Skilled Nursing Goals Skilled Nursing Goals Time Frame: Dec 15, 2016 Eating (FIM): 0 Eating (QC): 0 Groomin Oral Hygiene (QC): 6 Bathing(FIM): 6 Bathing Location: L Arm, R Arm, L Upper Leg, R Upper Leg, L Lower Leg ( including foot), R Lower Leg (including foot), Chest, Abdomen, Buttocks, Perineal Area Shower/Bathe Self (QC): 6 Upper Body Dressing(FIM): 6 Upper Body Dressing (QC): 6 Lower Body Dressing(FIM): 6 Lower Body Dressing (QC): 6 On/Off Footwear (QC): 6 Toileting(FIM): 6 Toileting Hygiene (QC): 6 Transfers (B,C,W/C) (FIM): 6 Toilet/Commode Transfer(FIM): 6 Toilet/Commode Transfer (QC): 6 Tub Transfer(FIM): 0 Shower Transfer(FIM): 6 Comprehension(FIM): 5 Expression (FIM): 5 Social Interaction(FIM): 5 Problem Solving(FIM): 5 Memory(FIM): 4 1=Demonstrate adherence to instructed precautions during ADL tasks. 2=Patient will verbalize/demonstrate understanding of assistive devices/ modifications for ADL. 3=Patient will improve strength/tolerance for activity to enable patient to perform ADL's. OT Education/Plan Discharge Recommendations Plan/Recommendations: Continue POC Treatment Plan/Plan of Care Patient would benefit from OT for education, treatment and training to promote independence in ADL's, mobility, safety and/or upper extremity function for ADL' s. Plan of Care: ADL Retraining, Cognitive Retraining, Group Exercise/Act as Ind, UE Funct Exercise/Act Treatment Duration: Dec 21, 2016 Visits Per Week: 10-12 Minutes/Day (M-F): 60-90 Minutes/Day (Sat/[place]): prn Agreement: Yes Rehab Potential: Guarded Time/GCodes Start Time: 10:00 Stop Time: 11:15 Total Time Billed (hr/min): 75 Billed Treatment Time 1 visit, EXx2(30minutes), FAx3(45minutes) FRIDA ROY OT Dec 13, 2016 13:42
--- NOTE | 2016-12-13 15:45 | Physical Therapy Daily Note ---
PT Daily Note-Current Subjective Patient in bed sleeping, agrees to PT upon waking, no complaints of pain. Emptied 600ml of urine from catheter. Appearance Patient sitting EOB post tx with nurse call, in the room. Mental Status Patient Orientation: Unable to Assess Attachments: Abraham Catheter Transfers Functional [place] Measure 0=Not Assessed/NA 4=Minimal Assistance 1=Total Assistance 5=Supervision or Setup 2=Maximal Assistance 6=Modified [place] 3=Moderate Assistance 7=Complete IndependenceIRFPAI Quality Coding Scale 6 Independent with activity with or without an assistive device 5 Patient requires set up or clean up by helper. Patient completes activity by themselves 4 Supervision or touching assist (CGA). [place] provide cues , steadying assist 3 The helper provides less than half the effort to complete the activity 2 The helper provides more than half the effort to complete the activity 1 Dependent. The helper does all the effort to complete an activity 7 Patient refused to complete or attempt activity 9 The patient did not perform the activity before the current illness or injury 88 Not attempted due to Medical conditions or safety concerns Transfers (B, C, W/C) (FIM): 5 Scootin Rollin Supine to/from Sit: 6 Sit to/from Stand: 5 cues for safety and hand placement Gait Training Gait (FIM): 4 Distance: 500' Gait Level of Assist: 4 Gait Persons Needed: 1 Gait Assistive Device: Cane Single Point Patient ambulated with a single point cane without any LOB although he did have a couple of unsteady moments he was able to recover without assist. Assessment Current Status: Fair Progress Improved balance and ambulation PT Short Term Goals Short Term Goals Time Frame: Dec 07, 2016 Transfers (B,C,W/C) (FIM): 6 Gait (FIM): 5 (met 12/08/16) Distance (FIM): 3=150 ft Gait Distance Comment: 300' Gait Level of Assist: 5 Gait Assistive Device: FWW, Cane Single Point PT Civil Preparedness Officer Goals Fdc Goals PT Fdc Goals Time Frame: Dec 21, 2016 Transfers (B,C,W/C) (FIM): 6 Sit to Lying (QC): 6 Lying-Sitting on Side/Bed(QC): 6 Sit to Stand (QC): 6 Rollin Roll Left to Right (QC): 6 Chair/Ufw-wi-Yaziu Xfer(QC): 6 Car Transfer (QC): 6 Does the Patient Walk: Yes Gait (FIM): 6 Gait distance (FIM): 3=150 ft Distance: 300' Walk 10 feet (QC): 5 Walk 10ft-Uneven Surface(QC): 5 Walk 50ft with 2 Turns (QC): 5 Walk 150 ft (QC): 5 Gait Level of Assist: 6 Gait Assistive Device: None, FWW, Cane Single Point Stairs (FIM): 6 # of Steps: 12 1 Step (curb) (QC): 6 4 Steps (QC): 6 12 Steps (QC): 6 Stairs Level Of Assist: 6 Picking up an Object (QC): 5 PT Plan Problem List Problem List: Activity Tolerance, Functional Strength, Safety, Balance, Gait, Transfer Treatment/Plan Treatment Plan: Continue Plan of Care Treatment Plan: Education, Functional Activity Jie, Functional Strength, Group Therapy, Gait, Safety, Therapeutic Exercise, Transfers Treatment Duration: Dec 21, 2016 Visits Per Week: 10-12 Minutes/Day (M-F): 60-90 Minutes/Day (Sat/[place]): PRN Safety Risks/Education Patient Education: Gait Training, Transfer Techniques, Correct Positioning, Safety Issues Teaching Recipient: Patient Teaching Methods: Demonstration, Discussion Response to Teaching: Reinforcement Needed Time/GCodes Time In: 1525 Time Out: 1540 Total Billed Treatment Time: 15 Total Billed Treatment 1 visit GT 15' JUN SHAHID PT Dec 13, 2016 15:45
[2016-12-13 18:41] VITALS: BP 104/57
[2016-12-13] MEDS: ATORVASTATIN 40 MG (LIPITOR) TABLET PO SCH (21:57)
[2016-12-13] MEDS: MELATONIN 3 MG TABLET PO SCH (21:57)
[2016-12-14 05:00] VITALS: BP 92/51
[2016-12-14 05:59] LABS: MEAN PLATELET VOLUME 11.2 FL (7.4-10.4); RED BLOOD COUNT 2.46 10^6/uL (4.35-5.85); RED CELL DISTRIBUTION WIDTH 20.6 % (10.0-14.5); WHITE BLOOD COUNT 5.4 10^3/uL (4.3-11.0)
[2016-12-14] MEDS: METHIMAZOLE 10 MG TAB PO SCH (06:06)
[2016-12-14] MEDS: SUCRALFATE 1 GM (CARAFATE) TAB PEG SCH ×3 (08:23→21:32)
[2016-12-14] MEDS: SOTALOL 80 MG (BETAPACE) TAB PO SCH ×2 (08:23→21:32)
[2016-12-14] MEDS: FUROSEMIDE 20 MG (LASIX) TAB PO SCH (08:23)
[2016-12-14] MEDS: meTOprolol TARTRATE 25 MG (LOPRESSOR) TABLET PO SCH ×2 (08:24→21:33)
[2016-12-14] MEDS: DIGOXIN 0.125 MG (LANOXIN) TAB PO SCH (08:24)
[2016-12-14] MEDS: PANTOPRAZOLE 40 MG (PROTONIX) TAB PO SCH ×2 (08:24→21:32)
[2016-12-14] MEDS: ASPIRIN 81 MG CHEW (CHILDREN'S ASA) PO SCH ×2 (08:24→08:54)
[2016-12-14] MEDS: APIXABAN 5 MG (ELIQUIS) TABLET PO SCH ×2 (08:24→21:32)
--- NOTE | 2016-12-14 08:40 | Progress Note (SOAP) ---
Subjective Subjective/Events-last exam oral pharyngeal dysphagia. Myelodysplastic disease. Patient feeling better and doing better Hemoglobin and hematocrit stable. Objective Exam Vital Signs Date Time Temp Pulse Resp B/P (MAP) Pulse Ox O2 Delivery O2 Flow Rate FiO2 12/14/16 05:00 98.7 70 18 92/51 97 Room Air 12/13/16 20:20 Room Air 12/13/16 18:41 97.1 70 14 104/57 97 12/13/16 09:00 Room Air I & O 12/14/16 07:00 Intake Total 2035 ml Output Total 1200 ml Balance 835 ml Capillary Refill : General Appearance: No Apparent Distress, Thin HEENT: Normal ENT Inspection Neck: Normal Inspection Respiratory: Chest Non Tender, No Accessory Muscle Use, No Respiratory Distress Cardiovascular: Regular Rate, Rhythm, Normal Peripheral Pulses Results Lab Laboratory Tests 12/13/16 09:11: Glucometer 112H 12/13/16 20:25: Glucometer 143H 12/14/16 05:49: White Blood Count 5.4, Red Blood Count 2.46L, Hemoglobin 8.0L, Hematocrit 25L, Mean Corpuscular Volume 103H, Mean Corpuscular Hemoglobin 33, Mean Corpuscular Hemoglobin Concent 32, Red Cell Distribution Width 20.6H, Platelet Count 255, Mean Platelet Volume 11.2H Assessment/Plan Assessment/Plan Assess & Plan/Chief Complaint Cerebrovascular accident due to ischemic stroke area Inability to swallow. CAD. Atrial fibrillation. Myelodysplastic syndrome. BPH. . CVA. Inability to swallow. CAMyelodysplastic disease. Patient's hemoglobin 6.9 to receive packed red blood cells. . 12/06/16 CVA. Inability to swallow. CAD. A. fib history. Myelo dysplastic syndrome. Patient feels weeks this morning. Chest x-ray ordered. . 12/07/16 better.. Inability to swallow. CAD. A. fib . .. Myelodysplastic syndrome. Anemia... BNP elevated. . 12/08/16. Patient appears stronger. Occult blood of stools positive. Patient have EGD and colonoscopy. Atrial fibrillation.. . 12/10/16. Patient appears good. Patient had EGD and colonoscopy today. . area Patient more anemic today. Stroke. Right sided weakness. Myelodysplastic disease. . 12/12/16.. Anemia. Hemoglobin and hematocrit Stroke. Right sided weakness. Mild dysplastic disease.. To notify hematology. . 12/19/69. CVA. Inability to speak. Myelodysplastic syndrome. Atrial f patient appears to be in sinus rhythm. Hemoglobin 8.2. Patient feeling better. . 12/14/16. CVA. Talking much better. Heart regular rate rhythm. Hemoglobin stable. Patient improving Clinical Quality Measures DVT/VTE Risk/Contraindication: Risk Factor Score Per Nursin RFS Level Per Nursing on Admit: 2=Moderate Contraindications-Pharm: Other *list below* Other: on warfarin MANE HOBBS DO Dec 14, 2016 08:40
[2016-12-14] MEDS: inSUlin ASPART (NovoLOG) 1 UNIT/0.01 ML (CHARGE PER UNIT) SC SCH ×2 (09:00→21:52)
--- NOTE | 2016-12-14 09:46 | Physical Therapy Daily Note ---
PT Daily Note-Current Subjective Patient in bed pre tx, agrees to PT, no complaints of pain. Appearance Patient in bed post tx with nurse call, phone, tray, in room, all needs met. Mental Status Patient Orientation: Unable to Assess Attachments: Abraham Catheter Transfers Functional [place] Measure 0=Not Assessed/NA 4=Minimal Assistance 1=Total Assistance 5=Supervision or Setup 2=Maximal Assistance 6=Modified [place] 3=Moderate Assistance 7=Complete IndependenceIRFPAI Quality Coding Scale 6 Independent with activity with or without an assistive device 5 Patient requires set up or clean up by helper. Patient completes activity by themselves 4 Supervision or touching assist (CGA). [place] provide cues , steadying assist 3 The helper provides less than half the effort to complete the activity 2 The helper provides more than half the effort to complete the activity 1 Dependent. The helper does all the effort to complete an activity 7 Patient refused to complete or attempt activity 9 The patient did not perform the activity before the current illness or injury 88 Not attempted due to Medical conditions or safety concerns Transfers (B, C, W/C) (FIM): 5 Scootin Rollin Supine to/from Sit: 6 Sit to/from Stand: 5 Gait Training Gait (FIM): 4 Distance: 500', 150' Gait Level of Assist: 4 Gait Persons Needed: 1 Gait Assistive Device: Cane Single Point CGA, no LOB or moments of unsteadiness Stair Training Stair Training: Handrails/: 2 handrails Stairs (FIM): 4 #of Steps: 12 Stairs: Pattern: Step to Level of Assist: 4 CGA, reciprocal going up, step-to on the way down Exercises LAQ alternating for 5 min NuStep Minutes: 15 NuStep Workload: 5 Treatments bed mobility and transfers, ambulation, functional strengthening, stair training Assessment Current Status: Fair Progress improving balance and endurance PT Short Term Goals Short Term Goals Time Frame: Dec 07, 2016 Transfers (B,C,W/C) (FIM): 6 Gait (FIM): 5 (met 12/08/16) Distance (FIM): 3=150 ft Gait Distance Comment: 300' Gait Level of Assist: 5 Gait Assistive Device: FWW, Cane Single Point PT Half-Way Goals Dental Prosthetist Goals PT Half-Way Goals Time Frame: Dec 21, 2016 Transfers (B,C,W/C) (FIM): 6 Sit to Lying (QC): 6 Lying-Sitting on Side/Bed(QC): 6 Sit to Stand (QC): 6 Rollin Roll Left to Right (QC): 6 Chair/Jjm-xw-Ihgxh Xfer(QC): 6 Car Transfer (QC): 6 Does the Patient Walk: Yes Gait (FIM): 6 Gait distance (FIM): 3=150 ft Distance: 300' Walk 10 feet (QC): 5 Walk 10ft-Uneven Surface(QC): 5 Walk 50ft with 2 Turns (QC): 5 Walk 150 ft (QC): 5 Gait Level of Assist: 6 Gait Assistive Device: None, FWW, Cane Single Point Stairs (FIM): 6 # of Steps: 12 1 Step (curb) (QC): 6 4 Steps (QC): 6 12 Steps (QC): 6 Stairs Level Of Assist: 6 Picking up an Object (QC): 5 PT Plan Problem List Problem List: Activity Tolerance, Functional Strength, Safety, Balance, Gait, Transfer Treatment/Plan Treatment Plan: Continue Plan of Care Treatment Plan: Education, Functional Activity Jie, Functional Strength, Group Therapy, Gait, Safety, Therapeutic Exercise, Transfers Treatment Duration: Dec 21, 2016 Visits Per Week: 10-12 Minutes/Day (M-F): 60-90 Minutes/Day (Sat/[place]): PRN Safety Risks/Education Patient Education: Gait Training, Transfer Techniques, Steps, Correct Positioning, Safety Issues Teaching Recipient: Patient Teaching Methods: Demonstration, Discussion Response to Teaching: Reinforcement Needed Time/GCodes Time In: 900 Time Out: 945 Total Billed Treatment Time: 45 Total Billed Treatment 1 visit EX 20 min GT 25 min JUN SHAHID PT Dec 14, 2016 09:46
--- NOTE | 2016-12-14 11:35 | Cardiology Progress Note ---
Cardiology SOAP Progress Note Subjective: No cardiac symptoms Objective: I&O/Vital Signs Vital Sign - Last 12Hours 12/14/16 12/14/16 05:00 09:00 Temp 98.7 Pulse 70 Resp 18 B/P (MAP) 92/51 Pulse Ox 97 O2 Delivery Room Air Room Air Intake and Output 12/14/16 00:00 Intake Total 1161 ml Output Total 600 ml Balance 561 ml Weight (Pounds): 128 Weight (Ounces): 8.0 Weight (Calculated Kilograms): [id number] Constitutional: No appears stated age, No AAO x 3, No apparent distress, No PERRL, No well-developed, No well-nourished, No other Respiratory: No accessory muscle use, No respiratory distress, No chest tender , No chest expansion is symmetric, No chest is bilaterally symmetric, No lungs clear to percussion, No lungs clear to auscultation, No crackles, No rhonchi, No rales, No stridor, No wheezing, No pleural rub, No other Cardiovascular: S1 and S2 Gastrointestional: No tender, No soft, No round, No distended, No pulsatile mass, No organomegaly, No guarding, No rebound, No tenderness, No hernia, No mass, No audible bowel sounds, No abnormal bowel sounds, No abdominal bruits, No spleenomegaly, No other Extremities: No normal range of motion, No non-tender, No normal inspection, No pedal edema, No calf tenderness, No normal capillary refill, No pelvis stable , No calf tenderness, No inflammation, No pedal edema, No slow capillary refill , No swelling, No other, No abrasion, No clubbing, No cyanosis, No ecchymosis, No laceration, No no lower extremity edema bilateral, No significant edema, No tenderness, No wound Results/Procedures: Labs Laboratory Tests 12/13/16 20:25: Glucometer 143H 12/14/16 05:49: White Blood Count 5.4, Red Blood Count 2.46L, Hemoglobin 8.0L, Hematocrit 25L, Mean Corpuscular Volume 103H, Mean Corpuscular Hemoglobin 33, Mean Corpuscular Hemoglobin Concent 32, Red Cell Distribution Width 20.6H, Platelet Count 255, Mean Platelet Volume 11.2H 4/21/17 08:54: Glucometer 134H A/P: Assessment/Dx: shortness of breath, Coronary artery disease, status post CABG, ICD, Atrial fibrillation, Valve replacement. Plan: Shortness of breath/severe mitral regurgitation: No significant complaints. Continue low-dose Lasix. On examination he is not in florid congestive heart failure. BNP was elevated on admission. Echocardiogram shows normal LV systolic function. Severe pulmonary hypertension. Severe mitral regurgitation. We will need to follow with cardiology as an outpatient to decide whether the patient requires mitral valve surgery versus intervention. He follows with Dr. Gonzalez at the in [place]. Myelodysplastic syndrome: anemia secondary to MDS. no bleeding. CAD: Continue aspirin, statin, metoprolol. Atrial fibrillation: Continue sotalol. Eliquis. valve replacement: Porcine valve ten years ago. Will follow. Thank you for your consultation. Please call me if you have any questions. Mame Hinds MD, FACP, FACC, FSCAI, FHRS, CCDS Interventional Cardiology Cardiac Electrophysiology Vascular Medicine and Endovascular Interventions Lisandra HINDS MD Dec 14, 2016 11:35 am
[2016-12-14] MEDS: MILK OF MAGNESIA 400 MG/5 ML 30 ML UDC PO PRN (12:40)
--- NOTE | 2016-12-14 12:51 | Occupational Ther Daily Note ---
OT Current Status-Daily Note Subjective Pt in bed, agrees to treatment. Pt has no c/o pain. Mental Status/Objective Functional [place] Measure 0=Not Assessed/NA 4=Minimal Assistance 1=Total Assistance 5=Supervision or Setup 2=Maximal Assistance 6=Modified [place] 3=Moderate Assistance 7=Complete [place] ADL-Treatment Functional [place] Measure 0=Not Assessed/NA 4=Minimal Assistance 1=Total Assistance 5=Supervision or Setup 2=Maximal Assistance 6=Modified [place] 3=Moderate Assistance 7=Complete IndependenceIRFPAI Quality Coding Scale 6 Independent with activity with or without an assistive device 5 Patient requires set up or clean up by helper. Patient completes activity by themselves 4 Supervision or touching assist (CGA). [place] provide cues , steadying assist 3 The helper provides less than half the effort to complete the activity 2 The helper provides more than half the effort to complete the activity 1 Dependent. The helper does all the effort to complete an activity 7 Patient refused to complete or attempt activity 9 The patient did not perform the activity before the current illness or injury 88 Not attempted due to Medical conditions or safety concerns Other Treatment Pt supine to sit with modified independence. Sit to stand with supervision. Pt performed gait to therapy gym with FWW, no LOB noted. Pt completed bilateral UE exercises to promote increased strength needed for ADLs and transfers. Pt performed shoulder flexion, abduction, biceps curls, and triceps extension exercises x15 reps with moderate resistance (red) theraband. Rest breaks between exercises. Arm bike x15 minutes to increase overall strength and activity tolerance needed for functional task completion. Pt performed task with moderate resistance and slow pace. No rest breaks required. Pt performed arm arc activity with 1# weight in place on bilateral UE to increase strength. Pt returned to room, transferred to bed and performed sit to supine with modified independence. Pt in bed with needs met and spouse present after session. OT Short Term Goals Short Term Goals Time Frame: Dec 08, 2016 Eating(FIM): 0 Grooming(FIM): 6 Bathing(FIM): 6 Bathing Location: L Arm, R Arm, L Upper Leg, R Upper Leg, L Lower Leg ( including foot), R Lower Leg (including foot), Chest, Abdomen, Buttocks, Perineal Area Upper Body Dressing(FIM): 6 Lower Body Dressing(FIM): 6 Toileting(FIM): 6 Transfers (B,C,W/C) (FIM): 6 Toilet/Commode Transfer(FIM): 6 Tub Transfer(FIM): 0 Shower Transfer(FIM): 6 Comprehension(FIM): 3 Expression(FIM): 3 Social Interaction(FIM): 3 Problem Solving(FIM): 3 Memory(FIM): 3 1=Demonstrate adherence to instructed precautions during ADL tasks. 2=Patient will verbalize/demonstrate understanding of assistive devices/ modifications for ADL. 3=Patient will improve strength/tolerance for activity to enable patient to perform ADL's. OT [facility] Goals Bonus Clerk Goals Time Frame: Dec 15, 2016 Eating (FIM): 0 Eating (QC): 0 Groomin Oral Hygiene (QC): 6 Bathing(FIM): 6 Bathing Location: L Arm, R Arm, L Upper Leg, R Upper Leg, L Lower Leg ( including foot), R Lower Leg (including foot), Chest, Abdomen, Buttocks, Perineal Area Shower/Bathe Self (QC): 6 Upper Body Dressing(FIM): 6 Upper Body Dressing (QC): 6 Lower Body Dressing(FIM): 6 Lower Body Dressing (QC): 6 On/Off Footwear (QC): 6 Toileting(FIM): 6 Toileting Hygiene (QC): 6 Transfers (B,C,W/C) (FIM): 6 Toilet/Commode Transfer(FIM): 6 Toilet/Commode Transfer (QC): 6 Tub Transfer(FIM): 0 Shower Transfer(FIM): 6 Comprehension(FIM): 5 Expression (FIM): 5 Social Interaction(FIM): 5 Problem Solving(FIM): 5 Memory(FIM): 4 1=Demonstrate adherence to instructed precautions during ADL tasks. 2=Patient will verbalize/demonstrate understanding of assistive devices/ modifications for ADL. 3=Patient will improve strength/tolerance for activity to enable patient to perform ADL's. OT Education/Plan Discharge Recommendations Plan/Recommendations: Continue POC Treatment Plan/Plan of Care Patient would benefit from OT for education, treatment and training to promote independence in ADL's, mobility, safety and/or upper extremity function for ADL' s. Plan of Care: ADL Retraining, Cognitive Retraining, Group Exercise/Act as Ind, UE Funct Exercise/Act Treatment Duration: Dec 21, 2016 Visits Per Week: 10-12 Minutes/Day (M-F): 60-90 Minutes/Day (Sat/[place]): prn Agreement: Yes Rehab Potential: Guarded Time/GCodes Start Time: 11:00 Stop Time: 11:45 Total Time Billed (hr/min): 45 Billed Treatment Time 1 visit, EXx3(45minutes) FRIDA ROY OT Dec 14, 2016 12:50
--- NOTE | 2016-12-14 13:14 | Speech Therapy Daily Note ---
Speech Daily Progress Note Subjective The patient was seated upright in bed upon entrance. The patient greeted the clinician appropriately and agreed to participate in the dysphagia treatment session on this date. Objective Dysphagia Exercises: Dysphagia exercises were continued on this date. The patient displayed good accuracy (approximately 70%) with dysphagia exercises ( base of tongue retraction, pharyngeal contraction, and laryngeal elevation). Moderate clinician verbal prompting was provided, as well as, an initial direct model. Ten repetitions of each exercise were performed. The patient continues to demonstrate difficulty completing the Gail and effortful swallow with maximum clinician cueing. Assessment Assessment Current Status: Fair Progress Treatment Plan Continue Plan of Care Communication Comprehension: 3 Expression: 3 Social Cognition Social Interaction: 4 Problem Solvin Memory: 3 Speech Short Term Goals Short Term Goals Short Term Goals 1) THE PATIENT WILL BE ABLE TO TOLERATE PHARYNGEAL STRENGTHENING ACTIVITIES FOR AT LEAST 90% OF TASKS PROVIDED. 2) THE PATIENT WILL BE ABLE TO FOLLOW COMPENSATORY SWALLOW STRATEGIES TO FACILITATE A SAFE AND EFFECTIVE SWALLOW FOR DIETARY TRIALS WITH BICYCLE RACER PRESENT WITH UP TO 90% RETURN. 3) GIVEN A VISUAL CUE, THE PATIENT WILL BE ABLE TO VERBALIZE AT LEAST 1/3 COMPENSATORY SWALLOW STRATEGIES FOR SAFE SWALLOWING. 4) GIVEN THERMAL SENSORY STIMULATION, THE PATIENT WILL BE ABLE TO EFFECTIVELY INITIATE SWALLOW RESPONSE WITHIN 2 SECONDS. 5) THE PATIENT WILL BE ABLE TO COMPLETE RECALL OF THREE OBJECTS WITHOUT PROMPTING AT 5, 10 & 15 MINUTE INTERVALS. 6) THE PATIENT WILL BE ABLE TO COMPLETE TASKS RELATED TO DIVERGENT/CONVERGENT NAMING TO ASSIST WITH INCREASED MENTAL FLEXIBILITY WITH UP TO 80% RETURN. 7) FOLLOWING SAFETY TRAINING FROM NS AND/OR OTHER THERAPISTS, THE PATIENT WILL BE ABLE TO RECALL AT LEAST 80% OF INFORMATION FOLLOWING REQUESTS. 8) USING ALTERNATING ATTENTION TASKS, HUSSAIN WILL COMPLETE THESE TASKS FOR UP TO 5 MINUTES WITH MINIMAL PROMPTS. Comprehension: 3 Expression: 3 Social Interaction: 3 Problem Solvin Memory: 3 Speech Fruit Grader Operator Goals Fruit Grader Operator Goals 1) THE PATIENT WILL PARTICIPATE IN CAREGIVER EDUCATION REGARDING SWALLOW PRECAUTIONS, COMPENSATORY SWALLOW STRATEGIES WELL DIET CHANGES AND RECOMMENDATIONS WITH CAREGIVER RECALL AT 80% RETURN FOLLOWING QUESTIONING. 2) GIVEN DIETARY TRIALS, THE PATIENT WILL TOLERATE PLEASURABLE FEEDINGS WITHOUT ASPIRATION TO IMPROVE QUALITY OF LIFE WITHIN 30 DAYS. 3) HUSSAIN WILL BE ABLE TO SEQUENCE AT LEAST 5-STEPS WITH A VISUAL CUE TO COMPLETE ADL'S. 4) USING A VISUAL REMINDER, HUSSAIN WILL BE ABLE TO RECALL TIME/DAY/DATE AND IMPORTANT PERSONAL INFORMATION WITH UP TO 90% RETURN. Time Frame: 30 DAYS Comprehension: 5 Expression: 5 Social Interaction: 5 Problem Solvin Memory: 4 Speech-Plan Treatment Plan Speech Therapy Treatment Plan: Continue Plan of Care Continue skilled speech pathology to target improved swallowing safety. Treatment Duration: January 04, 2017 # of days/week Five Visits Per Week: 30-45 MINUTES Minutes/Day (M-F): M-F Rehab Potential: Guarded Safety Risks/Education Teaching Recipient: Patient, Significant Other Teaching Methods: Demonstration, Handout, Discussion Response to Teaching: Return Demonstration, Reinforcement Needed Education Topics Provided: Dysphagia Exercises Time Speech Therapy Time In: 08:15 Speech Therapy Time Out: 09:00 Total Billed Time: 45 Billed Treatment Time 1, RHYS GUERRA Dec 14, 2016 13:14
--- NOTE | 2016-12-14 14:42 | Therapy Group Daily Note ---
Therapy Daily Group Note Other/Notes Each patient participated in group therapy in the common area of the rehab floor. Each patient was transported from their room via wheelchair or ambulation to the common area. After they were gathered each patient had to introduce themselves and state where they were from and recall a specific memory from their past. The group was oriented to the rehab floor because there are several new people and topics such as minutes of therapy needed and the role of the different therapy disciplines and discharge planning were covered. Patients also performed several upper extremity exercises as a group. Patient's also received education orally from the therapists about stroke signs and symptoms. Finally each patient participated in a group activity that involved digital manipulation, memory, critical thinking, problem solving, and strategy. Then each patient was transported back to their rooms via wheelchair or ambulation and placed in a chair or bed with nurse call, phone, and tray within reach. Start Time: 13:00 Stop Time: 14:30 Total Billed Treatment Time: 90 Total Billed Treatment 1 visit GRP 90 min JUN SHAHID PT Dec 14, 2016 14:42
[2016-12-14 18:58] VITALS: BP 98/57
[2016-12-14 19:08] VITALS: BP 98/57
[2016-12-14] MEDS ORDERED: DOCUSATE SODIUM 100 MG (COLACE) CAP PO SCH (21:00)
[2016-12-14] MEDS ORDERED: DOCUSATE SODIUM GT SCH (21:00)
[2016-12-14 21:30] VITALS: BP 115/63
[2016-12-14] MEDS: MELATONIN 3 MG TABLET PO SCH (21:32)
[2016-12-14] MEDS: ATORVASTATIN 40 MG (LIPITOR) TABLET PO SCH (21:32)
[2016-12-15 05:37] VITALS: BP 93/50
[2016-12-15 06:09] LABS: MEAN PLATELET VOLUME 11.6 FL (7.4-10.4); RED BLOOD COUNT 2.45 10^6/uL (4.35-5.85); RED CELL DISTRIBUTION WIDTH 20.6 % (10.0-14.5)
[2016-12-15] MEDS: METHIMAZOLE 10 MG TAB PO SCH (06:13)
[2016-12-15] MEDS: DOCUSATE SODIUM 10 MG/ML 10 ML UDC (COLACE) PO SCH ×2 (09:05→22:20)
[2016-12-15] MEDS: DIGOXIN 0.125 MG (LANOXIN) TAB PO SCH (09:05)
[2016-12-15] MEDS: SOTALOL 80 MG (BETAPACE) TAB PO SCH ×2 (09:06→22:19)
[2016-12-15] MEDS: FUROSEMIDE 20 MG (LASIX) TAB PO SCH (09:06)
[2016-12-15] MEDS: APIXABAN 5 MG (ELIQUIS) TABLET PO SCH ×2 (09:06→22:21)
[2016-12-15] MEDS: meTOprolol TARTRATE 25 MG (LOPRESSOR) TABLET PO SCH ×2 (09:06→22:04)
[2016-12-15] MEDS: PANTOPRAZOLE 40 MG (PROTONIX) TAB PO SCH ×2 (09:06→22:18)
[2016-12-15] MEDS: SUCRALFATE 1 GM (CARAFATE) TAB PEG SCH ×3 (09:06→22:19)
[2016-12-15] MEDS: inSUlin ASPART (NovoLOG) 1 UNIT/0.01 ML (CHARGE PER UNIT) SC SCH ×2 (09:22→21:00)
--- NOTE | 2016-12-15 11:26 | PM & R (SOAP) Progress Note ---
Subjective Subjective/Events-last exam Patient was seen in his room this AM Patient SBA for transfers Patient switched from Coumadin to other OAC ST to reassess swallow next week,Current labs and therapy notes appreciated Objective Exam Last Set of Vital Signs Vital Signs Date Time Temp Pulse Resp B/P (MAP) Pulse Ox O2 Delivery O2 Flow Rate FiO2 12/15/16 09:00 Room Air 12/15/16 05:37 100.0 64 22 93/50 97 Capillary Refill : I&O Intake and Output 12/15/16 00:00 Intake Total 1855 ml Output Total 1500 ml Balance 355 ml Intake Oral 0 ml Tube Feeding 1185 ml Other 670 ml Output Urine Total 1500 ml General: Alert, Oriented X3, Cooperative, No Acute Distress HEENT: Atraumatic, PERRLA, EOMI, Mucous Memb Moist/[place], Other (dysphagia and some word finding problems) Neck: Supple, No JVD Lungs: Clear to Auscultation Heart: Regular Rate Abdomen: Normal Bowel Sounds, Soft, No Tenderness, Other (peg tube site clean) Neuro: Other (mid rt sided weakness and significant dysphagia some word finding difficulty) Results Lab Laboratory Tests 12/12/16 21:40: Glucometer 135H 12/13/16 07:00: White Blood Count 6.1, Red Blood Count 2.57L, Hemoglobin 8.2L, Hematocrit 26L, Mean Corpuscular Volume 102H, Mean Corpuscular Hemoglobin 32, Mean Corpuscular Hemoglobin Concent 31L, Red Cell Distribution Width 20.6H, Platelet Count 243, Mean Platelet Volume 11.3H, Neutrophils (%) (Auto) 66, Lymphocytes (%) (Auto) 16 , Monocytes (%) (Auto) 14H, Eosinophils (%) (Auto) 4, Basophils (%) (Auto) 1, Neutrophils # (Auto) 4.0, Lymphocytes # (Auto) 1.0, Monocytes # (Auto) 0.9, Eosinophils # (Auto) 0.2, Basophils # (Auto) 0.0, Prothrombin Time 16.1H, INR Comment 1.3, Sodium Level 137, Potassium Level 4.2, Chloride Level 104, Carbon Dioxide Level 26, Anion Gap 7, Blood Urea Nitrogen 20H, Creatinine 0.75, Estimat Glomerular Filtration Rate > 60, BUN/Creatinine Ratio 27, Glucose Level 96, Calcium Level 8.1L 12/13/16 09:11: Glucometer 112H 12/13/16 20:25: Glucometer 143H 12/14/16 05:49: White Blood Count 5.4, Red Blood Count 2.46L, Hemoglobin 8.0L, Hematocrit 25L, Mean Corpuscular Volume 103H, Mean Corpuscular Hemoglobin 33, Mean Corpuscular Hemoglobin Concent 32, Red Cell Distribution Width 20.6H, Platelet Count 255, Mean Platelet Volume 11.2H 12/14/16 08:54: Glucometer 134H 12/14/16 21:10: Glucometer 106 12/15/16 05:05: White Blood Count 6.0, Red Blood Count 2.45L, Hemoglobin 7.9L, Hematocrit 25L, Mean Corpuscular Volume 104H, Mean Corpuscular Hemoglobin 32, Mean Corpuscular Hemoglobin Concent 31L, Red Cell Distribution Width 20.6H, Platelet Count 269, Mean Platelet Volume 11.6H 12/15/16 09:20: Glucometer 110 Assessment/Plan Assessment 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 Chronic Afib controled with medication BPH with urinary retention managed with Indwelling Abraham catheter-Dr Ivy following catheter changed Myelodysplastic syndrome with chronic anemia followed by [facility] in [facility] following here Gastritis and Diverticulosis with Guiac + stools assoc with anemia of blood loss improved s/p transfusion and placed on Carafate OAC on Eliquis Plan Continue PT/OT/ST Current labs noted F/U with Dr Hopkins and ken and [facility] as well as DR Hung as per their schedule F/U with SW re possible discharge options for next week F/U with ST re possible Repeat MBS next week. GUILLERMO MONACO MD Dec 15, 2016 11:26
--- NOTE | 2016-12-15 11:56 | Physical Therapy Daily Note ---
PT Daily Note-Current Subjective Patient is very agreeable to participate with PT. Pain Numeric Pain Scale: 0-No Pain Location: No Pain Reported Mental Status Patient Orientation: Normal For Age Transfers Functional [place] Measure 0=Not Assessed/NA 4=Minimal Assistance 1=Total Assistance 5=Supervision or Setup 2=Maximal Assistance 6=Modified [place] 3=Moderate Assistance 7=Complete IndependenceIRFPAI Quality Coding Scale 6 Independent with activity with or without an assistive device 5 Patient requires set up or clean up by helper. Patient completes activity by themselves 4 Supervision or touching assist (CGA). [place] provide cues , steadying assist 3 The helper provides less than half the effort to complete the activity 2 The helper provides more than half the effort to complete the activity 1 Dependent. The helper does all the effort to complete an activity 7 Patient refused to complete or attempt activity 9 The patient did not perform the activity before the current illness or injury 88 Not attempted due to Medical conditions or safety concerns Transfers (B, C, W/C) (FIM): 6 Scootin Rollin Roll Left to Right (QC): 5 Supine to/from Sit: 6 Sit to/from Stand: 6 Sit to Lying (QC): 5 Sit to Stand (QC): 5 Gait Training Does the Patient Walk?: Yes Gait (FIM): 6 Distance (FIM): 3=150 ft Distance: 500' Walk 10 feet (QC): 6 Walk 50 ft with 2 Turns(QC): 6 Walk 150 ft (QC): 6 Gait Level of Assist: 6 Gait Assistive Device: FWW safe and functional with cane and FWW Assessment Patient and spouse instructed to ambulate PRN in hallway with FWW. RN notified. Plan dismissal on 12/18/16 PT Short Term Goals Short Term Goals Time Frame: Dec 07, 2016 Transfers (B,C,W/C) (FIM): 6 Gait (FIM): 5 (met 12/08/16) Distance (FIM): 3=150 ft Gait Distance Comment: 300' Gait Level of Assist: 5 Gait Assistive Device: FWW, Cane Single Point PT Electric Organ Checker Goals Snf Goals PT Electric Organ Checker Goals Time Frame: Dec 21, 2016 Transfers (B,C,W/C) (FIM): 6 Sit to Lying (QC): 6 Lying-Sitting on Side/Bed(QC): 6 Sit to Stand (QC): 6 Rollin Roll Left to Right (QC): 6 Chair/Chl-tf-Gafyq Xfer(QC): 6 Car Transfer (QC): 6 Does the Patient Walk: Yes Gait (FIM): 6 Gait distance (FIM): 3=150 ft Distance: 300' Walk 10 feet (QC): 5 Walk 10ft-Uneven Surface(QC): 5 Walk 50ft with 2 Turns (QC): 5 Walk 150 ft (QC): 5 Gait Level of Assist: 6 Gait Assistive Device: None, FWW, Cane Single Point Stairs (FIM): 6 # of Steps: 12 1 Step (curb) (QC): 6 4 Steps (QC): 6 12 Steps (QC): 6 Stairs Level Of Assist: 6 Picking up an Object (QC): 5 PT Plan Treatment/Plan Treatment Plan: Continue Plan of Care Treatment Plan: Education, Functional Activity Jie, Functional Strength, Group Therapy, Gait, Safety, Therapeutic Exercise, Transfers Treatment Duration: Dec 21, 2016 Visits Per Week: 10-12 Minutes/Day (M-F): 60-90 Minutes/Day (Sat/[place]): PRN Time/GCodes Time In: 1055 Time Out: 1105 Total Billed Treatment Time: 10 Total Billed Treatment 1 visit GT 10 min ALBERTO TATE PT Dec 15, 2016 11:56
[2016-12-15 18:00] VITALS: BP 107/69
[2016-12-15] MEDS: MELATONIN 3 MG TABLET PO SCH (22:20)
[2016-12-15] MEDS: ATORVASTATIN 40 MG (LIPITOR) TABLET PO SCH (22:21)
[2016-12-15] MEDS: MILK OF MAGNESIA 400 MG/5 ML 30 ML UDC PO PRN (22:23)
[2016-12-16 06:20] VITALS: BP 111/62
[2016-12-16] MEDS: METHIMAZOLE 10 MG TAB PO SCH (06:41)
[2016-12-16] MEDS: inSUlin ASPART (NovoLOG) 1 UNIT/0.01 ML (CHARGE PER UNIT) SC SCH ×2 (09:33→21:12)
[2016-12-16] MEDS: DIGOXIN 0.125 MG (LANOXIN) TAB PO SCH (10:05)
[2016-12-16] MEDS: APIXABAN 5 MG (ELIQUIS) TABLET PO SCH ×2 (10:05→21:54)
[2016-12-16] MEDS: SUCRALFATE 1 GM (CARAFATE) TAB PEG SCH ×3 (10:05→21:54)
[2016-12-16] MEDS: DOCUSATE SODIUM 10 MG/ML 10 ML UDC (COLACE) PO SCH ×2 (10:05→21:54)
[2016-12-16] MEDS: SOTALOL 80 MG (BETAPACE) TAB PO SCH ×2 (10:06→21:54)
[2016-12-16] MEDS: PANTOPRAZOLE 40 MG (PROTONIX) TAB PO SCH ×2 (10:06→21:53)
[2016-12-16] MEDS: FUROSEMIDE 20 MG (LASIX) TAB PO SCH (10:06)
[2016-12-16] MEDS: meTOprolol TARTRATE 25 MG (LOPRESSOR) TABLET PO SCH ×2 (10:06→21:54)
[2016-12-16] MEDS: ASPIRIN 81 MG CHEW (CHILDREN'S ASA) PO SCH (10:06)
[2016-12-16 17:49] VITALS: BP 118/70
[2016-12-16] MEDS: ATORVASTATIN 40 MG (LIPITOR) TABLET PO SCH (21:54)
[2016-12-16] MEDS: MELATONIN 3 MG TABLET PO SCH (21:54)
[2016-12-17 06:00] VITALS: BP 111/59
[2016-12-17 06:26] LABS: BASOPHILS % (AUTO) 0 % (0-10); EOSINOPHILS # (AUTO) 0.1 10^3/uL (0.0-0.3); EOSINOPHILS % (AUTO) 3 % (0-10); LYMPHOCYTES % (AUTO) 20 % (12-44); MEAN CORPUSCULAR HEMOGLOBIN 32 PG (25-34); MEAN CORPUSCULAR HGB CONC 31 G/DL (32-36); MEAN CORPUSCULAR VOLUME 105 FL (80-99); MEAN PLATELET VOLUME 11.7 FL (7.4-10.4); MONOCYTES # (AUTO) 0.9 X 10^3 (0.0-1.0); MONOCYTES % (AUTO) 16 % (0-12); NEUTROPHILS # (AUTO) 3.2 X 10^3 (1.8-7.8); NEUTROPHILS % (AUTO) 61 % (42-75); PLATELET COUNT 239 10^3/uL (130-400); RED BLOOD COUNT 2.37 10^6/uL (4.35-5.85); RED CELL DISTRIBUTION WIDTH 21.3 % (10.0-14.5); RETICULOCYTE % 3.84 % (0.50-2.40); WHITE BLOOD COUNT 5.3 10^3/uL (4.3-11.0)
[2016-12-17] MEDS: METHIMAZOLE 10 MG TAB PO SCH (06:47)
[2016-12-17 07:09] LABS: ALANINE AMINOTRANSFERASE 23 U/L (0-55); ANION GAP 9 MMOL/L (5-14); ASPARTATE AMINO TRANSFERASE 19 U/L (5-34); BLOOD UREA NITROGEN 21 MG/DL (7-18); BUN/CREATININE RATIO 28; CALCIUM 8.3 MG/DL (8.5-10.1); CARBON DIOXIDE 28 MMOL/L (21-32); CHLORIDE 101 MMOL/L (98-107); CREATININE SERUM 0.75 MG/DL (0.60-1.30); GFR ESTIMATED > 60; GLUCOSE 96 MG/DL (70-105); POTASSIUM 4.2 MMOL/L (3.6-5.0); SODIUM 138 MMOL/L (135-145); TOTAL PROTEIN 5.5 G/DL (6.4-8.2)
--- NOTE | 2016-12-17 08:54 | Progress Note (SOAP) ---
Subjective Subjective/Events-last exam patient anemic hemoglobin 7.6 hematocrit 25. Patient looking better. Patient to have swallow study today. Objective Exam Vital Signs Date Time Temp Pulse Resp B/P (MAP) Pulse Ox O2 Delivery O2 Flow Rate FiO2 12/17/16 06:00 98.4 76 20 111/59 96 Room Air 12/16/16 20:00 96 Room Air 12/16/16 17:49 97.0 66 20 118/70 96 Room Air 12/16/16 09:00 Room Air I & O 12/17/16 07:00 Intake Total 2200 ml Output Total 2350 ml Balance -150 ml Capillary Refill : General Appearance: No Apparent Distress, Thin HEENT: Normal ENT Inspection Neck: Normal Inspection Respiratory: No Accessory Muscle Use, No Respiratory Distress Gastrointestinal: non tender, soft Results Lab Laboratory Tests 12/17/16 05:12 Laboratory Tests 12/16/16 20:49: Glucometer 121H 12/17/16 05:10: Glucometer 108 12/17/16 05:12: White Blood Count 5.3, Red Blood Count 2.37L, Hemoglobin 7.6L, Hematocrit 25L, Mean Corpuscular Volume 105H, Mean Corpuscular Hemoglobin 32, Mean Corpuscular Hemoglobin Concent 31L, Red Cell Distribution Width 21.3H, Platelet Count 239, Mean Platelet Volume 11.7H, Neutrophils (%) (Auto) 61, Lymphocytes (%) (Auto) 20 , Monocytes (%) (Auto) 16H, Eosinophils (%) (Auto) 3, Basophils (%) (Auto) 0, Neutrophils # (Auto) 3.2, Lymphocytes # (Auto) 1.0, Monocytes # (Auto) 0.9, Eosinophils # (Auto) 0.1, Basophils # (Auto) 0.0, Absolute Reticulocyte Count 91H, Percent Reticulocyte Count 3.84H, Sodium Level 138, Potassium Level 4.2, Chloride Level 101, Carbon Dioxide Level 28, Anion Gap 9, Blood Urea Nitrogen 21H, Creatinine 0.75, Estimat Glomerular Filtration Rate > 60, BUN/Creatinine Ratio 28, Glucose Level 96, Calcium Level 8.3L, Total Bilirubin 1.0, Aspartate Amino Transf (AST/SGOT) 19, Alanine Aminotransferase (ALT/SGPT) 23, Alkaline Phosphatase 72, Total Protein 5.5L, Albumin 3.0L Assessment/Plan Assessment/Plan Assess & Plan/Chief Complaint Cerebrovascular accident due to ischemic stroke area Inability to swallow. CAD. Atrial fibrillation. Myelodysplastic syndrome. BPH. . CVA. Inability to swallow. CAMyelodysplastic disease. Patient's hemoglobin 6.9 to receive packed red blood cells. . 12/06/16 CVA. Inability to swallow. CAD. A. fib history. Myelo dysplastic syndrome. Patient feels weeks this morning. Chest x-ray ordered. . 12/07/16 better.. Inability to swallow. CAD. A. fib . .. Myelodysplastic syndrome. Anemia... BNP elevated. . 12/08/16. Patient appears stronger. Occult blood of stools positive. Patient have EGD and colonoscopy. Atrial fibrillation.. . 12/10/16. Patient appears good. Patient had EGD and colonoscopy today. . area Patient more anemic today. Stroke. Right sided weakness. Myelodysplastic disease. . 12/12/16.. Anemia. Hemoglobin and hematocrit Stroke. Right sided weakness. Mild dysplastic disease.. To notify hematology. . 12/19/69. CVA. Inability to speak. Myelodysplastic syndrome. Atrial f patient appears to be in sinus rhythm. Hemoglobin 8.2. Patient feeling better. . 12/14/16. CVA. Talking much better. Heart regular rate rhythm. Hemoglobin stable. Patient improving. . 12/17/16. CVA. Atrial fibrillation. Myelodysplastic syndrome. Patient have swallow study today. Patient's hemoglobin 7.6 hematocrit 25 Clinical Quality Measures DVT/VTE Risk/Contraindication: Risk Factor Score Per Nursin RFS Level Per Nursing on Admit: 2=Moderate Contraindications-Pharm: Other *list below* Other: on warfarin MANE HOBBS DO Dec 17, 2016 08:54
[2016-12-17 09:15] LABS: MEAN PLATELET VOLUME 10.9 FL (7.4-10.4); RED BLOOD COUNT 2.59 10^6/uL (4.35-5.85); RED CELL DISTRIBUTION WIDTH 21.6 % (10.0-14.5); WHITE BLOOD COUNT 7.5 10^3/uL (4.3-11.0)
[2016-12-17] MEDS: inSUlin ASPART (NovoLOG) 1 UNIT/0.01 ML (CHARGE PER UNIT) SC SCH ×2 (09:16→21:00)
[2016-12-17] MEDS ORDERED: APIXABAN 5 MG (ELIQUIS) TABLET ONE (09:17)
--- NOTE | 2016-12-17 09:24 | Physical Therapy Daily Note ---
PT Daily Note-Current Subjective Pt. smiling and happy he will be going home tomorrow. No c/o pain etc. Pain Numeric Pain Scale: 0-No Pain Mental Status Patient Orientation: Normal For Age Attachments: Abraham Catheter Transfers Functional [place] Measure 0=Not Assessed/NA 4=Minimal Assistance 1=Total Assistance 5=Supervision or Setup 2=Maximal Assistance 6=Modified [place] 3=Moderate Assistance 7=Complete IndependenceIRFPAI Quality Coding Scale 6 Independent with activity with or without an assistive device 5 Patient requires set up or clean up by helper. Patient completes activity by themselves 4 Supervision or touching assist (CGA). [place] provide cues , steadying assist 3 The helper provides less than half the effort to complete the activity 2 The helper provides more than half the effort to complete the activity 1 Dependent. The helper does all the effort to complete an activity 7 Patient refused to complete or attempt activity 9 The patient did not perform the activity before the current illness or injury 88 Not attempted due to Medical conditions or safety concerns Transfers (B, C, W/C) (FIM): 6 Scootin Rollin Roll Left to Right (QC): 6 Supine to/from Sit: 6 Sit to/from Stand: 6 Sit to Lying (QC): 6 Sit to Stand (QC): 6 Chair/Fhz-jv-Xqcro Xfer(QC): 6 Bed to/from Chair: 6 Gait Training Does the Patient Walk?: Yes Gait (FIM): 6 Distance (FIM): 3=150 ft (200x2) Walk 10 feet (QC): 6 Walk 50 ft with 2 Turns(QC): 6 Walk 150 ft (QC): 6 Walking 10ft/uneven surface-QC: 6 Gait Level of Assist: 6 Gait Persons Needed: 0 Gait Assistive Device: FWW Wheelchair Training Does the Pt Use a Wheelchair?: No Stair Training Stair Training: Handrails/: 2 handrails Stairs (FIM): 5 #of Steps: 12 1 Step (curb) (QC): 5 4 Steps (QC): 5 12 Steps (QC): 5 Stairs: Pattern: Reciprocal Level of Assist: 5 Balance Picking up an Object (QC): 5 Exercises Supine Ex: Bridging, Ankle pumps, Quad Set, Rolling, Glut sets, Heel Slides, Short Arc Quads, Scooting, Straight leg raise, Hip abd/add Supine Reps: 15 Standing: Hip Abduction, Hamstring curls, Heel/toe raises, Marching, Mini squats Standing Reps: 10 Assessment Current Status: Good Progress PT Short Term Goals Short Term Goals Time Frame: Dec 07, 2016 Transfers (B,C,W/C) (FIM): 6 Gait (FIM): 5 (met 12/08/16) Distance (FIM): 3=150 ft Gait Distance Comment: 300' Gait Level of Assist: 5 Gait Assistive Device: FWW, Cane Single Point PT Mcfp Goals Industrial Equipment Mechanic Goals PT Industrial Equipment Mechanic Goals Time Frame: Dec 21, 2016 Transfers (B,C,W/C) (FIM): 6 Sit to Lying (QC): 6 Lying-Sitting on Side/Bed(QC): 6 Sit to Stand (QC): 6 Rollin Roll Left to Right (QC): 6 Chair/Bkm-ci-Fwuey Xfer(QC): 6 Car Transfer (QC): 6 Does the Patient Walk: Yes Gait (FIM): 6 Gait distance (FIM): 3=150 ft Distance: 300' Walk 10 feet (QC): 5 Walk 10ft-Uneven Surface(QC): 5 Walk 50ft with 2 Turns (QC): 5 Walk 150 ft (QC): 5 Gait Level of Assist: 6 Gait Assistive Device: None, FWW, Cane Single Point Stairs (FIM): 6 # of Steps: 12 1 Step (curb) (QC): 6 4 Steps (QC): 6 12 Steps (QC): 6 Stairs Level Of Assist: 6 Picking up an Object (QC): 5 PT Plan Treatment/Plan Treatment Plan: Continue Plan of Care Treatment Plan: Education, Functional Activity Jie, Functional Strength, Group Therapy, Gait, Safety, Therapeutic Exercise, Transfers Treatment Duration: Dec 21, 2016 Visits Per Week: 10-12 Minutes/Day (M-F): 60-90 Minutes/Day (Sat/Costa): PRN Safety Risks/Education Patient Education: Gait Training, Transfer Techniques, Steps, Correct Positioning, Safety Issues Teaching Recipient: Patient Teaching Methods: Demonstration, Discussion Response to Teaching: Verbalize Understanding, Return Demonstration Time/GCodes Time In: 845 Time Out: 930 Total Billed Treatment Time: 45 Total Billed Treatment 1,GT15m,FA15m,EX15m G Codes Necessary: JANAE Villanueva PHYSICIST [facility] Dec 17, 2016 09:24
[2016-12-17] MEDS: DIGOXIN 0.125 MG (LANOXIN) TAB PO SCH (09:29)
[2016-12-17] MEDS: SOTALOL 80 MG (BETAPACE) TAB PO SCH ×2 (09:29→21:31)
[2016-12-17] MEDS: PANTOPRAZOLE 40 MG (PROTONIX) TAB PO SCH ×2 (09:29→21:32)
[2016-12-17] MEDS: meTOprolol TARTRATE 25 MG (LOPRESSOR) TABLET PO SCH ×2 (09:29→21:34)
[2016-12-17] MEDS: APIXABAN 5 MG (ELIQUIS) TABLET PO SCH ×2 (09:29→21:33)
[2016-12-17] MEDS: FUROSEMIDE 20 MG (LASIX) TAB PO SCH (09:29)
[2016-12-17] MEDS: DOCUSATE SODIUM 10 MG/ML 10 ML UDC (COLACE) PO SCH ×2 (09:29→21:30)
[2016-12-17] MEDS: SUCRALFATE 1 GM (CARAFATE) TAB PEG SCH ×3 (09:29→21:32)
[2016-12-17] MEDS: ASPIRIN 81 MG CHEW (CHILDREN'S ASA) PO SCH (09:29)
--- NOTE | 2016-12-17 12:33 | Occupational Ther Daily Note ---
OT Current Status-Daily Note Subjective Pt in bed, agrees to treatment. Pt has no c/o pain, states he is looking forward to going home tomorrow. Mental Status/Objective Functional [place] Measure 0=Not Assessed/NA 4=Minimal Assistance 1=Total Assistance 5=Supervision or Setup 2=Maximal Assistance 6=Modified [place] 3=Moderate Assistance 7=Complete [place] ADL-Treatment Pt declined to shower this morning, states he had a shower last night. Spouse states pt only showers about two times per week at home. Pt agreed to sponge bath. Pt able to bathe all areas after set up. Spouse retrieved clothing from closet for pt. Pt able to don pullover shirt after set up. Pt donned pants after set up. Spouse assisted minimally to thread catheter through pant leg. Pt demonstrated ability to don shoes and sock without assistance while seated EOB. Pt combed hair with modified independence and placed dentures in mouth with modified independence. Sit to stand with modified independence. Gait to restroom with FWW. Pt demonstrated ability to complete toilet transfer with modified independence using grab bar. Functional [place] Measure 0=Not Assessed/NA 4=Minimal Assistance 1=Total Assistance 5=Supervision or Setup 2=Maximal Assistance 6=Modified [place] 3=Moderate Assistance 7=Complete IndependenceIRFPAI Quality Coding Scale 6 Independent with activity with or without an assistive device 5 Patient requires set up or clean up by helper. Patient completes activity by themselves 4 Supervision or touching assist (CGA). [place] provide cues , steadying assist 3 The helper provides less than half the effort to complete the activity 2 The helper provides more than half the effort to complete the activity 1 Dependent. The helper does all the effort to complete an activity 7 Patient refused to complete or attempt activity 9 The patient did not perform the activity before the current illness or injury 88 Not attempted due to Medical conditions or safety concerns Eating (FIM): 1 (NPO. Spouse will manage tube feeding at home) Eating (QC): 1 Grooming (FIM): 6 Oral Hygiene (QC): 6 Bathing (FIM): 5 Shower/Bathe Self (QC): 5 Upper Body (FIM): 5 Upper Body Dressing (QC): 5 Lower Body Dressing (FIM): 5 Lower Body Dressing (QC): 5 On/Off Footwear (QC): 5 Toilet/Commode Transfer (FIM): 6 Toilet Transfer (QC): 6 OT Short Term Goals Short Term Goals Time Frame: Dec 08, 2016 Eating(FIM): 0 Grooming(FIM): 6 Bathing(FIM): 6 Bathing Location: L Arm, R Arm, L Upper Leg, R Upper Leg, L Lower Leg ( including foot), R Lower Leg (including foot), Chest, Abdomen, Buttocks, Perineal Area Upper Body Dressing(FIM): 6 Lower Body Dressing(FIM): 6 Toileting(FIM): 6 Transfers (B,C,W/C) (FIM): 6 Toilet/Commode Transfer(FIM): 6 Tub Transfer(FIM): 0 Shower Transfer(FIM): 6 Comprehension(FIM): 3 Expression(FIM): 3 Social Interaction(FIM): 3 Problem Solving(FIM): 3 Memory(FIM): 3 1=Demonstrate adherence to instructed precautions during ADL tasks. 2=Patient will verbalize/demonstrate understanding of assistive devices/ modifications for ADL. 3=Patient will improve strength/tolerance for activity to enable patient to perform ADL's. OT Copper Miner Blasting Goals Senior Care Goals Time Frame: Dec 15, 2016 Eating (FIM): 0 Eating (QC): 0 Groomin (met 12/17/16) Oral Hygiene (QC): 6 (6-MET) Bathing(FIM): 6 (not met) Bathing Location: L Arm, R Arm, L Upper Leg, R Upper Leg, L Lower Leg ( including foot), R Lower Leg (including foot), Chest, Abdomen, Buttocks, Perineal Area Shower/Bathe Self (QC): 6 (not met) Upper Body Dressing(FIM): 6 (not met) Upper Body Dressing (QC): 6 (5-not met) Lower Body Dressing(FIM): 6 (not met) Lower Body Dressing (QC): 6 (5-not met) On/Off Footwear (QC): 6 (5-not met) Toileting(FIM): 6 Toileting Hygiene (QC): 6 Transfers (B,C,W/C) (FIM): 6 Toilet/Commode Transfer(FIM): 6 (met 11/2416) Toilet/Commode Transfer (QC): 6 (6-met) Tub Transfer(FIM): 0 Shower Transfer(FIM): 6 Comprehension(FIM): 5 Expression (FIM): 5 Social Interaction(FIM): 5 Problem Solving(FIM): 5 Memory(FIM): 4 1=Demonstrate adherence to instructed precautions during ADL tasks. 2=Patient will verbalize/demonstrate understanding of assistive devices/ modifications for ADL. 3=Patient will improve strength/tolerance for activity to enable patient to perform ADL's. OT Education/Plan Discharge Recommendations Plan/Recommendations: Continue POC Treatment Plan/Plan of Care Patient would benefit from OT for education, treatment and training to promote independence in ADL's, mobility, safety and/or upper extremity function for ADL' s. Plan of Care: ADL Retraining, Cognitive Retraining, Group Exercise/Act as Ind, UE Funct Exercise/Act Treatment Duration: Dec 21, 2016 Visits Per Week: 10-12 Minutes/Day (M-F): 60-90 Minutes/Day (Sat/Costa): prn Agreement: Yes Rehab Potential: Guarded Time/GCodes Start Time: 08:00 Stop Time: 08:45 Total Time Billed (hr/min): 45 Billed Treatment Time 1 visit, ADLx3(45minutes) FRIDA ROY OT Dec 17, 2016 12:33
--- NOTE | 2016-12-17 14:26 | ST Mod Barium Swallow ---
Speech Evaluation-General Medical Diagnosis ischemic CVA Onset Date: Nov 21, 2016 Therapy Diagnosis Therapy Diagnosis: Moderate Oropharyngeal Dysphagia Precautions Precautions: Aspiration Precautions/Isolations: Aspiration, Fall Prevention, Standard Precautions, Pressure Ulcer Referral Referring Physician: Dr. Jeremias Garcia Reason for Referral: Evaluation/Treatment Modified Barium Swallow Evaluation Medical History Pertinent Medical History: Atrial Fib, CABG, CAD, CVA, [place] Reviewed History: Yes Social History Home: Single Level Current Living Status: Spouse Speech Mod Barium Swallow Prior Level of Function The patient underwent a modified barium swallow evaluation on 11/28/2016 at an outside facility. The video swallow demonstrated huan aspiration with thin liquids and nectar-thick liquids. Following the video swallow, a PEG tube was placed for total nutrition, hydration, and medication. At this time of the repeat modified barium swallow on this date, the patient remained NPO, receiving dysphagia therapy with speech pathology. Oral Motor Skills Dentition Natural Dentures: Full (Upper and Lower Dentures) Lingual Protrusion: Normal Lingual ROM: Normal Lingual Strength: Abnormal (Mild to moderately weak bilaterally.) Velum: Normal Volitional Dry Swallow: Yes Voluntary Cough: Yes Textures-Lateral View Lateral View Food Presentation: [place] Liquid via Spoon, [place] Liquid via Cup , Honey Liquid via Spoon, Pureed Solids Oral Phase Labial Closure: No Impairment (WFL) Bolus Formation Pooling L/R: Mild Impairment Bolus Formation Placement: Mild Impairment Mastication Rotary Chew: Mild Impairment A/P Lingual Propulsion: Moderate Impairment Lingual Movement: Moderate Impairment The patient demonstrated an uncoordinated oral phase of swallow. The patient required increased time for bolus formation, often demonstrating spill of bolus material to the inferior buccal spaces (bilaterally), as well as, prolonged posterior bolus transfer with all consistencies tested. The patient demonstrated a mashing movement throughout mastication with limited rotary mastication noted. Oral Phase Residue: Moderate Impairment The patient demonstrated an uncoordinated oral phase of swallow. The patient required increased time for bolus formation, often demonstrating spill of bolus material to the inferior buccal spaces (bilaterally), as well as, prolonged posterior bolus transfer with all consistencies tested. The patient demonstrated a mashing movement throughout mastication with limited rotary movement noted. Posterior bolus loss was noted with all liquid consistencies tested. Pharyngeal Phase Swallow Response: Moderate Impairment (The pharyngeal onset of swallow was initiated at the pyriform sinuses with all consistencies.) Base of Tongue: Moderate Impairment Epiglottic Movement: Severe Impairment (Limited to no movement of the epiglottis was noted which appeared secondary to poor hyo-laryngeal elevation and excursion.) Laryngeal Elevation: Moderate Impairment Vallecular Residue: Moderate Pharyngeal Wall Residue: Mild Piriform Sinus Residue: Moderate Laryngeal Penetration: Mild Aspiration Observations: Moderate ([place]-Thick Liquid.0+) Moderate, silent aspiration occurred with nectar-thick liquids (via cup sip) during the swallow. A cued cough was inefficient at clearing the bolus material from the patient's proximal airway. Mild laryngeal penetration occurred with nectar-thick liquids via teaspoon. Penetrated material reached the superior surface of the vocal cords prior to swallow onset. A cued cough was inefficient at clearing penetrated material from the laryngeal vestibule. Trace, transient laryngeal penetration was observed with honey-thick liquid via teaspoon. No laryngeal penetration was observed with pudding trials. To note: An osteophyte was visualized at cervical vertebrae five. The presence of the osteophyte did not impede bolus flow at this region. Performed-A/P View Not Applicable/Performed Summary/Impressions The patient demonstrated moderate oropharyngeal dysphagia characterized by weak and uncoordinated labial and lingual structures, decreased base of tongue retraction, reduced pharyngeal contractions, and severely decreased hyo- laryngeal excursion. Silent aspiration was visualized of nectar-thick liquids via cup sip. No aspiration was noted with honey-thick liquids via teaspoon or puree. Recommendations: 1. The patient should continue to receive his primary nutrition, hydration, and medication via PEG tube. 2. The patient may participate in limited PO trials (not to exceed four ounces, three times per day) of puree and honey-thick liquid, as tolerated. 3. All liquid consistency will be administrated via spoon to monitor sip size. 4. Swallow twice with all consistencies consumed. 5. Continue dysphagia exercises. Speech Short Term Goals Short Term Goals Short Term Goals 1) THE PATIENT WILL BE ABLE TO TOLERATE PHARYNGEAL STRENGTHENING ACTIVITIES FOR AT LEAST 90% OF TASKS PROVIDED. 2) THE PATIENT WILL BE ABLE TO FOLLOW COMPENSATORY SWALLOW STRATEGIES TO FACILITATE A SAFE AND EFFECTIVE SWALLOW FOR DIETARY TRIALS WITH NECK BAND MAKER PRESENT WITH UP TO 90% RETURN. 3) GIVEN A VISUAL CUE, THE PATIENT WILL BE ABLE TO VERBALIZE AT LEAST 1/3 COMPENSATORY SWALLOW STRATEGIES FOR SAFE SWALLOWING. 4) GIVEN THERMAL SENSORY STIMULATION, THE PATIENT WILL BE ABLE TO EFFECTIVELY INITIATE SWALLOW RESPONSE WITHIN 2 SECONDS. 5) THE PATIENT WILL BE ABLE TO COMPLETE RECALL OF THREE OBJECTS WITHOUT PROMPTING AT 5, 10 & 15 MINUTE INTERVALS. 6) THE PATIENT WILL BE ABLE TO COMPLETE TASKS RELATED TO DIVERGENT/CONVERGENT NAMING TO ASSIST WITH INCREASED MENTAL FLEXIBILITY WITH UP TO 80% RETURN. 7) FOLLOWING SAFETY TRAINING FROM NS AND/OR OTHER THERAPISTS, THE PATIENT WILL BE ABLE TO RECALL AT LEAST 80% OF INFORMATION FOLLOWING REQUESTS. 8) USING ALTERNATING ATTENTION TASKS, HUSSAIN WILL COMPLETE THESE TASKS FOR UP TO 5 MINUTES WITH MINIMAL PROMPTS. Comprehension: 3 Expression: 3 Social Interaction: 3 Problem Solvin Memory: 3 Speech Half-Way Goals Half-Way Goals 1) THE PATIENT WILL PARTICIPATE IN CAREGIVER EDUCATION REGARDING SWALLOW PRECAUTIONS, COMPENSATORY SWALLOW STRATEGIES WELL DIET CHANGES AND RECOMMENDATIONS WITH CAREGIVER RECALL AT 80% RETURN FOLLOWING QUESTIONING. 2) GIVEN DIETARY TRIALS, THE PATIENT WILL TOLERATE PLEASURABLE FEEDINGS WITHOUT ASPIRATION TO IMPROVE QUALITY OF LIFE WITHIN 30 DAYS. 3) HUSSAIN WILL BE ABLE TO SEQUENCE AT LEAST 5-STEPS WITH A VISUAL CUE TO COMPLETE ADL'S. 4) USING A VISUAL REMINDER, HUSSAIN WILL BE ABLE TO RECALL TIME/DAY/DATE AND IMPORTANT PERSONAL INFORMATION WITH UP TO 90% RETURN. Time Frame: 30 DAYS Comprehension: 5 Expression: 5 Social Interaction: 5 Problem Solvin Memory: 4 Speech-Plan Treatment Plan Speech Therapy Treatment Plan: Continue Plan of Care Continue skilled speech pathology to target swallowing safety and cognition. Treatment Duration: January 04, 2017 # of days/week Five. Visits Per Week: 30-45 MINUTES Minutes/Day (M-F): M-F Rehab Potential: Guarded Safety Risks/Education Teaching Recipient: Patient, Significant Other Teaching Methods: Handout, Discussion Response to Teaching: Verbalize Understanding, Reinforcement Needed Education Topics Provided: Modified Barium Swallow Results, Swallowing Strategies, Recommendations Time Speech Therapy Time In: 11:00 Speech Therapy Time Out: 11:45 Total Billed Time: 45 Billed Treatment Time CHARLES Geiger ELIZABETH Dec 17, 2016 14:26
--- NOTE | 2016-12-17 14:37 | Therapy Group Daily Note ---
Therapy Daily Group Note Patient Education Topic Home Safety Exercises LE Seated Exercise, Sit to/from Stand, UE Exercise Other/Notes The patient attended a group therapy session on this date conducted by physical therapy, occupational therapy, and speech pathology. The patient was able to introduce himself to the group and state the "most dangerous" event he had completed in the past. The patient required moderate verbal clinician cueing and redirection to task to recall and provide full response to introductory question. Prior to the group activity, the patient participated in upper extremity seated exercise, lower extremity seated exercise, and voice exercises with mild clinician verbal prompting and direct modeling. The session for group therapy included a problem solving activity regarding home safety. The patients were asked to incorporate upper extremity strength and coordination, as well as , lower body sitting to standing as they stood and tossed a hand bag onto a sign containing a "problem" in their home environment (throw rugs, cooking, wheeled chairs, etc.). The patient was asked to state whether the activity was safe or unsafe and why. The patient demonstrated good accuracy with this activity with mild to moderate clinician verbal prompting. The patient demonstrated adequate social skills throughout the session, actively participating in conversation with other group members. Start Time: 13:00 Stop Time: 14:15 Total Billed Treatment Time: 75 Total Billed Treatment 1, RHYS ROSALES Dec 17, 2016 14:37
--- NOTE | 2016-12-17 15:05 | Diagnostic Imaging Report ---
EXAMINATION: Modified barium swallow. Indication: Dysphagia Different consistencies of fluid and food was given mixed with barium and swallowing was visualized under fluoroscopy. FLUOROSCOPY TIME: One minute and 28 seconds FINDINGS: Aspiration was only seen with thick liquid drinking from a cup. IMPRESSION: Aspiration was only seen with thick liquid drinking from a cup. Please refer to speech therapist's report for additional details . Dictated by: Dictated on workstation # [id number]
[2016-12-17 18:00] VITALS: BP 100/58
--- NOTE | 2016-12-17 19:13 | PM & R (SOAP) Progress Note ---
Subjective Subjective/Events-last exam Patient was seen in his room this evening RN reports that family education has beenprovided for tube feeds Appreciate MBS stuty report will f/u re ST recs Discharge remains set for tomorrow to home with spouse Will confirm with SW in AM Objective Exam Last Set of Vital Signs Vital Signs Date Time Temp Pulse Resp B/P (MAP) Pulse Ox O2 Delivery O2 Flow Rate FiO2 12/17/16 06:00 98.4 76 20 111/59 96 Room Air Capillary Refill : I&O Intake and Output 12/17/16 00:00 Intake Total 2180 ml Output Total 2150 ml Balance 30 ml Intake Oral 0 ml Tube Feeding 1480 ml Other 700 ml Output Urine Total 2150 ml General: Alert, Oriented X3, Cooperative, No Acute Distress HEENT: Atraumatic, PERRLA, EOMI, Mucous Memb Moist/[place], Other (dysphagia and some word finding problems) Neck: Supple, No JVD Lungs: Clear to Auscultation Heart: Regular Rate Abdomen: Normal Bowel Sounds, Soft, No Tenderness, Other (peg tube site clean) Neuro: Other (mid rt sided weakness and significant dysphagia some word finding difficulty) Results Lab Laboratory Tests 12/14/16 21:10: Glucometer 106 12/15/16 05:05: White Blood Count 6.0, Red Blood Count 2.45L, Hemoglobin 7.9L, Hematocrit 25L, Mean Corpuscular Volume 104H, Mean Corpuscular Hemoglobin 32, Mean Corpuscular Hemoglobin Concent 31L, Red Cell Distribution Width 20.6H, Platelet Count 269, Mean Platelet Volume 11.6H 12/15/16 09:20: Glucometer 110 12/15/16 20:59: Glucometer 125H 12/16/16 08:47: Glucometer 115H 12/16/16 20:49: Glucometer 121H 12/17/16 05:10: Glucometer 108 12/17/16 05:12: White Blood Count 5.3, Red Blood Count 2.37L, Hemoglobin 7.6L, Hematocrit 25L, Mean Corpuscular Volume 105H, Mean Corpuscular Hemoglobin 32, Mean Corpuscular Hemoglobin Concent 31L, Red Cell Distribution Width 21.3H, Platelet Count 239, Mean Platelet Volume 11.7H, Neutrophils (%) (Auto) 61, Lymphocytes (%) (Auto) 20 , Monocytes (%) (Auto) 16H, Eosinophils (%) (Auto) 3, Basophils (%) (Auto) 0, Neutrophils # (Auto) 3.2, Lymphocytes # (Auto) 1.0, Monocytes # (Auto) 0.9, Eosinophils # (Auto) 0.1, Basophils # (Auto) 0.0, Absolute Reticulocyte Count 91H, Percent Reticulocyte Count 3.84H, Sodium Level 138, Potassium Level 4.2, Chloride Level 101, Carbon Dioxide Level 28, Anion Gap 9, Blood Urea Nitrogen 21H, Creatinine 0.75, Estimat Glomerular Filtration Rate > 60, BUN/Creatinine Ratio 28, Glucose Level 96, Calcium Level 8.3L, Total Bilirubin 1.0, Aspartate Amino Transf (AST/SGOT) 19, Alanine Aminotransferase (ALT/SGPT) 23, Alkaline Phosphatase 72, Total Protein 5.5L, Albumin 3.0L 12/17/16 09:07: White Blood Count 7.5, Red Blood Count 2.59L, Hemoglobin 8.5L, Hematocrit 27L, Mean Corpuscular Volume 105H, Mean Corpuscular Hemoglobin 33, Mean Corpuscular Hemoglobin Concent 31L, Red Cell Distribution Width 21.6H, Platelet Count 304, Mean Platelet Volume 10.9H 12/17/16 09:13: Glucometer 105 Assessment/Plan Assessment 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 Chronic Afib controled with medication BPH with urinary retention managed with Indwelling Abraham catheter-Dr Ivy following catheter changed Myelodysplastic syndrome with chronic anemia followed by [employer] in [facility] [address] following here Gastritis and Diverticulosis with Guiac + stools assoc with anemia of blood loss improved s/p transfusion and placed on Carafate OAC on Eliquis Plan Continue PT/OT/ST Current labs noted F/U with Dr Hopkins and ken and [facility] as well as DR Hung as per their schedule F/U with SW tomorrow to confirm discharge F/U with ST re further recs re GUILLERMO Davis MD Dec 17, 2016 19:13
[2016-12-17] MEDS: ATORVASTATIN 40 MG (LIPITOR) TABLET PO SCH (21:32)
[2016-12-17] MEDS: MELATONIN 3 MG TABLET PO SCH (21:33)
[2016-12-18 06:00] VITALS: BP 100/58
[2016-12-18] MEDS: METHIMAZOLE 10 MG TAB PO SCH (06:36)
--- NOTE | 2016-12-18 08:24 | Speech Therapy Daily Note ---
Speech Daily Progress Note Subjective The patient and were seated upright upon entrance. The patient greeted the clinician appropriately and was agreeable to participation in the dysphagia evaluation. Objective PO Bolus Trials: The patient participated in PO trials of honey-thick liquid and pudding (by teaspoon only, approximately 3 ounces combined). The patient demonstrated small bites and sips, as well as, double swallows with all trials. No signs/symptoms of aspiration were demonstrated with any consistency tested. Review of Modified Barium Swallow Results: The results of the modified barium swallow were reviewed with the patient and the patient's , as well as, swallowing strategies and recommendations. The patient and denied additional questions or concerns. The patient was provided with a handout with the recommendations and strategies. Assessment Assessment Current Status: Fair Progress Treatment Plan Continue Plan of Care Communication Comprehension: 3 Expression: 3 Social Cognition Social Interaction: 4 Problem Solvin Memory: 3 Speech Short Term Goals Short Term Goals Short Term Goals 1) THE PATIENT WILL BE ABLE TO TOLERATE PHARYNGEAL STRENGTHENING ACTIVITIES FOR AT LEAST 90% OF TASKS PROVIDED. 2) THE PATIENT WILL BE ABLE TO FOLLOW COMPENSATORY SWALLOW STRATEGIES TO FACILITATE A SAFE AND EFFECTIVE SWALLOW FOR DIETARY TRIALS WITH TAXICAB STARTER PRESENT WITH UP TO 90% RETURN. 3) GIVEN A VISUAL CUE, THE PATIENT WILL BE ABLE TO VERBALIZE AT LEAST 1/3 COMPENSATORY SWALLOW STRATEGIES FOR SAFE SWALLOWING. 4) GIVEN THERMAL SENSORY STIMULATION, THE PATIENT WILL BE ABLE TO EFFECTIVELY INITIATE SWALLOW RESPONSE WITHIN 2 SECONDS. 5) THE PATIENT WILL BE ABLE TO COMPLETE RECALL OF THREE OBJECTS WITHOUT PROMPTING AT 5, 10 & 15 MINUTE INTERVALS. 6) THE PATIENT WILL BE ABLE TO COMPLETE TASKS RELATED TO DIVERGENT/CONVERGENT NAMING TO ASSIST WITH INCREASED MENTAL FLEXIBILITY WITH UP TO 80% RETURN. 7) FOLLOWING SAFETY TRAINING FROM NS AND/OR OTHER THERAPISTS, THE PATIENT WILL BE ABLE TO RECALL AT LEAST 80% OF INFORMATION FOLLOWING REQUESTS. 8) USING ALTERNATING ATTENTION TASKS, HUSSANI WILL COMPLETE THESE TASKS FOR UP TO 5 MINUTES WITH MINIMAL PROMPTS. Comprehension: 3 Expression: 3 Social Interaction: 3 Problem Solvin Memory: 3 Speech Usp Goals Sql Engineer Goals 1) THE PATIENT WILL PARTICIPATE IN CAREGIVER EDUCATION REGARDING SWALLOW PRECAUTIONS, COMPENSATORY SWALLOW STRATEGIES WELL DIET CHANGES AND RECOMMENDATIONS WITH CAREGIVER RECALL AT 80% RETURN FOLLOWING QUESTIONING. 2) GIVEN DIETARY TRIALS, THE PATIENT WILL TOLERATE PLEASURABLE FEEDINGS WITHOUT ASPIRATION TO IMPROVE QUALITY OF LIFE WITHIN 30 DAYS. 3) HUSSAIN WILL BE ABLE TO SEQUENCE AT LEAST 5-STEPS WITH A VISUAL CUE TO COMPLETE ADL'S. 4) USING A VISUAL REMINDER, HUSSAIN WILL BE ABLE TO RECALL TIME/DAY/DATE AND IMPORTANT PERSONAL INFORMATION WITH UP TO 90% RETURN. Time Frame: 30 DAYS Comprehension: 5 Expression: 5 Social Interaction: 5 Problem Solvin Memory: 4 Speech-Plan Treatment Plan Speech Therapy Treatment Plan: Continue Plan of Care Continue skilled speech therapy to target swallowing safety and functional communication. Treatment Duration: January 04, 2017 # of days/week Five. Visits Per Week: 30-45 MINUTES Minutes/Day (M-F): M-F Rehab Potential: Guarded Safety Risks/Education Teaching Recipient: Patient, Legal Guardian Teaching Methods: Demonstration, Handout, Discussion Response to Teaching: Verbalize Understanding, Return Demonstration, Reinforcement Needed Education Topics Provided: Results, Recommendations, Swallowing Strategies Time Speech Therapy Time In: 08:00 Speech Therapy Time Out: 08:15 Total Billed Time: 15 Billed Treatment Time SAROJ Geiger RHYS BOWERS Dec 18, 2016 08:24
[2016-12-18] MEDS: SOTALOL 80 MG (BETAPACE) TAB PO SCH (08:30)
[2016-12-18] MEDS: DIGOXIN 0.125 MG (LANOXIN) TAB PO SCH (08:30)
[2016-12-18] MEDS: ASPIRIN 81 MG CHEW (CHILDREN'S ASA) PO SCH (08:30)
[2016-12-18] MEDS: SUCRALFATE 1 GM (CARAFATE) TAB PEG SCH (08:30)
[2016-12-18] MEDS: meTOprolol TARTRATE 25 MG (LOPRESSOR) TABLET PO SCH (08:30)
[2016-12-18] MEDS: DOCUSATE SODIUM 10 MG/ML 10 ML UDC (COLACE) PO SCH (08:30)
[2016-12-18] MEDS: APIXABAN 5 MG (ELIQUIS) TABLET PO SCH (08:31)
[2016-12-18] MEDS: PANTOPRAZOLE 40 MG (PROTONIX) TAB PO SCH (08:31)
[2016-12-18] MEDS: FUROSEMIDE 20 MG (LASIX) TAB PO SCH (08:32)
--- NOTE | 2016-12-18 08:34 | Progress Note (SOAP) ---
Subjective Subjective/Events-last exam oropharyngeal dysphagia. Patient have modified swallow barium test done yesterday and shows improvement. Patient failed with thick liquid drinking. Patient positive Objective Exam Vital Signs Date Time Temp Pulse Resp B/P (MAP) Pulse Ox O2 Delivery O2 Flow Rate FiO2 12/18/16 06:00 98.2 71 18 100/58 97 Room Air 12/17/16 18:00 97.2 71 14 100/58 98 Room Air I & O 12/18/16 07:00 Intake Total 2244 ml Output Total 1800 ml Balance 444 ml Capillary Refill : General Appearance: No Apparent Distress, Thin HEENT: Normal ENT Inspection Neck: Normal Inspection Respiratory: Chest Non Tender, No Accessory Muscle Use, No Respiratory Distress Results Lab Laboratory Tests 12/17/16 09:07 Laboratory Tests 12/17/16 09:07: White Blood Count 7.5, Red Blood Count 2.59L, Hemoglobin 8.5L, Hematocrit 27L, Mean Corpuscular Volume 105H, Mean Corpuscular Hemoglobin 33, Mean Corpuscular Hemoglobin Concent 31L, Red Cell Distribution Width 21.6H, Platelet Count 304, Mean Platelet Volume 10.9H 12/17/16 09:13: Glucometer 105 12/17/16 20:18: Glucometer 123H Assessment/Plan Assessment/Plan Assess & Plan/Chief Complaint Cerebrovascular accident due to ischemic stroke area Inability to swallow. CAD. Atrial fibrillation. Myelodysplastic syndrome. BPH. . CVA. Inability to swallow. CAMyelodysplastic disease. Patient's hemoglobin 6.9 to receive packed red blood cells. . 12/06/16 CVA. Inability to swallow. CAD. A. fib history. Myelo dysplastic syndrome. Patient feels weeks this morning. Chest x-ray ordered. . 12/07/16 better.. Inability to swallow. CAD. A. fib . .. Myelodysplastic syndrome. Anemia... BNP elevated. . 12/08/16. Patient appears stronger. Occult blood of stools positive. Patient have EGD and colonoscopy. Atrial fibrillation.. . 12/10/16. Patient appears good. Patient had EGD and colonoscopy today. . area Patient more anemic today. Stroke. Right sided weakness. Myelodysplastic disease. . 12/12/16.. Anemia. Hemoglobin and hematocrit Stroke. Right sided weakness. Mild dysplastic disease.. To notify hematology. . 12/19/69. CVA. Inability to speak. Myelodysplastic syndrome. Atrial f patient appears to be in sinus rhythm. Hemoglobin 8.2. Patient feeling better. . 12/14/16. CVA. Talking much better. Heart regular rate rhythm. Hemoglobin stable. Patient improving. . 12/17/16. CVA. Atrial fibrillation. Myelodysplastic syndrome. Patient have swallow study today. Patient's hemoglobin 7.6 hematocrit 25. . 12/18/16. CVA. Dysphagia. History of atrial fibrillation. Myleodysplastic Clinical Quality Measures DVT/VTE Risk/Contraindication: Risk Factor Score Per Nursin RFS Level Per Nursing on Admit: 2=Moderate Contraindications-Pharm: Other *list below* Other: on warfarin MANE HOBBS DO Dec 18, 2016 08:34
--- NOTE | 2016-12-18 09:28 | PM & R (SOAP) Progress Note ---
Subjective Subjective/Events-last exam Patient was seen in his room this AM with his spouse Discussed case with ST Patient to have trial of pudding consistency food with ST Discussed case with SW Patient set for discharge today and will have f/u with PCP in [facility] and His Urologist DR Olsen. Objective Exam Last Set of Vital Signs Vital Signs Date Time Temp Pulse Resp B/P (MAP) Pulse Ox O2 Delivery O2 Flow Rate FiO2 12/18/16 06:00 98.2 71 18 100/58 97 Room Air Capillary Refill : I&O Intake and Output 12/18/16 00:00 Intake Total 2240 ml Output Total 1600 ml Balance 640 ml Tube Feeding 1440 ml Other 800 ml Output Urine Total 1600 ml General: Alert, Oriented X3, Cooperative, No Acute Distress HEENT: Atraumatic, PERRLA, EOMI, Mucous Memb Moist/[place], Other (dysphagia and some word finding problems) Neck: Supple, No JVD Lungs: Clear to Auscultation Heart: Regular Rate Abdomen: Normal Bowel Sounds, Soft, No Tenderness, Other (peg tube site clean) Neuro: Other (mid rt sided weakness and significant dysphagia some word finding difficulty) Other physical findings Indwelling Abraham catheter to DD Results Lab Laboratory Tests 12/15/16 20:59: Glucometer 125H 12/16/16 08:47: Glucometer 115H 12/16/16 20:49: Glucometer 121H 12/17/16 05:10: Glucometer 108 12/17/16 05:12: White Blood Count 5.3, Red Blood Count 2.37L, Hemoglobin 7.6L, Hematocrit 25L, Mean Corpuscular Volume 105H, Mean Corpuscular Hemoglobin 32, Mean Corpuscular Hemoglobin Concent 31L, Red Cell Distribution Width 21.3H, Platelet Count 239, Mean Platelet Volume 11.7H, Neutrophils (%) (Auto) 61, Lymphocytes (%) (Auto) 20 , Monocytes (%) (Auto) 16H, Eosinophils (%) (Auto) 3, Basophils (%) (Auto) 0, Neutrophils # (Auto) 3.2, Lymphocytes # (Auto) 1.0, Monocytes # (Auto) 0.9, Eosinophils # (Auto) 0.1, Basophils # (Auto) 0.0, Absolute Reticulocyte Count 91H, Percent Reticulocyte Count 3.84H, Sodium Level 138, Potassium Level 4.2, Chloride Level 101, Carbon Dioxide Level 28, Anion Gap 9, Blood Urea Nitrogen 21H, Creatinine 0.75, Estimat Glomerular Filtration Rate > 60, BUN/Creatinine Ratio 28, Glucose Level 96, Calcium Level 8.3L, Total Bilirubin 1.0, Aspartate Amino Transf (AST/SGOT) 19, Alanine Aminotransferase (ALT/SGPT) 23, Alkaline Phosphatase 72, Total Protein 5.5L, Albumin 3.0L 12/17/16 09:07: White Blood Count 7.5, Red Blood Count 2.59L, Hemoglobin 8.5L, Hematocrit 27L, Mean Corpuscular Volume 105H, Mean Corpuscular Hemoglobin 33, Mean Corpuscular Hemoglobin Concent 31L, Red Cell Distribution Width 21.6H, Platelet Count 304, Mean Platelet Volume 10.9H 12/17/16 09:13: Glucometer 105 12/17/16 20:18: Glucometer 123H 12/18/16 09:08: Glucometer 117H Assessment/Plan Assessment 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 Chronic Afib controled with medication BPH with urinary retention managed with Indwelling Abraham catheter-Dr Ivy following catheter changed Myelodysplastic syndrome with chronic anemia followed by [facility] in [facility] following here Gastritis and Diverticulosis with Guiac + stools assoc with anemia of blood loss improved s/p transfusion and placed on Carafate OAC on Eliquis Plan Discharge today to home with spouse F/U with PCP and Urologist F/U with ST re ongoing Dyspagia therapy See orders GUILLERMO MONACO MD Dec 18, 2016 09:28
[2016-12-18] MEDS: inSUlin ASPART (NovoLOG) 1 UNIT/0.01 ML (CHARGE PER UNIT) SC SCH (09:32)
[2016-12-18] MEDS ORDERED: SUCR1TAB PEG (09:40)
[2016-12-18] MEDS ORDERED: PANT40TA3 PO (09:40)
[2016-12-18] MEDS ORDERED: APIX5TAB PO (09:40)
[2016-12-18] MEDS ORDERED: ASPI-999 PO (09:40)
[2016-12-18] MEDS ORDERED: METO-333 PO (09:40)
[2016-12-18 11:45] VITALS: BP 100/58
--- NOTE | 2016-12-18 13:29 | Therapy Team Discharge Summary ---
Therapy Discharge Summary Discharge Recommendations Date of Discharge Therapy D/C Recommendations: Home w/ Family Support, Occupational Therapy Home Care Physical Therapy Patient came to rehab following an ischemic CVA. Upon admission patient performed bed mobility with SBA, transfers with CGA, ambulated 250' with SBA using a rolling walker, and could go up and down 12 steps using 1 handrail with SBA. Patient has been performing bed mobility and transfer training, balance and endurance training, functional strengthening, stair training, gait training , and education. Patient has made fair progress and has met all of his retirement goals except for stairs. Now, patient performs bed mobility and transfers with mod I, ambulates 200' with a rolling walker with mod I (including 50' with at least 2 turns of 90 degrees and 10' over an uneven surface), and can go up and down 12 steps using 2 handrails with SBA. Patient is being discharged from this facility today and will be discharged from PT at this time. PT Group Home Goals Cylinder Sander Operator Goals PT Cylinder Sander Operator Goals Time Frame: Dec 21, 2016 Transfers (B,C,W/C) (FIM): 6 Roll Left to Right (QC): 6 Sit to Lying (QC): 6 Lying-Sitting on Side/Bed(QC): 6 Sit to Stand (QC): 6 Chair/Qfj-ya-Byirf Xfer(QC): 6 Car Transfer (QC): 6 Does the Patient Walk: Yes Gait (FIM): 6 Gait distance (FIM): 3=150 ft Distance: 300' Walk 10 feet (QC): 5 Walk 10ft-Uneven Surface(QC): 5 Walk 50ft with 2 Turns (QC): 5 Walk 150 ft (QC): 5 Gait Level of Assist: 6 Gait Assistive Device: None, FWW, Cane Single Point Stairs (FIM): 6 # of Steps: 12 1 Step (curb) (QC): 6 4 Steps (QC): 6 12 Steps (QC): 6 Stairs Level Of Assist: 6 Picking up an Object (QC): 5 OT Cylinder Sander Operator Goals Group Home Goals Time Frame: Dec 15, 2016 Eating (FIM): 0 Eating (QC): 0 Oral Hygiene (QC): 6 (6-MET) Grooming(FIM): 6 (met 12/17/16) Bathing(FIM): 6 (not met) Bathing Location: L Arm, R Arm, L Upper Leg, R Upper Leg, L Lower Leg ( including foot), R Lower Leg (including foot), Chest, Abdomen, Buttocks, Perineal Area Shower/Bathe Self (QC): 6 (not met) Upper Body Dressing(FIM): 6 (not met) Upper Body Dressing (QC): 6 (5-not met) Lower Body Dressing(FIM): 6 (not met) Lower Body Dressing (QC): 6 (5-not met) On/Off Footwear (QC): 6 (5-not met) Toileting(FIM): 6 Toileting Hygiene (QC): 6 Transfers (B,C,W/C) (FIM): 6 Toilet/Commode Transfer(FIM): 6 (met 11/2416) Toilet/Commode Transfer (QC): 6 (6-met) Tub Transfer(FIM): 0 Shower Transfer(FIM): 6 Comprehension(FIM): 5 Expression (FIM): 5 Social Interaction(FIM): 5 Problem Solving(FIM): 5 Memory(FIM): 4 1=Demonstrate adherence to instructed precautions during ADL tasks. 2=Patient will verbalize/demonstrate understanding of assistive devices/ modifications for ADL. 3=Patient will improve strength/tolerance for activity to enable patient to perform ADL's. Speech Group Home Goals Group Home Goals 1) THE PATIENT WILL PARTICIPATE IN CAREGIVER EDUCATION REGARDING SWALLOW PRECAUTIONS, COMPENSATORY SWALLOW STRATEGIES WELL DIET CHANGES AND RECOMMENDATIONS WITH CAREGIVER RECALL AT 80% RETURN FOLLOWING QUESTIONING. 2) GIVEN DIETARY TRIALS, THE PATIENT WILL TOLERATE PLEASURABLE FEEDINGS WITHOUT ASPIRATION TO IMPROVE QUALITY OF LIFE WITHIN 30 DAYS. 3) HUSSAIN WILL BE ABLE TO SEQUENCE AT LEAST 5-STEPS WITH A VISUAL CUE TO COMPLETE ADL'S. 4) USING A VISUAL REMINDER, HUSSAIN WILL BE ABLE TO RECALL TIME/DAY/DATE AND IMPORTANT PERSONAL INFORMATION WITH UP TO 90% RETURN. Time Frame: 30 DAYS Comprehension: 5 Expression: 5 Social Interaction: 5 Problem Solvin Memory: 4 JUN SHAHID PT Dec 18, 2016 13:29
--- NOTE | 2016-12-18 14:08 | Therapy Team Discharge Summary ---
Therapy Discharge Summary Discharge Recommendations Date of Discharge Dec 18, 2016 at 11:45 Therapy D/C Recommendations: Home w/ Family Support, Occupational Therapy Home Care Speech-Language Pathology The patient was recently admitted to [facility] with a diagnosis of CVA. Upon arrival, the patient was NPO with full nutrition, hydration, and medication being received via PEG tube. Skilled speech pathology intervention focused on swallowing strengthening exercises, functional problem solving, and expressive communication (orientation). The patient participated in a video swallow on 12/17/2016. The repeat video swallow continued to demonstrate aspiration of nectar-thick liquid, however, no aspiration was observed with puree or honey-thick liquids. The speech pathologist recommended the initiation of PO trials with honey-thick liquids and puree (with specific swallowing strategies). The patient did not meet cognitive or dysphagia goals placed at the onset of therapy. At this time, the clinician recommends the patient receive home health or outpatient speech dysphagia services. The patient will be discharged from skilled speech pathology acute rehabilitation treatment at this time. PT Hebrew Professor Goals Hebrew Professor Goals PT Longterm Goals Time Frame: Dec 21, 2016 Transfers (B,C,W/C) (FIM): 6 Roll Left to Right (QC): 6 Sit to Lying (QC): 6 Lying-Sitting on Side/Bed(QC): 6 Sit to Stand (QC): 6 Chair/Wyq-ze-Jbqzg Xfer(QC): 6 Car Transfer (QC): 6 Does the Patient Walk: Yes Gait (FIM): 6 Gait distance (FIM): 3=150 ft Distance: 300' Walk 10 feet (QC): 5 Walk 10ft-Uneven Surface(QC): 5 Walk 50ft with 2 Turns (QC): 5 Walk 150 ft (QC): 5 Gait Level of Assist: 6 Gait Assistive Device: None, FWW, Cane Single Point Stairs (FIM): 6 # of Steps: 12 1 Step (curb) (QC): 6 4 Steps (QC): 6 12 Steps (QC): 6 Stairs Level Of Assist: 6 Picking up an Object (QC): 5 OT Hebrew Professor Goals Hebrew Professor Goals Time Frame: Dec 15, 2016 Eating (FIM): 0 Eating (QC): 0 Oral Hygiene (QC): 6 (6-MET) Grooming(FIM): 6 (met 12/17/16) Bathing(FIM): 6 (not met) Bathing Location: L Arm, R Arm, L Upper Leg, R Upper Leg, L Lower Leg ( including foot), R Lower Leg (including foot), Chest, Abdomen, Buttocks, Perineal Area Shower/Bathe Self (QC): 6 (not met) Upper Body Dressing(FIM): 6 (not met) Upper Body Dressing (QC): 6 (5-not met) Lower Body Dressing(FIM): 6 (not met) Lower Body Dressing (QC): 6 (5-not met) On/Off Footwear (QC): 6 (5-not met) Toileting(FIM): 6 Toileting Hygiene (QC): 6 Transfers (B,C,W/C) (FIM): 6 Toilet/Commode Transfer(FIM): 6 (met 11/2416) Toilet/Commode Transfer (QC): 6 (6-met) Tub Transfer(FIM): 0 Shower Transfer(FIM): 6 Comprehension(FIM): 5 Expression (FIM): 5 Social Interaction(FIM): 5 Problem Solving(FIM): 5 Memory(FIM): 4 1=Demonstrate adherence to instructed precautions during ADL tasks. 2=Patient will verbalize/demonstrate understanding of assistive devices/ modifications for ADL. 3=Patient will improve strength/tolerance for activity to enable patient to perform ADL's. Speech Longterm Goals Longterm Goals 1) THE PATIENT WILL PARTICIPATE IN CAREGIVER EDUCATION REGARDING SWALLOW PRECAUTIONS, COMPENSATORY SWALLOW STRATEGIES WELL DIET CHANGES AND RECOMMENDATIONS WITH CAREGIVER RECALL AT 80% RETURN FOLLOWING QUESTIONING. MET 2) GIVEN DIETARY TRIALS, THE PATIENT WILL TOLERATE PLEASURABLE FEEDINGS WITHOUT ASPIRATION TO IMPROVE QUALITY OF LIFE WITHIN 30 DAYS. MET 3) HUSSAIN WILL BE ABLE TO SEQUENCE AT LEAST 5-STEPS WITH A VISUAL CUE TO COMPLETE ADL'S. NOT MET 4) USING A VISUAL REMINDER, HUSSAIN WILL BE ABLE TO RECALL TIME/DAY/DATE AND IMPORTANT PERSONAL INFORMATION WITH UP TO 90% RETURN. NOT MET Time Frame: 30 DAYS Comprehension: 5 (NOT MET) Expression: 5 (NOT MET) Social Interaction: 5 (NOT MET) Problem Solvin (NOT MET) Memory: 4 (NOT MET) RHYS BOWERS Dec 18, 2016 14:08
--- NOTE | 2016-12-18 14:16 | Occ Therapy Rehab Re-Cert ---
OT Re-Certification Form Plan of Care: ADL Retraining, Cognitive Retraining, Group Exercise/Act as Ind, UE Funct Exercise/Act Late entry for 12/15/16. Pt progressing toward goals, but has not yet attained LTG. Pt currently SBA for transfers. Continue treatment per POC. Continue current goals. Treatment Duration: 12/21/16 # of days/week 5-6 Visits Per Week: 10-12 Minutes/Day (M-F): 60-90 Minutes/Day (Sat/[place]): prn Agreement: Yes Rehab Potential: Good OT Short Term Goals Short Term Goals Time Frame: Dec 08, 2016 Eating(FIM): 0 Grooming(FIM): 6 Bathing(FIM): 6 Bathing Location: L Arm, R Arm, L Upper Leg, R Upper Leg, L Lower Leg ( including foot), R Lower Leg (including foot), Chest, Abdomen, Buttocks, Perineal Area Upper Body Dressing(FIM): 6 Lower Body Dressing(FIM): 6 Toileting(FIM): 6 Transfers (B,C,W/C) (FIM): 6 Toilet/Commode Transfer(FIM): 6 Tub Transfer(FIM): 0 Shower Transfer(FIM): 6 Comprehension(FIM): 3 Expression(FIM): 3 Social Interaction(FIM): 3 Problem Solving(FIM): 3 Memory(FIM): 3 1=Demonstrate adherence to instructed precautions during ADL tasks. 2=Patient will verbalize/demonstrate understanding of assistive devices/ modifications for ADL. 3=Patient will improve strength/tolerance for activity to enable patient to perform ADL's. OT Mcfp Goals Fence Maker Goals Time Frame: Dec 15, 2016 Eating (FIM): 0 Grooming(FIM): 6 (met 12/17/16) Bathing(FIM): 6 (not met) Bathing Location: L Arm, R Arm, L Upper Leg, R Upper Leg, L Lower Leg ( including foot), R Lower Leg (including foot), Chest, Abdomen, Buttocks, Perineal Area Upper Body Dressing(FIM): 6 (not met) Lower Body Dressing(FIM): 6 (not met) Toileting(FIM): 6 Transfers (B,C,W/C) (FIM): 6 Toilet/Commode Transfer(FIM): 6 (met 11/2416) Tub Transfer(FIM): 0 Shower Transfer(FIM): 6 Comprehension(FIM): 5 (NOT MET) Expression (FIM): 5 (NOT MET) Social Interaction(FIM): 5 (NOT MET) Problem Solving(FIM): 5 (NOT MET) Memory(FIM): 4 (NOT MET) 1=Demonstrate adherence to instructed precautions during ADL tasks. 2=Patient will verbalize/demonstrate understanding of assistive devices/ modifications for ADL. 3=Patient will improve strength/tolerance for activity to enable patient to perform ADL's. FRIDA ROY OT Dec 18, 2016 14:16
--- NOTE | 2016-12-18 14:20 | Therapy Team Discharge Summary ---
Therapy Discharge Summary Discharge Recommendations Date of Discharge Dec 18, 2016 at 11:45 Therapy D/C Recommendations: Home w/ Family Support, Occupational Therapy Home Care Occupational Therapy Pt admitted to ARU following acute hospitalization for CVA. On admission pt required SBA for most ADLs. Skilled OT intervention focused on ADL training, transfers, strengthening, coordination, and safety education. Pt made progress, but did not meet all goals. At discharge pt is completing toilet transfer and grooming with modified independence and other ADLs with set up. Pt met goals for grooming and toilet transfer, but did not meet other goals. Pt discharging home with spouse this date. D/C ARU OT at this time. PT [facility] Goals Court Transcriber Goals PT Court Transcriber Goals Time Frame: Dec 21, 2016 Transfers (B,C,W/C) (FIM): 6 Roll Left to Right (QC): 6 Sit to Lying (QC): 6 Lying-Sitting on Side/Bed(QC): 6 Sit to Stand (QC): 6 Chair/Iyy-pe-Raujc Xfer(QC): 6 Car Transfer (QC): 6 Does the Patient Walk: Yes Gait (FIM): 6 Gait distance (FIM): 3=150 ft Distance: 300' Walk 10 feet (QC): 5 Walk 10ft-Uneven Surface(QC): 5 Walk 50ft with 2 Turns (QC): 5 Walk 150 ft (QC): 5 Gait Level of Assist: 6 Gait Assistive Device: None, FWW, Cane Single Point Stairs (FIM): 6 # of Steps: 12 1 Step (curb) (QC): 6 4 Steps (QC): 6 12 Steps (QC): 6 Stairs Level Of Assist: 6 Picking up an Object (QC): [address] Transcriber Goals Time Frame: Dec 15, 2016 Eating (FIM): 0 Eating (QC): 0 Oral Hygiene (QC): 6 (6-MET) Grooming(FIM): 6 (met 12/17/16) Bathing(FIM): 6 (not met) Bathing Location: L Arm, R Arm, L Upper Leg, R Upper Leg, L Lower Leg ( including foot), R Lower Leg (including foot), Chest, Abdomen, Buttocks, Perineal Area Shower/Bathe Self (QC): 6 (not met) Upper Body Dressing(FIM): 6 (not met) Upper Body Dressing (QC): 6 (5-not met) Lower Body Dressing(FIM): 6 (not met) Lower Body Dressing (QC): 6 (5-not met) On/Off Footwear (QC): 6 (5-not met) Toileting(FIM): 6 Toileting Hygiene (QC): 6 Transfers (B,C,W/C) (FIM): 6 Toilet/Commode Transfer(FIM): 6 (met 11/2416) Toilet/Commode Transfer (QC): 6 (6-met) Tub Transfer(FIM): 0 Shower Transfer(FIM): 6 Comprehension(FIM): 5 (NOT MET) Expression (FIM): 5 (NOT MET) Social Interaction(FIM): 5 (NOT MET) Problem Solving(FIM): 5 (NOT MET) Memory(FIM): 4 (NOT MET) 1=Demonstrate adherence to instructed precautions during ADL tasks. 2=Patient will verbalize/demonstrate understanding of assistive devices/ modifications for ADL. 3=Patient will improve strength/tolerance for activity to enable patient to perform ADL's. Speech Court Transcriber Goals Court Transcriber Goals 1) THE PATIENT WILL PARTICIPATE IN CAREGIVER EDUCATION REGARDING SWALLOW PRECAUTIONS, COMPENSATORY SWALLOW STRATEGIES WELL DIET CHANGES AND RECOMMENDATIONS WITH CAREGIVER RECALL AT 80% RETURN FOLLOWING QUESTIONING. MET 2) GIVEN DIETARY TRIALS, THE PATIENT WILL TOLERATE PLEASURABLE FEEDINGS WITHOUT ASPIRATION TO IMPROVE QUALITY OF LIFE WITHIN 30 DAYS. MET 3) HUSSAIN WILL BE ABLE TO SEQUENCE AT LEAST 5-STEPS WITH A VISUAL CUE TO COMPLETE ADL'S. NOT MET 4) USING A VISUAL REMINDER, HUSSAIN WILL BE ABLE TO RECALL TIME/DAY/DATE AND IMPORTANT PERSONAL INFORMATION WITH UP TO 90% RETURN. NOT MET Time Frame: 30 DAYS Comprehension: 5 (NOT MET) Expression: 5 (NOT MET) Social Interaction: 5 (NOT MET) Problem Solvin (NOT MET) Memory: 4 (NOT MET) FRIDA ROY OT Dec 18, 2016 14:20
--- NOTE | 2016-12-22 10:08 | DISCHARGE SUMMARY ---
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 He has a PEG tube and is on tube feeds and is n.p.o. He has a history of mild dysplastic syndrome causing anemia and requiring occasional packed red blood cells transfusion as an outpatient. He was under the care of Dr. Rasheed, medical oncology, in [place] and receiving darbepoetin 2 times a month, on the and , with reduction in transfusion requirement. The patient has a history of atrial fibrillation and has been on chronic anticoagulation. He was scheduled to have a cystoscopy and TURP with his urologist, Dr. Mckeon, and his oral anticoagulant was held. Unfortunately, that was when he sustained the stroke. The TURP is now postponed and the patient has indwelling Abraham catheter for bladder management at this time. He had a decline in his functional independence because of all this. He had been independent prior to this and living with his in [place], [place]. He is now referred to inpatient rehabilitation unit [facility] for ongoing stroke rehabilitation. PAST MEDICAL HISTORY: BPH, urinary retention, atrial fibrillation, coronary artery disease, congestive heart failure, myelodysplastic syndrome, anemia, peripheral arterial disease, status post CABG, status post PEG, history of laryngeal cancer, hypothyroidism on replacement. He is status post aortic valve replacement and defibrillator placement. MEDICAL COURSE: The patient was followed by Dr. Garcia and Codey while on rehabilitation unit. Dr. Yepez was consulted regarding myelodysplastic syndrome. The patient was transfused twice. The patient did have guaiac positive stools. Dr. Stiles was consulted and an EGD and colonoscopy were done on 12/10/2016. The impression was GI bleeding possibly due to stress gastritis. He was treated conservatively. No polyps were noted in the colon. Very few sigmoid diverticula were noticed. There was a question as to whether the patient could be switched to another oral anticoagulant as it was difficult to keep his hemoglobin above [address] Hung switched him over from Coumadin to Eliquis. After discharge, a [place] pharmacist contacted Dr. Garcia on 12/20/2016 wishing to half the dose of Eliquis. The pharmacist was referred on to Dr. Hung regarding this. Apparently, there was some issue due to the patient's age and other factors where their protocol called for half of the dosage. The patient did have a switch out of his Abraham catheter by Dr. Ivy, urology. CBC on 12/17/2016 showed WBC 7.5, H and H 8.5/27, MCV 105, platelet count 204,000. His hemoglobin was as low as 6.9 on 12/05/2016 prior to transfusions. His INR on 12/13/2016 was 1.2 after his Coumadin had been discontinued. Chemistry on 12/17/2016 showed normal electrolytes, BUN mildly elevated at 21, creatinine 0.75, calcium mildly low at 8.3, albumin 3.0, low, total protein 5.5, low. His BNP on 12/07/2016 was 1254, it improved to 629.3 on 12/08/2016. His stool for occult blood x1 was positive on 12/07/2016. His glucometer readings between 12/14/2016 and 12/18/2016 varied between 105 and 123. He was afebrile during his stay. His pulse on 12/13/2016 was high at 171, respirations 18, blood pressure 100/58, O2 sat 97% on room air. He was provided with furosemide for diuresis by Dr. Hung. He had a chest x-ray on 12/06/2016 showing diffuse interstitial thickening with tiny effusions that may be related to pulmonary vascular congestion. He was diuresed briefly with improvement. He had a modified barium swallow on 12/17/2016 which revealed aspiration that was only seen with thick liquid, drinking from a cup. Speech therapy recommended a trial of therapeutic feeds with puddings, otherwise continue with tube feedings. The patient was followed by nutritional services as well. Dr. Hung performed an echocardiogram with conclusion of left ventricular, right ventricular size and function normal, left ventricular ejection fraction 55%-60%, severe pulmonary hypertension is present with RVSP of 60 mmHg, severe mitral regurgitation, mild to moderate aortic stenosis, moderate tricuspid regurgitation. REHABILITATION COURSE: Speech therapy notes upon arrival the patient was n.p.o. with nutrition, hydration and medication being received via PEG tube. The patient participated in a video swallow on 12/17/2016. A repeat video swallow today demonstrated aspiration to nectar thick liquids; however, no aspiration was observed with pureed or honey-thick liquids. The speech therapist recommended initiation of p.o. trials with honey-thick liquids and pureed with specific swallowing strategies which could be done under the supervision of the therapist on an outpatient or home health care basis. His nutrition, medication and hydration will continue to be done through tube feedings. Overall, his strength, endurance and balance all were improving, major deficits again were his dysphagia. PT notes upon admission the patient performed bed mobility with standby assist, transfers with contact guard, could ambulate 250 feet with standby assist using a wheeled walker. The patient made fair progress and upon discharge he is modified independent with bed mobility and transfers and can ambulate 200 feet with a wheeled walker with modified independence and can go up and down 12 steps using 2 hand rails with standby assist. OT notes upon admission, the patient required standby assist with most ADLs. At discharge, the patient was completing toileting, transfers and grooming with modified independence and other ADLs with setup. The patient's has been instructed in tube feed education and will assist him at home. DISCHARGE INSTRUCTIONS: The patient will have followup with Dr. Xochilt Grimes in [place], [place] and follow up with his other [place] specialist and Dr. Mckeon, urology. Abraham Catheter to dependent drainage . Continue current tube feeds. He should have followup with home health PT, OT and ongoing speech therapy for dysphagia. DISCHARGE MEDICATIONS: Eliquis 5 mg per PEG b.i.d., ASA 1 mg per PEG q. day, metoprolol 12.5 mg per PEG b.i.d., Protonix 40 mg per PEG b.i.d., Carafate 1 gram per PEG t.i.d., Lipitor 40 mg per PEG q. night, Aranesp 200 mcg or equivalent as per his cleaning attendant's schedule as per above, digoxin 0.125 mg per PEG q. day, furosemide 20 mg per PEG q. day, methimazole 10 mg per PEG b.i.d., KCL 20 mEq per PEG q. day, Senokot 1 tablet per PEG q. day with loose stools. His Plavix and Coumadin were discontinued. DISCHARGE DIAGNOSES: 1. Rehabilitation, ambulatory dysfunction secondary to left-sided ischemic stroke with resulting right-sided weakness and dysphagia, status post PEG placement, n.p.o. and on tube feeds. 2. Ischemic stroke, right hemiplegia, right facial droop, expressive aphasia, dysphagia, oropharyngeal. 3. Coronary artery disease. 4. Atrial fibrillation. 5. Congestive heart failure, treated at [facility], status post transfusion x2. 6. Benign prostatic hypertrophy with urinary retention. 7. Macrocytic anemia. 8. Peripheral arterial disease. 9. Status post coronary artery bypass graft. 10. Status post percutaneous endoscopic gastrostomy. 11. History of larynx cancer. 12. Hypothyroidism, on replacement. 13. Anemia due to blood loss. 14. Gastritis with bleed. 15. Diverticulosis. 16. Long-term use anticoagulant. 17. Status post aortic valve replacement. 18. Status post defibrillator. 19. Status post colonoscopy and upper endoscopy. 20. Status post change of indwelling Abraham catheter. 21. Mild to moderate aortic stenosis by echocardiogram. 22. Moderate tricuspid regurgitation. 23. Severe mitral regurgitation. 24. Severe pulmonary hypertension with right ventricular systolic pressure of 60 mmHg. CONDITION AT DISCHARGE: Improved and stable. PROGNOSIS: Rehab prognosis appears good with some continued improved at home with ongoing home health care. Hopefully, his swallow will gradually return and his diet can be upgraded under the supervision of his physician and speech therapist. Job ID: [id number] DocumentID: [id number] Dictated Date: 12/21/2016 08:34:29 Principal Planner Date: 12/22/2016 10:08:11 Dictated By: GUILLERMO GARCIA MD [facility]
--- OUTSIDE RECORDS SUMMARY | 2017-01-03 22:28 | XMS REPORT | Continuity of Care Document ---
Author Author [facility] Organization [facility] Address [address] [place] [address] Phone Unavailable Care Team Providers Care Import/Export Analyst Name Role Phone TROY RAMIREZ PCP Insurance Providers Payer Name Policy Number Subscriber Name Relationship Medicare [id number] Hussain Gibbs 19 Self / Same As Patient Advance Directives Directive Response Recorded Date/Time Advance Directives No 09/30/16 3:06pm Durable POA for HC No 09/30/16 3:28pm Power of Cut Off Saw Operator No 09/30/16 3:28pm Organ Donor Yes 09/30/16 3:28pm Living Will No 09/30/16 3:28pm Chief Complaint and Reason for Visit Chief Complaint Male Urogenital Problems Reason for Visit Aortic aneurysm [id number] BPH (benign prostatic hypertrophy) with urinary obstruction Atherosclerosis of abdominal aorta [id number] Hiatal hernia Problems Active Problems Medical Problem Onset Date Status Aortic aneurysm Unknown Acute Atherosclerosis of abdominal aorta Unknown Acute BPH (benign prostatic hypertrophy) with urinary obstruction Unknown Acute Bladder distension Unknown Acute Hiatal hernia Unknown Acute Hydronephrosis, bilateral Unknown Acute Medications Current Home Medications Medication Dose Units Route Directions Days/Qty Instructions Start Date Digoxin 125 Mcg 125 Mcg Oral Once A Day for Heart Health 09/30/16 Sotalol Hcl 160 Mg 120 Mg Oral Twice A Day for Hypertension 09/30/16 Potassium Chloride 10 Meq 10 Meq Oral Three Times A Day for Unknown 09/30/16 Atorvastatin Calcium 40 Mg 40 Mg Oral Once A Day for High Cholestrol 09/30/16 Metoprolol Tartrate (Lopressor) 50 Mg 50 Mg Oral Once A Day for Hypertension 09/30/16 Clopidogrel Bisulfate 75 Mg 75 Mg Oral Once A Day for Blood Thinning 09/30/16 Warfarin Sodium 5 Mg 5 Mg Oral Once A Day for Blood Thinning Furosemide 20 Mg 20 Mg Oral Once A Day for Diuretic 09/30/16 Ranitidine Hcl 150 Mg 150 Mg Oral Once A Day for Gerd 09/30/16 Methimazole 10 Mg 10 Mg Oral Twice A Day for Thyroid Dysfunction 01/09 Social History Social History Problem Response Recorded Date/Time Smoking Status Unknown if ever smoked 09/30/2016 5:44pm Smoked in the last 12 months? No 09/30/2016 5:44pm Do you dip or chew tobacco? No 09/30/2016 5:44pm Approx how many cigs per day? 0 09/30/2016 5:44pm Level of Dependence Low 09/30/2016 5:44pm Former smoker, last day smoked? unknown 09/30/2016 5:44pm Query Response Start Date Stop Date Smoking Status Unknown if ever smoked Hospital Discharge Instructions No hospital discharge instructions. Plan of Care Discharge Date 09/30/16 6:15pm Disposition 01 D/C HOME Condition at Discharge Stable and Improved Instructions/Education Provided Abraham Catheter Placement and Care (ED) Urinary Leg Bag (GEN) Prescriptions See Medication Section Referrals TROY RAMIREZ - Additional Instructions/Education Wash the area where the catheter inserts into your body with soap and warm water twice a day. A leg bag, and a larger overnight bag, has been provided. Wash your hands before and after switching from one bag to the other, and ensure that connections are snug. Empty the catheter bag before it becomes full to prevent back up. Follow up with your provider of choice, or a urologist if possible. If you have any problems in the interim, do not hesitate to return to the ER. Reference Links Flu safety Functional Status Query Response Date Recorded Activities of Daily Living Performs w/o Assistance September 30, 2016 3:36pm Cognitive Function Intact September 30, 2016 3:36pm Allergies, Adverse Reactions, Alerts No known allergies. Immunizations No immunization records. Vital Signs Acute Vital Signs Vital Response Date/Time Temperature (Fahrenheit) 98.7 degrees F (97.6 - 99.5) 09/30/2016 4:50pm Temperature (Calculated Celsius) 37.89478 degrees C (36.4 - 37.5) 09/30/2016 4:50pm Temperature Source Temporal Artery Scan 09/30/2016 4:50pm Pulse Pulse Ox Pulse Rate (adult) 78 beats per minute (60 - 90) 09/30/2016 4:50pm Pulse Location Modifier Left 09/30/2016 4:50pm Oxygen Saturation Respiratory Rate 16 breaths per minute (12 - 24) 09/30/2016 4:50pm O2 Sat by Pulse Oximetry 97 % (90 - 100) 09/30/2016 4:50pm Blood Pressure 110/62 mm Hg 09/30/2016 4:50pm Blood Pressure Mean 78 mm Hg 09/30/2016 4:50pm Height 5 ft 10.5 in Weight 130 lb Body Mass Index 18.4 kg/m^2 Results Laboratory Results Test Name Result Units Flags Reference Collection Date/Time Result Date/ Time Comments White Blood Count 8.7 x10^3/uL 4.0-11.0 09/30/2016 3:07pm 09/30/2016 3: 59pm Red Blood Count 2.36 10^6/uL *L 4.50-6.50 09/30/2016 3:07pm 09/30/2016 3: 59pm Hematocrit 27.2 % L 40.0-54.0 09/30/2016 3:07pm 09/30/2016 3:59pm Mean Corpuscular Volume 115 fl H 76-96 09/30/2016 3:07pm 09/30/2016 3: 59pm Mean Corpuscular Hemoglobin 38.6 pg *H 27.0-32.0 09/30/2016 3:07pm 2016 3:59pm Mean Corpuscular Hemoglobin Concent 33.5 g/dl 31.0-35.0 09/30/2016 3: 07pm 09/30/2016 3:59pm Red Cell Distribution Width 19.4 % H 11.0-16.0 09/30/2016 3:07pm 2016 3:59pm Platelet Count 263 10^3/uL 150-400 09/30/2016 3:07pm 09/30/2016 3:59pm Mean Platelet Volume 10.9 fl H 6.0-10.0 09/30/2016 3:07pm 09/30/2016 3: 59pm Neutrophils (%) (Auto) 76.4 % *H 45.0-70.0 09/30/2016 3:07pm 09/30/2016 3 :59pm Lymphocytes (%) (Auto) 9.2 % *L 20.0-40.0 09/30/2016 3:07pm 09/30/2016 3: 59pm Monocytes (%) (Auto) 13.9 % *H 3.0-10.0 09/30/2016 3:07pm 09/30/2016 3: 59pm Eosinophils (%) (Auto) 0.3 % L 1.0-5.0 09/30/2016 3:07pm 09/30/2016 3: 59pm Basophils (%) (Auto) 0.2 % 0.0-0.5 09/30/2016 3:07pm 09/30/2016 3:59pm Neutrophils # (Auto) 6.63 x10^3/uL 2.00-7.50 09/30/2016 3:07pm 2016 3:59pm Lymphocytes # (Auto) 0.80 x10^3/uL L 1.50-4.00 09/30/2016 3:07pm 2016 3:59pm Monocytes # (Auto) 1.21 x10^3/uL H 0.20-0.80 09/30/2016 3:07pm 2016 3:59pm Eosinophils # (Auto) 0.03 x10^3/uL L 0.04-0.40 09/30/2016 3:07pm 2016 3:59pm Basophils # (Auto) 0.02 x10^3/uL 0.02-0.10 09/30/2016 3:07pm 2016 3:59pm Neutrophils % (Manual) 68 % 39-79 09/30/2016 3:07pm 09/30/2016 4:07pm Band Neutrophils % 2 % 0-10 09/30/2016 3:07pm 09/30/2016 4:07pm Lymphocytes % (Manual) 10 % L 20-60 09/30/2016 3:07pm 09/30/2016 4:07pm Monocytes % (Manual) 18 % H 0-9 09/30/2016 3:07pm 09/30/2016 4:07pm Eosinophils % (Manual) 1 % 0-7 09/30/2016 3:07pm 09/30/2016 4:07pm Basophils % (Manual) 1 % 0-8 09/30/2016 3:07pm 09/30/2016 4:07pm Platelet Morphology Comment ADEQUATE 09/30/2016 3:07pm 09/30/2016 4 :07pm Red Blood Cell Morphology NORMAL 09/30/2016 3:07pm 09/30/2016 4: 07pm Volume Urine Centrifuged 12 ml 09/30/2016 3:07pm 09/30/2016 3:59pm Test based ON 12 ml volume. Urine Color STRAW STRAW 09/30/2016 3:07pm 09/30/2016 3:59pm Urine Clarity CLEAR CLEAR 09/30/2016 3:07pm 09/30/2016 3:59pm Urine Specific [place] 1.015 1.010-1.020 09/30/2016 3:07pm 2016 3:59pm Urine pH 5.5 5.0-6.0 09/30/2016 3:07pm 09/30/2016 3:59pm Urine Leukocyte Esterase NEGATIVE NEGATIVE 09/30/2016 3:07pm 2016 3:59pm Urine Nitrite NEGATIVE NEGATIVE 09/30/2016 3:07pm 09/30/2016 3:59pm Urine Protein NEGATIVE NEGATIVE 09/30/2016 3:07pm 09/30/2016 3:59pm Urine Glucose (UA) NEGATIVE NEGATIVE 09/30/2016 3:07pm 09/30/2016 3: 59pm Urine Ketones NEGATIVE NEGATIVE 09/30/2016 3:07pm 09/30/2016 3:59pm Urine Urobilinogen 0.2 0.2-1.0 09/30/2016 3:07pm 09/30/2016 3:59pm Urine Bilirubin NEGATIVE NEGATIVE 09/30/2016 3:07pm 09/30/2016 3: 59pm Urine Occult Blood NEGATIVE NEGATIVE 09/30/2016 3:07pm 09/30/2016 3: 59pm Urine WBC NONE #/HPF OCCASIONAL 09/30/2016 3:07pm 09/30/2016 3:59pm Urine RBC NONE #/HPF OCCASIONAL 09/30/2016 3:07pm 09/30/2016 3:59pm Urine Epithelial Cells NONE #/HPF OCCASIONAL 09/30/2016 3:07pm 2016 3:59pm Urine Other Casts NONE #/LPF NEGATIVE 09/30/2016 3:07pm 09/30/2016 3: 59pm Urine Bacteria NONE NONE 09/30/2016 3:07pm 09/30/2016 3:59pm Urine Other Crystals NONE NONE 09/30/2016 3:07pm 09/30/2016 3:59pm Urine Mucus NONE NONE 09/30/2016 3:07pm 09/30/2016 3:59pm Urine Culture Indicated NO NO 09/30/2016 3:07pm 09/30/2016 3:59pm Sodium Level 136 mmol/L L 137-145 09/30/2016 3:07pm 09/30/2016 4:12pm Potassium Level 3.9 mmol/L 3.5-5.1 09/30/2016 3:07pm 09/30/2016 4:12pm Carbon Dioxide Level 29.1 mmol/L 22-30 09/30/2016 3:07pm 09/30/2016 4: 12pm Anion Gap 12.8 mEq/L 8-16 09/30/2016 3:07pm 09/30/2016 4:12pm Blood Urea Nitrogen 12 mg/dL 9-20 09/30/2016 3:07pm 09/30/2016 4:12pm Creatinine 0.89 mg/dl 0.66-1.25 09/30/2016 3:07pm 09/30/2016 4:12pm Est Glomerular Filtrat Rate mL/min 81.44 09/30/2016 3:07pm 2016 4:12pm GFR NORMALS: Stage I: GFR >90 Stage II GFR 60-89 Stage III GFR 30-60 Stage IV: GFR 15-29 Stage V: GFR <15 Glucose Level 118 mg/dL H 74-106 09/30/2016 3:07pm 09/30/2016 4:12pm Calculated Osmolality 282.2 mosm/kg 273-304 09/30/2016 3:07pm 2016 4:12pm Calcium Level 8.1 mg/dL L 8.4-10.2 09/30/2016 3:07pm 09/30/2016 4:12pm Phosphorus Level 2.3 mg/dL L 2.5-4.5 09/30/2016 3:07pm 09/30/2016 4: 12pm Albumin 3.9 g/dL 3.4-5.5 09/30/2016 3:07pm 09/30/2016 4:12pm Procedures No known history of procedures. Encounters Encounter Location Arrival/Admit Date Discharge/Depart Date Attending Provider Departed Emergency Room [facility] 09/30/16 3:00pm 09/30/16 6: 15pm OCTAVIO PENNINGTON APRN Recent Diagnosis
--- OUTSIDE RECORDS SUMMARY | 2017-01-03 22:28 | XMS REPORT | Clinical Summary ---
Author Author Admin, FLORENTINO Organization [facility] [employer] Address Unknown Phone Unavailable Allergies, Adverse Reactions, Alerts Allergy Name Reaction Description Start Date Severity Status Provider Allergies Unknown Conditions or Problems Problem Name Problem Code Onset Date Status Entry Date Provider Comment Standard Description Annotate Urinary Retention Active Socorro Mckeon MD Retention of urine, unspecified [facility] Active Socorro Mckeon MD Hypertrophy ( benign) of prostate without urinary obstruction and other lower urinary tract ( LUTS) Medication List Medication Instructions Start Date Stop Date Generic Name NDC Status Provider Patient Instruction SOTALOL HCL (AF) 120 MG ORAL TABS 1 tab BID SOTALOL HCL AF 74847885389 Active Latoya Mcrae RN Active METOPROLOL TARTRATE 50 MG ORAL TABS 1 tab daily METOPROLOL TARTRATE 99826267833 Active Latoya Mcrae RN Active PLAVIX 75 MG ORAL TABS 1 tab daily CLOPIDOGREL BISULFATE 92731248030 Active Latoya Mcrae RN Active COUMADIN 5 MG ORAL TABS 1 tab daily WARFARIN SODIUM 81105630038 Active Latoya Mcrae RN Active POTASSIUM CHLORIDE ER 10 MEQ ORAL CR-CAPS 1 tab daily POTASSIUM CHLORIDE 87886982214 Active Latoya Mcrae RN Active METHIMAZOLE 10 MG ORAL TABS 2 tab daily METHIMAZOLE 95074545985 Active Latoya Mcrae RN Active ARANESP (ALBUMIN FREE) 25 MCG/0.42ML INJ SOSY every 2wks DARBEPOETIN [place] 22079653158 Active Latoya Mcrae RN Active ATORVASTATIN CALCIUM 80 MG ORAL TABS 1/2 tab at bedtime ATORVASTATIN CALCIUM 53359460548 Active Latoya Mcrae RN Active RANITIDINE HCL 150 MG ORAL CAPS 1 tab BID RANITIDINE HCL 43377867428 Active Latoya Mcrae RN Active [employer] STOOL SOFTENER 50 MG ORAL CAPS 1 tab daily DOCUSATE SODIUM 70135184009 Active Latoya Mcrae RN Active FUROSEMIDE 20 MG ORAL TABS 1 tab daily FUROSEMIDE 83550340099 Active Latoya Mcare RN Active DIGOXIN 125 MCG ORAL TABS dosage 0.125 mg 1 tab daily DIGOXIN 97437689562 Active Latoya Mcrae RN Active Advance Directives Directive Description Start Date PERMISSION TO SHARE Encounters Code Encounter Date Provider Facility [id number] Level 4 New Patient 17:34:30 HOT TAR ROOFER Socorro Mckeon MD [facility] Procedures Code Procedure Name Date Entry Date Standard Description [id number] Cystoscopy 17:34:30 HOT TAR ROOFER
--- OUTSIDE RECORDS SUMMARY | 2017-01-03 22:28 | XMS REPORT | Clinical Summary ---
Author Author Admin, FLORENTINO Organization 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 Socorro Mckeon MD Urinary obstruction, unspecified Gross hematuria 599.71 Active Socorro Mckeon MD Gross hematuria Medication List Medication Instructions Start Date Stop Date Generic Name NDC Status Provider Patient Instruction SOTALOL HCL (AF) 120 MG ORAL TABS 1 tab BID SOTALOL HCL AF 58807145938 Active Latoya Mcrae RN Active METOPROLOL TARTRATE 50 MG ORAL TABS 1 tab daily METOPROLOL TARTRATE 32572524381 Active Latoya Mcrae RN Active PLAVIX 75 MG ORAL TABS 1 tab daily CLOPIDOGREL BISULFATE 78851852236 Active Latoya Mcrae RN Active COUMADIN 5 MG ORAL TABS 1 tab daily WARFARIN SODIUM 56440298409 Active Latoya Mcrae RN Active POTASSIUM CHLORIDE ER 10 MEQ ORAL CR-CAPS 1 tab daily POTASSIUM CHLORIDE 70765152700 Active Latoya Mcrae RN Active METHIMAZOLE 10 MG ORAL TABS 2 tab daily METHIMAZOLE 67835651963 Active Latoya Mcrae RN Active ARANESP (ALBUMIN FREE) 25 MCG/0.42ML INJ SOSY every 2wks DARBEPOETIN [place] 20597119600 Manish Mcrae RN Active ATORVASTATIN CALCIUM 80 MG ORAL TABS 1/2 tab at bedtime ATORVASTATIN CALCIUM 19767877566 Active Latoya Mcrae RN Active RANITIDINE HCL 150 MG ORAL CAPS 1 tab BID RANITIDINE HCL 19461578907 Active Latoya Mcrae RN Active [employer]S STOOL SOFTENER 50 MG ORAL CAPS 1 tab daily DOCUSATE SODIUM 28682987267 Active Latoya Mcrae RN Active FUROSEMIDE 20 MG ORAL TABS 1 tab daily FUROSEMIDE 24989102937 Active Latoya Mcrae RN Active DIGOXIN 125 MCG ORAL TABS dosage 0.125 mg 1 tab daily DIGOXIN 38848905503 Active Latoya Mcrae RN Active Advance Directives Directive Description Start Date PERMISSION TO SHARE Encounters Code Encounter Date Provider Facility CPT-39241 Level 3 Est. 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
--- OUTSIDE RECORDS SUMMARY | 2017-01-03 22:28 | XMS REPORT | Clinical Summary ---
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
--- OUTSIDE RECORDS SUMMARY | 2017-01-03 22:28 | XMS REPORT | Clinical Summary ---
Author Author Admin, FLORENTINO Organization [facility] [employer] Address Unknown Phone Unavailable Allergies, Adverse Reactions, [...] TABS 1 tab BID SOTALOL HCL AF 22913852280 Active Latoya Mcrae RN Active METOPROLOL TARTRATE 50 MG ORAL TABS 1 tab daily METOPROLOL TARTRATE 50862773778 Active Latoya Mcrae RN Active PLAVIX 75 MG ORAL TABS 1 tab daily CLOPIDOGREL BISULFATE 52876751482 Active Latoya Mcrae RN Active COUMADIN 5 MG ORAL TABS 1 tab daily WARFARIN SODIUM 60811984311 Active Latoya Mcrae RN Active POTASSIUM CHLORIDE ER 10 MEQ ORAL CR-CAPS 1 tab daily POTASSIUM CHLORIDE 46654243303 Active Latoya Mcrae RN Active METHIMAZOLE 10 MG ORAL TABS 2 tab daily METHIMAZOLE 61423822744 Active Latoya Mcrae RN Active ARANESP (ALBUMIN FREE) 25 MCG/0.42ML INJ SOSY every 2wks DARBEPOETIN [place] 33944162031 Manish Mcrae RN Active ATORVASTATIN CALCIUM 80 MG ORAL TABS 1/2 tab at bedtime ATORVASTATIN CALCIUM 78240535720 Active Latoya Mcrae RN Active RANITIDINE HCL 150 MG ORAL CAPS 1 tab BID RANITIDINE HCL 64131233222 Active Latoya Mcrae RN Active [employer]S STOOL SOFTENER 50 MG ORAL CAPS 1 tab daily DOCUSATE SODIUM 52669750445 Active Latoya Mcrae RN Active FUROSEMIDE 20 MG ORAL TABS 1 tab daily FUROSEMIDE 06540280988 Active Latoya Mcrae RN Active DIGOXIN 125 MCG ORAL TABS dosage 0.125 mg 1 tab daily DIGOXIN 91735748877 Active Latoya Mcrae RN Active Advance Directives Directive Description Start Date PERMISSION TO SHARE Encounters Code Encounter Date Provider Facility CPT-89669 Level 3 Est. 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
--- OUTSIDE RECORDS SUMMARY | 2017-01-03 22:29 | XMS REPORT | Continuity of Care Document ---
Author Author [facility] Organization [facility] Address [address] [place] [address] Phone Unavailable Care Team Providers Care Fence Post Cutter Name Role Phone VIVIANA TABOR MD PCP tel: Insurance Providers Payer Name Policy Number Subscriber Name Relationship Self Pay Advance Directives Directive Response Recorded Date/Time Advance Directives No 09/30/16 3:06pm Durable POA for HC No 11/05/16 1:43pm Power of Sock Examiner No 11/05/16 1:43pm Organ Donor Yes 11/05/16 1:43pm Living Will No 11/05/16 1:43pm Chief Complaint and Reason for Visit Chief Complaint Male Urogenital Problems Reason for Visit Hematuria Problems Active Problems Medical Problem Onset Date Status Aortic aneurysm Unknown Acute Atherosclerosis of abdominal aorta Unknown Acute 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 No 11/05/2016 10:36am Do you dip or chew tobacco? No 11/05/2016 10:36am Approx how many cigs per day? 0 11/05/2016 10:36am Level of Dependence Low 11/05/2016 10:36am Former smoker, last day smoked? QUIT 27 YEARS AGO 11/05/2016 10:36am Query Response Start Date Stop Date Smoking Status Former smoker Hospital Discharge Instructions No hospital discharge instructions. Plan of Care Discharge Date 11/05/16 12:27pm Disposition 01 D/C HOME Condition at Discharge Stable Instructions/Education Provided Hematuria (ED) Forms Provided ER Discharge Phone Call Check Prescriptions See Medication Section Referrals VIVIANA TAOBR MD - Additional Instructions/Education DO NOT TAKE COUMADIN TONIGHT. Drink plenty of water. Monitor urine output, keep bag dependent to help improve drainage. Follow up with Dr. Tabor today after discharge at 220PM. Call Dr. Grimes office tomorrow in regards on how to take coumadin. Return if worsening symptoms. Reference Links hematuria Functional Status Query Response Date Recorded Activities of Daily Living Performs w/o Assistance November 05, 2016 10:37am Cognitive Function Intact November 05, 2016 10:37am Allergies, Adverse Reactions, Alerts No known allergies. Immunizations No immunization records. Vital Signs Acute Vital Signs Vital Response Date/Time Temperature (Fahrenheit) 97.0 degrees F (97.6 - 99.5) 11/05/2016 12:25pm Temperature (Calculated Celsius) 36.79034 degrees C (36.4 - 37.5) 11/05/2016 12:25pm Temperature Source Temporal Artery Scan 11/05/2016 12:25pm Pulse Pulse Ox Pulse Rate (adult) 69 beats per minute (60 - 90) 11/05/2016 12:25pm Pulse Location Modifier Right 11/05/2016 12:25pm Oxygen Saturation Respiratory Rate 16 breaths per minute (12 - 24) 11/05/2016 12:25pm O2 Sat by Pulse Oximetry 98 % (90 - 100) 11/05/2016 12:25pm Blood Pressure 92/46 mm Hg 11/05/2016 12:25pm Blood Pressure Mean 61 mm Hg 11/05/2016 12:25pm Height 5 ft 10 in Weight 130 lb Body Mass Index 18.7 kg/m^2 Results Laboratory Results Test Name Result [...] CLEAR 09/30/2016 3:07pm 09/30/2016 3:59pm Urine Specific [place] 1.015 1.010-1.020 09/30/2016 3:07pm 2016 3:59pm Urine [...] 09/30/2016 4:12pm Carbon Dioxide Level 29.1 mmol/L 22-09/30/2016 3:07pm 09/30/2016 4: 12pm Anion Gap 12.8 mEq/L 8-16 09/30/2016 3:07pm 09/30/2016 4:12pm Blood Urea Nitrogen 12 mg/dL 9-09/30/2016 3:07pm 09/30/2016 4:12pm Creatinine 0.89 mg/dl 0.66-1.25 [...] 3.9 g/dL 3.4-5.5 09/30/2016 3:07pm 09/30/2016 4:12pm Pending Laboratory Results Test Name Collection Date/Time Procedures Procedure Status Date Provider(s) EMERGENCY DEPT VISIT Completed 09/30/16 Encounters Encounter Location Arrival/Admit Date Discharge/Depart Date Attending Provider Departed Emergency Room [facility] 11/05/16 10:28am 11/05/16 12: 27pm ERROL ORTIZ APRN Departed Emergency Room [facility] 09/30/16 3:00pm 09/30/16 6: 15pm OCTAVIO PENNINGTON APRN Recent Diagnosis
--- OUTSIDE RECORDS SUMMARY | 2017-01-03 22:29 | XMS REPORT | Continuity of Care Document ---
Author Author [facility] Organization [facility] Address Unknown Phone Unavailable Allergies Active Description Code Type Severity Reaction Onset Reported/Identified Relationship to Patient Clinical Status Yes No known allergies Drug N/A N/A Medications Problems Procedures Results Encounters ACCT No. Visit Date/Time Discharge Status Pt. Type Provider Facility Loc./Unit Complaint [id number] 11/06/2016 10:55:26 2016 11:20:00 DIS Inpatient JOSE TABOR [facility] MADELIN MS gross hematuria [id number] 11/05/2016 14:26:52 2016 10:55:00 DIS V JOSE TABOR [facility] MADELIN OBS gross hematuria [id number] 12/31/2016 14:39:09 Document Registration [id number] 11/14/2016 08:59:40 PEN Preadmit JOSE TABOR [facility] MADELIN Surgery greenlight TURP
--- OUTSIDE RECORDS SUMMARY | 2017-01-03 22:29 | XMS REPORT | Clinical Summary ---
Author Author Admin, Emilee Organization [facility] [employer] Address Unknown Phone Unavailable Allergies, Adverse Reactions, Alerts Allergy Name Reaction Description Start Date Severity Status Provider No Known Allergies Latoya Mcrae RN Conditions or Problems Problem Name Problem Code [...] TABS 1 tab BID SOTALOL HCL AF 78817949863 Active Latoya Mcrae RN Active METOPROLOL TARTRATE 50 MG ORAL TABS 1 tab daily METOPROLOL TARTRATE 12282826393 Active Latoya Mcrae RN Active PLAVIX 75 MG ORAL TABS 1 tab daily CLOPIDOGREL BISULFATE 43211464591 Active Latoya Mcrae RN Active COUMADIN 5 MG ORAL TABS 1 tab daily WARFARIN SODIUM 78603562529 Active Latoya Mcrae RN Active POTASSIUM CHLORIDE ER 10 MEQ ORAL CR-CAPS 1 tab daily POTASSIUM CHLORIDE 65667743487 Active Latoya Mcrae RN Active METHIMAZOLE 10 MG ORAL TABS 2 tab daily METHIMAZOLE 88839927765 Active Latoya Mcrae RN Active ARANESP (ALBUMIN FREE) 25 MCG/0.42ML INJ SOSY every 2wks DARBEPOETIN [place] 52055793866 Active Latoya Mcrae RN Active ATORVASTATIN CALCIUM 80 MG ORAL TABS 1/2 tab at bedtime ATORVASTATIN CALCIUM 45779642241 Active Latoya Mcrae RN Active RANITIDINE HCL 150 MG ORAL CAPS 1 tab BID RANITIDINE HCL 45442051947 Active Latoya Mcrae RN Active [employer]S STOOL SOFTENER 50 MG ORAL CAPS 1 tab daily DOCUSATE SODIUM 67192937490 Active Latoya Mcrae RN Active FUROSEMIDE 20 MG ORAL TABS 1 tab daily FUROSEMIDE 29524215497 Active Latoya Mcrae RN Active DIGOXIN 125 MCG ORAL TABS dosage 0.125 mg 1 tab daily DIGOXIN 91190229454 Active Latoya Mcrae RN Active Advance Directives Directive Description Start Date PERMISSION TO SHARE Vital Signs Date Name Value Unit Range Description blood pressure, diastolic - 8462-4 58 mm[Hg] BP fle[place] blood pressure, systolic - 8480-6 102 mm[Hg] BP sys height E&M - 8302-2 70 [in_us] Bdy height pulse rate E&M - 8867-4 71 /min Heart rate temperature E&M 98.0 [degF] Body temperature weight E&M - 3141-9 129 [lb_av] Weight Measured Encounters Code Encounter Date Provider Facility CPT-66499 Level 3 Est. 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
== END 2016-12-18 11:45 | disposition home or self-care (01) | DRG 56 ==
LOC: ENPENDDIS 12-18 12:00
PROVIDERS: ADMIT Physical Medicine & Rehabilitation; ATTEND Physical Medicine & Rehabilitation
PROC: 0DJ08ZZ Inspection of Upper Intestinal Tract, Via Natural or Artificial Opening Endoscopic (ICD-10-PCS; principal; 2016-12-10 07:00)
PROC: 0DJD8ZZ Inspection of Lower Intestinal Tract, Via Natural or Artificial Opening Endoscopic (ICD-10-PCS; 2016-12-10 07:00)
DX: I69.351 Hemiplegia and hemiparesis following cerebral infarction affecting right dominant side (principal); I69.392 Facial weakness following cerebral infarction; I69.320 Aphasia following cerebral infarction; R13.12 Dysphagia, oropharyngeal phase; K29.61 Other gastritis with bleeding; I25.10 Atherosclerotic heart disease of native coronary artery without angina pectoris; I48.91 Unspecified atrial fibrillation; I50.9 Heart failure, unspecified; D46.9 Myelodysplastic syndrome, unspecified; N40.1 Benign prostatic hyperplasia with lower urinary tract symptoms; R33.9 Retention of urine, unspecified; D50.0 Iron deficiency anemia secondary to blood loss (chronic); E03.9 Hypothyroidism, unspecified; D53.9 Nutritional anemia, unspecified; K57.30 Diverticulosis of large intestine without perforation or abscess without bleeding; I73.9 Peripheral vascular disease, unspecified; Z95.1 Presence of aortocoronary bypass graft; Z93.1 Gastrostomy status; Z85.21 Personal history of malignant neoplasm of larynx; Z79.01 Long term (current) use of anticoagulants; Z95.2 Presence of prosthetic heart valve; Z95.810 Presence of automatic (implantable) cardiac defibrillator
CPT/HCPCS: 36415; 71020; 74230; 80048; 80053; 82274; 82962; 83880; 85007; 85014; 85018; 85025; 85027; 85045; 85610; 86850; 86900; 86901; 86920; 93306